=== PATIENT | female | born 1985 | race Caucasian/White ===

== ENCOUNTER → 2018-04-06 14:15 | Outpatient (CLI) | payer MEDICAID, SELFPAY ==
[2018-04-06 17:55] LABS: Chlamydia Trachomatis by PCR Negative (Negative); Neisserai gonorrhoeae by PCR Negative (Negative); Probe Check PASS; Sample Adequacy Control PASS; Specimen Processing Control PASS
[2018-04-13 10:08] LABS: HPV APTIMA, High Risk Negative (Negative)
[2018-04-13 10:09] LABS: HPV Reflexed? NOT INDICATED
== END ==
PROVIDERS: Visit Provider Obstetrics & Gynecology
DX: Z12.4 Encounter for screening for malignant neoplasm of cervix (principal); Z11.3 Encounter for screening for infections with a predominantly sexual mode of transmission
CPT/HCPCS: 87491; 87591; 88175; G0145

== ENCOUNTER 2018-04-23 08:52 | Day surgery (SDC) | payer MEDICAID, SELFPAY ==
[2018-04-18 16:00] LABS: AST(SGOT) 17 U/L (15-37); Alanine Aminotransfer ALT/SGPT 23 U/L (13-56); Albumin, Serum 3.7 g/dL (3.2-5.0); Alkaline Phosphatase 56 U/L (45-117); Globulin 3.9 g/dL (2.2-4.2); Protein, Total 7.6 g/dL (6.4-8.2)
[2018-04-18 16:04] LABS: Hematocrit 39.3 % (37-47); Hemoglobin 12.8 g/dl (12.0-15.0); Mean Corp Hgb Conc 32.6 g/gl (32-36); Mean Corpuscular Hgb 31.1 pg (27.0-32.0); Mean Corpuscular Volume 95.6 fL (81-99); Mean Platelet Vol. 10.1 fl (6.2-12.0); Platelet Count 349 K/mm3 (150-450); Prothrombin Time (Protime)PT. 13.2 SECONDS (11.7-14.9); RBC Distribution Width CV 12.9 % (11.6-14.6); RBC Distribution Width SD 45.5 fl (35.1-43.9); Red Blood Count 4.11 M/mm3 (4.2-5.4); White Blood Count 7.3 K/mm3 (4.4-11.0)
[2018-04-18 16:05] LABS: Partial Thromboplast Time 34.6 Seconds (24.1-36.2)
[2018-04-18 17:11] LABS: Scan Indicated on CBC? Y/N NO
--- NOTE | 2018-04-22 20:22 | PCM.HP.BLA ---
History and Physical Date of Admission: 04/23/18 Surgical History and Physical Clara Cortez, a 32 year old female 3 0 0 0 3, presents for Dx L/S, H/S, D and C and Robbi salpingectomy on April 23, 2018 at 7:30. -- Heavy Menses; Pelvic Pain; Dyspareunia -- Irregular Bleeding which began 6 weeks with 3 periods. Clara claims it started gradually and has been present 6 weeks. It occurs all the time. It is located in the vagina.; It is located in the lower abdomen. Clara characterizes the quality cramping, heavy bleeding. Severity is moderate and not improving; Associated signs and symptoms are dyspareunia; Associated signs and symptoms are pelvic pain. MEDICATIONS HISTORY: Current medications prescribed by our practice are: 1. Flagyl 500 mg tablet, One pill by mouth twice a day for 7 days Patient is also takin. Ibuprofen, PRN 2. tylenol PRN 3. gabapentin 600 mg tablet, 900mg bid and 300mg bid ALLERGIES: NKA, Abilify, Change in behavior, Depakote and Weight gain Infections - Chicken pox Illnesses - Migraines, Fibromyalgia, Accidents - no injuries of consequence Hospitalizations - Childbirth Review of Systems: GENERAL - Denies fever, or chills SKIN - Denies skin changes EYES - Denies visual changes EARS - Denies difficulty hearing NOSE - Denies nasal congestion or bleeding MOUTH - Denies sore throat or difficulty swallowing NECK - Denies pain or swelling RESPIRATORY - Denies shortness of breath or wheezing CARDIOVASCULAR - Denies palpitations or chest pain GASTROINTESTINAL - Denies nausea, vomiting, diarrhea, constipation GENITOURINARY - Denies dysuria, frequency of urination, incontinence of urine MUSCULOSKELETAL - Denies joint or muscle pain NEUROLOGICAL - Denies localized numbness or weakness PSYCHIATRIC - Denies depression or anxiety ENDOCRINE - Denies heat or cold intolerance, weight loss or gain HEMATO-IMMUNOLOGIC - Denies excesive bleeding with cuts SOCIAL HISTORY: Alcohol Use - drinks occasionally Smoking - smokes 1/2 pack per day, advised to quit Diet - no special diet Lifestyle - active lifestyle and single Exercise - minimal Seat Belt Use - always Employer - Unemployed Illicit Drug Use - denies use of street drugs Sexual Activity - multiple in past, single sexual partner at this time Hours Worked - 40 hours per week Children Name(s) - QUAN ARCE Mercedes Control - Prior Tubal FAMILY HISTORY: Family history of DM II and Heart Disease. MENSTRUAL HISTORY: LMP Known?- DefiniteAmount/Duration - 5-7 days, Regularity - Irregular, Frequency - monthly days, LMP - 04/04/18, Age Onset Menarche - 10 PAST PREGNANCIES: Total Pregnancies - 3; Full Term Pregnancies - 3; Premature - 0; Abortions, Induced - 0; Abortions, Spontaneous - 0; Ectopics - 0; Multiple Births - 0; Living Children - 3 SURGICAL HISTORY: 1. 2014 (R) Carpel Tunnel 2. 2016 (R) Shoulder Surgery 3. Tubal 2006 PHYSICAL EXAM BP- 114/78 Sitting, Right arm, regular cuff Weight- 201.96180 lbs Height- 67.25 inch BMI:31.31 CONSTITUTIONAL - NAD, well nourished, and well developed and purple hair; ubiquitous piercings SKIN - No rash, lesions, or ulcers HEENT - Normocephalic, PERRLA, EOMI NECK - No nodes, no nuchal rigidity and thyroid normal size and texture LYMPH NODES - Palpation of lymph nodes in neck and groins within normal limits LUNGS - CTA x2 without wheezes, crackles or rales CARDIAC - Regular rate and rhythm without rubs, murmurs, or gallops ABDOMEN - Without hepatosplenomegaly, distention, masses, rebound, or guarding; normal bowel sounds; no hernias EXTREMITIES - No edema or calf tenderness NEUROLOGICAL - Cranial nerves II-XII grossly intact PSYCHIATRIC - A and O to time, place, person, mood and affect External Genitial Vagina - non-tender without lesions Urethra/Urethral Meatus - non-tender Bladder - mild tenderness over trigone Vagina - vaginal rosado are pink and moist without loss of rugae and no evidence of atropy and blood in vagina Cervix - without cervical motion tenderness and has normal size and features without evident lesions Uterus - multiparous size 6 cm & wt 75-125 g Adnexa - clear without masses or tenderness and increased tenderness both adnexa ASSESSMENT/PLAN: 1. Abnormal Uterine Bleeding, Unspec, Dysmenorrhea, Dyspareunia, Pelvic Pain and Unspec Suspicious for endometriosis given time course and worsening nature. Discussed options and will proceed with Dx L/S and H/S and D and C and Bilateral Salpingectomy. Discussed RBAs and all questions answered.
[2018-04-23] VITALS (7 sets, daily range): BP systolic 107–125; BP diastolic 68–84; PULSE 54–81; RESP 16–18; TEMP 36.3–36.8; O2SAT 92–100; BMI 31.7
--- NOTE | 2018-04-23 10:05 | OP.PCM_ITS ---
Operative Report Date of Procedure: 04/23/18 Surgeon: Tonio Oleary MD, FACOG Family Services Manager: PAPITO Courtney Anesthesia: Beverly Loza CRNA Type of Anesthesia: General Endotracheal Pre-Op Diagnosis: Irregular Menstrual Cycles, Pelvic Pain Postoperative diagnosis: Irregular Menstrual Cycles, Pelvic Pain, Adhesions, Right Hydrosalpinx Procedure: Diagnostic Hysteroscopy, D&C, Bilateral Salpingectomy, RightOophrectomy, Lysis of Adhesions Findings: 8 cm uterus with fallopian tubes showing evidence of prior tubal ligation. 2 x 4 cm right hydrosalpinx. Cystic right ovary. Left fallopian tube adhered to rectosigmoid and rectosigmoid adhered to left pelvic sidewall. Normal left ovary. Normal 8 cm endometrial cavity with no polyps or fibroids visualized. [place] endometrium. No evidence of endometriosis visualized except for adhesions. Cervix protruded to within 2 cm of the vaginal introitus with tenaculum pulldown which should make laparoscopic-assisted vaginal hysterectomy feasible if this were ever needed. Indications: This is a 32 year old patient who has the above diagnosis. When she has pelvic pain it is more prominent on the right than on the left. She understands that there is no guarantee that this procedure will relieve her of the pain that she has been having. All questions were answered to reconsider the patient well-informed. Procedure: The patient was taken to the operating room where after induction of general anesthesia, she was placed in the dorsolithotomy position and prepped and draped in the usual sterile fashion. The bladder was drained of approximately 50 cc of clear yellow urine with a catheter. Anterior cervix was grasped with a tenaculum and dilated to about 4-5 mm. A 3 mm hysteroscope was placed in the uterus of the above findings were noted. Cervix was dilated to about 7-8 mm and uterus was gently curetted removing all contents. In the course of the procedure approximately 100 cc of saline distending media was used and virtually all of this was recovered. Conn cannula was placed and attention was turned toward the laparoscopic portion of the procedure. Approximately 22 cc of half percent ropivacaine was injected subumbilically, suprapubically, and midway between. A 5 mm bladeless trocar was placed subumbilically and intraperitoneal placement confirmed. After CO2 insufflation was complete, a 5 mm bladeless trocar was introduced suprapubically. The above findings were noted. A 5 mm bladeless port was then placed midway between these 2 ports. Each fallopian tube was identified to its fimbriated end and an Enseal device was used to divide the mesosalpinx of each fallopian tube ligating adhesions both sharply and bluntly. The right infundibulopelvic ligaments were ligated as well with the Enseal device and ovary removed with gallstone graspers through a suprapubic 10/12-millimeter bladeless trocar port. The peritoneal cavity and upper abdomen were examined and noted to be normal. Photographs were taken. Laparoscopic instruments with as much CO2 gas as possible were removed and incisions were closed with interrupted 4-0 Monocryl suture. Steri-Strips placed across the incisions. Patient tolerated procedure well was taken to recovery room in satisfactory condition sponge instrument and needle counts were all reportedly correct. Estimated blood loss for the case was minimal. Cefotan 2 g IV was given prior to beginning the operative procedure. Specimens to pathology was endometrial curettings, bilateral fallopian tubes, a nd right ovary.
--- NOTE | 2018-04-23 10:06 | DCINST_ITS ---
Discharge Diet: No Restrictions - Increase fluid intake for the next 48 hours. Discharge Activity: Return to Normal Activity, May not drive while taking narcotic pain medications., May Shower, May Take a Tub Bath May resume sexual activity in: 2 weeks Lifting Restrictions: 25 pounds for 2 weeks Additional Activity Instructions:: Ambulate often the next week after surgery. Nothing in the vagina for 5 days. Call your doctor if your incision/area has: Continuous Slow Oozing, Sudden Increased Bleeding, Increased Pain/ Swelling, Increased Redness, Foul Smelling Discharge Call your doctor if you observe: Fever of 101 or Higher, Inability to urinate, Inability to have a bowel movement, Using more than one pad per hour Allergies/Adverse Reactions: Allergies aripiprazole [From Abili8eighty Wear] Adverse Reaction (Verified 04/16/18 13:08) VERY ANGRY Medications to take at Discharge Gabapentin [Neurontin] 300 mg PO LUNCH 11/24/16 Gabapentin [Neurontin] 900 mg PO BID 11/24/16 Oxycodone [Oxyir] 5 mg PO Q6H PRN PRN 7 Days #10 tab 04/23/18 The following prescriptions were given: Oxycodone [Oxyir] 5 mg PO Q6H PRN PRN 7 Days #10 tab PRN Reason: Severe Pain (-05/02) Primary Care Physician: Luan Lawrence III, MD [Primary Care Provider] - Test Results: Test results from this visit will be discussed in further detail at your follow- up appointment, if applicable. Please Follow Up With: Tonio Oleary MD - [phone] When: 2-3 weeks
--- NOTE | 2018-04-23 10:35 | EMB_PTH ---
PATIENT: GEOVANNA CHRISTINA LOC: [facility] U#:[id number] AGE/SX: 32/F ROOM: RE04/23/[address]: Dr. Tonio Oleary MD : [id number] BED: DIS: 04/23/2018 SPEC #: [id number] RECD: 04/23/18 12:36 STATUS: ASHLI REAle #: [id number] JOSLYN: 04/23/18 10:[address]: Tonio Oleary DEPT: SURGICAL PATHOLOGY RECD BY: Rick Perez ENTERED: 04/23/18 13:00 SP TYPE: ENDOM BX/C [place] DR: Dr. Luan Lawrence III, MD Tissues: A - Endometrium, NOS B - Fallopian tube C - Fallopian tube Procedures: Surgery Specimen Level II Surgery Specimen Level IV HEADER OPERATION: Diagnostic laparoscopy, laparoscopic right salpingo-oophorectomy PRE-OP DIAGNOSIS: Pelvic pain TISSUE SUBMITTED: A - Endometrial curettings, B - Left fallopian tube, C - Right fallopian tube and ovary MICROSCOPIC DIAGNOSIS A. Endometrial curettings: Disordered proliferative endometrium. Mild chronic endometritis. B. Left fallopian tube, salpingectomy: Fallopian tube with focal mild chronic inflammation. C. Right fallopian tube and ovary: Fallopian tube - no pathologic diagnosis. Ovary - physiologic follicular and corpus luteum cysts. SJ:randy 04/24/18 MICROSCOPIC DESCRIPTION Slides are reviewed. GROSS DESCRIPTION A - Received in fixative is one container labeled with the patient's name and designated endometrial curettings. The specimen consists of multiple irregular fragments of owens-pink soft tissue that in aggregate measure 5 x 3 x 0.3 cm. The entire specimen is submitted in two cassettes. B - Received in fixative is one container labeled with the patient's name and designated left fallopian tube. The specimen consists of a fallopian tube including fimbrial end measuring 4 cm in length and up to 0.5 cm in diameter. A detached fragment of fallopian tube is also noted measuring 1 cm in length and 0.6 cm in diameter. Sections do not reveal any mass lesion. Quality Assurance Coach sections are submitted in one cassette. C - Received in fixative is one container labeled with the patient's name and designated right fallopian tube and ovary. The specimen consists of a fallopian tube and ovary. The fallopian tube measures 4 cm in length and up to 0.6 cm in diameter. The fimbrial end is identified. Sections reveal unremarkable cut surfaces. Also present in the container is a detached piece of owens soft tissue measuring 0.5 x 0.5 x 0.2 cm. This piece is inked black. Also present in the container is an ovary in two pieces measuring in aggregate 4 x 3 x 2 cm. Sections reveal a corpus luteum which is disrupted partially. A few cysts are also noted filled with clear fluid. Quality Assurance Coach sections are submitted in four cassettes as follows: 1 - fallopian tube and detached piece of owens-pink soft tissue, 2-4 - ovary. / SJ:randy 04/23/18 TC:3 CPT: 65744 x3
[2018-04-23] MEDS: Ropivacaine 0.5% 30 ML Vial (11:03)
[2018-04-23] MEDS: oxyCODONE 5 MG Tablet PO (12:53)
== END 2018-04-23 13:35 | disposition home or self-care (01) ==
LOC: SDC 08:53 → AC 08:54
PROVIDERS: Family Provider Family Medicine; PCP Family Medicine; Referring Provider Obstetrics & Gynecology; Visit Provider Obstetrics & Gynecology
PROC: (CPT 58661; principal; 2018-04-23 10:20)
PROC: 0UDB8ZZ Extraction of Endometrium, Via Natural or Artificial Opening Endoscopic (ICD-10-PCS; CPT 58558; 2018-04-23 10:20)
DX: N94.6 Dysmenorrhea, unspecified (principal); N70.11 Chronic salpingitis; N71.1 Chronic inflammatory disease of uterus; N94.10 Unspecified dyspareunia; N83.11 Corpus luteum cyst of right ovary; M79.7 Fibromyalgia; R10.2 Pelvic and perineal pain; N93.9 Abnormal uterine and vaginal bleeding, unspecified; F17.210 Nicotine dependence, cigarettes, uncomplicated; Z98.51 Tubal ligation status
CPT/HCPCS: 00840; 58661; 36415; 80076; 85027; 85610; 85730; 86850; 86900; 88302; 88305; J7120; C1760; J2405

== ENCOUNTER 2018-07-11 18:33 | Emergency (ER) | payer MEDICAID, SELFPAY ==
[2018-07-11 18:34] VITALS: BP 134/86; PULSE 95; RESP 16; TEMP 36.3; O2SAT 100; BMI 31.7
--- NOTE | 2018-07-11 18:45 | RAD_ITS ---
STUDY: X-RAY - LEFT FOOT CLINICAL: Female, 33 years old. Trauma to fourth digit TECHNIQUE: 3 view(s) of the foot. COMPARISON: None. FINDINGS: Normal talus, calcaneus, and tarsal bones. Normal visualized subtalar, talonavicular, calcaneocuboid, tarsal and tarsometatarsal articulations. Normal metatarsi. Normal metatarsophalangeal joint of the great toe. Normal tibial and fibular sesamoid bones. Normal interphalangeal joint of the great toe. Normal phalanges of the great toe. Normal second through fifth metatarsophalangeal joints. Normal interphalangeal joints and phalanges of the lesser toes. The soft tissue structures are unremarkable. RAD/Foot min 3 Views IMPRESSION: Normal x-ray examination of the foot. Electronically Signed: Yogi Dickey MD at 19:21 EST , Service support ,
[2018-07-11 19:42] VITALS: BP 133/101; PULSE 82; RESP 17; O2SAT 97
--- NOTE | 2018-07-11 20:53 | DCINST.ED_ITS ---
ED Disposition - Plan for ED Patient: Chief Complaint: Lower Extremity Injury Instructions: ED Contusion Foot Prescriptions: Hydrocodone Bitart/Apap 5-325 [[place] 5MG-325MG] 1 tablet PO Q6H PRN PRN 3 Days #6 tablet PRN Reason: Pain Referrals: Luan Lawrence III, MD [Primary Care Provider] -
--- NOTE | 2018-07-11 20:55 | ED.VISSUMM ---
- ER Visit Summary Date of Service: 07/11/18 Chief Complaint: Left foot pain History of Present Illness: The patient is a 33 F presenting with left foot pain. Patient states last night she accidentally ran her left foot into a vacuum bakeshop cleaner. She has had persistent pain since that time. She has tried ibuprofen at home. She has painful ambulation. She denies other complaints. Physical Examination: Vitals are stable. Patient is afebrile. Alert no acute distress. HEENT exam is unremarkable. Neck is supple. Lungs are clear and equal bilaterally. Heart is regular rate and rhythm. Extremities left midfoot and fourth toe ecchymosis and tenderness, normal pulses. Skin is warm and dry. No focal neurologic deficit. Remainder of exam is unremarkable. Emergency Department Course and Treatment: X-ray of the left foot shows no acute process. Patient given postop shoe. She declined crutches. She is advised to continue ibuprofen, ice, elevation. She is given Ronan #6. She is advised to follow-up with primary care physician. Advised return to ED with worsening complaints. Disposition: Discharge home Impression: Left foot contusion This note was generated with [employer] dictation software. It may contain incorrect words, spelling, and punctuation that were not noted in review of the chart prior to signing ED Disposition - Plan for ED Patient: Chief Complaint: Lower Extremity Injury Instructions: ED Contusion Foot Prescriptions: Hydrocodone Bitart/Apap 5-325 [Ronan 5MG-325MG] 1 tablet PO Q6H PRN PRN 3 Days #6 tablet PRN Reason: Pain Referrals: Luan Lawrence III, MD [Primary Care Provider] -
--- NOTE | 2018-07-11 20:58 | ED.DCSUM_ITS ---
- ER Visit Summary Date of Service: 07/11/18 Chief Complaint: Left foot pain History of Present Illness: The patient is a 33 F presenting with left foot pain. Patient states last night she accidentally ran her left foot into a vacuum ware cleaner. She has had persistent pain since that time. She has tried ibu profen at home. She has painful ambulation. She denies other complaints. Physical Examination: Vitals are stable. Patient is afebrile. Alert no acute distress. HEENT exam is unremarkable. Neck is supple. Lungs are clear and equal bilaterally. Heart is regular rate and rhythm. Extremities left midfoot and fourth toe ecchymosis and tenderness, normal pulses. Skin is warm and dry. No focal neurologic deficit. Remainder of exam is unremarkable. Emergency Department Course and Treatment: X-ray of the left foot shows no acute process. Patient given postop shoe. She declined crutches. She is advised to continue ibuprofen, ice, elevation. She is given Crump #6. She is advised to follow-up with primary care physician. Advised return to ED with worsening complaints. Disposition: Discharge home Impression: Left foot contusion This note was generated with [employer] dictation software. It may contain incorrect words, spelling, and punctuation that were not noted in review of the chart prior to signing ED Disposition - Plan for ED Patient: Chief Complaint: Lower Extremity Injury Instructions: ED Contusion Foot Prescriptions: Hydrocodone Bitart/Apap 5-325 [[place] 5MG-325MG] 1 tablet PO Q6H PRN PRN 3 Days #6 tablet PRN Reason: Pain Referrals: Luan Lawrence III, MD [Primary Care Provider] -
== END 2018-07-11 21:21 | disposition home or self-care (01) ==
LOC: ED 21:01
PROVIDERS: Emergency Provider Emergency Medicine; Family Provider Family Medicine; PCP Family Medicine
DX: S90.32XA Contusion of left foot, initial encounter (principal); W22.8XXA Striking against or struck by other objects, initial encounter; Y93.9 Activity, unspecified; Y92.89 Other specified places as the place of occurrence of the external cause; Y99.8 Other external cause status; M79.7 Fibromyalgia; Z72.0 Tobacco use
CPT/HCPCS: 73630; 99283

== ENCOUNTER 2020-03-04 14:49 | Emergency (ER) | payer MEDICAID, SELFPAY ==
[2020-03-02 13:38] VITALS: BMI 31.7
[2020-03-04 14:50] VITALS: BP 130/90; PULSE 98; RESP 16; TEMP 37.1; O2SAT 98; BMI 32.5
--- NOTE | 2020-03-04 15:09 | ED.VIS.GEN ---
History of Present Illness Chief Complaint: Laceration Informant: Patient Narrative: Patient is a 34-year-old female with a history of anxiety/depression who presents to the emergency department for laceration to left pinky finger. 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 She just put a new razor in. Whenever she cut the box it slipped off and hit her left pinky finger. She states that there was blood that squirted out. She immediately put multiple Band-Aids on it. The fingertip has started to feel numb to her. She has having pain at the laceration site though. Upon arrival to the ED bleeding has been controlled. She is not on any anticoagulation medications. She denies any other injury. Laceration is 1.1 cm long and linear. She is able to move the finger without difficulty. Patient is not sure the last time she had a tetanus shot. Past Medical History - Allergies and Home Meds Allergies/Adverse Reactions: Allergies aripiprazole [From Abilify] Adverse Reaction (Verified 03/04/20 14:50) VERY ANGRY Primary Care Physician: Luan Lawrence III, MD [Primary Care Provider] - 7 Days for suture removal Prior records reviewed: Yes Past Medical History: - - Anxiety/depression Smoking Status: Current every day smoker Drugs: None Review of Systems All systems negative except as indicated General: Denies: Chills, Fever Eyes: Denies: Visual changes - bilaterally Cardiovascular: Denies: Chest pain Respiratory: Denies: Dyspnea Gastrointestinal: Denies: Abdominal pain Musculoskeletal: Reports: Extremity Pain. Denies: Neck pain, Back pain, Swelling Skin: Reports: Wounds Neurological: Reports: Numbness - Tip of left pinky. Denies: Weakness Hematologic: Denies: Easy bruising, Easy bleeding Physical Exam Vital Signs/Narrative: Vital Signs Temp Pulse Resp BP Pulse Ox 03/04/20 14:50 98.7 F 98 16 130/90 H 98 Inital Vital Signs reviewed: Yes General: Well nourished, No Acute Distress Head: Normocephalic, Atraumatic Eyes: Perrl, EOMI ENT: Moist mucous membranes Neck: Supple, Nontender Cardiovascular: Regular rate Respiratory: No distress Abdomen: Soft, Nondistended Extremities: - - 1.1 cm linear laceration that is perpendicular to finger on the palmar aspect between the MCP and PIP. Good capillary refill. States that it does feel slightly numb to palpation of the tip of the finger. Otherwise good movement. No foreign body appreciated. Skin: Normal color, No rash Neurological: Alert, Oriented x3 Psychological: Normal affect, Normal Mood Diagnostic/Tx/Re-eval - Medical Decision Making Patient presents to the emergency department for laceration to left pinky finger. This was cleaned and repaired using sutures. To have the sutures removed in 7 to 10 days. She is updated on tetanus. She is to monitor for evidence of infection. She is to follow-up with her PCP for this. Warning signs and symptoms for which to return to the emergency department reviewed. She understands and is agreeable with this plan. Procedures Procedure(s): Laceration repair: Informed consent was obtained before procedure started. The appropriate timeout was taken. The area was prepped and draped in the usual sterile fashion. The wound was copiously irrigated. 2 5-0 Ethilon simple interrupted sutures were placed. A dressing/antibiotic ointment was applied to the area and anticipatory guidance, as well as standard post procedure care, was explained. Return precautions are given. The patient tolerated the procedure well without any apparent complications. Follow-up visit set for suture removal and evaluation of laceration. ED Disposition - Plan for ED Patient: Disposition: Home or Assisted Living Diagnosis: Finger laceration Instructions: ED Laceration Hand Referrals: Luan Lawrence III, MD [Primary Care Provider] - 7 Days for suture removal
[2020-03-04] MEDS: Diphth,Pertuss(Acell),Tet Vac 0.5 ML Vial IM (15:48)
[2020-03-04 16:07] VITALS: BP 119/80; PULSE 83; RESP 16; O2SAT 100
--- NOTE | 2020-03-04 16:07 | ED.RN ---
DISCHARGE INSTRUCTIONS GIVEN TO AND REVIEWED WITH PATIENT, PATIENT DENIES QUESTIONS OR CONCERNS AND VOICES UNDERSTANDING OF DISCHARGE INSTRUCTIONS. PT AMBULATES OUT OF ROOM WITHOUT DIFFICULTY.
== END 2020-03-04 16:08 | disposition home or self-care (01) ==
LOC: ED 15:46
PROVIDERS: Emergency Provider Emergency Medicine; PCP Family Medicine
DX: S61.217A Laceration without foreign body of left little finger without damage to nail, initial encounter (principal); F17.200 Nicotine dependence, unspecified, uncomplicated; F32.9 Major depressive disorder, single episode, unspecified; F41.9 Anxiety disorder, unspecified; Z79.899 Other long term (current) drug therapy; Z23 Encounter for immunization; W26.0XXA Contact with knife, initial encounter; Y93.89 Activity, other specified; Y92.89 Other specified places as the place of occurrence of the external cause; Y99.0 Civilian activity done for income or pay
CPT/HCPCS: 12001; 90471; 90715; 99282

== ENCOUNTER 2020-03-23 08:21 | Day surgery (SDC) | payer MEDICAID, SELFPAY ==
[2020-03-18 14:13] LABS: Hematocrit 36.8 % (37-47); Mean Corp Hgb Conc 32.6 g/dL (32-36); Mean Corpuscular Hgb 31.3 pg (27.0-32.0); Mean Corpuscular Volume 95.8 fL (81-99); Mean Platelet Vol. 9.4 fl (6.2-12.0); Platelet Count 400 K/mm3 (150-450); RBC Distribution Width CV 12.5 % (11.6-14.6); RBC Distribution Width SD 43.5 fl (35.1-43.9); Red Blood Count 3.84 M/mm3 (4.2-5.4); White Blood Count 9.9 K/mm3 (4.4-11.0)
[2020-03-18 14:32] LABS: International Normalized Ratio 1.1; Prothrombin Time (Protime)PT. 13.6 SECONDS (11.7-14.9)
[2020-03-18 14:33] LABS: Partial Thromboplast Time 31.2 Seconds (24.1-36.2)
[2020-03-18 14:56] LABS: Creatinine, Serum 0.92 mg/dL (0.55-1.02); EST Glomerular Filtration Rate 73 mL/min (>60); Est Glom Filt Rate - Afr Amer 88 mL/min (>60); Thyroid Stim Hormone (TSH) < 0.01 uIU/mL (0.358-3.74)
[2020-03-19 11:13] LABS: Free T3 5.5 pg/mL (2.18-3.98)
--- NOTE | 2020-03-20 10:52 | PCM.HP.BLA ---
History and Physical Date of Admission: 03/23/20 Surgical History and Physical Clara Cortez, a 34 year old female 3 0 0 0 3, presents for LAVH/LSO/Appy on March 23, 2020 at 11:00. -- Chronic RLQ Pain; Recurrence Heavy Menses; Severe Dysmenorrhea -- Eleno Kendall reports she is getting really tired of the bleeding, and she thinks her Endometriosis is getting worse. Prior Dx Laparoscopy, Bilateral Salpingectomy, right oophrectomy, and Hysteroscopy D & C with ANGY at [facility] on 04-23-18. Findings: 8 cm uterus with fallopian tubes showing evidence of prior tubal ligation. 2 x 4 cm right hydrosalpinx. Cystic right ovary. Left fallopian tube adhered to rectosigmoid and rectosigmoid adhered to left pelvic sidewall. Normal left ovary. Normal 8 cm endometrial cavity with no polyps or fibroids visualized. [place] endometrium. No evidence of endometriosis visualized except for adhesions. Cervix protruded to within 2 cm of the vaginal introitus with tenaculum pulldown which should make laparoscopic-assisted vaginal hysterectomy feasible if this were ever needed. -- Mensses now lasting 5 to 7 days and heavy 3-4 of those days and a lot of cramping again. Wants Hysterectomy as she admits I just can't keep doing this, not again, I have way too much pain with the bleeding. Bleeding returned and worsened with pain; it has been present and worsening each month. It occurs with menses. It is located in the right low pelvis. Clara characterizes it to be upwards to the back. Clara characterizes the quality heavy bleeding and cramps. Severity is moderate and not improving; Additional comments are: still has appendix and left ovary; adhesive dz seen at L/S. MEDICATIONS HISTORY: Patient is also takin. gabapentin 600 mg tablet, 900mg total tid 2. Adderall 20 mg tablet, One pill by mouth once a day 3. hydroxyzine HCl 10 mg tablet, One pill by mouth four times a day prn 4. levothyroxine 25 mcg tablet, One pill by mouth once a day 5. lithium carbonate 300 mg capsule, One pill by mouth three times a day ALLERGIES: NKA, Abilify, Change in behavior, Depakote and Weight gain Infections - Chicken pox Illnesses - Migraines, Fibromyalgia, Accidents - no injuries of consequence Hospitalizations - Childbirth Review of Systems: GENERAL - Denies fever, or chills SKIN - Denies skin changes EYES - Denies visual changes EARS - Denies difficulty hearing NOSE - Denies nasal congestion or bleeding MOUTH - Denies sore throat or difficulty swallowing NECK - Denies pain or swelling RESPIRATORY - Denies shortness of breath or wheezing CARDIOVASCULAR - Denies palpitations or chest pain GASTROINTESTINAL - Denies nausea, vomiting, diarrhea, constipation GENITOURINARY - Denies dysuria, frequency of urination, incontinence of urine MUSCULOSKELETAL - Denies joint or muscle pain NEUROLOGICAL - Denies localized numbness or weakness PSYCHIATRIC - Denies depression or anxiety ENDOCRINE - Denies heat or cold intolerance, weight loss or gain HEMATO-IMMUNOLOGIC - Denies excesive bleeding with cuts SOCIAL HISTORY: Alcohol Use - drinks occasionally Smoking - smokes 1/2 pack per day, advised to quit Diet - no special diet Lifestyle - active lifestyle and single Exercise - minimal Seat Belt Use - always Employer - [employer]) Illicit Drug Use - denies use of street drugs Sexual Activity - multiple in past, single sexual partner at this time Children Name(s) - QUAN ARCE Mercedes Control - Prior Tubal FAMILY HISTORY: Family history of DM II and Heart Disease. MENSTRUAL HISTORY: LMP Known?- DefiniteAmount/Duration - 5-7 days, Regularity - Regular, Frequency - monthly days, LMP - 03/02/20, Age Onset Menarche - 10 PAST PREGNANCIES: Total Pregnancies - 3; Full Term Pregnancies - 3; Premature - 0; Abortions, Induced - 0; Abortions, Spontaneous - 0; Ectopics - 0; Multiple Births - 0; Living Children - 3 SURGICAL HISTORY: 1. 2014 (R) Carpel Tunnel 2. 2017 (R) Shoulder Surgery 3. 04/23/2018 hysteroscopy, D and C, Bilateral salpingectomy, rt oophorectomy, lysis of adhesions ; Tonio Oleary M.D. - 4. Tubal 2006 PHYSICAL EXAM BP- 110/78 Sitting, Right arm, regular cuff Weight- 201.88502 lbs Height- 67.25 inch BMI:31.31 CONSTITUTIONAL - NAD, well nourished, and well developed and purple hair; ubiquitous piercings SKIN - No rash, lesions, or ulcers HEENT - Normocephalic, PERRLA, EOMI NECK - No nodes, no nuchal rigidity and thyroid normal size and texture LYMPH NODES - Palpation of lymph nodes in neck and groins within normal limits LUNGS - CTA x2 without wheezes, crackles or rales CARDIAC - Regular rate and rhythm without rubs, murmurs, or gallops ABDOMEN - Without hepatosplenomegaly, distention, masses, rebound, or guarding; normal bowel sounds; no hernias EXTREMITIES - No edema or calf tenderness NEUROLOGICAL - Cranial nerves II-XII grossly intact PSYCHIATRIC - A and O to time, place, person, mood and affect External Genitial Vagina - non-tender without lesions Urethra/Urethral Meatus - non-tender Bladder - mild tenderness over trigone Vagina - vaginal rosado are pink and moist without loss of rugae and no evidence of atropy and blood in vagina Cervix - without cervical motion tenderness and has normal size and features without evident lesions Uterus - multiparous size 6 cm & wt 75-125 g Adnexa - increased tenderness both adnexa ASSESSMENT/PLAN: 1. Abdom Pain R Lower Quad, Dysmenorrhea and Premenopause Menorrhagia All severe and chronic. Recurred after L/S and D and C last April. Discussed options for treatment and pt desires proceeding with LAVH/LSO/APPY. Discussed RBAs including possibility of not helping pain and need for HRT. All questions answered.
[2020-03-23] VITALS (11 sets, daily range): BP systolic 104–141; BP diastolic 33–111; PULSE 64–83; RESP 16–18; TEMP 36–37.3; O2SAT 96–100; BMI 31.0
[2020-03-23] MEDS: Lactated Ringers 1,000 ML 100 ML IV ×2 (09:08→11:00)
--- NOTE | 2020-03-23 10:30 | APP_PTH ---
PATIENT: GEOVANNA CHRISTINA LOC: [facility] U#:[id number] AGE/SX: 34/F ROOM: RE03/23/[address]: Dr. Tonio Oleary MD : 1985 BED: DIS: 03/24/2020 SPEC #: [id number] RECD: 03/23/20 12:41 STATUS: ASHLI REAle #: [id number] JOSLYN: 03/23/20 10:[address]: Tonio Oleary DEPT: SURGICAL PATHOLOGY RECD BY: Rick Perez ENTERED: 03/23/20 13:51 SP TYPE: APPENDIX OTHR DR: MD Dr. Luan Mar III, MD Tissues: A - Appendix, NOS B - Uterus, NOS Procedures: Surgery Specimen Level III Surgery Specimen Level V HEADER OPERATION: Laparoscopic appendectomy PRE-OP DIAGNOSIS: Right lower quadrant abdomen pain; dysmenorrhea, premenopause menorrhagia TISSUE SUBMITTED: A - Appendix, B - Uterus, left ovary MICROSCOPIC DIAGNOSIS A. Appendix, appendectomy: No pathologic change. No evidence of appendicitis. B. Uterus, hysterectomy: Cervix - squamous metaplasia and chronic inflammation. Endometrium - secretory endometrium. Myometrium - focal superficial adenomyosis. Left ovary - follicular and hemorrhagic corpus luteal cyst. AM:randy 03/24/20 MICROSCOPIC DESCRIPTION Slides are reviewed. GROSS DESCRIPTION A - Received in fixative is one container labeled with the patient's name and designated appendix. The specimen consists of a vermiform appendix measuring 8.5 cm in length and up to 0.7 cm in diameter. No gross perforations are evident. Serial sections reveal a patent lumen. Assistant Manager/Embalmer sections are submitted in one cassette. B - Received in fixative is one container labeled with the patient's name and designated uterus. The specimen consists of a uterus with attached cervix and attached left ovary. The uterus with cervix measures 10 x 5.5 x 4.5 cm and weighs 99 gm. The ectocervix is grossly unremarkable. The cervical os is round in contour. The endocervical canal measures 3.8 cm in length and is grossly unremarkable. The triangular endometrial cavity measures 4.6 x 3.8 cm. The velvety, light owens endometrium measures up to 0.3 cm in thickness. The myometrium measures 2.5 cm in average thickness and is free of mass lesions. The smooth, glistening cystic ovary measures 4.5 x 3 x 2.5 cm and weighs 15 gm. The external surface is smooth and glistening. Serial sections of the ovary reveal multiple cysts ranging in size from 0.3 to 2?cm containing clear to bloody fluid. Assistant Manager/Embalmer sections are submitted in ten cassettes as follows: 1?- anterior cervix, 2 - posterior cervix, 3 & 4 - anterior uterine wall, 5 & 6 - posterior uterine wall, 710??ovary. / AM:randy 03/23/20 TC:5 CPT: 29870, 96066
--- NOTE | 2020-03-23 12:00 | PCM.HP.BLA ---
History and Physical Date of Admission: 03/23/20 [facility] [address] [place] [address] OFFICE VISIT Date of Service: 03/02/20 MR#: [id number] Acct: [id number] Name: GEOVANNA CHRISTINA Rep #: [id number] : 1985 Provider: Dr. Loi Huerta MD Age/Sex: 34/F Location: [facility] Status: Signed Intake Vital Signs 03/02/20 BMI 31.7 03/02/20 Height 5 ft 7 in 03/02/20 Weight: 207 lb 03/02/20 BMI 32.4 03/02/20 BP 119/85 H 03/02/20 Blood Pressure Location Rt brachial 03/02/20 Position Sitting 03/02/20 Respiration 18 03/02/20 Temp 97.4 F L 03/02/20 Temp Source Temporal Intake Visit Reasons: Consult Surgery APPY 03/23 Bladder Cleaner Required: No Is patient in pain?: Yes (right lower quadrant abdomen) Allergies aripiprazole [From Abilify] Adverse Reaction (Verified 03/02/20 13:35) VERY ANGRY Medications Gabapentin [Neurontin] 300 mg PO BID 11/24/16 [History Confirmed 07/11/18] Gabapentin [Neurontin] 900 mg PO BID 11/24/16 [History Confirmed 07/11/18] [place] Carbonate [Lithobid] 300 mg PO BID 07/11/18 [History Confirmed 07/11/18] dextroamphetamine-amphetamine 20 mg tablet 20 mg PO DAILY 03/02/20 [History Confirmed 03/02/20] hydroxyzine HCl 10 mg tablet 10 mg PO TID-QID PRN 03/02/20 [History Confirmed 03/02/20] levothyroxine 25 mcg capsule 25 mcg PO DAILY 03/02/20 [History] [facility] Medical History ADD (attention deficit disorder) (Acute) Dysmenorrhea (Acute) Hypothyroid (Acute) Right lower quadrant abdominal pain (Acute) Surgical History S/P arthroscopy of right shoulder (Acute) S/P carpal tunnel release (Acute) S/P partial hysterectomy (Acute) S/P tubal ligation (Acute) Social History (Updated 03/03/20 @ 08:[address] Loi Huerta MD) Smoking Status: Current every day smoker alcohol intake: current HPI HPI HPI: GEOVANNA CHRISTINA, is a 34 F who presents to the office today for HPI HPI HPI: GEOVANNA CHRISTINA, is a 34 F who presents to the office today for Evaluation for an incidental appendectomy. Patient will be undergoing a laparoscopic assisted vaginal hysterectomy for dysmenorrhea endometriosis. Patient has had her right ovary removed in the remote past that she is still having significant amount of dysmenorrhea pelvic pain particularly in the right lower quadrant. ROS General General: No weight change, appetite, fatigue, colon cancer, breast cancer or weakness HEENT HEENT: No difficulty swallowing, eye injury, eye surgery, swollen glands or hoarseness Endo Endocrine: Yes thyroid disease; no diabetes mellitus, thyroid cancer, Hair loss, heat intolerance or cold intolerance Skin Skin: No rash or changing moles Breast Breast: No left breast lump, right breast lump, nipple discharge, breast pain, abnormal mammogram, abnormal US or breast enlargement Musc Musculoskeletal: Yes back problems and arthritis; no rheumatoid arthritis, gout or joint pain Cardio Cardiovascular: No murmur, pacemaker, heart disease, atrial fibrillation, high blood pressure, heart attack, heart stent, palpitations, shortness of breat with exertion or chest pain Psych Psychiatric: Yes depression and anxiety; no hearing voices Resp Respiratory: No shortness of breath, No sleep apnea, No cough, No COPD, No asthma, No emphysema, No wheezing Gastro Gastrointestinal: No abdominal pain, No nausea or vomiting, No diarrhea, No constipation, No blood in stool, No acid reflux, No hemorrhoids, No ulcers, No gallbladder problem, No black,tarry stools Favian Hematologic: No blood thinners, No blood disorders, No bleeding, No anemia, No blood clots Neuro Neurologic: No system reviewed and no additional complaints, except as docu, No as per HPI, No abnormal walking, No abnormal hearing, No abnormal movements, No abnormal speech, No behavioral changes, No burning sensations, No confusion, No seizure-like activity, No unsteadiness, No dizziness, No localized weakness, No frequent falls, No headache(s), No lack of coordination, No loss of vision, No memory loss, No numbness, No other visual disturbances, No radiating pain, No restless legs, No sensory deficit, No fainting, No tingling, No tremor(s), No weakness, No other Exam Const General: no acute distress, well developed, well hydrated Orientation: oriented to person, oriented to place, oriented to time [facility] Head: normocephalic, atraumatic Ears: external ears normal Mouth: moist mucous membranes Eyes Sclera: sclerae normal Pupils: normal by confrontation Neck Neck: no lymphadenopathy noted Neck mass: No Thyroid: thyroid normal, symmetrical Chest Chest palpation & inspection: normal inspection of the chest Breast Palpation: No nipple discharge Resp Effort & Inspection: normal respiratory effort Auscultation: clear to auscultation bilaterally Percussion: percussion normal Cardio Rate: regular rate Rhythm: regular rhythm Heart Sounds: no murmurs GI Palpation: soft, no hepatosplenomegaly, no masses, nontender Rectal Exam: other Other: Rectal exam deferred. Extrem General: normal to inspection, no clubbing, cyanosis or edema Assessment & Plan Problems 1. Right lower quadrant abdominal pain R10.31 2. Dysmenorrhea N94.6 3. Premenopausal menorrhagia N92.4 Plan I will be doing an incidental laparoscopic appendectomy on the patient. I have counseled the patient as to the risks of the procedure, including but not limited to: infection, bleeding, injury to any blood vessels/nerves, injury to any bowel/bladder, injury to any intraabdominal organs such as the liver/spleen, perforation of the GI tract, intraabdominal abscess/bleeding, incisional hernias, injury to the common bile duct/biliary ducts, injury to the spermatic cord/vessels/testicles, recurrence of hernia(s), complications of anesthesia, etc. The patient verbalizes understanding. Coding Level of Care Code Off vis,new,level 3 Diagnoses Right lower quadrant abdominal pain R10.31 Dysmenorrhea N94.6 Premenopausal menorrhagia N92.4 03/03/20 0843 <Electronically signed by Loi Huerta MD> Date Loi Beckford Signature: Date (if applicable) CC: Dr. Luan Lawrence III, MD; Dr. Tonio Oleary MD ~ I have re-examined the patient. There are no clinical changes since date of exam.
--- NOTE | 2020-03-23 12:00 | PCM.OPRPT ---
Problem List (1) Right lower quadrant abdominal pain Status: Acute (2) History of endometriosis Status: Acute Report of Operation Date of Procedure: 03/23/20 Pre-Operative Diagnosis: 1. Right lower quadrant abdominal pain. 2. History of endometriosis Post-Operative Diagnosis: Same Surgery/Procedure Performed:: Laparoscopic appendectomy Type of Anesthesia:: General Specimen's removed: Appendix Estimated Blood Loss (mL): < 25 cc Description of Procedure: Patient was in the operating room. Dr. Oleary had gained access to the abdomen with a #5 trocar at the umbilicus and a 10/12 trocar at the suprapubic area. Had the patient then placed in the headdown position I placed a left lower quadrant #5 trocar. I ran the small bowel no Meckel's diverticulum was identified. Patient was noted to have a quite long appendix that was somewhat retrocecal. I grabbed the appendix with the nonpenetrating grasper came down on the mesoappendix with the Enseal device. I transected the base of the appendix with a 45 linear cutter and placed a specimen a specimen bag and delivered through the 1012 trocar without difficulty. I inspected the base the appendix good pneumostasis was noted no bleeding was identified mesoappendix good pneumostasis and no bleeding was identified. Dr. Oleary will dictate the rest of the case he will close. For my part of the case the patient had less than 100 cc of IV fluids And less than 25 cc of blood loss. - Admit VTE Documentation VTE Present on Admission: No VTE Mechan Device Prophylaxis: SCD's VTE Pharm Prophylaxis ordered?: No Reason prophylaxis not ordered:: Treatment Not Indicated [id number]: 50045 Laparoscopy appendectomy
[2020-03-23] MEDS: Ropivacaine 0.5% 30 ML Vial (12:30)
--- NOTE | 2020-03-23 12:48 | PCM.OPRPT ---
Report of Operation Date of Procedure: 03/23/20 Pre-Operative Diagnosis: Chronic RLQ Pain; Recurrence Heavy Menses; Severe Dysmenorrhea; Recurrent Endometriosis Post-Operative Diagnosis: Chronic RLQ Pain; Recurrence Heavy Menses; Severe Dysmenorrhea; Recurrent Endometriosis Surgery/Procedure Performed:: Laparoscopic-Assisted Vaginal Hysterectomy, Left Oophorectomy, Appendectomy Description of Surgical Findings:: 10 cm uterus with absent right fallopian tube and ovary, left fallopian tube. Normal-appearing appendix. dialysis tech: Ziyad Painting dialysis tech: Manuel Stallings Type of Anesthesia:: General - Endotracheal Anesthesiologist: Danny Pederson Specimen's removed: Uterus, left ovary, appendix Drains: Olivo to straight drain Estimated Blood Loss (mL): 100 cc Fluids Replaced: Crystalloid Description of Procedure: Surgeon: Tonio Oleary MD, FACOG Co-Surgeon: Rahul Huerta FACS??appendectomy dictated separately Indications: This is a 34-year-old patient who is been having problems with chronic right lower quadrant pain, severe dysmenorrhea, and recurrent menorrhagia. Her pain is believed due to recurrent endometriosis. Conservative measures have not been helpful. Given this the patient desires that we proceed the above procedure. She has been counseled regarding the risk and indications of this procedure including the possibility of bleeding, infection, and injury to surrounding structures such as bowel bladder. She understands that since both ovaries are being removed that she will need to be on hormone replacement therapy for an indefinite period of time. She also understands that this may not relieve her of the pain that she has been having. All questions were answered. Procedure: Patient was taken to the operating room where after induction of general anesthesia she was placed in the dorsal lithotomy position and prepped and draped in the usual sterile fashion. A Olivo catheter was placed. Anterior cervix was grasped with a tenaculum and anterior cervix circumscribed with cautery on a setting of 35 W coagulation. Anterior vaginal mucosa was undermined and a 4 x 4 raytec sponge was placed to identify the peritoneal reflection of the bladder intraperitoneally. Conn cannula was placed and attention was turned towards the laparoscopic portion of the procedure. Approximately 20 cc of half percent ropivacaine was injected subumbilically, suprapubically, and in the left lateral area of the abdomen approximately 11 cm left of the subumbilical incision. A 5 mm bladeless trocar was introduced subumbilically and intraperitoneal placement confirmed. CO2 insufflation was completed and, under direct visualization, a 12 mm bladeless trocar was introduced suprapubically. A 5 mm bladeless trocar was eventually introduced in the left lateral area between these 2 ports. At this point in the procedure Dr. Huerta entered the operating room suite and performed the appendectomy which is dictated separately. Enseal was used to cauterize the infundibulopelvic ligament to the level of the round ligament on the left and the Raytec placed in the vagina was visualized. Scissors was used to open the peritoneum and under direct visualization a narrow [place] was placed vaginally; CO2 gas was stopped and attention turned toward the vaginal hysterectomy portion of the procedure. The posterior aspect of the cervix was circumscribed with a knife and posterior peritoneum easily entered. Progressive bites were taken on either side of the uterine cervix and each pedicle ligated with 0 Vicryl suture. Superior pedicles were ligated ?2 with 0 Vicryl suture and sidewall pedicles were examined and oversewn where necessary with [id number] 0 Vicryl suture to achieve hemostasis. Posterior vaginal cuff was oversewn with erupted [id number] 0 Vicryl suture. Hemostasis was noted and peritoneum was closed in a pursestring fashion incorporating superior pedicles into the stitch. Vaginal cuff was then closed front to back with interrupted [id number] 0 Vicryl suture. Hemostasis was noted. Attention was turned toward the laparoscopic portion of the procedure. CO2 insufflation was completed and pedicles and appendiceal stump were examined and noted to be hemostatic. Laparoscopic instruments with as much CO2 gas as possible was removed and skin incisions were closed with interrupted 4-0 Monocryl suture. Steri-Strips and OpSite was placed across the incisions. Patient tolerated the procedure well was taken to recovery room in satisfactory condition; sponge instrument and needle counts were all reportedly correct. Estimated blood loss for the case was 100 cc. Cefotan 2 g IV was given prior to beginning the operative procedure. There were no apparent complications of the surgery. - Admit VTE Documentation VTE Present on Admission: Yes VTE Mechan Device Prophylaxis: SCD's VTE Pharm Prophylaxis ordered?: Yes
--- NOTE | 2020-03-23 12:57 | DCINST_ITS ---
Discharge Diet: No Restrictions Discharge Activity: Return to Normal Activity, May Not Drive - while taking narcotic pain medications., May Shower, May Take a Tub Bath May resume sexual activity in: 6-8 weeks Call your doctor if your incision/area has: Continuous Slow Oozing, Sudden Inc reased Bleeding, Increased Pain/ Swelling, Increased Redness, Foul Smelling Discharge Call your doctor if you observe: Fever of 101 or Higher, Inability to urinate, Inability to have a bowel movement, Using more than one pad per hour Allergies/Adverse Reactions: Allergies aripiprazole [From Abilify] Adverse Reaction (Verified 03/23/20 08:54) VERY ANGRY divalproex sodium [From Depakote] Adverse Reaction (Verified 03/23/20 08:54) Upset Stomach CAUSES EXTREME FAST WEIGHT GAIN Medications to take at Discharge Gabapentin [Neurontin] 600 mg PO TID 11/24/16 [place] Carbonate [Lithobid] 300 mg PO TID 07/11/18 hydroxyzine HCl 10 mg tablet 10 mg PO TID-QID PRN 03/02/20 levothyroxine 25 mcg capsule 25 mcg PO DAILY 03/02/20 Dextroamphetamine/Amphetamine [Adderall 20 mg Tablet] 20 mg PO DAILY 03/16/20 Docusate Sodium [Colace] 100 mg PO BID PRN PRN #60 cap 03/23/20 Estradiol 2 mg PO DAILY #100 tab 03/23/20 Oxycodone [Oxyir] 5 mg PO Q6H PRN PRN 7 Days #20 tablet 03/23/20 The following prescriptions were given: Docusate Sodium [Colace] 100 mg PO BID PRN PRN #60 cap PRN Reason: Constipation Transmission Status: Pending to [facility] Estradiol 2 mg PO DAILY #100 tab Transmission Status: Pending to [facility] Oxycodone [Oxyir] 5 mg PO Q6H PRN PRN 7 Days #20 tablet PRN Reason: Pain Score 6-1010 Transmission Status: Sent to [facility] Primary Care Physician: Luan Lawrence III, MD [Primary Care Provider] - Test Results: Test results from this visit will be discussed in further detail at your follow- up appointment, if applicable. Please Follow Up With: Tonio Oleary MD When: 2 to 3 weeks
[2020-03-23] MEDS: Dextrose 5%-Lactated Ringers 1,000 ML 125 ML IV ×2 (14:01→21:41)
[2020-03-23] MEDS: Gabapentin 600 MG Tablet PO ×2 (15:03→21:50)
[2020-03-23] MEDS: oxyCODONE 5 MG Tablet PO ×2 (15:03→21:17)
[2020-03-23] MEDS: Acetaminophen 500 MG Tablet 1000 MG PO (15:04)
[2020-03-23] MEDS: 0.9% Saline Lock 10 ML Syringe IV ×2 (16:21→17:40)
[2020-03-23] MEDS: HYDROmorphone 1 MG/ML Syringe 0.5 MG IV (16:21)
[2020-03-23] MEDS: Enoxaparin 30 MG/0.3 ML Syringe SC (17:41)
[2020-03-23] MEDS: Docusate Sodium 100 MG Capsule PO (17:41)
[2020-03-23] MEDS: Ketorolac 30 MG/ML Syringe IV (17:41)
[2020-03-24] VITALS (7 sets, daily range): BP systolic 95–113; BP diastolic 56–70; PULSE 74–87; RESP 16; TEMP 36.7–36.9; O2SAT 96–100
[2020-03-24] MEDS: Ketorolac 30 MG/ML Syringe IV ×3 (00:14→12:13)
[2020-03-24] MEDS: 0.9% Saline Lock 10 ML Syringe IV ×3 (00:14→12:13)
[2020-03-24] MEDS: Dextrose 5%-Lactated Ringers 1,000 ML 125 ML IV (05:09)
[2020-03-24] MEDS: LITHIUM CARBONATE 300 MG TABLET.ER PO (05:11)
[2020-03-24] MEDS: Levothyroxine 25 MCG TABLET PO (05:11)
[2020-03-24 06:03] LABS: Hemoglobin 10.9 g/dL (12.0-15.0); Mean Corp Hgb Conc 32.1 g/dL (32-36); Mean Corpuscular Hgb 31.2 pg (27.0-32.0); Mean Corpuscular Volume 97.4 fL (81-99); Mean Platelet Vol. 9.8 fl (6.2-12.0); Platelet Count 353 K/mm3 (150-450); RBC Distribution Width SD 46.4 fl (35.1-43.9); Red Blood Count 3.49 M/mm3 (4.2-5.4)
[2020-03-24] MEDS: Gabapentin 600 MG Tablet PO (06:26)
[2020-03-24 06:27] LABS: Creatinine, Serum 0.72 mg/dL (0.55-1.02); EST Glomerular Filtration Rate 96 mL/min (>60); Est Glom Filt Rate - Afr Amer 117 mL/min (>60); Estimated Creatinine Clearance 105.04 ml/min
--- NOTE | 2020-03-24 08:42 | PCM.PN.OB ---
Patient Problems: Active and Suspected Problems (Last Reviewed 03/03/20 @ 08:[address] Loi Huerta MD) Right lower quadrant abdominal pain (Acute) History of endometriosis (Acute) Subjective: Patient without complaints except feeling tired. Tolerating diet well. Positive flatus. Minimal vaginal bleeding reported. Objective: Wounds are clean, dry, intact. Good urine output. Hemoglobin and creatinine okay. - Physical Exam Vitals/I&O's: Vital Signs Temp Pulse Resp BP Pulse Ox 98.4 F 80 16 100/65 96 03/24/20 04:35 03/24/20 06:25 03/24/20 04:35 03/24/20 06:25 03/24/20 07:34 Oxygen Flow Rate (L/min) 4 Oxygen Delivery Method Room Air Weight: 198 lb 3.129 oz Body Mass Index (BMI) 31.0 Intake and Output for Last 24 Hours 03/22/20 03/23/20 03/24/20 23:59 23:59 23:59 Intake Total 3518.75 / 3518.75 1162.5 / 1162.5 Output Total 1125 / 1125 650 / 650 Balance 2393.75 / 2393.75 512.5 / 512.5 Laboratory Results 03/24/20 05:30: WBC 12.0 H, RBC 3.49 L, Hgb 10.9 L, Hct 34.0 L, MCV 97.4, MCH 31.2, MCHC 32.1, RDW Std Deviation 46.4 H, RDW Coeff of Hansel 13.0, Plt Count 353, MPV 9.8 03/24/20 05:30: Creatinine 0.72, Estim Creat Clear Calc 105.04, Est GFR (MDRD) Af Amer 117, Est GFR (MDRD) Non-Af 96 Current Medications Acetaminophen (Tylenol) 1,000 mg PO Q8H PRN PRN PRN Reason: Pain Score 1-3/10 or Fever Last Admin: 03/23/20 15:04 Dose: 1,000 mg Documented by: Docusate Sodium (Colace) 100 mg PO BID PRN PRN PRN Reason: Constipation Last Admin: 03/23/20 17:41 Dose: 100 mg Documented by: Estrogens Conjugated (Premarin) 1.25 mg PO DAILY REGINA Gabapentin (Neurontin) 600 mg PO TID REGINA Last Admin: 03/24/20 06:26 Dose: 600 mg Documented by: Hydromorphone HCl (Dilaudid Inj) 0.5 mg IV Q3H PRN PRN PRN Reason: Pain Score 4-10/10 Last Admin: 03/23/20 16:21 Dose: 0.5 mg Documented by: Hydroxyzine HCl (Atarax Tablet) 10 mg PO 4X/DAY PRN PRN PRN Reason: ANXIETY Dextrose/Lactated Ringer's () 1,000 mls @ 125 mls/hr IV .Q8H [facility] Last Admin: 03/24/20 05:09 Dose: 125 mls/hr Documented by: Sodium Chloride () 250 mls @ 15 mls/hr IV .[id number] PRN PRN Reason: Saline Flush Sodium Chloride () 250 mls @ 15 mls/hr IV .[id number] PRN PRN Reason: Additional IVPB Infusion Ketorolac Tromethamine (Toradol (Bkc)) 30 mg IV Q6H [facility] Stop: 03/28/20 18:01 Last Admin: 03/24/20 05:12 Dose: 30 mg Documented by: Levothyroxine Sodium (Synthroid) 25 mcg PO DAILY@0600 [facility] Last Admin: 03/24/20 05:11 Dose: 25 mcg Documented by: [place] Carbonate ([place] Carbonate) 300 mg PO TID [facility] Last Admin: 03/24/20 05:11 Dose: 300 mg Documented by: Non-Formulary Medication (Dextroamphetamine/Amphetamine) 20 mg PO DAILY [facility] Ondansetron HCl (Zofran) 4 mg IV Q4H PRN PRN PRN Reason: NAUSEA Oxycodone HCl (Oxyir) 5 mg PO Q4H PRN PRN PRN Reason: Pain Score 4-10/10 Last Admin: 03/23/20 21:17 Dose: 5 mg Documented by: Simethicone (Mylicon) 80 mg PO [facility] Last Admin: 03/23/20 21:50 Dose: 80 mg Documented by: Sodium Chloride () 10 - 40 ml IV UD PRN PRN Reason: SALINE FLUSH Last Admin: 03/24/20 05:12 Dose: 10 ml Documented by: Medical Necessity - Tobacco Use Smoking Status: Current every day smoker Tobacco Use: Cigarettes Assessment/Plan All Active Problems (Last Reviewed 03/03/20 @ 08:[address] Loi Huerta MD) Right lower quadrant abdominal pain (Acute) History of endometriosis (Acute) Doing well postoperative day #1 status post laparoscopic assisted vaginal hysterectomy and left oophorectomy. Also appendectomy per Dr. Huerta. Will discharge to home with routine instructions.
[2020-03-24] MEDS: oxyCODONE 5 MG Tablet PO (08:55)
== END 2020-03-24 12:34 | disposition home or self-care (01) ==
LOC: SDC 08:21 → AC 08:22 → MS3 13:06
PROVIDERS: Anesthesiology; Surgery; PCP Family Medicine; Referring Provider Obstetrics & Gynecology; Visit Provider Obstetrics & Gynecology
PROC: 0DTJ4ZZ Resection of Appendix, Percutaneous Endoscopic Approach (ICD-10-PCS; CPT 44970; principal; 2020-03-23 10:05)
PROC: 0UT9FZZ Resection of Uterus, Via Natural or Artificial Opening With Percutaneous Endoscopic Assistance (ICD-10-PCS; CPT 58552; 2020-03-23 10:05)
DX: N87.9 Dysplasia of cervix uteri, unspecified (principal); N72 Inflammatory disease of cervix uteri; N80.0 Endometriosis of uterus; N83.12 Corpus luteum cyst of left ovary; N83.02 Follicular cyst of left ovary; F17.210 Nicotine dependence, cigarettes, uncomplicated; E03.9 Hypothyroidism, unspecified; Z11.59 Encounter for screening for other viral diseases; Z79.899 Other long term (current) drug therapy
CPT/HCPCS: 00840; 44970; 58552; 36415; 82565; 84439; 84443; 84481; 85027; 85610; 85730; 86850; 86900; 86901; 87635; 88304; 88307; 94799; 99251; J7120; A4216; C1760; G0463; J2405; U0003

== ENCOUNTER → 2021-03-24 | Outpatient (CLI) | payer MEDICAID, SELFPAY | END | disposition home or self-care (01) | PROVIDERS: PCP Family Medicine; Visit Provider Obstetrics & Gynecology | DX: Z11.3 Encounter for screening for infections with a predominantly sexual mode of transmission (principal) ==

== ENCOUNTER → 2021-04-06 | Outpatient (CLI) | payer MEDICAID, SELFPAY ==
--- NOTE | 2021-04-06 | FLU_PTH ---
PATIENT: GEOVANNA CHRISTINA LOC: [facility] U#:[id number] AGE/SX: 35/F ROOM: RE04/06/[address]: Dr. Loi Huerta MD : 1985 BED: DIS: 04/06/2021 SPEC #: [id number] RECD: 04/06/21 16:47 STATUS: ASHLI VERGARAAle #: [id number] JOSLYN: 04/06/21 00:[address]: Loi Huerta DEPT: CYTOLOGY RECD BY: Helen Aguilar Tissues: A - Thyroid gland, NOS B - Thyroid gland, NOS Procedures: Special Stain Group II Surgery Specimen Level IV Cytospin Fluid Cytology Other HEADER OPERATION: Ultrasound-guided fine needle aspiration of left thyroid PRE-OP DIAGNOSIS: Thyroid nodule TISSUE SUBMITTED: A ? FNA left thyroid fluid, B - FNA left thyroid x12 slides DIAGNOSIS CYTOLOGY A. Left thyroid nodule fluid, ultrasound-guided FNA (cytospin and cell block): A few clusters of follicular cells noted. Bloody specimen. B. Left thyroid nodule, ultrasound-guided FNA (smears): Atypical follicular cells of undetermined significance. Adequate for evaluation. SJ:randy 04/08/2021 COMMENT Correlation with clinical, radiologic findings and appropriate follow up are necessary. Case has been reviewed in consultation with Dr. Reynaga who concurs with the above diagnosis. IDC:AM CYTOLOGY STUDY Slides are reviewed. CYTOLOGY GROSS A - Received is 35 ml of dark brownish-red, cloudy fluid labeled with the patient's name and and designated per the requisition as left thyroid. Submitted for cytology preparation including cell block. B - Received are 12 smears labeled with the patient's name and designated per the requisition as left thyroid. Submitted for staining. / randy 04/07/2021 TC:5 CPT: 44740, 74827, 51907
== END | disposition home or self-care (01) ==
LOC: LABSPEC 04-07 08:59
PROVIDERS: Visit Provider Surgery
DX: E04.1 Nontoxic single thyroid nodule (principal)
CPT/HCPCS: 88108; 88161; 88305; 88313

== ENCOUNTER 2021-04-19 13:20 | Emergency (ER) | payer MEDICAID, SELFPAY ==
[2021-04-19 13:21] VITALS: BP 132/99; PULSE 79; RESP 18; TEMP 36.4; O2SAT 99; BMI 34.4
--- NOTE | 2021-04-19 14:27 | RAD_ITS ---
STUDY: X-RAY - LEFT KNEE REASON FOR EXAM: Female, 35 years old. Fall -- in ed waiting room TECHNIQUE: 4 view(s) of the knee. COMPARISON: None. FINDINGS: Normal visualized distal femur. Normal visualized proximal tibia and fibula. Normal proximal tibiofibular articulation. Normal medial femorotibial compartment. Normal lateral femorotibial compartment. Normal patellofemoral articulation. Prepatellar soft tissue swelling. RAD/Knee 4 or More Views IMPRESSION: Prepatellar soft tissue swelling. Electronically Signed: Chris Stanton MD at 14:53 EDT , Service support ,
--- NOTE | 2021-04-19 18:02 | ED.VIS.LOWEX ---
HPI History of Present Illness HPI Narrative: Patient presents with bilateral knee pain that began after a fall earlier today. Patient states she tripped on uneven pavement and fell forward. Patient landed on her knees. Patient states her left knee is worse. Patient states it is worse with movement. Patient states her pain feels like it is burning. Patient states that it is sharp with movement and aching at rest. Patient admits to some tingling over the anterior aspect of her left knee. Patient states her last tetanus was approximately 2 years ago. Chief Complaint: Fall Informant: patient Occured/Mechanism Mechanism/Context: Yes fall Onset/Context/Timing Onset: Today Context: Sudden Onset Timing: Continuous Quality of Pain: Sharp, Aching and Burning Worsened by: Movement Relieved by: Nothing Associated Symptoms Associated Symptoms: Positive for Parasthesia; Negative for Weakness and Loss of Funtion Narrative Tetanus Immunization: <5 years [facility] Medical History (Updated 04/19/21 @ 18:[address] Justino Hancock DO) ADD (attention deficit disorder) Dysmenorrhea Fibromyalgia Hypothyroid Right lower quadrant abdominal pain Home Medications gabapentin [Neurontin] 600 mg PO TID 11/24/16 [History Last Taken 04/15/17] lithium carbonate 300 mg PO BID 07/11/18 [History Last Taken 03/23/20] hydroxyzine HCl 10 mg tablet 10 mg PO TID-QID PRN 03/02/20 [History Last Taken Unknown] levothyroxine 25 mcg capsule 25 mcg PO DAILY 03/02/20 [History Last Taken Unknown] dextroamphetamine-amphetamine 20 mg PO DAILY 03/16/20 [History Last Taken Unknown] docusate sodium 100 mg PO BID PRN PRN #60 cap 03/23/20 [Rx Last Taken Unknown] estradiol 2 mg PO DAILY #100 tab 03/23/20 [Rx Last Taken Unknown] Allergy/AdvReac Type Severity Reaction Status Date / Time aripiprazole [From Abilify] AdvReac VERY ANGRY Verified 04/19/21 13:24 divalproex sodium AdvReac Upset Verified 04/19/21 13:24 [From Depakote] Stomach Surgical History S/P arthroscopy of right shoulder S/P carpal tunnel release S/P partial hysterectomy S/P tubal ligation Social History Smoking Status: Current every day smoker alcohol intake: current ROS ROS ED Constitutional Constitutional ED: Denies chills or fever(s) Eyes Eyes: Denies blurry vision or change in vision ENT ENT ED: Denies rhinorrhea or sore throat Cardiovascular Cardiovascular: Denies chest pain or palpitations Respiratory/Chest Respiratory/Chest: Denies cough or dyspnea Gastrointestinal Gastrointestinal: Reports nausea; Denies vomiting Genitourinary Genitourinary ED: Denies dysuria or hematuria Musculoskeletal Musculoskeletal: Reports back pain; Denies neck pain Integumentary Reports Abrasions; Denies abscess or rash Neurologic Neurologic: Reports paresthesias; Denies headache(s) or weakness Allergic/Immunologic Allergic/Immunologic ED: Denies mouth swelling or urticaria EXAM Physical Exam Const Vital Signs: 04/19/21 13:21 Temperature 97.6 F L Temperature Source Temporal Pulse Rate 79 Respiratory Rate 18 Blood Pressure 132/99 H Blood Pressure Mean 110 Pulse Ox 99 Oxygen Delivery Method Room Air Positive well nourished, well developed and obese General Appearance ED: well developed Nutritional Appearance: obese HEENT Reports moist mucous membranes Extremity Extremity Narrative: There is tenderness over the anterior aspect of the left knee. There is some mild edema and ecchymosis. There are abrasions over the anterior aspect of the knee. There is no active bleeding noted. Extensor mechanism is intact. There is no bony crepitance or step-off. Range of motion was slightly limited in flexion secondary to pain. There is also mild tenderness of the anterior aspect of the right knee. There is a very superficial abrasion over the right knee. There is good range of motion. There is no edema or ecchymosis. There is no deformity noted. Sensation was intact to light touch bilaterally in lower extremities. Strength is 5/5 bilaterally in the lower extremities. Neuro oriented x3, CN's II-XII intact bilaterally, moves all extremities and no sensory deficits noted Sensorium / Orientation: alert Motor Exam: strength 5/5 throughout Psych mental status grossly normal MDM MDM MDM Narrative Medical decision making narrative: X-rays of the left knee were obtained. There are 4 views. On my interpretation, there is no acute fracture. There is no dislocation. There is some prepatellar soft tissue swelling. Radiologist also interpreted the x-rays and agrees. Patient was advised of her findings. Patient was instructed to ice and elevate the left knee. Patient was instructed to use Tylenol or ibuprofen as needed for pain. Patient was instructed to follow-up with her primary care physician in 5 to 7 days for reevaluation. Patient understood and was agreeable with the plan. All questions were answered. Radiography Diagnostic Testing: Radiology Impression Knee X-Ray 04/19/21 14:27 IMPRESSION: Prepatellar soft tissue swelling. Electronically Signed: Chris Stanton MD at 14:53 EDT , Service support , Discharge Plan Triage Chief Complaint: Fall ED Provider: Justino Hancock Dx/Rx/DC Orders Clinical Impression: Contusion of left knee, initial encounter, Abrasion, left knee, initial encounter, Abrasion, right knee, initial encounter Prescriptions: No Action hydroxyzine HCl 10 mg tablet 10 mg PO TID-QID PRN (Reason: Anxiety) RF: 0 levothyroxine 25 mcg capsule 25 mcg capsule 25 mcg PO DAILY RF: 0 gabapentin [Neurontin] 100 MG capsule 600 mg PO TID RF: 0 lithium carbonate 300 MG tablet 300 mg PO BID RF: 0 dextroamphetamine-amphetamine 20 MG tablet 20 mg PO DAILY RF: 0 docusate sodium 100 MG capsule 100 mg PO BID PRN PRN (Reason: Constipation) Qty: 60 RF: 1 estradiol 2 MG tablet 2 mg PO DAILY Qty: 100 RF: 4 Primary Care Provider: Yogi Mills Referrals: Yogi Mills MD [Primary Care Provider] - 5-7 Days Disposition Disposition: Home, Self Care
[2021-04-19 18:17] VITALS: BP 124/77; PULSE 62; RESP 15; O2SAT 100
[2021-04-19 18:18] VITALS: O2SAT 100
== END 2021-04-19 18:21 | disposition home or self-care (01) ==
PROVIDERS: Emergency Provider Emergency Medicine; PCP Family Medicine
DX: S80.211A Abrasion, right knee, initial encounter (principal); S80.212A Abrasion, left knee, initial encounter; M79.7 Fibromyalgia; E03.9 Hypothyroidism, unspecified; Z79.899 Other long term (current) drug therapy; F17.200 Nicotine dependence, unspecified, uncomplicated; E66.9 Obesity, unspecified; W18.09XA Striking against other object with subsequent fall, initial encounter; Y93.01 Activity, walking, marching and hiking; Y92.89 Other specified places as the place of occurrence of the external cause; Y99.8 Other external cause status
CPT/HCPCS: 73564; 99282

== ENCOUNTER 2021-08-27 09:43 | Day surgery (SDC) | payer MEDICAID, SELFPAY ==
[2021-08-27] VITALS (11 sets, daily range): BP systolic 98–131; BP diastolic 57–87; PULSE 73–87; RESP 16–18; TEMP 36.2–37.1; O2SAT 90–100; BMI 34.9
[2021-08-27] MEDS: Lactated Ringers 1,000 ML 15 ML IV ×2 (10:35→14:15)
[2021-08-27 10:42] LABS: Hemoglobin 13.1 g/dL (12.0-15.0); Mean Corp Hgb Conc 34.5 g/dL (32-36); Mean Corpuscular Hgb 32.1 pg (27.0-32.0); Mean Corpuscular Volume 93.1 fL (81-99); Mean Platelet Vol. 9.1 fl (6.2-12.0); Platelet Count 390 K/mm3 (150-450); RBC Distribution Width CV 12.2 % (11.6-14.6); RBC Distribution Width SD 42.5 fl (35.1-43.9); Red Blood Count 4.08 M/mm3 (4.2-5.4); White Blood Count 6.2 K/mm3 (4.4-11.0)
[2021-08-27 10:55] LABS: Anion Gap 5 (5-15); BUN 14 mg/dL (7-18); BUN/Creat Ratio 22.5 RATIO (10-20); Calcium,Total 8.5 mg/dL (8.5-10.1); Chloride 110 mmol/L (98-107); Creatinine, Serum 0.62 mg/dL (0.55-1.02); EST Glomerular Filtration Rate 114 mL/min (>60); Est Glom Filt Rate - Afr Amer 138 mL/min (>60); Estimated Creatinine Clearance 119.64 ml/min; Glucose 90 mg/dL (74-106); Potassium 3.8 mmol/L (3.5-5.1); Sodium Level 138 mmol/L (136-145)
--- NOTE | 2021-08-27 11:37 | HP.PCM_ITS ---
History and Physical Date of Admission: 08/27/21 HISTORY AND PHYSICAL ? Clara Cortez 1985 ? ? REFERRING PHYSICIAN: Loi Huerta MD ? CHIEF COMPLAINT: Follow Up (US Guided FNA Left Thyroid) ? HPI: The patient is a 35 year old female with a complaint of a?left?thyroid nodule. ?This thyroid nodule was found on Ultrasound?by [facility]. ?The patient denies?pain, denies?difficulty swallowing, deniesrapid enlargement of the neck,?deniesdysphagia,?notes?a change in the voice, notes?hot or cold intolerence. ?The patient has not?a prior history of neck radiation treatment. ? The patient?has?thyroid function testing. ??T4 - 2.9(h), ?THS - 0.005 (L). ? FNA on the left came back as atypical follicular cells of undetermined significance. It was adequate for evaluation. ? ? ? PAST MEDICAL HISTORY PAST MEDICAL HISTORY Diagnosis Date ? Anxiety associated with depression 08/06/2015 ? Attention deficit hyperactivity disorder (ADHD), combined type 08/24/2016 ? Bipolar disorder (HCC) 05/22/2014 ? Bipolar disorder, in partial remission, most recent episode mixed (HCC) 06/04/2018 ? Class 1 obesity due to excess calories with body mass index (BMI) of 33.0 to 33.9 in adult 02/16/2021 ? Fibromyalgia 07/29/2014 ? Graves' disease 09/01/2020 ? Sees endo: Dr. Cervantes ? Hyperthyroidism 04/15/2020 ? Sees endo: Dr. Cervantes ? Lumbar degenerative disc disease 10/31/2014 ? Lumbar radiculopathy 03/04/2019 ? NEGATIVE HISTORY OF ? ? Restless legs syndrome 08/06/2015 ? Smoker 01/13/2017 ? Started age 13 up to 1/2 PPD ? Supraspinatus tendon tear 10/19/2016 ? TMJ pain dysfunction syndrome 01/13/2017 ? chronic grinding of teeth and recent popping. ? Tobacco use disorder 01/13/2017 ? ? PAST SURGICAL HISTORY PAST SURGICAL HISTORY Procedure Laterality Date ? APPENDECTOMY ? 03/23/2020 ? ARTHROS SHLDR DX W/WO SYNV BX Right 01/25/2017 ? Right shoulder arthroscopic decompression ? CARPAL TUNNEL Right 07/2015 ? D+C ? 04/23/2018 ? HYSTERECTOMY ? 03/23/2020 ? HYSTEROSCOPY DIAGNOSTIC ? 04/23/2018 ? LIGATE FALLOPIAN TUBE ? ? ? Tubal ligation ? LYSIS VAGINAL ADHESIONS ? 04/23/2018 ? OOPHORECTOMY PARTIAL OR TOTAL Right 04/23/2018 ? OOPHORECTOMY PARTIAL OR TOTAL Left 03/23/2020 ? PAST SURGICAL HISTORY OF ? ? ? cyst removal left ankle ? REPAIR COMPL ROTATOR CUFF AVULSN,CHR Right 01/25/2017 ? Right rotator cuff debridement ? SALPINGECTOMY Bilateral 04/23/2018 ? [facility]-Dr. Oleary ? THYROID FINE NEEDLE ASPIRATION Left 04/06/2021 ? ? ? CURRENT MEDICATIONS Current Outpatient Medications Medication Sig ? primidone (MYSOLINE) 50 mg tablet Take 0.5 tablets by mouth daily at bedtime. ? estradiol (ESTRACE) 2 mg tablet Take 2 mg by mouth once daily. ? gabapentin (NEURONTIN) 600 mg tablet Take 1.5 tablets by mouth three times daily for 30 days. ? albuterol HFA (PROAIR HFA) 90 mcg/actuation inhaler Inhale 2 Puffs as instructed every 6 hours as needed. ? buPROPion XL (WELLBUTRIN XL) 150 mg 24 hr tablet Take 1 tablet by mouth once daily. ? hydrOXYzine HCl (ATARAX) 25 mg tablet Take 1 tablet by mouth every 6 hours as needed for Anxiety. ? lithium carbonate ER 300 mg CR tablet Take 1 tablet by mouth three times daily. ? No current facility-administered medications for this visit. ? ? ALLERGIES: Abilify [Aripiprazole] and Tapazole [Methimazole] ? PERSONAL HISTORY: SOCIAL HISTORY Social History ? Tobacco Use ? Smoking status: Current Every Day Smoker ? ? Packs/day: 0.50 ? ? Years: 10.00 ? ? Pack years: 5.00 ? ? Types: Cigarettes ? Smokeless tobacco: Never Used Vaping Use ? Vaping Use: Never used Substance Use Topics ? Alcohol use: No ? ? Alcohol/week: 75.0 standard drinks ? ? Types: 30 Cans of Beer (12oz) per week ? Drug use: Yes ? ? Types: Marijuana ? ? Comment: rarely- edibles ? FAMILY HISTORY: FAMILY HISTORY FAMILY HISTORY Problem Relation Age of Onset ? Hypertension Father ? ? Heart Father ? ? Arthritis Maternal Grandmother ? ? Diabetes Maternal Grandmother ? ? Stroke Maternal Grandmother ? ? Arthritis Paternal Grandmother ? ? ? REVIEW OF SYSTEMS: ?General:???The patient NOTES?fatigue, NOTES?weight loss, denies?weight gain, denies?feeling hot, and denies?feelings of cold. ?Eyes: ?The patient denies?glaucoma, denies?eye injury/surgery, wears?glasses or contacts. ?Ear/Nose/Throat: ?The patient NOTES?allergies, denies?hayfever, denies?ear infections, and denies?bloody noses. ?Cardiovascular: ?The patient denies?chest pain, denies?heart disease, denies?high blood pressure,denies?cardiac stent, denies?prior heart attack, denies?irregular heart beat, denies?high cholesterol, ?denies?poor circulation, denies?heart failure, other cardiac issues, denies?claudication, NOTES?cold feet, denies?peripheral arterial stent. ?Respiratory: ?The patient denies?tuberculosis, denies?pneumonia, denies?frequent cough, denies?pulmonary embolism, NOTES?shortness of breath, and denies?coughing up blood. ?Gastrointestinal: ?The patient denies?difficulty swallowing, denies?acid reflux, denies?ulcers, denies?vomiting, denies?jaundice/hepatitis, denies?gallbladder problems, denies?black or tarry stools, NOTES?hemorrhoids, denies?bleeding from rectum, denies?diverticulitis, denies?constipation, NOTES?diarrhea, denies?loss of stool control, and denies?hernias. ?Kidney/Bladder: ?The patient denies?kidney stones, denies?urine infections, and denies?bloody urine. ?Skin: ?The patient denies?a history of skin cancer, denies?bleeding/changing moles, and denies?a history of skin rash. ?Neurologic: ?The patient denies?a history of epilepsy/convulsions, denies?headaches, denies?head/spinal injuries, and denies?stroke/TIA. ?Psychiatric: ?The patient NOTES?psychiatric medications, NOTES?depression, and denies?voices, denies?substance abuse. ?Endocrine: ?The patient NOTES?thyroid disorders, denies?diabetes, and NOTES?hormonal problems. ?Hematologic: ?The patient NOTES?a history of bruising, denies?bleeding, and NOTES?anemia, denies?blood clots. ?Infections: ?The patient denies?a history of measles and mumps, denies?rheumatic fever, and denies?sexually transmitted diseases. ?Musculoskeletal: ?The patient NOTES?back pain/injury, NOTES?back problems, denies?sciatica, denies?knee/foot trouble, denies?arthritis, or denies?gout. ? ? When was patient's last Mammogram screening??N/A ? ?Last Colonoscopy: ?N/A? PHYSICAL EXAMINATION: ? General: The patient is 35 year old female, well nourished, well hydrated in no acute distress. The patient is oriented to time, place, and person. ? VITALS: Blood pressure 124/78, pulse 72, temperature 36.8 ?C (98.2 ?F), height 170.2 cm (5' 7), weight 99.8 kg (220 lb), last menstrual period 08/12/2019, SpO2 98 %. ? HEENT: Normal cephalic, ataumatic, pupils are equally round, sclera are anicteric, mucous membranes are moist, oropharynx is clear. Neck has no masses, asymmetry or lymphadenopathy. Thyroid is unremarkable. ? Respiratory: Clear to auscultation and percussion. Normal respiratory excursion and pattern. ? Cardiac: Examination is regular rate and rhythm. ? Abdominal exam: Soft, nontender, with no palpable masses. No hepatosplenomegaly. No palpable hernias. ? Rectal exam: ? Extremities: no clubbing, cyanosis or edema. No adenopathy. ? Other: ? ? LABORATORY VALUES: As Noted ? RADIOLOGIC STUDIES: As Noted ? Assessment IMPRESSION: Uninodular goiter (primary encounter diagnosis) Thyrotoxicosis with toxic single thyroid nodule and without thyroid storm Hyperthyroidism ? PLAN: I believe the best operation for this patient is a total thyroidectomy. The planned surgical procedure was discussed extensively with the patient. The risks, benefits, anticipated outcomes and possible complications were mentioned. My staff has also explained the procedure in understandable terms and the patient was given the option to take printed material concerning the planned procedure. The patient had the opportunity to ask questions concerning the p lanned procedure. The patient freely consents to the planned procedure. ? Diagnoses: (E04.1) Uninodular goiter (primary encounter diagnosis) (E05.10) Thyrotoxicosis with toxic single thyroid nodule and without thyroid storm (E05.90) Hyperthyroidism ? ? My findings have been communicated to Dr. Yogi Mills MD via shared medical record. This note will be forwarded to Dr. Yogi Mills MD. Return to Clinic: The patient is instructed to follow-up with me 1 week post operatively. ? COVID (Procedure Consent) Procedure Criteria ? Procedure Criteria: Yes Elective The surgeon/proceduralist and patient have discussed in detail the risk of exposure to and/or potential harm posed by the COVID-19 virus with having a surgery/procedure at this time versus the risk of? delaying the surgery/procedure. It is not possible to know either the risk of delaying the surgery or procedure or chance of getting an infection with perfect accuracy, but a joint decision was made between the patient and the surgeon/proceduralist ?to proceed at this time with the scheduled surgery/procedure as indicated on the consent form. ? ? Loi Huerta III, MD . I have re-examined the patient. There are no clinical changes since date of exam.
[2021-08-27] MEDS: Cefazolin 2 GM in 0.9% Normal Saline 100 ML IV (11:52)
--- NOTE | 2021-08-27 12:00 | THYROID_PTH ---
PATIENT: GEOVANNA CHRISTINA [place] [facility] [id number] AGE/SX: 36/F ROOM: RE08/27/[address]: Dr. Loi Huerta MD : 1985 BED: DIS: 08/28/2021 SPEC #: [id number] RECD: 08/30/21 07:21 STATUS: ASHLI VERGARAAle #: [id number] JOSLYN: 08/27/21 12:[address]: Loi Huerta DEPT: SURGICAL PATHOLOGY RECD BY: Helen Aguilar ENTERED: 08/30/21 08:01 SP TYPE: THYROID OTHR DR: Dr. Yogi Mills MD Tissues: A - Lymph node, NOS B - Thyroid gland, NOS Procedures: Surgery Specimen Level IV Surgery Specimen Level V HEADER OPERATION: Total thyroidectomy PRE-OP DIAGNOSIS: Uninodular goiter, hyperthyroidism TISSUE SUBMITTED: A ? Central compartment lymph node, B - Thyroid MICROSCOPIC DIAGNOSIS A. Central compartment lymph node: Two benign lymph nodes. B. Thyroid, total thyroidectomy: Chronic lymphocytic thyroiditis. SJ:rg 08/31/2021 COMMENT Please make reference to previous specimen ([id number]) left thyroid nodule, ultrasound-guided FNA with diagnosis of ?atypical follicular cells of undetermined significance.? MICROSCOPIC DESCRIPTION Slides are reviewed. GROSS DESCRIPTION A - Received in fixative is one container labeled with the patient's name and designated central compartment lymph node. The specimen consists of a piece of owens-yellow adipose tissue measuring 1.4 x 1 x 0.5 cm. The specimen is bisected and totally submitted in one cassette. B - Received in fixative is one container labeled with the patient's name and designated thyroid. The specimen consists of a total thyroidectomy specimen and two detached pieces of tissue weighing 9.6 gm. The right lobe of thyroid measures 2.5 x 2 x 1 cm and left lobe measures 3 x 2 x 2 cm. The isthmus measures 1 x 0.3 x 0.4 cm. Also present in the container are two detached pieces of tissue measuring in aggregate 1.3 x 1 x 0.5 cm. The thyroid is inked as follows: posterior surface right lobe, left lobe and isthmus ? black, anterior surface right lobe ? blue, anterior surface isthmus ? yellow, anterior surface left lobe ? green. The external surface is partly disrupted. No external parathyroid tissue is identified. Sections of the thyroid and detached pieces of tissue reveal owens-white solid cut surfaces. No well-defined nodule is identified. The entire specimen is submitted in 11 cassettes as follows: 1 ? detached pieces of tissue, 2??isthmus, 3-6 ? right lobe thyroid (3 containing most superior portion and 6 containing most inferior portion), 7-11 ? left lobe thyroid (7 containing most superior portion and 11 containing most inferior portion). / ELROY:randy 08/30/2021 TC:3 CPT: 61738, 69642
[2021-08-27] MEDS: BUPIVACAINE LIPOSOME/PF 20 ML VIAL OPERA.SITE (13:30)
--- NOTE | 2021-08-27 13:42 | OP.PCM_ITS ---
Problems Associated Problem List Diagnoses (1) Thyrotoxicosis with toxic single thyroid nodule without thyrotoxic crisis or storm: (2) Uninodular goiter: Report of Operation Date of Procedure: 08/27/21 Pre-Operative Diagnosis: Uninodular goiter Thyrotoxicosis with toxic single thyroid nodule Post-Operative Diagnosis: Same Surgery/Procedure Performed:: Total thyroidectomy Surgeon: Loi Huerta senior computer specialist: Manuel Stallings Type of Anesthesia: General Anesthesiologist: Herbie Gore Specimen's removed: Total thyroid Estimated Blood Loss (mL): < 25 cc Description of Procedure: Patient was brought into the operating room. Placed in the supine position. Under excellent general anesthetic neck was extended sterilely prepped and draped in usual fashion local was injected incision was made electrocautery was used to create subplatysmal flaps. Gelpi retractor was placed inside the wound. Midline strap muscles were opened. I started on the right side went to the superior pole vessels took these down with the harmonic dissector I took the middle thyroidal vein down with harmonic dissector and then the inferior thyroid vessels down with harmonic dissector rotated the gland from lateral to medial standpoint patient had significant amount of scarring it took quite a bit of time to dissect this off of the trachea. I was able to identify the superior and inferior parathyroid glands. I stayed well clear of the recurrent laryngeal nerve. I rotated the gland off of the trachea with the harmonic dissector and then went to the left side in similar fashion I took the inferior thyroid vessels down first the middle thyroidal vein down second and then the superior thyroid vessels all with the harmonic dissector I had good pneumostasis I rotated the gland from a lateral medial standpoint identified the recurrent laryngeal nerve. And finally took the gland off of Chance's ligaments and the trachea with harmonic dissector. Irrigated out the wound a good pneumostasis. I inspected the thyroid gland itself I did not see anything that looked like parathyroid tissue. I placed FloSeal into the wound. Midline strap muscles were closed with 2-0 Vicryl. Platysma was brought together with 3-0 Vicryl. Deep dermal stitches of 3-0 Vicryl and then a running 4-0 Monocryl. Dermabond was applied sterile dressings were applied and the patient tolerated the procedure well. Admit VTE Documentation VTE Present on Admission: No VTE Mechan Device Prophylaxis: SCD's VTE Pharm Prophylaxis ordered?: No Reason prophylaxis not ordered:: Treatment Not Indicated
[2021-08-27] MEDS: 0.9% Normal Saline 1,000 ML 65 ML IV (15:49)
[2021-08-27] MEDS: Calcium Carbonate 500 MG Tablet 1000 MG PO ×2 (15:50→17:34)
[2021-08-27 15:52] LABS: Calcium,Total 8.4 mg/dL (8.5-10.1)
[2021-08-27] MEDS: oxyCODONE 5 MG Tablet PO ×2 (16:09→20:16)
[2021-08-27] MEDS: Ondansetron 4 MG/2 ML Vial IV (19:35)
[2021-08-27 21:01] LABS: Calcium,Total 8.8 mg/dL (8.5-10.1)
[2021-08-28] MEDS: oxyCODONE 5 MG Tablet PO ×3 (00:55→10:03)
[2021-08-28] MEDS: Ondansetron 4 MG/2 ML Vial IV (03:29)
[2021-08-28 03:30] VITALS: BP 113/87; PULSE 97; RESP 18; TEMP 37.1; O2SAT 97
[2021-08-28 04:55] LABS: Absolute Neutrophil Count 6.2 X10^3/uL (2.0-7.7); Basophil# 0.04 X10^3/uL; Basophil% 0.4 % (0-1); Eosinophil# 0.08 X10^3/uL; Eosinophils% 0.9 % (0-5); Hematocrit 36.1 % (37-47); Hemoglobin 12.3 g/dL (12.0-15.0); Lymphocyte % 24.9 % (19-41); Mean Corp Hgb Conc 34.1 g/dL (32-36); Mean Corpuscular Hgb 31.9 pg (27.0-32.0); Mean Corpuscular Volume 93.8 fL (81-99); Mean Platelet Vol. 9.1 fl (6.2-12.0); Monocyte# 0.55 X10^3/uL; NRBC Flagged by Analyzer 0 % (0-5); Neutrophil # 6.22 X10^3/uL (2.7-7.7); Neutrophil % 67.4 % (47-70); Platelet Count 354 K/mm3 (150-450); Red Blood Count 3.85 M/mm3 (4.2-5.4); White Blood Count 9.2 K/mm3 (4.4-11.0)
[2021-08-28] MEDS: Levothyroxine 100 MCG Tablet PO (05:18)
[2021-08-28] MEDS: 0.9% Normal Saline 1,000 ML 65 ML IV (05:18)
[2021-08-28 05:19] LABS: Anion Gap 4 (5-15); BUN 7 mg/dL (7-18); BUN/Creat Ratio 12.8 RATIO (10-20); Calcium,Total 8.9 mg/dL (8.5-10.1); Chloride 106 mmol/L (98-107); Creatinine, Serum 0.55 mg/dL (0.55-1.02); EST Glomerular Filtration Rate 133 mL/min (>60); Est Glom Filt Rate - Afr Amer 160 mL/min (>60); Estimated Creatinine Clearance 134.87 ml/min; Glucose 96 mg/dL (74-106); Potassium 3.8 mmol/L (3.5-5.1); Sodium Level 137 mmol/L (136-145)
[2021-08-28 07:39] VITALS: BP 114/68; PULSE 62; RESP 14; TEMP 36.6; O2SAT 96
[2021-08-28] MEDS: Calcium Carbonate 500 MG Tablet 1000 MG PO (07:58)
--- NOTE | 2021-08-28 09:17 | PCM.PN.SRG ---
Subjective Subjective Patient has good phonation complaining appropriate pain Objective Data Objective Data Incision was superglue on it looks good Vital Signs: Vital Signs Temp Pulse Resp BP Pulse Ox 97.8 F 62 14 114/68 96 08/28/21 07:39 08/28/21 07:39 08/28/21 07:39 08/28/21 07:39 08/28/21 07:39 Oxygen Delivery Method Room Air Weight: 222 lb 10.67 oz Body Mass Index (BMI) 34.9 Intake & Output: Intake and Output for Last 24 Hours 08/26/21 08/27/21 08/28/21 23:59 23:59 23:59 Intake Total 1434 / 1434 1375.33 / 1375.33 Output Total 1175 / 1175 Balance 259 / 259 1375.33 / 1375.33 Lab / Micro Data Result Diagrams: 08/28/21 04:42 08/28/21 04:42 Labs: Laboratory Results - last 24 hr 08/27/21 10:35: WBC 6.2, RBC 4.08 L, Hgb 13.1, Hct 38.0, MCV 93.1, MCH 32.1 H, MCHC 34.5, RDW Std Deviation 42.5, RDW Coeff of Hansel 12.2, Plt Count 390, MPV 9.1 08/27/21 10:35: Sodium 138, Potassium 3.8, Chloride 110 H, Carbon Dioxide 23.0, Anion Gap 5, BUN 14, Creatinine 0.62, Estim Creat Clear Calc 119.64, Est GFR (MDRD) Af Amer 138, Est GFR (MDRD) Non-Af 114, BUN/Creatinine Ratio 22.5 H, Glucose 90, Calcium 8.5 08/27/21 15:12: Calcium 8.4 L 08/27/21 20:30: Calcium 8.8 08/28/21 04:42: WBC 9.2, RBC 3.85 L, Hgb 12.3, Hct 36.1 L, MCV 93.8, MCH 31.9, MCHC 34.1, RDW Std Deviation 42.0, RDW Coeff of Hansel 12.0, Plt Count 354, MPV 9.1, Immature Gran % (Auto) 0.400, Neut % (Auto) 67.4, Lymph % (Auto) 24.9, [place] % (Auto) 6.0, Eos % (Auto) 0.9, Baso % (Auto) 0.4, Absolute Neuts (auto) 6.2, Absolute Lymphs (auto) 2.30, Nucleated RBC % 0 08/28/21 04:42: Sodium 137, Potassium 3.8, Chloride 106, Carbon Dioxide 27.0, Anion Gap 4 L, BUN 7, Creatinine 0.55, Estim Creat Clear Calc 134.87, Est GFR (MDRD) Af Amer 160, Est GFR (MDRD) Non-Af 133, BUN/Creatinine Ratio 12.8, Glucose 96, Calcium 8.9 Micro: Microbiology 08/25/21 13:48 Interface Orders SARS-CoV-2 Antigen (Rapid) - Final Assessment & Plan Assessment/Plan (1) Uninodular goiter: PLAN: Okay for discharge.
--- NOTE | 2021-08-28 09:18 | EX.PCM.DISCH ---
Discharge Instructions Procedure General Surgery Diet Discharge Diet: Light diet - advance as tolerated (If you have questions about your diet instructions, please talk to your doctor.) Activity Discharge Activity: May Not Drive (for 1 week or while taking narcotic pain medicine.) May shower in (days): 1 Lifting Restrictions: 10 pounds Dressing / Incision Call your doctor if your incision/area has: Continuous Slow Oozing, Sudden Increased Bleeding, Increased Pain/ Swelling, Increased Redness and Foul Smelling Discharge Call your doctor if you observe: Fever of 101 or Higher Suture Line Care: Avoid Pulling/Pushing and Avoid Pinching/Bending Additional Dressing/Incision Instructions:: Change or remove dressing in 4 days. Leave steri-strips in place for 1 week. Follow Up Care Please Follow Up With: Mary Renae PA-C When: Call office to schedule an appointment to be seen in about 10 days. Test Results: Test results from this visit will be discussed in further detail at your follow-up appointment, if applicable. Discharge Plan Admission Attending Provider: Loi Huerta Primary Care Provider: Yogi Mills Discharge Orders/Prescriptions Prescriptions: New oxycodone-acetaminophen [Endocet] 5-325 mg tablet 1 tab PO Q4H PRN (Reason: pain) 5 Days Qty: 20 RF: 0 No Action hydroxyzine HCl 10 mg tablet 10 mg PO TID-QID PRN (Reason: Anxiety) RF: 0 levothyroxine 25 mcg capsule 25 mcg capsule 25 mcg PO DAILY RF: 0 gabapentin [Neurontin] 100 MG capsule 900 mg PO TID RF: 0 estradiol 2 MG tablet 2 mg PO DAILY Qty: 100 RF: 4 albuterol sulfate 90 mcg/actuation HFA aerosol inhaler 2 puff INHALATION PRN PRN (Reason: SOB) RF: 0 bupropion HCl 150 mg tablet extended release 24 hr 150 mg PO DAILY RF: 0 Referrals / Follow Up: Loi Huerta MD [STAFF PHYSICIAN] - Yogi Mills MD [Primary Care Provider] - Disposition Discharge Orders: Discharge Patient (Routine); Ordered 08/28/21 Ordered By: Dr. Loi Huerta
== END 2021-08-28 10:50 | disposition home or self-care (01) ==
LOC: SDC 09:44 → AC 09:46 → MS3 12:33
PROVIDERS: PCP Family Medicine; Referring Provider Surgery; Visit Provider Surgery
PROC: (CPT 60240; principal; 2021-08-27 11:45)
DX: E05.10 Thyrotoxicosis with toxic single thyroid nodule without thyrotoxic crisis or storm (principal); F31.9 Bipolar disorder, unspecified; F17.210 Nicotine dependence, cigarettes, uncomplicated; M79.7 Fibromyalgia; Z79.890 Hormone replacement therapy; Z79.899 Other long term (current) drug therapy; F41.9 Anxiety disorder, unspecified; E66.9 Obesity, unspecified; Z68.34 Body mass index [BMI] 34.0-34.9, adult
CPT/HCPCS: 60240; 36415; 80048; 82310; 85025; 85027; 87426; 88305; 88307; 99251; 99406; J7030; J7120; G0463; J2405

== ENCOUNTER 2021-09-19 19:57 | Emergency (ER) | payer MEDICAID, SELFPAY ==
[2021-09-19 19:58] VITALS: BP 127/83; PULSE 91; RESP 18; TEMP 36.6; O2SAT 98; BMI 36.2
--- NOTE | 2021-09-19 21:07 | RAD_ITS ---
HISTORY: pain EXAMINATION/TECHNIQUE: XR Foot Min 3 Views: COMPARISON: None FINDINGS: BONES/JOINTS: No acute fracture or dislocation. Preservation of the joint spaces. No sclerotic or destructive changes observed. SOFT TISSUES: No soft tissue swelling or gas. No radiopaque foreign body. RAD/Foot min 3 Views IMPRESSION: No acute bony abnormality. at 2244 Reported and signed by: Roland Cintron MD Electronically Signed: Roland Cintron MD at 22:43 EST ,
--- NOTE | 2021-09-19 21:08 | EDS_ITS ---
HPI History of Present Illness Chief Complaint: Lower Extremity Injury Narrative Narrative: Patient presents with injury to her left ankle and foot that she sustained yesterday at 2 PM, over 24 hours ago. She states that she was carrying food to her daughter's bridal alliance party, and twisted her left ankle and suffered an inversion injury. She complains of pain and swelling about her left ankle with bruising at the base of her left foot, and bruising in between her toes #3 and 4 on her forefoot. She did not fall or hit her head. She has been icing, elevating, and taking ibuprofen without relief. She denies other injury. Pain is worse with weightbearing and walking. PFSH PFS Medical History ADD (attention deficit disorder) Anemia Anxiety Arthritis Depression Dysmenorrhea Fibromyalgia Hypothyroid Right lower quadrant abdominal pain Smoker Thyroid disease Wears contact lenses Wears glasses Home Medications gabapentin [Neurontin] 900 mg PO TID 11/24/16 [History Last Taken 04/15/17] hydroxyzine HCl 10 mg tablet 10 mg PO TID-QID PRN 03/02/20 [History Last Taken Unknown] levothyroxine 25 mcg capsule 25 mcg PO DAILY 03/02/20 [History Last Taken 08/27/21 08:30] estradiol 2 mg PO DAILY #100 tab 03/23/20 [Rx Last Taken Unknown] albuterol sulfate 2 puff INHALATION PRN PRN 07/22/21 [History Last Taken Unknown] bupropion HCl 150 mg PO DAILY 07/22/21 [History Last Taken Unknown] oxycodone-acetaminophen [Endocet] 1 tab PO Q4H PRN 5 Days #20 tab 08/28/21 [Rx Last Taken Unknown] Allergy/AdvReac Type Severity Reaction Status Date / Time aripiprazole [From Abilify] AdvReac VERY ANGRY Verified 08/27/21 10:30 divalproex sodium AdvReac Upset Verified 08/27/21 10:30 [From Depakote] Stomach Surgical History Hx of hysterectomy S/P arthroscopy of right shoulder S/P carpal tunnel release S/P partial hysterectomy S/P tubal ligation Social History Smoking Status: Current every day smoker tobacco type: cigarettes alcohol intake: current ROS ROS ED ROS Narrative Constitutional: No fever, no chills. HEENT: No sore throat. No neck pain. No loss of vision. No rhinorrhea. Cardiovascular: No chest pain. No palpitations. No pedal edema. Respiratory: No cough, no shortness of breath. Abdominal: No abdominal pain. No nausea. No vomiting. Genitourinary: No dysuria. No hematuria. Musculoskeletal: No myalgias. Left ankle and foot pain. Neurologic: No headaches. No dizziness. No lightheadedness. Skin: No rash. No change in color. Psychiatric: No depression. No anxiety. EXAM Physical Exam Narrative Exam Narrative: Afebrile. Vital signs noted. HEENT: Normocephalic. Atraumatic. PERRL, EOMI. Neck soft and supple. No point tenderness or step off. Cardiovascular: Regular rate and rhythm. No murmurs, rubs, or gallops appreciated. Respiratory: No tachypnea. Lungs clear to auscultation bilaterally. Gastrointestinal: Abdomen soft, nontender, with normoactive bowel sounds. No rebound or guarding. Neurological: Awake. Alert. Nonfocal, nonlateralizing. Skin: No rash. Normal color. No pallor. Musculoskeletal: No pedal edema. Inspection of the left foot shows diffuse swelling about the left lateral malleolus with tenderness to palpation. There is dependent ecchymosis noted. There is bruising at the base of the toes #3 and 4 with mild tenderness. No palpable Achilles tendon deficit. Negative Betancourt test. No proximal fibular head tenderness. Const Vital Signs: 09/19/21 19:58 Temperature 97.8 F Temperature Source Temporal Pulse Rate 91 Respiratory Rate 18 Blood Pressure 127/83 H Blood Pressure Mean 97 Pulse Ox 98 Oxygen Delivery Method Room Air MDM MDM MDM Narrative Medical decision making narrative: RN ordered ankle x-ray per protocol. I added a foot x-ray given her bruising on the dorsum of her foot at the base of her toes. X-rays interpreted by myself. No acute fracture. She will be placed in an Aircast stirrup splint and given crutches with teaching. She will be nonweightbearing. She was given a note to be off work for the next day or two and will return to work with restrictions. No prolonged standing and limited use of her left lower extremity for 1 week or until cleared by her primary care physician. She will continue ice and elevation at home and take [id number] analgesics. Return instructions to the emergency department were reviewed. Disposition is discharged home in stable condition. Radiography Diagnostic Testing: Clinical Impression(s) from Imaging Studies Foot X-Ray 09/19/21 21:07 IMPRESSION: No acute bony abnormality. at 2244 Reported and signed by: Roland Cintron MD Electronically Signed: Roland Cintron MD at 22:43 EST Reading Location ID and State: [facility] [place] Tel , Service support , Ankle X-Ray 09/19/21 21:30 IMPRESSION: No acute bony abnormality. at 2245 Reported and signed by: Roland Cintron MD Electronically Signed: Roland Cintron MD at 22:44 EST , Discharge Plan Triage Chief Complaint: Lower Extremity Injury ED Provider: Zbigniew Barnett Dx/Rx/DC Orders Clinical Impression: Ankle sprain, Foot sprain Instructions: ED Foot Sprain, ED Ankle Sprain (Adult) Prescriptions: No Action hydroxyzine HCl 10 mg tablet 10 mg PO TID-QID PRN (Reason: Anxiety) RF: 0 levothyroxine 25 mcg capsule 25 mcg capsule 25 mcg PO DAILY RF: 0 gabapentin [Neurontin] 100 MG capsule 900 mg PO TID RF: 0 estradiol 2 MG tablet 2 mg PO DAILY Qty: 100 RF: 4 albuterol sulfate 90 mcg/actuation HFA aerosol inhaler 2 puff INHALATION PRN PRN (Reason: SOB) RF: 0 bupropion HCl 150 mg tablet extended release 24 hr 150 mg PO DAILY RF: 0 oxycodone-acetaminophen [Endocet] 5-325 mg tablet 1 tab PO Q4H PRN (Reason: pain) 5 Days Qty: 20 RF: 0 Stand Alone Forms: ED Work / School Excuse Primary Care Provider: Yogi Mills Referrals: Yogi Mills MD [Primary Care Provider] - 1 Week Disposition Disposition: Home, Self Care
--- NOTE | 2021-09-19 21:30 | RAD_ITS ---
HISTORY: Trauma, injury EXAMINATION/TECHNIQUE: XR Ankle Min 3 Views: COMPARISON: None FINDINGS: BONES/JOINTS: No acute fracture or dislocation. Preservation of the joint spaces. No sclerotic or destructive changes observed. SOFT TISSUES: Lateral ankle swelling. No radiopaque foreign body. RAD/Ankle min 3 Views IMPRESSION: No acute bony abnormality. at 2245 Reported and signed by: Roland Cintron MD Electronically Signed: Roland Cintron MD at 22:44 EST ,
== END 2021-09-19 23:34 | disposition home or self-care (01) ==
PROVIDERS: Emergency Provider Emergency Medicine; PCP Family Medicine; Visit Provider Emergency Medicine
DX: S93.401A Sprain of unspecified ligament of right ankle, initial encounter (principal); S93.601A Unspecified sprain of right foot, initial encounter; X50.1XXA Overexertion from prolonged static or awkward postures, initial encounter; Y93.89 Activity, other specified; Y99.8 Other external cause status; M79.7 Fibromyalgia; E03.9 Hypothyroidism, unspecified; M19.90 Unspecified osteoarthritis, unspecified site; F32.A Depression, unspecified; F41.9 Anxiety disorder, unspecified; F17.210 Nicotine dependence, cigarettes, uncomplicated; Z79.899 Other long term (current) drug therapy
CPT/HCPCS: 73610; 73630; 99283

== ENCOUNTER 2022-09-20 17:21 | Emergency (ER) | payer MEDICAID, SELFPAY ==
[2022-09-20 17:22] VITALS: BP 156/102; PULSE 92; RESP 15; TEMP 36.7; O2SAT 100; BMI 35.2
--- NOTE | 2022-09-20 18:00 | EDS_ITS ---
HPI History of Present Illness Chief Complaint: GI Bleed Narrative Narrative: Patient presents with 1 episode of rectal bleeding yesterday with bright red blood on her toilet paper mostly. She has chronic back pain, she has no abdominal pain no nausea or vomiting no recent diarrhea. [facility] Medical History ADD (attention deficit disorder) Anemia Anxiety Arthritis Depression Dysmenorrhea Fibromyalgia Hypothyroid Right lower quadrant abdominal pain Smoker Thyroid disease Wears contact lenses Wears glasses Home Medications gabapentin 100 mg capsule (Neurontin) 900 mg PO TID 11/24/16 [History Last Taken 04/15/17] hydroxyzine HCl 10 mg tablet 10 mg PO TID-QID PRN Anxiety 03/02/20 [History Last Taken Unknown] levothyroxine 25 mcg capsule 25 mcg PO DAILY 03/02/20 [History Last Taken 08/27/21 08:30] estradiol 2 mg tablet 2 mg PO DAILY #100 tabs 03/23/20 [Rx Last Taken Unknown] albuterol sulfate 90 mcg/actuation aerosol inhaler 2 puff inhalation PRN PRN SOB 07/22/21 [History Last Taken Unknown] bupropion HCl 150 mg 24 hr tablet, extended release 150 mg PO DAILY 07/22/21 [History Last Taken Unknown] oxycodone-acetaminophen 5 mg-325 mg tablet (Endocet) 1 tab PO Q4H PRN pain 5 days #20 tabs 08/28/21 [Rx Last Taken Unknown] Allergy/AdvReac Type Severity Reaction Status Date / Time aripiprazole [From Abilify] AdvReac VERY ANGRY Verified 09/20/22 17:24 divalproex sodium AdvReac Upset Verified 09/20/22 17:24 [From Depakote] Stomach Surgical History Hx of hysterectomy S/P arthroscopy of right shoulder S/P carpal tunnel release S/P partial hysterectomy S/P tubal ligation Social History Smoking Status: Current every day smoker tobacco type: cigarettes alcohol intake: current ROS ROS ED ROS Narrative Past medical history: Reviewed Medications: Reviewed Social history: Noncontributory Review of systems: All systems negative except as indicated General: No fever Cardiovascular: No chest pain Respiratory: No shortness of breath or cough Gastrointestinal: No abdominal pain, nausea vomiting or diarrhea. Rectal bleeding as in HPI Genitourinary: No dysuria Hematologic: No easy bleeding or easy bruising EXAM Physical Exam Narrative Exam Narrative: Physical exam General: Well nourished, Well developed, No Acute Distress Eyes: Conjunctiva not pale Cardiovascular: Regular rate, Regular rhythm Respiratory: No distress, CTA bilaterally Abdomen: Soft, Nontender, Nondistended Rectal: No external hemorrhoids, there is a separate the rectum I can see a left-sided internal hemorrhoid with an area where looks like it was bleeding and now it is healing. Back: Nontender, Normal Inspection. Negative for: CVA tenderness Extremities: Nontender, No edema Skin: Normal color, no pallor. Const Vital Signs: 09/20/22 17:22 Temperature 98.1 F Temperature Source Temporal Pulse Rate 92 Respiratory Rate 15 Blood Pressure 156/102 H Blood Pressure Mean 120 Pulse Ox 100 Oxygen Delivery Method Room Air MDM MDM MDM Narrative Medical decision making narrative: Patient has an internal hemorrhoid which I am fairly certain that was the cause of her bleeding therefore I do not believe the patient needs CBC. Little believe the patient needs any imaging at this time, I talked to her about not straining, as well as stool softeners however she tells me her stools already softened and does not need Colace for home as I had initially intended. She is found to have high blood pressure in the ED she is told to follow-up with her PCP to get it rechecked and reevaluated. Discharge Plan Triage Chief Complaint: GI Bleed ED Provider: Dominik Grace Dx/Rx/DC Orders Clinical Impression: Internal bleeding hemorrhoids, PRB (rectal bleeding), Chronic back pain, Hypertension Instructions: ED Hemorrhoids, ED Lower GI Bleeding (Stable) Prescriptions: No Action hydroxyzine HCl 10 mg tablet 10 mg PO TID-QID PRN (Reason: Anxiety) levothyroxine 25 mcg capsule 25 mcg capsule 25 mcg PO DAILY gabapentin [Neurontin] 100 MG capsule 900 mg PO TID estradiol 2 MG tablet 2 mg PO DAILY Qty: 100 4RF albuterol sulfate 90 mcg/actuation HFA aerosol inhaler 2 puff INHALATION PRN PRN (Reason: SOB) Label Comments: Inhale 2 Puffs as instructed every 6 hours as needed. bupropion HCl 150 mg tablet extended release 24 hr 150 mg PO DAILY Label Comments: TAKE 1 TABLET BY MOUTH EVERY DAY oxycodone-acetaminophen [Endocet] 5-325 mg tablet 1 tab PO Q4H PRN (Reason: pain) 5 Days Qty: 20 0RF Primary Care Provider: Yogi Mills Referrals: Yogi Mills MD [Primary Care Provider] - Activity Restrictions/Additional Instructions: Your blood pressure was high in the emergency department. Follow-up with your doctor to get it reassessed you may need to be put on blood pressure medications. Disposition Disposition: Home, Self Care
== END 2022-09-20 18:15 | disposition home or self-care (01) ==
LOC: ED 18:14
PROVIDERS: Emergency Provider Emergency Medicine; PCP Family Medicine; Visit Provider Emergency Medicine
DX: K64.8 Other hemorrhoids (principal); K62.5 Hemorrhage of anus and rectum; M54.9 Dorsalgia, unspecified; F17.210 Nicotine dependence, cigarettes, uncomplicated; G89.29 Other chronic pain; I10 Essential (primary) hypertension
CPT/HCPCS: 99282

== ENCOUNTER → 2022-09-28 | Outpatient (CLI) | payer MEDICAID, SELFPAY ==
--- NOTE | 2022-09-28 14:15 | US_ITS ---
STUDY: ULTRASOUND BREAST - RIGHT REASON FOR EXAM: Female, 37 years old. Palpable lump in the right breast. TECHNIQUE: Axial and longitudinal images of the RIGHT breast were performed with a high resolution ultrasound transducer. # OF IMAGES: 23 COMPARISON: Comparison is made with prior mammogram done earlier today. FINDINGS: RIGHT Breast: The right axillary region was examined with ultrasound. The palpable abnormality corresponds to a 2.2 cm x 0.7 cm x 0.8 cm benign appearing lymph node. US/Breast Limited Unilateral IMPRESSION: The palpable abnormality in the right axilla corresponds to a 2.2 cm x 0.7 cm x 0.8 cm benign-appearing lymph node. ASSESSMENT CATEGORY: BIRADS Category 2: Benign. A letter regarding these results will be sent to the patient by the facility within 30 days. Electronically Signed: Chris Stanton MD at 17:54 EST ,
--- NOTE | 2022-09-28 14:15 | BI_ITS ---
MAMMOGRAPHY - BILATERAL DIAGNOSTIC REASON FOR EXAM: Female, 37 years old. One month history of a right axillary lump. PERTINENT HISTORY: Aunt with breast cancer. TECHNIQUE: Digital bilateral breast [place] (3D mammographic acquisition) in the CC and MLO projections. 2-D mediolateral oblique (MLO) and craniocaudad (CC) views of both breasts were obtained. CAD: Full Field Digital Mammography with Computer Added Detection was performed. COMPARISON: Comparison is made with prior outside examination dated August 04, 2021. FINDINGS: Breast Composition: The breasts are almost entirely fatty. There are no dominant masses or suspicious calcifications. No other significant abnormalities are identified. There has been no significant change since the prior study. BI/DIAG MAMM W/CAD, BILAT IMPRESSION: Stable bilateral diagnostic mammogram. With the patient''s history of a palpable axillary lump of the right breast, correlation with ultrasound is recommended. ASSESSMENT CATEGORY: BIRADS Category 0: Incomplete. Need additional imaging evaluation. A letter regarding these results will be sent to the patient by the facility within 30 days. Approximately 10% of breast cancers are not detected by mammography. A normal mammogram should not delay biopsy of a clinically suspicious abnormality. Electronically Signed: Chris Stanton MD at 15:43 EST ,
== END | disposition home or self-care (01) ==
LOC: OPBI 14:13
PROVIDERS: PCP Family Medicine; Visit Provider Obstetrics & Gynecology
DX: N63.0 Unspecified lump in unspecified breast (principal)
CPT/HCPCS: 77062; 76642; 77066; G0279

== ENCOUNTER 2023-09-10 16:20 | Emergency (ER) | payer OTHER, SELFPAY ==
[2023-09-10 16:21] VITALS: BP 146/107; PULSE 94; RESP 18; TEMP 36.1; O2SAT 100
--- NOTE | 2023-09-10 16:45 | RAD_ITS ---
EXAM: XR LEFT FOOT COMPLETE, 3 OR MORE VIEWS CLINICAL INDICATION: Fall TECHNIQUE: Frontal, lateral and oblique views of the left foot. COMPARISON: 09/19/2021 FINDINGS: BONES/JOINTS: There is a calcaneal spur. Stable chronic varus deformity at the level of the second third and fourth DIP joints. No acute fracture. No sclerotic or destructive changes observed. SOFT TISSUES: Unremarkable. No soft tissue swelling or gas. No radiopaque foreign body. RAD/Foot min 3 Views IMPRESSION: No acute findings in the left foot. Electronically Signed: Fred Romeo MD at 17:13 EST ,
--- NOTE | 2023-09-10 16:48 | EDS_ITS ---
HPI <Gloria Martin RN - Last Filed: 09/10/23 18:25> History of Present Illness HPI Narrative: Patient presents to the ED with left foot and and ankle pain radiating up to the left thigh after a fall on ice approximately 30 minutes prior to arrival. Patient denies LOC. Denies blood thinners. Denies back pain. Denies any other injury. Unable to bear weight. Patient also reports lower back pain. Chief Complaint: Lower Extremity Injury Informant: patient Occured/Mechanism Mechanism/Context: Yes same level fall Comment: Fall on ice Onset/Context/Timing Onset: Today (30 minutes prior to arrival) Context: Sudden Onset Timing: Continuous Quality of Pain: Sharp Location: Left foot and ankle radiating up to left thigh Current Severity: 8/10 Maximum Severity: 10/10 Worsened by: Weightbearing Relieved by: Rest and elevation Associated Symptoms Associated Symptoms: Negative for Parasthesia, Weakness or Loss of Funtion Narrative Tetanus Immunization: Unknown PFS <Gloria Martin RN - Last Filed: 09/10/23 18:25> [facility] Medical History ADD (attention deficit disorder) Anemia Anxiety Arthritis Depression Dysmenorrhea Fibromyalgia Hypothyroid Right lower quadrant abdominal pain Smoker Thyroid disease Wears contact lenses Wears glasses Home Medications gabapentin 100 mg capsule (Neurontin) 900 mg PO TID 11/24/16 [History Last Taken 04/15/17] hydroxyzine HCl 10 mg tablet 10 mg PO TID-QID PRN Anxiety 03/02/20 [History Last Taken Unknown] levothyroxine 25 mcg capsule 25 mcg PO DAILY 03/02/20 [History Last Taken 08/27/21 08:30] estradiol 2 mg tablet 2 mg PO DAILY #100 tabs 03/23/20 [Rx Last Taken Unknown] albuterol sulfate 90 mcg/actuation aerosol inhaler 2 puff inhalation PRN PRN SOB 07/22/21 [History Last Taken Unknown] bupropion HCl 150 mg 24 hr tablet, extended release 150 mg PO DAILY 07/22/21 [History Last Taken Unknown] oxycodone-acetaminophen 5 mg-325 mg tablet (Endocet) 1 tab PO Q4H PRN pain 5 days #20 tabs 08/28/21 [Rx Last Taken Unknown] cyclobenzaprine 10 mg tablet 10 mg PO TID PRN Muscle Spasm #10 TABLETS 09/10/23 [Rx Last Taken Unknown] naproxen 500 mg tablet (Naprosyn) 500 mg PO BID PRN pain #20 tabs 09/10/23 [Rx Last Taken Unknown] Allergy/AdvReac Type Severity Reaction Status Date / Time aripiprazole [From Abilify] AdvReac VERY ANGRY Verified 09/10/23 16:20 divalproex sodium AdvReac Upset Verified 09/10/23 16:20 [From Depakote] Stomach Surgical History Hx of hysterectomy S/P arthroscopy of right shoulder S/P carpal tunnel release S/P partial hysterectomy S/P tubal ligation Social History Smoking Status: Light Smoker (<10/day) alcohol intake: current ROS <Gloria Martin RN - Last Filed: 09/10/23 18:25> ROS ED Constitutional Constitutional ED: Denies chills or fever(s) Eyes Eyes: Denies change in vision Cardiovascular Cardiovascular: Denies chest pain Respiratory/Chest Respiratory/Chest: Denies cough or dyspnea Gastrointestinal Gastrointestinal: Denies abdominal pain, nausea or vomiting Genitourinary Genitourinary ED: Denies dysuria Neurologic Neurologic: Denies headache(s) or weakness EXAM <Gloria Martin RN - Last Filed: 09/10/23 18:25> Physical Exam Const Vital Signs: 09/10/23 16:21 09/10/23 17:14 Temperature 96.9 F L Temperature Source Temporal Pulse Rate 94 Respiratory Rate 18 Blood Pressure 146/107 H 151/97 H Blood Pressure Mean 120 115 Pulse Ox 100 Oxygen Delivery Method Room Air Positive well nourished and well developed General Appearance ED: well developed and NAD HEENT Reports moist mucous membranes normocephalic Eyes PERRL Neck full ROM Chest Wall inspection of chest normal and palpation of chest normal Resp normal respiratory effort and clear to auscultation bilaterally Cardio regular rate, S1 normal heart sound and S2 normal heart sound GI non-tender, non-distended and no masses Auscultation: normoactive bowel sounds Palpation: soft Back/Spine Lumbar Spine / Lower Back: lumbar spinal tenderness L2 and L3 Extremity Extremity Narrative: Left leg, ankle, and foot warm and dry. 50 cent piece sized ecchymotic area to mid anterior rawls. Scant amount ankle edema noted. Pain with palpation to left foot and ankle. Limited range of motion noted. Sensation intact. General Extremety ED: Yes edema and weight-bearing difficulty; Negative for cyanosis General Extremity: edema and weight-bearing difficulty; Negative for cyanosis Neuro oriented x3 Sensorium / Orientation: alert Motor Exam: strength 5/5 throughout Psych mental status grossly normal Skin Rashes: no rashes <Dr. Naila Smith MD - Last Filed: 09/10/23 18:31> Physical Exam Const Vital Signs: 09/10/23 16:21 09/10/23 17:14 Temperature 96.9 F L Temperature Source Temporal Pulse Rate 94 Respiratory Rate 18 Blood Pressure 146/107 H 151/97 H Blood Pressure Mean 120 115 Pulse Ox 100 Oxygen Delivery Method Room Air MDM <Gloria Martin RN - Last Filed: 09/10/23 18:25> [facility] MDM Narrative Medical decision making narrative: Left foot and ankle x-rays ordered. Naproxen ordered for pain. Ice ordered for prevention of edema. Left foot and ankle elevated. After receiving left foot and ankle x-rays, patient reports lower back pain and cervical spine pain. Tenderness noted to L2-L3 with palpation. Sensation remains intact. Tenderness noted to left trapezius. Cervical and lumbar spine x-rays ordered. History & Record Review Discussion w/independent historian: Patient and Family Radiography Diagnostic Testing: Clinical Impression(s) from Imaging Studies Foot X-Ray 09/10/23 16:45 IMPRESSION: No acute findings in the left foot. Electronically Signed: Fred Romeo MD at 17:13 EST , Ankle X-Ray 09/10/23 16:50 IMPRESSION: No acute findings in the left ankle. Electronically Signed: Fred Romeo MD at 17:14 EST , Cervical Spine X-Ray 09/10/23 17:15 IMPRESSION: There is altered curvature of the normal cervical lordosis. This can suggest neck strain. Electronically Signed: Fred Romeo MD at 17:48 EST , Lumbar Spine X-Ray 09/10/23 17:20 IMPRESSION: No evidence of lumbar spinal fracture or spondylolisthesis. Electronically Signed: Fred Romeo MD at 18:06 EST , Management Discussion w/another healthcare provider: Other (Dr. Fitzgerald, ED provider.) Treatment and Re-Evaluation Narrative: Cervical x-ray suggestive of neck strain. Lumbar spine x-ray negative for fracture. Ankle and foot x-rays also negative for fracture. Upon reevaluation patient awake and alert reports pain decreased to 4 out of 10. Discussed results with patient x-rays. Patient aware will place splint. Patient to be discharged with Naprosyn and Flexeril. Discussed plan with patient. Patient agreeable and to be discharged home. <Dr. Naila Smith MD - Last Filed: 09/10/23 18:31> MDM Radiography Diagnostic Testing: Clinical Impression(s) from Imaging Studies Foot X-Ray 09/10/23 16:45 IMPRESSION: No acute findings in the left foot. Electronically Signed: Fred Romeo MD at 17:13 EST , Ankle X-Ray 09/10/23 16:50 IMPRESSION: No acute findings in the left ankle. Electronically Signed: Fred Romeo MD at 17:14 EST , Cervical Spine X-Ray 09/10/23 17:15 IMPRESSION: There is altered curvature of the normal cervical lordosis. This can suggest neck strain. Electronically Signed: Fred Romeo MD at 17:48 EST , Lumbar Spine X-Ray 09/10/23 17:20 IMPRESSION: No evidence of lumbar spinal fracture or spondylolisthesis. Electronically Signed: Fred Romeo MD at 18:06 EST , Treatment and Re-Evaluation Narrative: Narrative: Cervical x-ray suggestive of neck strain. Lumbar spine x-ray negative for fracture. Ankle and foot x-rays also negative for fracture. Upon reevaluation patient awake and alert reports pain decreased to 4 out of 10. Discussed results with patient x-rays. Patient aware will place splint. Patient to be discharged with Naprosyn and Flexeril. Discussed plan with patient. Patient agreeable and to be discharged home. Patient seen and evaluated with [employer] student. I personally interviewed and examined the patient. I was involved in all aspects of patient's orders, interpretation of results, and treatment. Patient presents after fall. She complains of pain primarily to her left foot and ankle as well as to her low back and neck. She was in an icy parking lot at work when she slipped and fell. She did not lose consciousness. She states she is not able to bear weight on her left lower extremity. Patient sitting upright in bed no acute distress. Head and neck examination was no external sign of trauma. Mild low C-spine tenderness. Heart is regular rate and rhythm. Lung sounds are clear. Abdomen is soft and nontender. Back examination feels mild tenderness in the mid lumbar region. No overlying ecchymosis or erythema. Left lower extremity examination reveals tenderness to palpation of the left ankle, worse along the lateral malleolus. No significant edema. Good distal pulses. No tenderness to the proximal fibula or knee. Left ankle and knee x-rays per my interpretation reveal no evidence of acute fracture. Radiology interpretation reviewed and agrees. Lumbar spine x-rays per my interpretation reveal no fracture with normal alignment. Radiology interpretation reviewed and agrees. C-spine x-rays per my interpretation reveal evidence of muscle spasm with no acute fracture or subluxation. Radiology interpretation reviewed and agrees. Patient was given Naprosyn here along with endorse of [employer]. She will be given an air stirrup splint and crutches. She may weight-bear as tolerated. She will be given prescriptions for naproxen and Flexeril at home. She will follow-up with [facility] orthopedics who she has seen previously as well as corporate care. Discharge Plan Triage Chief Complaint: Lower Extremity Injury ED Provider: Naila Smith Dx/Rx/DC Orders Clinical Impression: Lumbar contusion, Cervical strain, Fall, Left ankle sprain Instructions: ED Sprain Ankle W X Ray, ED Back Contusion, ED Neck Sprain or Strain Prescriptions: New cyclobenzaprine 10 mg tablet 10 mg PO TID PRN (Reason: Muscle Spasm) Qty: 10 0RF naproxen [Naprosyn] 500 mg tablet 500 mg PO BID PRN (Reason: pain) Qty: 20 0RF No Action hydroxyzine HCl 10 mg tablet 10 mg PO TID-QID PRN (Reason: Anxiety) levothyroxine 25 mcg capsule 25 mcg capsule 25 mcg PO DAILY gabapentin [Neurontin] 100 MG capsule 900 mg PO TID estradiol 2 MG tablet 2 mg PO DAILY Qty: 100 4RF albuterol sulfate 90 mcg/actuation HFA aerosol inhaler 2 puff INHALATION PRN PRN (Reason: SOB) Patient Comments: Inhale 2 Puffs as instructed every 6 hours as needed. bupropion HCl 150 mg tablet extended release 24 hr 150 mg PO DAILY Patient Comments: TAKE 1 TABLET BY MOUTH EVERY DAY oxycodone-acetaminophen [Endocet] 5-325 mg tablet 1 tab PO Q4H PRN (Reason: pain) 5 Days Qty: 20 0RF Stand Alone Forms: Work Status Form Primary Care Provider: Yogi Mills Referrals: [facility] [Group of Physicians] - 3-5 Days Sadiq Zhou MD [Non-Staff] - As Needed Yogi Mills MD [Primary Care Provider] - Disposition Disposition: Home, Self Care
--- NOTE | 2023-09-10 16:50 | RAD_ITS ---
EXAM: XR LEFT ANKLE COMPLETE, 3 OR MORE VIEWS CLINICAL INDICATION: Fall TECHNIQUE: Frontal, lateral and oblique views of the left ankle. COMPARISON: 09.19.21 FINDINGS: BONES/JOINTS: There is a calcaneal spur. No acute fracture. No subluxation. Normal alignment. Preservation of the joint space. No sclerotic or destructive changes observed. SOFT TISSUES: Unremarkable. No soft tissue swelling or gas. No radiopaque foreign body. RAD/Ankle min 3 Views IMPRESSION: No acute findings in the left ankle. Electronically Signed: Fred Romeo MD at 17:14 EST ,
[2023-09-10] MEDS: Naproxen 500 MG Tablet PO (17:08)
[2023-09-10] MEDS: HYDROcodone Bitartrate/Apap 5/325 Tablet PO (17:08)
--- OUTSIDE RECORDS SUMMARY | 2023-09-10 17:10 | XMS RPT_ITS | CCD ---
Author Name Unknown Address [id number] [place] [address] Organization [facility] Care Team Providers Care Enterprise Sales Executive Name Role Phone Yogi Maddox MD Primary Care Provider [phone] JANIE CAMPOS Attending Unavailable TAN, YOGI A Primary Care Unavailable TAN, YOGI A Primary Care Unavailable PATRICIA STEARNS Referring Unavailable TAN, YOGI A Primary Care Unavailable HASAN, CYDNEY Attending Unavailable ATN, YOGI A Primary Care Unavailable HASAN, CYDNEY Referring Unavailable TAN, YOGI A Primary Care Unavailable MIHIR RIDDLE Attending Unavailable DARYN, PATRICIA Referring Unavailable JANIE CAMPOS Referring Unavailable TAN, YOGI A Primary Care Unavailable TAN, YOGI A Primary Care Unavailable TAN, YOGI A Primary Care Unavailable TAN, YOGI A Referring Unavailable PATRICIA STEARNS Attending Unavailable TAN, YOGI A Primary Care Unavailable TAN, YOGI A Primary Care Unavailable MIHIR RIDDLE Referring Unavailable MIHIR RIDDLE Attending Unavailable TAN, YOGI A Primary Care Unavailable THEO, JANIE Attending Unavailable TAN, YOGI A Primary Care Unavailable THEOBERNARD COULTEREE Referring Unavailable TAN, YOGI A Primary Care Unavailable TAN, YOGI A Attending Unavailable TAN, YOGI A Primary Care Unavailable TAN, YOGI A Referring Unavailable TAN, YOGI A Primary Care Unavailable TAN, YOGI A Primary Care Unavailable HASAN, CYDNEY Attending Unavailable HASAN, CYDNEY Referring Unavailable TAN, YOGI A Primary Care Unavailable DARYN, PATRICIA Referring Unavailable TAN, YOGI A Primary Care Unavailable TAN, YOGI A Primary Care Unavailable FRED WITT Attending Unavailable MIRLANDE STEARNSE Referring Unavailable DARYN PATRICIA Referring Unavailable TAN, YGOI A Primary Care Unavailable Allergies Allergy Classification Reported Allergen(s) Allergy Type Date of Onset Reaction(s) Facility (20 sources) ARIPiprazole; Translations: [ARIPIPRAZOLE] Drug Allergy 12-30-2015 Other: See Comments [facility] Work Phone: (20 sources) methIMAzole; Translations: [METHIMAZOLE] Drug Allergy 03-19-2021 GI Upset [facility] Work Phone: (20 sources) Valproate; Translations: [DIVALPROEX SODIUM] Drug Allergy 04-19-2021 GI Upset [facility] Work Phone: (20 sources) Valproate; Translations: [VALPROIC ACID] Drug Allergy 04-19-2021 GI [facility] Work Phone: Medications Current Medications Medication Drug Class(es) Dates Sig (Normalized) Sig (Original) amoxicillin 875 mg oral tablet (1 source) Penicillin-class Antibacterial Start: 06-20-2023 End: 06-27-2023 take 1 tablet by mouth twice daily amoxicillin (AMOXIL) 875 mg tablet Indications: Acute otitis media, right Take 1 tablet by mouth two times a day for 7 days. 14 tablet 0 06/20/2023 06/27/2023 Active Completed/Discontinued Medications Medication Drug Class(es) Dates Sig (Normalized) Sig (Original) [id number] 200 actuat albuterol 0.09 mg/actuat metered dose inhaler (20 sources) beta2-Adrenergic Agonist Start: 02-01-2021 End: 09-21-2022 take 2 puff(s) by inhalation every six hours as needed albuterol HFA (PROAIR HFA) 90 mcg/actuation inhaler Inhale 2 Puffs as instructed every 6 hours as needed. 1 Each 0 02/01/2021 Active Problems Active Problems Problem Classification Problem Date Documented Da te Episodic/Chronic Anxiety disorders (20 sources) Mixed anxiety and depressive disorder; Translations: [Other specified anxiety disorders] Onset: 6 02-22-2021 Chronic Attention-deficit, conduct, and disruptive behavior disorders (20 sources) Attention deficit hyperactivity disorder, combined type; Translations: [Attention-deficit hyperactivity disorder, combined type] Onset: 7 02-22-2021 Chronic Complications of surgical procedures or medical care (20 sources) History of total thyroidectomy; Translations: [Postprocedural hypothyroidism] Onset: 2 09-06-2021 Chronic Esophageal disorders (12 sources) Gastroesophageal reflux disease without esophagitis; Translations: [Gastro-esophageal reflux disease without esophagitis] Onset: 3 03-29-2023 Chronic Essential hypertension (4 sources) Essential hypertension; Translations: [Essential (primary) hypertension] Onset: 3 01-17-2023 Chronic Immunizations and screening for infectious disease (1 source) Suspected disease caused by 2019-nCoV; Translations: [Suspected COVID-19 virus infection] 03-31-2023 Episodic Influenza (1 source) Influenza-like illness; Translations: [Influenza due to unidentified influenza virus with other respiratory manifestations] Episodic Mood disorders (20 sources) Bipolar affective disorder, most recent episode mixed; Translations: [Bipolar disorder, in partial remission, most recent episode mixed] Onset: 8 09-06-2021 Chronic Other circulatory disease (1 source) Elevated blood-pressure reading without diagnosis of hypertension; Translations: [Elevated blood-pressure reading, without diagnosis of hypertension] 03-29-2023 Episodic Other connective tissue disease (2 sources) Peroneal tendinitis of left lower limb; Translations: [Peroneal tendinitis, left leg] Episodic Other gastrointestinal disorders (3 sources) Altered bowel function; Translations: [Change in bowel habit] Episodic Other hereditary and degenerative nervous system conditions (20 sources) Restless legs; Translations: [Restless legs syndrome] Onset: 6 02-22-2021 Chronic Other nutritional; endocrine; and metabolic disorders (20 sources) Obesity; Translations: [Other obesity due to excess calories] Onset: 1 02-22-2021 Chronic Other nutritional; endocrine; and metabolic disorders (16 sources) Obese class II; Translations: [Obesity, unspecified] Onset: 3 Chronic Other screening for suspected conditions (not mental disorders or infectious disease) (4 sources) Encounter for screening mammogram for malignant neoplasm of breast; Translations: [Encounter for screening for diabetes mellitus] Onset: 3 Episodic Other upper respiratory infections (1 source) Acute upper respiratory infection; Translations: [Acute upper respiratory infection, unspecified] 06-19-2023 Episodic Otitis media and related conditions (1 source) Acute right otitis media; Translations: [Otitis media, unspecified, right ear] 06-20-2023 Episodic Spondylosis; intervertebral disc disorders; other back problems (20 sources) Degeneration of lumbar intervertebral disc; Translations: [Other intervertebral disc degeneration, lumbar region] Onset: 5 02-22-2021 Chronic Sprains and strains (7 sources) Sprain of ankle; Translations: [Sprain of unspecified ligament of left ankle, subsequent encounter] Episodic Substance-related disorders (20 sources) Smoker; Translations: [Nicotine dependence, unspecified, uncomplicated] Onset: 7 02-22-2021 Chronic Thyroid disorders (20 sources) Hypothyroidism; Translations: [Hypothyroidism, unspecified] Onset: 2 09-06-2021 Chronic Unclassified (1 source) Lumbar back pain; Translations: [Lumbar back pain] Onset: 3 Past or Other Problems Problem Classification Problem Date Documented Da te Episodic/Chronic Abdominal pain (7 sources) Epigastric pain; Translations: [Epigastric pain] Onset: 3 Episodic Disorders of teeth and jaw (20 sources) Temporomandibular ieoau-odxc-[id number] syndrome; Translations: [Arthralgia of temporomandibular joint, unspecified side] Onset: 7 02-22-2021 Episodic Nausea and vomiting (4 sources) Nausea; Translations: [Nausea] Onset: 3 Episodic Other aftercare (20 sources) Patient encounter status; Translations: [Other alf (current) drug therapy] Onset: 1 02-16-2021 Episodic Other aftercare (1 source) Other extermination supervisor (current) drug therapy; Translations: [Medication management] Onset: 3 Episodic Other connective tissue disease (20 sources) Fibromyalgia; Translations: [Fibromyalgia] Onset: 5 02-22-2021 Episodic Other female genital disorders (14 sources) History of endometriosis; Translations: [Personal history of other diseases of the female genital tract] Onset: 3 01-17-2023 Episodic Other gastrointestinal disorders (1 source) Change in bowel habit; Translations: [Bowel habit changes] Onset: 3 Episodic Other non-traumatic joint disorders (20 sources) Pain of left hip joint; Translations: [Pain in left hip] Onset: 1 02-23-2021 Episodic Other non-traumatic joint disorders (20 sources) Pain in left knee; Translations: [Pain in joint, lower leg] Onset: 1 02-23-2021 Episodic Residual codes; unclassified (1 source) Acquired absence of both cervix and uterus; Translations: [H/O total hysterectomy] Onset: 3 Episodic Spondylosis; intervertebral disc disorders; other back problems (20 sources) Lumbar radiculopathy; Translations: [Radiculopathy, lumbar region] Onset: 9 02-22-2021 Episodic Results Test Name Value Interpretation Reference Range Facil ity Vital Signs Date Time Vital Sign Value Performing Clinician Faci lity 06-30-2023 08:48-0500 Body weight 107.86 kg Cydney Cervantes MD Work Phone: [facility] 06-30-2023 08:48-0500 Diastolic blood pressure 91 mm[Hg] Cydney Cervantes MD Work Phone: [facility] 06-30-2023 08:48-0500 Heart rate 93 /min Cydney Cervantes MD Work Phone: [facility] 06-30-2023 08:48-0500 Systolic blood pressure 136 mm[Hg] Cydney Cervantes MD Work Phone: [facility] 06-20-2023 10:43-0500 Body temperature 99.39 [degF] Ana Maria Painter RESEARCH TEST ENGINE OPERATOR.SILK SCREEN PRINTER HELPER Work Phone: [facility] 06-20-2023 10:43-0500 Body weight 107.5 kg Ana Maria Painter RESEARCH TEST ENGINE OPERATOR.SILK SCREEN PRINTER HELPER Work Phone: [facility] 06-20-2023 10:43-0500 Diastolic blood pressure 100 mm[Hg] Ana Maria Painter RESEARCH TEST ENGINE OPERATOR.SILK SCREEN PRINTER HELPER Work Phone: [facility] 06-20-2023 10:43-0500 Heart rate 86 /min Ana Maria Painter RESEARCH TEST ENGINE OPERATOR.SILK SCREEN PRINTER HELPER Work Phone: [facility] 06-20-2023 10:43-0500 Respiratory rate 20 /min Ana Maria Painter RESEARCH TEST ENGINE OPERATOR.SILK SCREEN PRINTER HELPER Work Phone: [facility] 06-20-2023 10:43-0500 SaO2% (BldA) [Mass fraction] 98 % Ana Maria Painter RESEARCH TEST ENGINE OPERATOR.SILK SCREEN PRINTER HELPER Work Phone: [facility] 06-20-2023 10:43-0500 Systolic blood pressure 137 mm[Hg] Ana Maria Painter RESEARCH TEST ENGINE OPERATOR.SILK SCREEN PRINTER HELPER Work Phone: [facility] 06-19-2023 12:43-0500 Body temperature 99.19 [degF] Cristela Jones RESEARCH TEST ENGINE OPERATOR.SILK SCREEN PRINTER HELPER Work Phone: [facility] 06-19-2023 12:43-0500 Body weight 107.05 kg Cristela Jones RESEARCH TEST ENGINE OPERATOR.SILK SCREEN PRINTER HELPER Work Phone: [facility] 06-19-2023 12:43-0500 Diastolic blood pressure 80 mm[Hg] Cristela Jones RESEARCH TEST ENGINE OPERATOR.SILK SCREEN PRINTER HELPER Work Phone: [facility] 06-19-2023 12:43-0500 Heart rate 92 /min Cristela Jones RESEARCH TEST ENGINE OPERATOR.SILK SCREEN PRINTER HELPER Work Phone: [facility] 06-19-2023 12:43-0500 Respiratory rate 16 /min Cristela Jones RESEARCH TEST ENGINE OPERATOR.SILK SCREEN PRINTER HELPER Work Phone: [facility] 06-19-2023 12:43-0500 SaO2% (BldA) [Mass fraction] 99 % Cristela Jones RESEARCH TEST ENGINE OPERATOR.SILK SCREEN PRINTER HELPER Work Phone: [facility] 06-19-2023 12:43-0500 Systolic blood pressure 110 mm[Hg] Cristela Jones RESEARCH TEST ENGINE OPERATOR.SILK SCREEN PRINTER HELPER Work Phone: [facility] 03-31-2023 10:14-0400 Body temperature 98.01 [degF] Danika Rosado PA-C Work Phone: [facility] 03-31-2023 10:14-0400 Body weight 103.87 kg Danika Athy PA-C Work Phone: [facility] 03-31-2023 10:14-0400 Diastolic blood pressure 72 mm[Hg] Danika Athy PA-C Work Phone: [facility] 03-31-2023 10:14-0400 Heart rate 90 /min Danika Athy PA-C Work Phone: [facility] 03-31-2023 10:14-0400 Respiratory rate 16 /min Danika Athy PA-C Work Phone: [facility] 03-31-2023 10:14-0400 SaO2% (BldA) [Mass fraction] 97 % Danika Athy PA-C Work Phone: [facility] 03-31-2023 10:14-0400 Systolic blood pressure 110 mm[Hg] Danika Athy PA-C Work Phone: [facility] 03-29-2023 12:46-0400 Body weight 101.61 kg Yogi Maddox MD Work Phone: [facility] 03-29-2023 12:46-0400 Diastolic blood pressure 88 mm[Hg] Yogi Maddox MD Work Phone: [facility] 03-29-2023 12:46-0400 Heart rate 88 /min Yogi Maddox MD Work Phone: [facility] 03-29-2023 12:46-0400 Respiratory rate 16 /min Yogi Maddox MD Work Phone: [facility] 03-29-2023 12:46-0400 Systolic blood pressure 126 mm[Hg] Yogi Maddox MD Work Phone: [facility] 01-17-2023 10:18-0400 Body height 170.2 cm Janie Omaha RESEARCH TEST ENGINE OPERATOR.SILK SCREEN PRINTER HELPER Work Phone: [facility] 01-17-2023 10:18-0400 Body weight 106.78 kg Janie Theo RESEARCH TEST ENGINE OPERATOR.SILK SCREEN PRINTER HELPER Work Phone: [facility] 01-17-2023 10:18-0400 Diastolic blood pressure 82 mm[Hg] Janie Theo RESEARCH TEST ENGINE OPERATOR.SILK SCREEN PRINTER HELPER Work Phone: [facility] 01-17-2023 10:18-0400 Systolic blood pressure 120 mm[Hg] Janie Theo RESEARCH TEST ENGINE OPERATOR.SILK SCREEN PRINTER HELPER Work Phone: [facility] 11-08-2022 13:52-0400 Diastolic blood pressure 70 mm[Hg] Mihir Riddle MD Work Phone: [facility] 11-08-2022 13:52-0400 Heart rate 78 /min Mihir Riddle MD Work Phone: [facility] 11-08-2022 13:52-0400 Respiratory rate 16 /min Mihir Riddle MD Work Phone: [facility] 11-08-2022 13:52-0400 SaO2% (BldA) [Mass fraction] 97 % Mihir Riddle MD Work Phone: [facility] 11-08-2022 13:52-0400 Systolic blood pressure 130 mm[Hg] Mihir Riddle MD Work Phone: [facility] 11-08-2022 11:50-0400 Body temperature 97.7 [degF] Mihir Riddle MD Work Phone: [facility] 11-08-2022 11:50-0400 Body weight 104.3 kg Mihir Riddle MD Work Phone: [facility] 10-28-2022 10:53-0400 Diastolic blood pressure 75 mm[Hg] Cydney Cervantes MD Work Phone: [facility] 10-28-2022 10:53-0400 Heart rate 92 /min Cydney Cervantes MD Work Phone: [facility] 10-28-2022 10:53-0400 Systolic blood pressure 130 mm[Hg] Cydney Cervantes MD Work Phone: [facility] 10-28-2022 10:51-0400 Body weight 104.33 kg Cydney Cervantes MD Work Phone: [facility] 09-29-2022 13:35-0500 Body height 170.2 cm Mihir Riddle MD Work Phone: [facility] 09-29-2022 13:35-0500 Body temperature 98.8 [degF] Mihir Riddle MD Work Phone: [facility] 09-29-2022 13:35-0500 Body weight 103.42 kg Mihir Riddle MD Work Phone: [facility] 09-29-2022 13:35-0500 Diastolic blood pressure 72 mm[Hg] Mihir Riddle MD Work Phone: [facility] 09-29-2022 13:35-0500 Heart rate 96 /min Mihir Riddle MD Work Phone: [facility] 09-29-2022 13:35-0500 SaO2% (BldA) [Mass fraction] 100 % Mihir Riddle MD Work Phone: [facility] 09-29-2022 13:35-0500 Systolic blood pressure 130 mm[Hg] Mihir Riddle MD Work Phone: [facility] 09-21-2022 11:53-0500 Body height 170.2 cm Patricia Stearns PA-C Work Phone: [facility] 09-21-2022 11:53-0500 Body weight 102.51 kg Patricia Stearns PA-C Work Phone: [facility] 09-21-2022 11:53-0500 Diastolic blood pressure 78 mm[Hg] Patricia Stearns PA-C Work Phone: [facility] 09-21-2022 11:53-0500 Heart rate 80 /min Patricia Stearns PA-C Work Phone: [facility] 09-21-2022 11:53-0500 Respiratory rate 14 /min Patricia Stearns PA-C Work Phone: [facility] 09-21-2022 11:53-0500 Systolic blood pressure 126 mm[Hg] Patricia Stearns PA-C Work Phone: [facility] 07-07-2022 08:22-0500 Body temperature 100.6 [degF] Danika Athy PA-C Work Phone: [facility] 07-07-2022 08:22-0500 Body weight 104.87 kg Danika Athy PA-C Work Phone: [facility] 07-07-2022 08:22-0500 Diastolic blood pressure 80 mm[Hg] Danika Athy PA-C Work Phone: [facility] 07-07-2022 08:22-0500 Heart rate 105 /min Danika Athy PA-C Work Phone: [facility] 07-07-2022 08:22-0500 Respiratory rate 18 /min Danika Athy PA-C Work Phone: [facility] 07-07-2022 08:22-0500 SaO2% (BldA) [Mass fraction] 98 % Danika Athy PA-C Work Phone: [facility] 07-07-2022 08:22-0500 Systolic blood pressure 136 mm[Hg] Danika Athy PA-C Work Phone: [facility] 10-28-2021 10:47-0400 Body temperature 97.59 [degF] Patricia Stearns PA-C Work Phone: [facility] 10-28-2021 10:47-0400 Body weight 106.14 kg Patricia Stearns PA-C Work Phone: [facility] 10-28-2021 10:47-0400 Diastolic blood pressure 86 mm[Hg] Patricia Stearns PA-C Work Phone: [facility] 10-28-2021 10:47-0400 Heart rate 72 /min Patricia Stearns PA-C Work Phone: [facility] 10-28-2021 10:47-0400 Respiratory rate 18 /min Patricia Stearns PA-C Work Phone: [facility] 10-28-2021 10:47-0400 Systolic blood pressure 126 mm[Hg] Patricia Stearns PA-C Work Phone: [facility] Encounters Encounter Date Encounter Type Care Provider Facility Start: 08-28-2023 Telephone encounter Janie Brendan bishop RESEARCH TEST ENGINE OPERATOR.SILK SCREEN PRINTER HELPER Work Phone: OB/Gynecology Procedures Date Procedure Procedure Detail Performing Clinician Start: 11-08-2022 Level iv surg pathology gross&microscopic exam Mihir Riddle MD Work Phone: Start: 11-08-2022 Esophagogastroduodenoscopy transoral diagnostic Mihir Riddle MD Work Phone: Start: 11-08-2022 Colonoscopy flx dx w/collj spec when pfrmd Mihir Riddle MD Work Phone: Start: 09-29-2022 Us abdominal real time w/image limited Patricia Stearns PA-C Work Phone: Start: 11-11-2021 Mri any jt lower extrem w/o contrast matrl Rogerio Jensen Work Phone: History of total hysterectomy H/ O total hysterectomy Janie Campos RESEARCH TEST ENGINE OPERATOR.SILK SCREEN PRINTER HELPER Work Phone: Plan of Treatment Date Care Activity Detail Author Start: 03-24-2049 PNEUMOCOCCAL (1 - PCV) PNEUMOCOCCAL (1 - PCV) [facility] Immunizations Immunization Date Immunization Notes Care Provider Irais hernandez 03-04-2020 tetanus toxoid, redu bonnie diphtheria toxoid, and acellular pertussis vaccine, adsorbed Ellie Ta GUIDE DOG MOBILITY INSTRUCTOR Work Phone: [facility] 10-05-2016 tetanus toxoid, redu bonnie diphtheria toxoid, and acellular pertussis vaccine, adsorbed Ellie Ta GUIDE DOG MOBILITY INSTRUCTOR Work Phone: [facility] 02-17-2012 tetanus toxoid, redu bonnie diphtheria toxoid, and acellular pertussis vaccine, adsorbed Ellie Ta GUIDE DOG MOBILITY INSTRUCTOR Work Phone: [facility] Payers Date Payer Category Payer Medicaid [id number] 2022 Medicaid [id number] 2017 Medicaid [employer] [id number] 2017-Present [phone] [address] [place] [address] Medicaid [id number] 2017 Medicaid [id number] Social History Date Type Detail Facility Start: 01-13-2017 End: 07-07-2022 Tobacco smoking status UTIS Smokes tobacco daily [facility] Work Phone: History of tobacco use Cigarette Smoker [facility] Start: 09-26-2021 End: 07-07-2022 Alcohol intake Current non-drinker of alcohol (finding) [facility] Start: 09-26-2021 End: 01-17-2023 Alcohol intake [facility] Start: 09-04-2021 End: 09-17-2022 History SDOH Alcohol Frequency 4 [facility] Start: 09-04-2021 End: 09-17-2022 History SDOH Alcohol Std Drinks 3 [facility] Start: 09-04-2021 End: 09-17-2022 History SDOH Social Connections Phone 5 [facility] Start: 09-04-2021 End: 09-17-2022 History SDOH Social Connections Get Together 2 [facility] Start: 09-04-2021 End: 09-17-2022 History SDOH Social Connections Religious 1 [facility] Start: 09-04-2021 End: 09-17-2022 History SDOH Social Connections Meetings 98 [facility] Start: 09-04-2021 End: 09-17-2022 History SDOH Social Connections Living 8 [facility] Start: 05-16-2020 Education 21 [facility] Start: 1985 Sex Assigned At Female [facility] Start: 08-25-2021 End: 03-18-2022 Exposure to SARS-CoV-2 (event) Not sure [facility] Start: 01-02-2022 End: 01-12-2022 Exposure to SARS-CoV-2 (event) Unable to assess [facility] Work Phone: Start: 01-13-2017 End: 07-07-2022 Tobacco use and exposure Smokeless tobacco non-user [facility] Work Phone: Start: 09-21-2022 End: 07-27-2023 Alcohol intake Current drinker of alcohol (finding) [facility] Start: 11-08-2022 Alcohol Comment 6 beers a week. [facility] Start: 09-17-2022 End: 01-17-2023 Social connection and isolation panel [facility] Do you belong to any clubs or organizations such as denominational groups, unions, fraternal or athletic groups, or school groups? No [facility] Are you now , , , , never or living with a partner? Living with partner [facility] How often to you hav e a drink containing alcohol? Patient refused [facility] How many standard dr inks containing alcohol do you have on a typical day? 3 or 4 [facility] How often do you hav e 6 or more drinks on 1 occasion? Monthly [facility] [facility] How hard is it for y ou to pay for the very basics like food, housing, medical care, and heating Not very hard [facility] Do you feel stress - tense, restless, nervous, or anxious, or unable to sleep at night because your mind is troubled all the time - these days [OSQ] Only a little [facility] (I/We) worried wheth er (my/our) food would run out before (I/we) got money to buy more. Sometimes true [facility] Start: 04-18-2020 Gender identity Identifies as female gender (finding) [facility] Start: 04-18-2020 Sexual orientation Bisexual (finding ) [facility] How often do you hav e 6 or more drinks on 1 occasion? Monthly [facility] Clinical Notes 09-01-2020 to 09-07-2023 Telephone Encounter - Frances Canales LPN - 09/07/2023 1:21 PM ESTTelephone Encounter - Frances Canales LPN - 08/29/2023 11:48 AM Cydney Choi MD - 06/30/2023 9:06 AM ESTPatient Instructions Note Date & Type Note Facility 09-07-2023 Miscellaneous Notes Reveived approval of medication of medication. Pt notified. Frances Canales LPN Appeal form completed for [facility]. Faxed to number on form. Will await further response from pt's insurance. Frances Canales LPN Pt trialed 2 other meds that they wanted and failed. Not sure why they are deny it now. Janie Campos APRN.YESENIA Received denial for [facility]. No alternatives given. Please advise further. Frances Canales LPN Electronic PA submitted for [facility]. Will await further response from insurance. Frances Canales LPN' documented in this encounter [facility] 07-27-2023 Note HNO ID: [id number] Author: JANIE CAMPOS APRN.YESENIA Service: ? Author Type: Nurse Practitioner Type: Progress Notes Filed: 07/27/2023 14:56 Note Text: patient declined improvement nurse Clara Cortez is a 38 year old female who presents for HRT follow up HPI: pt has been taking the Prempro and not notice any difference in the hot flashes, night sweats, or libido. She states that the symptoms may be worst. Still having trouble sleeping. 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/12/2019 (Approximate), Hysterectomy Age at Menarche: Age at First : Age at Menopause: Mechanical Maintenance Engineer History Comments: Sexual Activity: Yes; Male Contraception: Surgical PAST MEDICAL HISTORY Diagnosis Date Anxiety associated with depression 08/06/2015 Arthritis Attention deficit hyperactivity disorder (ADHD), combined type 08/24/2016 Bipolar disorder (HCC) 05/22/2014 Bipolar disorder, in partial remission, most recent episode mixed (HCC) 06/04/2018 Class 1 obesity due to excess calories with body mass index (BMI) of 33.0 to 33.9 in adult 02/16/2021 Fibromyalgia 07/29/2014 GERD without esophagitis 03/29/2023 Graves' disease 09/01/2020 Sees endo: Dr. Cervantes H/O total thyroidectomy 09/06/2021 History of endometriosis 01/17/2023 Hyperthyroidism 04/15/2020 Sees endo: Dr. Cervantes; underwent total thyroidectomy 08/27/21 Hypothyroidism 09/06/2021 Seeing endo. S/p thyroidectomy Lumbar back pain 09/29/2022 Lumbar degenerative disc disease 10/31/2014 Lumbar radiculopathy 03/04/2019 NEGATIVE HISTORY OF Obesity, Class II, BMI 35-39.9 01/17/2023 Postoperative hypothyroidism 08/27/2021 total thyroidectomy Restless legs syndrome 08/06/2015 Smoker 01/13/2017 Started age 13 up to 1/2 PPD Supraspinatus tendon tear 10/19/2016 TMJ pain dysfunction syndrome 01/13/2017 chronic grinding of teeth and recent popping. Tobacco use disorder 01/13/2017 Well adult exam 09/21/2022 Last done: 09/21/2022 PAST SURGICAL HISTORY Procedure Laterality Date APPENDECTOMY 03/23/2020 CARPAL TUNNEL Right 07/2015 COLONOSCOPY 11/08/2022 D+C 04/23/2018 DIAGNOSTIC ARTHROSCOPY SHOULDER +- SYNOVIAL BX Right 01/25/2017 Right shoulder arthroscopic decompression EGD 11/08/2022 HYSTERECTOMY 03/23/2020 HYSTEROSCOPY DIAGNOSTIC 04/23/2018 LIG/TRNSXJ FLP TUBE ABDL/VAG APPR UNI/BI Tubal ligation LYSIS VAGINAL ADHESIONS 04/23/2018 OOPHORECTOMY PARTIAL OR TOTAL Right 04/23/2018 OOPHORECTOMY PARTIAL OR TOTAL Left 03/23/2020 PAST SURGICAL HISTORY OF cyst removal left ankle RECONSTRUCTION ROTATOR CUFF AVULSION CHRONIC Right 01/25/2017 Right rotator cuff debridement SALPINGECTOMY Bilateral 04/23/2018 [facility]-Dr. Oleary THYROID FINE NEEDLE ASPIRATION Left 04/06/2021 THYROIDECTOMY TOTAL/COMPLETE 08/27/2021 FAMILY HISTORY Problem Relation Age of Onset Hypertension Father Heart Father Arthritis Maternal Grandmother Diabetes Maternal Grandmother Stroke Maternal Grandmother Kidney Disease Maternal Grandmother Arthritis Paternal Grandmother Social History Tobacco Use Smoking status: Every Day Packs/day: 0.50 Years: 10.00 Additional pack years: 0.00 Total pack years: 5.00 Types: Cigarettes Smokeless tobacco: Never Vaping Use Vaping Use: Some days Substances: Nicotine Substance Use Topics Alcohol use: Yes Alcohol/week: 6.0 standard drinks of alcohol Types: 6 Cans of Beer (12oz) per week Comment: 6 beers a week. Drug use: Not Currently Types: Marijuana Comment: rarely- edibles Current Outpatient Medications Medication Sig levothyroxine (SYNTHROID) 137 mcg tablet Take 1 tablet by mouth six times a week. And 1.5 tablet on Sundays conjugated estrogens-medroxyPROGESTERone (PREMPRO) 0.625-2.5 mg per tablet Take 1 tablet by mouth once daily. gabapentin (NEURONTIN) 600 mg tablet Take 1.5 tabs three times a day buPROPion XL (WELLBUTRIN XL) 150 mg 24 hr tablet Take 1 tablet by mouth once daily. DULoxetine (CYMBALTA) 20 mg capsule Take 1 capsule by mouth once daily. omeprazole (PRILOSEC) 40 mg capsule Take 1 capsule by mouth once daily. albuterol HFA (PROAIR HFA) 90 mcg/actuation inhaler Inhale 2 Puffs as instructed every 6 hours as needed. No current facility-administered medications for this visit. Allergies As of Date: 07/27/2023 Allergen Noted Reaction ABILIFY [ARIPIPRAZOLE] 12/30/2015 Other: See Comments DIVALPROEX SODIUM 04/19/2021 GI Upset TAPAZOLE [METHIMAZOLE] 03/19/2021 GI Upset VALPROIC ACID 04/19/2021 GI Upset Fully Assessed 07/27/2023 REVIEW OF SYSTEMS Expanded ROS: N/A Allergies and current medication updated:Yes EXAM: Wt 235 lb 9.6 oz (106.9kg) LMP 08/12/2019 GENERAL: pleasant, female in no apparent distress HEENT: Normocephalic, atraumatic, mucus membranes moist, and no lesions CHEST: Normal inspiratory effort NEURO: alert and oriented x3,exam grossly non-focal EXTREMITIES: (more content not included)... [facility] 07-13-2023 Note HNO ID: [id number] Author: Mami Tavares Mammo Tech Service: ? Author Type: Termite Control Representative Type: Progress Notes Filed: 07/13/2023 10:48 AM Note Text: Radiology Service Progress Note PATIENT NAME: Clara Cortez DATE OF SERVICE: July 13, 2023 TIME: 10:02 AM PATIENT IDENTITY VERIFICATION COMPLETED USING TWO (2) IDENTIFIERS: Name and Date of confirmed by patient verbally. FALL SCREENING: Has the patient had 2 falls in the last year or 1 fall with injury or currently using an Ambulatory Assistive Device (Walker, Cane, Wheelchair, Crutches, etc.)? No PATIENT GENDER DATA: Female. status: : No status: NO. PATIENT RELEVANT IMPLANT DATA REVIEWED: Not Applicable RADIOLOGY DEPARTMENT: Mammography PERIPHERAL IV DATA: Not applicable SIGNED BY: Oleg Hurst July 13, 2023 10:02 AM [facility] 06-30-2023 Note HNO ID: [id number] Author: Cydney Cervantes MD Service: ? Author Type: Physician Type: Progress Notes Filed: 06/30/2023 9:15 AM Note Text: Subjective: Clara Cortez is a 37 year old female here for hyperthyroidism follow up. History in brief, Hyperthyroidism was diagnosed in 2019 Her TSH was suppressed in 2019 She started methimazole in February 2020 She also had a thyroid nodule and underwent FNA- atypia of undertermined significance. Subsequently, she underwent total thyroidectomy on 08/27/21. Per Dr. Huerta's note pathology was chronic lymphocytic thyroiditis; 2 benign lymph nodes removed. Current treatment: levothyroxine 137 mcg daily Patient has Bipolar disorder/Depression and was on Macopin in the past General symptoms: Fatigue: No Energy level is good She works 2nd shift Weight change: No Appetite change: No Menstrual irregularities: she had undergone hysterectomy Change in bowel habits: No Temperature intolerance: night sweats have increased Patient reports that her mother has hyperthyroidism REVIEW OF SYSTEMS: Answers submitted by the patient for this visit: Core Review of Systems (Submitted on 06/29/2023) Fever : No Night sweats: Yes Recent unintentional weight change: No Nasal Congestion: No Hearing Loss: No Vision Disturbance: No A cough: No Difficulty Breathing?: No Chest pain: No Irregular heartbeat: No Leg Swelling: No Nausea: No Diarrhea: Yes Black tarry stools: No Difficulty Urinating?: No Awaken at Night More Than Once to Urinate?: Yes Joint pain or stiffness: Yes Muscle aches: Yes Leg or Foot Discomfort at Night?: Yes A rash: Yes Dizziness: No Headaches: Yes Memory Loss: Yes Seizures: No ALLERGIES: ALLERGIES Allergen Reactions Abilify [Aripiprazo* Other: See Comments tired Divalproex Sodium GI Upset Tapazole [Methimazo* GI Upset Nausea and vomiting Valproic Acid GI Upset Current Outpatient Medications on File Prior to Visit Medication Sig gabapentin (NEURONTIN) 600 mg tablet Take 1.5 tabs three times a day buPROPion XL (WELLBUTRIN XL) 150 mg 24 hr tablet Take 1 tablet by mouth once daily. DULoxetine (CYMBALTA) 20 mg capsule Take 1 capsule by mouth once daily. omeprazole (PRILOSEC) 40 mg capsule Take 1 capsule by mouth once daily. conjugated estrogens-medroxyPROGESTERone (PREMPRO) 0.625-2.5 mg per tablet Take 1 tablet by mouth once daily. levothyroxine (SYNTHROID) 137 mcg tablet Take 1 tablet by mouth daily before breakfast. albuterol HFA (PROAIR HFA) 90 mcg/actuation inhaler Inhale 2 Puffs as instructed every 6 hours as needed. No current facility-administered medications on file prior to visit. PAST MEDICAL HISTORY: PAST MEDICAL HISTORY Diagnosis Date Anxiety associated with depression 08/06/2015 Arthritis Attention deficit hyperactivity disorder (ADHD), combined type 08/24/2016 Bipolar disorder ([facility]) 05/22/2014 Bipolar disorder, in partial remission, most recent episode mixed ([facility]) 06/04/2018 Class 1 obesity due to excess calories with body mass index (BMI) of 33.0 to 33.9 in adult 02/16/2021 Fibromyalgia 07/29/2014 GERD without esophagitis 03/29/2023 Graves' disease 09/01/2020 Sees endo: Dr. Cervantes H/O total thyroidectomy 09/06/2021 History of endometriosis 01/17/2023 Hyperthyroidism 04/15/2020 Sees endo: Dr. Cervantes; underwent total thyroidectomy 08/27/21 Hypothyroidism 09/06/2021 Seeing endo. S/p thyroidectomy Lumbar back pain 09/29/2022 Lumbar degenerative disc disease 10/31/2014 Lumbar radiculopathy 03/04/2019 NEGATIVE HISTORY OF Obesity, Class II, BMI 35-39.9 01/17/2023 Postoperative hypothyroidism 08/27/2021 total thyroidectomy Restless legs syndrome 08/06/2015 Smoker 01/13/2017 Started age 13 up to 07/25 PPD Supraspinatus tendon tear 10/19/2016 TMJ pain dysfunction syndrome 01/13/2017 chronic grinding of teeth and recent popping. Tobacco use disorder 01/13/2017 Well adult exam 09/21/2022 Last done: 09/21/2022 PHYSICAL EXAM: Blood pressure 136/91, pulse 93, weight 107.9 kg (237 lb 12.8 oz), last menstrual period 08/12/2019. Alert and oriented x3, no acute distress Extraocular motions intact, no exophthalmos, no lid lag Neck supple, well healed surgical incision, no palpable thyroid tissue Heart regular rate and rhythm, no murmers Chest clear, normal breath sounds, no wheezing Neuro: Gait normal. Sensation grossly intact. No focal findings Musculoskeletal: Muscular strength intact, No joint swelling Extremities without edema, no deformities Skin: no rashes/ erythema LAB: Latest Reference Range AND Units 10/28/22 12:44 Free T4 0.9 - 1.7 ng/dL 1.6 TSH 0.270 - 4.200 mIU/L 0.570 ASSESSMENT/PLAN: Post-surgical hypothyroidism : Clinically she appears euthyroid Update thyroid function I educated the patient on proper administration of this medication which includes taking it on an empty stomach and alteast 2 hour apart from Calcium, (more content not included)... [facility] 06-30-2023 History of Presen t illness Narrative Subjective: Clara Cortez is a 37 year old female here for hyperthyroidism follow up. History in brief, Hyperthyroidism was diagnosed in 2019 Her TSH was suppressed in 2019 She started methimazole in February 2020 She also had a thyroid nodule and underwent FNA- atypia of undertermined significance. Subsequently, she underwent total thyroidectomy on 08/27/21. Per Dr. Huerta's note pathology was chronic lymphocytic thyroiditis; 2 benign lymph nodes removed. Current treatment: levothyroxine 137 mcg daily Patient has Bipolar disorder/Depression and was on Macopin in the past General symptoms: Fatigue: No Energy level is good She works 2nd shift Weight change: No Appetite change: No Menstrual irregularities: she had undergone hysterectomy Change in bowel habits: No Temperature intolerance: night sweats have increased Patient reports that her mother has hyperthyroidism REVIEW OF SYSTEMS: Answers submitted by the patient for this visit: Core Review of Systems (Submitted on 06/29/2023) Fever : No Night sweats: Yes Recent unintentional weight change: No Nasal Congestion: No Hearing Loss: No Vision Disturbance: No A cough: No Difficulty Breathing?: No Chest pain: No Irregular heartbeat: No Leg Swelling: No Nausea: No Diarrhea: Yes Black tarry stools: No Difficulty Urinating?: No Awaken at Night More Than Once to Urinate?: Yes Joint pain or stiffness: Yes Muscle aches: Yes Leg or Foot Discomfort at Night?: Yes A rash: Yes Dizziness: No Headaches: Yes Memory Loss: Yes Seizures: No ALLERGIES: ALLERGIES Allergen Reactions Abilify [Aripiprazo* Other: See Comments tired Divalproex Sodium GI Upset Tapazole [Methimazo* GI Upset Nausea and vomiting Valproic Acid GI Upset Current Outpatient Medications on File Prior to Visit Medication Sig gabapentin (NEURONTIN) 600 mg tablet Take 1.5 tabs three times a day buPROPion XL (WELLBUTRIN XL) 150 mg 24 hr tablet Take 1 tablet by mouth once daily. DULoxetine (CYMBALTA) 20 mg capsule Take 1 capsule by mouth once daily. omeprazole (PRILOSEC) 40 mg capsule Take 1 capsule by mouth once daily. conjugated estrogens-medroxyPROGESTERone (PREMPRO) 0.625-2.5 mg per tablet Take 1 tablet by mouth once daily. levothyroxine (SYNTHROID) 137 mcg tablet Take 1 tablet by mouth daily before breakfast. albuterol HFA (PROAIR HFA) 90 mcg/actuation inhaler Inhale 2 Puffs as instructed every 6 hours as needed. No current facility-administered medications on file prior to visit. PAST MEDICAL HISTORY: PAST MEDICAL HISTORY Diagnosis Date Anxiety associated with depression 08/06/2015 Arthritis Attention deficit hyperactivity disorder (ADHD), combined type 08/24/2016 Bipolar disorder ([facility]) 05/22/2014 Bipolar disorder, in partial remission, most recent episode mixed ([facility]) 06/04/2018 Class 1 obesity due to excess calories with body mass index (BMI) of 33.0 to 33.9 in adult 02/16/2021 Fibromyalgia 07/29/2014 GERD without esophagitis 03/29/2023 Graves' disease 09/01/2020 Sees endo: Dr. Cervantes H/O total thyroidectomy 09/06/2021 History of endometriosis 01/17/2023 Hyperthyroidism 04/15/2020 Sees endo: Dr. Cervantes; underwent total thyroidectomy 08/27/21 Hypothyroidism 09/06/2021 Seeing endo. S/p thyroidectomy Lumbar back pain 09/29/2022 Lumbar degenerative disc disease 10/31/2014 Lumbar radiculopathy 03/04/2019 NEGATIVE HISTORY OF Obesity, Class II, BMI 35-39.9 01/17/2023 Postoperative hypothyroidism 08/27/2021 total thyroidectomy Restless legs syndrome 08/06/2015 Smoker 01/13/2017 Started age 13 up to 10 PPD Supraspinatus tendon tear 10/19/2016 TMJ pain dysfunction syndrome 01/13/2017 chronic grinding of teeth and recent popping. Tobacco use disorder 01/13/2017 Well adult exam 09/21/2022 Last done: 09/21/2022 PHYSICAL EXAM: Blood pressure 136/91, pulse 93, weight 107.9 kg (237 lb 12.8 oz), last menstrual period 08/12/2019. Alert and oriented x3, no acute distress Extraocular motions intact, no exophthalmos, no lid lag Neck supple, well healed surgical incision, no palpable thyroid tissue Heart regular rate and rhythm, no murmers Chest clear, normal breath sounds, no wheezing Neuro: Gait normal. Sensation grossly intact. No focal findings Musculoskeletal: Muscular strength intact, No joint swelling Extremities without edema, no deformities Skin: no rashes/ erythema LAB: Latest Reference Range & Units 10/28/22 12:44 Free T4 0.9 - 1.7 ng/dL 1.6 TSH 0.270 - 4.200 mIU/L 0.570 ASSESSMENT/PLAN: Post-surgical hypothyroidism : Clinically she appears euthyroid Update thyroid function I educated the patient on proper administration of this medication which includes taking it on an empty stomach and alteast 2 hour apart from Calcium, iron and PPIs. I will send patient a message in my chart once the lab results become available Follow up in 12 months, if lab results are normal Cydney Cervantes MD documented in this encounter [facility] 06-30-2023 Instructions Sol Ivy Ma - 06/30/2023 8:47 AM EST Thank you for choosing the [facility] Department of Endocrinology, Diabetes and Metabolism. Being able to provide excellent health care has allowed us to be # 3 in the country according to [employer]. Did you know that you need to call 48 hours in advance of your scheduled visit, if you are unable to make your appointment? The [facility]inology [facility] [place] thanks you for your commitment, because patients not showing to their appointment results in a lost opportunity for patients to receive [facility] health care at the [facility]. To Cancel an appointment, please choose one of the following: - Call the Appointment Call Center at [phone] - From [facility], Go to Appointments - Cancel Appts If cancelling, consider your need to reschedule to prevent further delays in your care. To Schedule an appointment, please choose one of the following: - Call the Appointment Call Center at [phone] - From [facility], Go to Appointments - Request an Appt + documented in this encounter [facility] 06-20-2023 Note HNO ID: [id number] Author: Cristela Jones APRN.SILK SCREEN PRINTER HELPER Service: ? Author Type: Nurse Practitioner Type: Progress Notes Filed: 06/20/2023 11:08 AM Note Text: CC: Patient presents with: Ear Pain: R ear x 2 days Covid positive HPI: Clara Cortez is a 37 year old female who presents to the office with complaint of ear symptoms for a few days. Symptoms are worsening Associated symptoms includes ear pain. Denies fever, nausea, vomiting , and diarrhea. Treatments tried include nothing so far. with no relief of symptoms. Sick contacts: unknown. History of asthma, frequent episodes of bronchitis, chronic bronchitis, bronchiectasis or COPD: No Smoker: No Seasonal/environmental allergies: No The ROS is otherwise negative. The patient's pmh, medications, allergies, and past visits are reviewed. PHYSICAL EXAM: BP 137/100 Pulse 86 Temp 37.4 ?C (99.4 ?F) Resp 20 Wt 107.5 kg (237 lb) LMP 08/12/2019 (Approximate) SpO2 98% BMI 37.12 kg/m? General appearance: alert, cooperative, pleasant, in no acute distress Head: Normocephalic Eyes: EOM's intact, conjunctiva pink and moist, no icterus, sclera white, non-injected Ears: Right ear: External ear/canal- Normal, TM - erythematous, bulging. Left ear: External ear/canal- Normal, TM - clear with good landmarks Oropharynx:moist without lesions, No erythema, exudates or tonsillar hypertrophy. Neck:right cervical adenopathy Heart: Negative. RRR without obvious murmur, gallop, or rubs. No ectopy. Lungs: clear to auscultation, without rales or wheeze, good air exchange PAST MEDICAL HISTORY Diagnosis Date Anxiety associated with depression 08/06/2015 Arthritis Attention deficit hyperactivity disorder (ADHD), combined type 08/24/2016 Bipolar disorder ([facility]) 05/22/2014 Bipolar disorder, in partial remission, most recent episode mixed ([facility]) 06/04/2018 Class 1 obesity due to excess calories with body mass index (BMI) of 33.0 to 33.9 in adult 02/16/2021 Fibromyalgia 07/29/2014 GERD without esophagitis 03/29/2023 Graves' disease 09/01/2020 Sees endo: Dr. Cervantes H/O total thyroidectomy 09/06/2021 History of endometriosis 01/17/2023 Hyperthyroidism 04/15/2020 Sees endo: Dr. Cervantes; underwent total thyroidectomy 08/27/21 Hypothyroidism 09/06/2021 Seeing endo. S/p thyroidectomy Lumbar back pain 09/29/2022 Lumbar degenerative disc disease 10/31/2014 Lumbar radiculopathy 03/04/2019 NEGATIVE HISTORY OF Obesity, Class II, BMI 35-39.9 01/17/2023 Postoperative hypothyroidism 08/27/2021 total thyroidectomy Restless legs syndrome 08/06/2015 Smoker 01/13/2017 Started age 13 up to 1/2 PPD Supraspinatus tendon tear 10/19/2016 TMJ pain dysfunction syndrome 01/13/2017 chronic grinding of teeth and recent popping. Tobacco use disorder 01/13/2017 Well adult exam 09/21/2022 Last done: 09/21/2022 PAST SURGICAL HISTORY Procedure Laterality Date APPENDECTOMY 03/23/2020 CARPAL TUNNEL Right 07/2015 COLONOSCOPY 11/08/2022 D+C 04/23/2018 DIAGNOSTIC ARTHROSCOPY SHOULDER +- SYNOVIAL BX Right 01/25/2017 Right shoulder arthroscopic decompression EGD 11/08/2022 HYSTERECTOMY 03/23/2020 HYSTEROSCOPY DIAGNOSTIC 04/23/2018 LIG/TRNSXJ FLP TUBE ABDL/VAG APPR UNI/BI Tubal ligation LYSIS VAGINAL ADHESIONS 04/23/2018 OOPHORECTOMY PARTIAL OR TOTAL Right 04/23/2018 OOPHORECTOMY PARTIAL OR TOTAL Left 03/23/2020 PAST SURGICAL HISTORY OF cyst removal left ankle RECONSTRUCTION ROTATOR CUFF AVULSION CHRONIC Right 01/25/2017 Right rotator cuff debridement SALPINGECTOMY Bilateral 04/23/2018 [facility]-Dr. Oleary THYROID FINE NEEDLE ASPIRATION Left 04/06/2021 THYROIDECTOMY TOTAL/COMPLETE 08/27/2021 ALLERGIES Abilify [Aripiprazole], Divalproex Sodium, Tapazole [Methimazole], and Valproic Acid MEDICATIONS buPROPion XL (WELLBUTRIN XL) 150 mg 24 hr tablet Take 1 tablet by mouth once daily. DULoxetine (CYMBALTA) 20 mg capsule Take 1 capsule by mouth once daily. omeprazole (PRILOSEC) 40 mg capsule Take 1 capsule by mouth once daily. gabapentin (NEURONTIN) 600 mg tablet Take 1.5 tabs three times a day levothyroxine (SYNTHROID) 137 mcg tablet Take 1 tablet by mouth daily before breakfast. albuterol HFA (PROAIR HFA) 90 mcg/actuation inhaler Inhale 2 Puffs as instructed every 6 hours as needed. conjugated estrogens-medroxyPROGESTERone (PREMPRO) 0.625-2.5 mg per tablet Take 1 tablet by mouth once daily. Mklbcrnsyoljhjz-Ndxffjert-DP (BROMFED DM) 2-30-10 mg/5 mL syrup Take 10 mL by mouth four times daily as needed. FAMILY HISTORY Problem Relation Age of Onset Hypertension Father Heart Father Arthritis Maternal Grandmother Diabetes Maternal Grandmother Stroke Maternal Grandmother Kidney Disease Maternal Grandmother Arthritis Paternal Grandmother Social History Tobacco Use Smoking status: Every Day Packs/day: 0.50 Years: 10.00 Additional pack years: 0.00 Total pack years: 5.00 Types: Cigarette (more content not included)... [facility] 06-20-2023 History of Presen t illness Narrative CC: Patient presents with: Ear Pain: R ear x 2 days Covid positive HPI: Clara Cortez is a 37 year old female who presents to the office with complaint of ear symptoms for a few days. Symptoms are worsening Associated symptoms includes ear pain. Denies fever, nausea, vomiting , and diarrhea. Treatments tried include nothing so far. with no relief of symptoms. Sick contacts: unknown. History of asthma, frequent episodes of bronchitis, chronic bronchitis, bronchiectasis or COPD: No Smoker: No Seasonal/environmental allergies: No The ROS is otherwise negative. The patient's pmh, medications, allergies, and past visits are reviewed. PHYSICAL EXAM: BP 137/100 Pulse 86 Temp 37.4 C (99.4 F) Resp 20 Wt 107.5 kg (237 lb) LMP 08/12/2019 (Approximate) SpO2 98% BMI 37.12 kg/m General appearance: alert, cooperative, pleasant, in no acute distress Head: Normocephalic Eyes: EOM's intact, conjunctiva pink and moist, no icterus, sclera white, non-injected Ears: Right ear: External ear/canal- Normal, TM - erythematous, bulging. Left ear: External ear/canal- Normal, TM - clear with good landmarks Oropharynx:moist without lesions, No erythema, exudates or tonsillar hypertrophy. Neck:right cervical adenopathy Heart: Negative. RRR without obvious murmur, gallop, or rubs. No ectopy. Lungs: clear to auscultation, without rales or wheeze, good air exchange PAST MEDICAL HISTORY Diagnosis Date Anxiety associated with depression 08/06/2015 Arthritis Attention deficit hyperactivity disorder (ADHD), combined type 08/24/2016 Bipolar disorder (HCC) 05/22/2014 Bipolar disorder, in partial remission, most recent episode mixed (HCC) 06/04/2018 Class 1 obesity due to excess calories with body mass index (BMI) of 33.0 to 33.9 in adult 02/16/2021 Fibromyalgia 07/29/2014 GERD without esophagitis 03/29/2023 Graves' disease 09/01/2020 Sees endo: Dr. Cervantes H/O total thyroidectomy 09/06/2021 History of endometriosis 01/17/2023 Hyperthyroidism 04/15/2020 Sees endo: Dr. Cervantes; underwent total thyroidectomy 08/27/21 Hypothyroidism 09/06/2021 Seeing endo. S/p thyroidectomy Lumbar back pain 09/29/2022 Lumbar degenerative disc disease 10/31/2014 Lumbar radiculopathy 03/04/2019 NEGATIVE HISTORY OF Obesity, Class II, BMI 35-39.9 01/17/2023 Postoperative hypothyroidism 08/27/2021 total thyroidectomy Restless legs syndrome 08/06/2015 Smoker 01/13/2017 Started age 13 up to 1/2 PPD Supraspinatus tendon tear 10/19/2016 TMJ pain dysfunction syndrome 01/13/2017 chronic grinding of teeth and recent popping. Tobacco use disorder 01/13/2017 Well adult exam 09/21/2022 Last done: 09/21/2022 PAST SURGICAL HISTORY Procedure Laterality Date APPENDECTOMY 03/23/2020 CARPAL TUNNEL Right 07/2015 COLONOSCOPY 11/08/2022 D+C 04/23/2018 DIAGNOSTIC ARTHROSCOPY SHOULDER +- SYNOVIAL BX Right 01/25/2017 Right shoulder arthroscopic decompression EGD 11/08/2022 HYSTERECTOMY 03/23/2020 HYSTEROSCOPY DIAGNOSTIC 04/23/2018 LIG/TRNSXJ FLP TUBE ABDL/VAG APPR UNI/BI Tubal ligation LYSIS VAGINAL ADHESIONS 04/23/2018 OOPHORECTOMY PARTIAL OR TOTAL Right 04/23/2018 OOPHORECTOMY PARTIAL OR TOTAL Left 03/23/2020 PAST SURGICAL HISTORY OF cyst removal left ankle RECONSTRUCTION ROTATOR CUFF AVULSION CHRONIC Right 01/25/2017 Right rotator cuff debridement SALPINGECTOMY Bilateral 04/23/2018 [facility]-Dr. Oleary THYROID FINE NEEDLE ASPIRATION Left 04/06/2021 THYROIDECTOMY TOTAL/COMPLETE 08/27/2021 ALLERGIES Abilify [Aripiprazole], Divalproex Sodium, Tapazole [Methimazole], and Valproic Acid MEDICATIONS buPROPion XL (WELLBUTRIN XL) 150 mg 24 hr tablet Take 1 tablet by mouth once daily. DULoxetine (CYMBALTA) 20 mg capsule Take 1 capsule by mouth once daily. omeprazole (PRILOSEC) 40 mg capsule Take 1 capsule by mouth once daily. gabapentin (NEURONTIN) 600 mg tablet Take 1.5 tabs three times a day levothyroxine (SYNTHROID) 137 mcg tablet Take 1 tablet by mouth daily before breakfast. albuterol HFA (PROAIR HFA) 90 mcg/actuation inhaler Inhale 2 Puffs as instructed every 6 hours as needed. conjugated estrogens-medroxyPROGESTERone (PREMPRO) 0.625-2.5 mg per tablet Take 1 tablet by mouth once daily. Clztxwqpawtiebs-Hiakzxjae-ZM (BROMFED DM) 2-30-10 mg/5 mL syrup Take 10 mL by mouth four times daily as needed. FAMILY HISTORY Problem Relation Age of Onset Hypertension Father Heart Father Arthritis Maternal Grandmother Diabetes Maternal Grandmother Stroke Maternal Grandmother Kidney Disease Maternal Grandmother Arthritis Paternal Grandmother Social History Tobacco Use Smoking status: Every Day Packs/day: 0.50 Years: 10.00 Additional pack years: 0.00 Total pack years: 5.00 Types: Cigarettes Smokeless tobacco: Never Vaping Use Vaping Use: Some days Substances: Nicotine Substance Use Topics Alcohol use: Yes Alcohol/week: 6.0 standard drinks of alcohol Types: 6 Cans of Beer (12oz) per week Comment: 6 beers a week. Drug use: Not Currently Types: Marijuana Comment: rarely- edibles ASSESSMENT/PLAN: 1. Acute otitis media, right - ICD9: 382.9, ICD10: H66.91 - AMOXICILLIN 875 MG TABLET Prescription instructions reviewed with patient as applicable. Potential red flag symptoms discussed with the patient. Reviewed appropriate action plan to take if red flag symptoms occur. Patient agreeable to treatment plan. Cristela Jones APRN.YESENIA documented in this encounter [facility] 06-19-2023 Note HNO ID: [id number] Author: Cristela Jones APRN.CNP Service: ? Author Type: Nurse Practitioner Type: Progress Notes Filed: 06/19/2023 12:57 PM Note Text: CC: Patient presents with: Nasal Congestion: drainage, cough, bodyaches and low grade fever x this am, + home covid HPI: Clara Cortez is a 37 year old female who presents to the office with complaint of head congestion, cough, nonproductive, and fever since this morning. Symptoms are staying the same. Associated symptoms includes nasal congestion. Denies fever, nausea, vomiting , and diarrhea. Treatments tried include nothing so far. with no relief of symptoms. Sick contacts: unknown. History of asthma, frequent episodes of bronchitis, chronic bronchitis, bronchiectasis or COPD: No Smoker: No Seasonal/environmental allergies: No The ROS is otherwise negative. The patient's pmh, medications, allergies, and past visits are reviewed. PHYSICAL EXAM: BP 110/80 Pulse 92 Temp 37.3 ?C (99.2 ?F) Resp 16 Wt 107 kg (236 lb) LMP 08/12/2019 (Approximate) SpO2 99% BMI 36.96 kg/m? General appearance: alert, cooperative, pleasant, in no acute distress Head: Normocephalic Eyes: EOM's intact, conjunctiva pink and moist, no icterus, sclera white, non-injected Ears: Right ear: External ear/canal- Normal, TM - clear with good landmarks. Left ear: External ear/canal- Normal, TM - clear with good landmarks Oropharynx:moist without lesions, No erythema, exudates or tonsillar hypertrophy. Heart: Negative. RRR without obvious murmur, gallop, or rubs. No ectopy. Lungs: clear to auscultation, without rales or wheeze, good air exchange PAST MEDICAL HISTORY Diagnosis Date Anxiety associated with depression 08/06/2015 Arthritis Attention deficit hyperactivity disorder (ADHD), combined type 08/24/2016 Bipolar disorder (HCC) 05/22/2014 Bipolar disorder, in partial remission, most recent episode mixed (HCC) 06/04/2018 Class 1 obesity due to excess calories with body mass index (BMI) of 33.0 to 33.9 in adult 02/16/2021 Fibromyalgia 07/29/2014 GERD without esophagitis 03/29/2023 Graves' disease 09/01/2020 Sees endo: Dr. Cervantes H/O total thyroidectomy 09/06/2021 History of endometriosis 01/17/2023 Hyperthyroidism 04/15/2020 Sees endo: Dr. Cervantes; underwent total thyroidectomy 08/27/21 Hypothyroidism 09/06/2021 Seeing endo. S/p thyroidectomy Lumbar back pain 09/29/2022 Lumbar degenerative disc disease 10/31/2014 Lumbar radiculopathy 03/04/2019 NEGATIVE HISTORY OF Obesity, Class II, BMI 35-39.9 01/17/2023 Postoperative hypothyroidism 08/27/2021 total thyroidectomy Restless legs syndrome 08/06/2015 Smoker 01/13/2017 Started age 13 up to 1/2 PPD Supraspinatus tendon tear 10/19/2016 TMJ pain dysfunction syndrome 01/13/2017 chronic grinding of teeth and recent popping. Tobacco use disorder 01/13/2017 Well adult exam 09/21/2022 Last done: 09/21/2022 PAST SURGICAL HISTORY Procedure Laterality Date APPENDECTOMY 03/23/2020 CARPAL TUNNEL Right 07/2015 COLONOSCOPY 11/08/2022 D+C 04/23/2018 DIAGNOSTIC ARTHROSCOPY SHOULDER +- SYNOVIAL BX Right 01/25/2017 Right shoulder arthroscopic decompression EGD 11/08/2022 HYSTERECTOMY 03/23/2020 HYSTEROSCOPY DIAGNOSTIC 04/23/2018 LIG/TRNSXJ FLP TUBE ABDL/VAG APPR UNI/BI Tubal ligation LYSIS VAGINAL ADHESIONS 04/23/2018 OOPHORECTOMY PARTIAL OR TOTAL Right 04/23/2018 OOPHORECTOMY PARTIAL OR TOTAL Left 03/23/2020 PAST SURGICAL HISTORY OF cyst removal left ankle RECONSTRUCTION ROTATOR CUFF AVULSION CHRONIC Right 01/25/2017 Right rotator cuff debridement SALPINGECTOMY Bilateral 04/23/2018 [facility]-Dr. Oleary THYROID FINE NEEDLE ASPIRATION Left 04/06/2021 THYROIDECTOMY TOTAL/COMPLETE 08/27/2021 ALLERGIES Abilify [Aripiprazole], Divalproex Sodium, Tapazole [Methimazole], and Valproic Acid MEDICATIONS buPROPion XL (WELLBUTRIN XL) 150 mg 24 hr tablet Take 1 tablet by mouth once daily. DULoxetine (CYMBALTA) 20 mg capsule Take 1 capsule by mouth once daily. omeprazole (PRILOSEC) 40 mg capsule Take 1 capsule by mouth once daily. conjugated estrogens-medroxyPROGESTERone (PREMPRO) 0.625-2.5 mg per tablet Take 1 tablet by mouth once daily. gabapentin (NEURONTIN) 600 mg tablet Take 1.5 tabs three times a day levothyroxine (SYNTHROID) 137 mcg tablet Take 1 tablet by mouth daily before breakfast. albuterol HFA (PROAIR HFA) 90 mcg/actuation inhaler Inhale 2 Puffs as instructed every 6 hours as needed. Fobumtdnjmdbqrm-Imajxkkai-LY (BROMFED DM) 2-30-10 mg/5 mL syrup Take 10 mL by mouth four times daily as needed. FAMILY HISTORY Problem Relation Age of Onset Hypertension Father Heart Father Arthritis Maternal Grandmother Diabetes Maternal Grandmother Stroke Maternal Grandmother Kidney Disease Maternal Grandmother Arthritis Paternal Grandmother Social History Tobacco Use Smoking status: Every Day Packs/day: 0.50 Years: 10 (more content not included)... [facility] 06-19-2023 History of Presen t illness Narrative CC: Patient presents with: Nasal Congestion: drainage, cough, bodyaches and low grade fever x this am, + home covid HPI: Clara Cortez is a 37 year old female who presents to the office with complaint of head congestion, cough, nonproductive, and fever since this morning. Symptoms are staying the same. Associated symptoms includes nasal congestion. Denies fever, nausea, vomiting , and diarrhea. Treatments tried include nothing so far. with no relief of symptoms. Sick contacts: unknown. History of asthma, frequent episodes of bronchitis, chronic bronchitis, bronchiectasis or COPD: No Smoker: No Seasonal/environmental allergies: No The ROS is otherwise negative. The patient's pmh, medications, allergies, and past visits are reviewed. PHYSICAL EXAM: BP 110/80 Pulse 92 Temp 37.3 C (99.2 F) Resp 16 Wt 107 kg (236 lb) LMP 08/12/2019 (Approximate) SpO2 99% BMI 36.96 kg/m General appearance: alert, cooperative, pleasant, in no acute distress Head: Normocephalic Eyes: EOM's intact, conjunctiva pink and moist, no icterus, sclera white, non-injected Ears: Right ear: External ear/canal- Normal, TM - clear with good landmarks. Left ear: External ear/canal- Normal, TM - clear with good landmarks Oropharynx:moist without lesions, No erythema, exudates or tonsillar hypertrophy. Heart: Negative. RRR without obvious murmur, gallop, or rubs. No ectopy. Lungs: clear to auscultation, without rales or wheeze, good air exchange PAST MEDICAL HISTORY Diagnosis Date Anxiety associated with depression 08/06/2015 Arthritis Attention deficit hyperactivity disorder (ADHD), combined type 08/24/2016 Bipolar disorder (HCC) 05/22/2014 Bipolar disorder, in partial remission, most recent episode mixed (HCC) 06/04/2018 Class 1 obesity due to excess calories with body mass index (BMI) of 33.0 to 33.9 in adult 02/16/2021 Fibromyalgia 07/29/2014 GERD without esophagitis 03/29/2023 Graves' disease 09/01/2020 Sees endo: Dr. Cervantes H/O total thyroidectomy 09/06/2021 History of endometriosis 01/17/2023 Hyperthyroidism 04/15/2020 Sees endo: Dr. Cervantes; underwent total thyroidectomy 08/27/21 Hypothyroidism 09/06/2021 Seeing endo. S/p thyroidectomy Lumbar back pain 09/29/2022 Lumbar degenerative disc disease 10/31/2014 Lumbar radiculopathy 03/04/2019 NEGATIVE HISTORY OF Obesity, Class II, BMI 35-39.9 01/17/2023 Postoperative hypothyroidism 08/27/2021 total thyroidectomy Restless legs syndrome 08/06/2015 Smoker 01/13/2017 Started age 13 up to 1/2 PPD Supraspinatus tendon tear 10/19/2016 TMJ pain dysfunction syndrome 01/13/2017 chronic grinding of teeth and recent popping. Tobacco use disorder 01/13/2017 Well adult exam 09/21/2022 Last done: 09/21/2022 PAST SURGICAL HISTORY Procedure Laterality Date APPENDECTOMY 03/23/2020 CARPAL TUNNEL Right 07/2015 COLONOSCOPY 11/08/2022 D+C 04/23/2018 DIAGNOSTIC ARTHROSCOPY SHOULDER +- SYNOVIAL BX Right 01/25/2017 Right shoulder arthroscopic decompression EGD 11/08/2022 HYSTERECTOMY 03/23/2020 HYSTEROSCOPY DIAGNOSTIC 04/23/2018 LIG/TRNSXJ FLP TUBE ABDL/VAG APPR UNI/BI Tubal ligation LYSIS VAGINAL ADHESIONS 04/23/2018 OOPHORECTOMY PARTIAL OR TOTAL Right 04/23/2018 OOPHORECTOMY PARTIAL OR TOTAL Left 03/23/2020 PAST SURGICAL HISTORY OF cyst removal left ankle RECONSTRUCTION ROTATOR CUFF AVULSION CHRONIC Right 01/25/2017 Right rotator cuff debridement SALPINGECTOMY Bilateral 04/23/2018 [facility]-Dr. Oleary THYROID FINE NEEDLE ASPIRATION Left 04/06/2021 THYROIDECTOMY TOTAL/COMPLETE 08/27/2021 ALLERGIES Abilify [Aripiprazole], Divalproex Sodium, Tapazole [Methimazole], and Valproic Acid MEDICATIONS buPROPion XL (WELLBUTRIN XL) 150 mg 24 hr tablet Take 1 tablet by mouth once daily. DULoxetine (CYMBALTA) 20 mg capsule Take 1 capsule by mouth once daily. omeprazole (PRILOSEC) 40 mg capsule Take 1 capsule by mouth once daily. conjugated estrogens-medroxyPROGESTERone (PREMPRO) 0.625-2.5 mg per tablet Take 1 tablet by mouth once daily. gabapentin (NEURONTIN) 600 mg tablet Take 1.5 tabs three times a day levothyroxine (SYNTHROID) 137 mcg tablet Take 1 tablet by mouth daily before breakfast. albuterol HFA (PROAIR HFA) 90 mcg/actuation inhaler Inhale 2 Puffs as instructed every 6 hours as needed. Ynmebrlndburztn-Ntunqymzc-HZ (BROMFED DM) 2-30-10 mg/5 mL syrup Take 10 mL by mouth four times daily as needed. FAMILY HISTORY Problem Relation Age of Onset Hypertension Father Heart Father Arthritis Maternal Grandmother Diabetes Maternal Grandmother Stroke Maternal Grandmother Kidney Disease Maternal Grandmother Arthritis Paternal Grandmother Social History Tobacco Use Smoking status: Every Day Packs/day: 0.50 Years: 10.00 Additional pack years: 0.00 Total pack years: 5.00 Types: Cigarettes Smokeless tobacco: Never Vaping Use Vaping Use: Some days Substances: Nicotine Substance Use Topics Alcohol use: Yes Alcohol/week: 6.0 standard drinks of alcohol Types: 6 Cans of Beer (12oz) per week Comment: 6 beers a week. Drug use: Not Currently Types: Marijuana Comment: rarely- edibles ASSESSMENT/PLAN: 1. URI, acute - ICD9: 465.9, ICD10: J06.9 - COVID & INFLUENZA A/B & RSV NAAT, ROUTINE Potential red flag symptoms discussed with the patient. Reviewed appropriate action plan to take if red flag symptoms occur. Patient agreeable to treatment plan. Cristela Jones APRN.SILK SCREEN PRINTER HELPER documented in this encounter [facility] 06-05-2023 Miscellaneous Notes The following approved medication requests have been transmitted electronically. Requested Prescriptions Signed Prescriptions Disp Refills buPROPion XL (WELLBUTRIN XL) 150 mg 24 hr tablet 30 tablet 5 Sig: Take 1 tablet by mouth once daily. Authorizing Provider: YOGI MADDOX DULoxetine (CYMBALTA) 20 mg capsule 90 capsule 1 Sig: Take 1 capsule by mouth once daily. Authorizing Provider: YOGI MADDOX omeprazole (PRILOSEC) 40 mg capsule 90 capsule 1 Sig: Take 1 capsule by mouth once daily. Authorizing Provider: YOGI MADDOX MD Patient has been identified by name and date of : Yes Requested Prescriptions Pending Prescriptions Disp Refills buPROPion XL (WELLBUTRIN XL) 150 mg 24 hr tablet 30 tablet 5 Sig: Take 1 tablet by mouth once daily. DULoxetine (CYMBALTA) 20 mg capsule 90 capsule 1 Sig: Take 1 capsule by mouth once daily. omeprazole (PRILOSEC) 40 mg capsule 30 capsule 2 Sig: Take 1 capsule by mouth once daily. RX INSTRUCTIONS: Patient aware RX will be sent to pharmacy. No need to notify patient. Antoinette Jones MA William 03/2023 Nov 09/2023 Last refill; 12/2022 documented in this encounter [facility] 04-20-2023 Miscellaneous Notes Please see pharmacy generated refill request below and advise. Frances Canales LPN documented in this encounter [facility] 03-31-2023 Note HNO ID: [id number] Author: Danika Rosado PA-C Service: ? Author Type: Physician Senior Publications Specialist Type: Progress Notes Filed: 03/31/2023 11:24 AM Note Text: This note was created using [employer]. Subjective Clara Cortez is a 37 year old female. HPI Presents with chief complaint of headache, nasal congestion, sore throat cough since yesterday. Her daughter tested positive for COVID so her work wanted her to come in and get tested. She works at [employer]. No chest pain or shortness of breath. She has had some body aches and chills. She has had COVID 2 times before. Review of Systems Constitutional: Positive for chills, fatigue and fever. HENT: Positive for congestion, rhinorrhea and sore throat. Negative for ear pain. Respiratory: Positive for cough. Negative for shortness of breath and wheezing. Cardiovascular: Negative. Gastrointestinal: Negative. Genitourinary: Negative. Musculoskeletal: Positive for myalgias. Neurological: Positive for headaches. All other systems reviewed and are negative. PAST MEDICAL HISTORY Diagnosis Date Anxiety associated with depression 08/06/2015 Arthritis Attention deficit hyperactivity disorder (ADHD), combined type 08/24/2016 Bipolar disorder ([facility]) 05/22/2014 Bipolar disorder, in partial remission, most recent episode mixed (HCC) 06/04/2018 Class 1 obesity due to excess calories with body mass index (BMI) of 33.0 to 33.9 in adult 02/16/2021 Fibromyalgia 07/29/2014 GERD without esophagitis 03/29/2023 Graves' disease 09/01/2020 Sees endo: Dr. Cervantes H/O total thyroidectomy 09/06/2021 History of endometriosis 01/17/2023 Hyperthyroidism 04/15/2020 Sees endo: Dr. Cervantes; underwent total thyroidectomy 08/27/21 Hypothyroidism 09/06/2021 Seeing endo. S/p thyroidectomy Lumbar back pain 09/29/2022 Lumbar degenerative disc disease 10/31/2014 Lumbar radiculopathy 03/04/2019 NEGATIVE HISTORY OF Obesity, Class II, BMI 35-39.9 01/17/2023 Postoperative hypothyroidism 08/27/2021 total thyroidectomy Restless legs syndrome 08/06/2015 Smoker 01/13/2017 Started age 13 up to 1/2 PPD Supraspinatus tendon tear 10/19/2016 TMJ pain dysfunction syndrome 01/13/2017 chronic grinding of teeth and recent popping. Tobacco use disorder 01/13/2017 Well adult exam 09/21/2022 Last done: 09/21/2022 Current Outpatient Medications Medication Sig Dispense Refill omeprazole (PRILOSEC) 40 mg capsule Take 1 capsule by mouth once daily. 30 capsule 2 conjugated estrogens-medroxyPROGESTERone (PREMPRO) 0.625-2.5 mg per tablet Take 1 tablet by mouth once daily. 30 tablet 1 gabapentin (NEURONTIN) 600 mg tablet Take 1.5 tabs three times a day 135 tablet 5 DULoxetine (CYMBALTA) 20 mg capsule Take 1 capsule by mouth once daily. 90 capsule 1 levothyroxine (SYNTHROID) 137 mcg tablet Take 1 tablet by mouth daily before breakfast. 90 tablet 3 buPROPion XL (WELLBUTRIN XL) 150 mg 24 hr tablet Take 1 tablet by mouth once daily. 30 tablet 5 albuterol HFA (PROAIR HFA) 90 mcg/actuation inhaler Inhale 2 Puffs as instructed every 6 hours as needed. 1 Each 0 Igodtlbotdckvxm-Hcmnrcrej-GD (BROMFED DM) 2-30-10 mg/5 mL syrup Take 10 mL by mouth four times daily as needed. 200 mL 0 No current facility-administered medications for this visit. PAST SURGICAL HISTORY Procedure Laterality Date APPENDECTOMY 03/23/2020 CARPAL TUNNEL Right 07/2015 COLONOSCOPY 11/08/2022 D+C 04/23/2018 DIAGNOSTIC ARTHROSCOPY SHOULDER +- SYNOVIAL BX Right 01/25/2017 Right shoulder arthroscopic decompression EGD 11/08/2022 HYSTERECTOMY 03/23/2020 HYSTEROSCOPY DIAGNOSTIC 04/23/2018 LIG/TRNSXJ FLP TUBE ABDL/VAG APPR UNI/BI Tubal ligation LYSIS VAGINAL ADHESIONS 04/23/2018 OOPHORECTOMY PARTIAL OR TOTAL Right 04/23/2018 OOPHORECTOMY PARTIAL OR TOTAL Left 03/23/2020 PAST SURGICAL HISTORY OF cyst removal left ankle RECONSTRUCTION ROTATOR CUFF AVULSION CHRONIC Right 01/25/2017 Right rotator cuff debridement SALPINGECTOMY Bilateral 04/23/2018 [facility]-Dr. Oleary THYROID FINE NEEDLE ASPIRATION Left 04/06/2021 THYROIDECTOMY TOTAL/COMPLETE 08/27/2021 FAMILY HISTORY Problem Relation Age of Onset Hypertension Father Heart Father Arthritis Maternal Grandmother Diabetes Maternal Grandmother Stroke Maternal Grandmother Kidney Disease Maternal Grandmother Arthritis Paternal Grandmother Social History Tobacco Use Smoking status: Every Day Packs/day: 0.50 Years: 10.00 Additional pack years: 0.00 Total pack years: 5.00 Types: Cigarettes Smokeless tobacco: Never Vaping Use Vaping Use: Some days Substances: Nicotine Substance Use Topics Alcohol use: Yes Alcohol/week: 6.0 standard drinks of alcohol Types: 6 Cans of Beer (12oz) per week Comment: 6 beers a week. Drug use: Not Currently Types: Marijuana Comment: rarely- edibles Objective BP 110/72 Pulse 90 Temp 36.7 ?C (98 ?F) Resp 16 Wt 103.9 kg (229 lb) LMP 08/12/2019 (Appr (more content not included)... [facility] 03-31-2023 History of Presen t illness Narrative This note was created using [email or web address]. Subjective Clara Cortez is a 37 year old female. HPI Presents with chief complaint of headache, nasal congestion, sore throat cough since yesterday. Her daughter tested positive for COVID so her work wanted her to come in and get tested. She works at [employer]. No chest pain or shortness of breath. She has had some body aches and chills. She has had COVID 2 times before. Review of Systems Constitutional: Positive for chills, fatigue and fever. HENT: Positive for congestion, rhinorrhea and sore throat. Negative for ear pain. Respiratory: Positive for cough. Negative for shortness of breath and wheezing. Cardiovascular: Negative. Gastrointestinal: Negative. Genitourinary: Negative. Musculoskeletal: Positive for myalgias. Neurological: Positive for headaches. All other systems reviewed and are negative. PAST MEDICAL HISTORY Diagnosis Date Anxiety associated with depression 08/06/2015 Arthritis Attention deficit hyperactivity disorder (ADHD), combined type 08/24/2016 Bipolar disorder (HCC) 05/22/2014 Bipolar disorder, in partial remission, most recent episode mixed (HCC) 06/04/2018 Class 1 obesity due to excess calories with body mass index (BMI) of 33.0 to 33.9 in adult 02/16/2021 Fibromyalgia 07/29/2014 GERD without esophagitis 03/29/2023 Graves' disease 09/01/2020 Sees endo: Dr. Cervantes H/O total thyroidectomy 09/06/2021 History of endometriosis 01/17/2023 Hyperthyroidism 04/15/2020 Sees endo: Dr. Cervantes; underwent total thyroidectomy 08/27/21 Hypothyroidism 09/06/2021 Seeing endo. S/p thyroidectomy Lumbar back pain 09/29/2022 Lumbar degenerative disc disease 10/31/2014 Lumbar radiculopathy 03/04/2019 NEGATIVE HISTORY OF Obesity, Class II, BMI 35-39.9 01/17/2023 Postoperative hypothyroidism 08/27/2021 total thyroidectomy Restless legs syndrome 08/06/2015 Smoker 01/13/2017 Started age 13 up to 1/2 PPD Supraspinatus tendon tear 10/19/2016 TMJ pain dysfunction syndrome 01/13/2017 chronic grinding of teeth and recent popping. Tobacco use disorder 01/13/2017 Well adult exam 09/21/2022 Last done: 09/21/2022 Current Outpatient Medications Medication Sig Dispense Refill omeprazole (PRILOSEC) 40 mg capsule Take 1 capsule by mouth once daily. 30 capsule 2 conjugated estrogens-medroxyPROGESTERone (PREMPRO) 0.625-2.5 mg per tablet Take 1 tablet by mouth once daily. 30 tablet 1 gabapentin (NEURONTIN) 600 mg tablet Take 1.5 tabs three times a day 135 tablet 5 DULoxetine (CYMBALTA) 20 mg capsule Take 1 capsule by mouth once daily. 90 capsule 1 levothyroxine (SYNTHROID) 137 mcg tablet Take 1 tablet by mouth daily before breakfast. 90 tablet 3 buPROPion XL (WELLBUTRIN XL) 150 mg 24 hr tablet Take 1 tablet by mouth once daily. 30 tablet 5 albuterol HFA (PROAIR HFA) 90 mcg/actuation inhaler Inhale 2 Puffs as instructed every 6 hours as needed. 1 Each 0 Dquxcffdmugopir-Deslcmcbh-PG (BROMFED DM) 2-30-10 mg/5 mL syrup Take 10 mL by mouth four times daily as needed. 200 mL 0 No current facility-administered medications for this visit. PAST SURGICAL HISTORY Procedure Laterality Date APPENDECTOMY 03/23/2020 CARPAL TUNNEL Right 07/2015 COLONOSCOPY 11/08/2022 D+C 04/23/2018 DIAGNOSTIC ARTHROSCOPY SHOULDER +- SYNOVIAL BX Right 01/25/2017 Right shoulder arthroscopic decompression EGD 11/08/2022 HYSTERECTOMY 03/23/2020 HYSTEROSCOPY DIAGNOSTIC 04/23/2018 LIG/TRNSXJ FLP TUBE ABDL/VAG APPR UNI/BI Tubal ligation LYSIS VAGINAL ADHESIONS 04/23/2018 OOPHORECTOMY PARTIAL OR TOTAL Right 04/23/2018 OOPHORECTOMY PARTIAL OR TOTAL Left 03/23/2020 PAST SURGICAL HISTORY OF cyst removal left ankle RECONSTRUCTION ROTATOR CUFF AVULSION CHRONIC Right 01/25/2017 Right rotator cuff debridement SALPINGECTOMY Bilateral 04/23/2018 [facility]-Dr. Oleary THYROID FINE NEEDLE ASPIRATION Left 04/06/2021 THYROIDECTOMY TOTAL/COMPLETE 08/27/2021 FAMILY HISTORY Problem Relation Age of Onset Hypertension Father Heart Father Arthritis Maternal Grandmother Diabetes Maternal Grandmother Stroke Maternal Grandmother Kidney Disease Maternal Grandmother Arthritis Paternal Grandmother Social History Tobacco Use Smoking status: Every Day Packs/day: 0.50 Years: 10.00 Additional pack years: 0.00 Total pack years: 5.00 Types: Cigarettes Smokeless tobacco: Never Vaping Use Vaping Use: Some days Substances: Nicotine Substance Use Topics Alcohol use: Yes Alcohol/week: 6.0 standard drinks of alcohol Types: 6 Cans of Beer (12oz) per week Comment: 6 beers a week. Drug use: Not Currently Types: Marijuana Comment: rarely- edibles Objective BP 110/72 Pulse 90 Temp 36.7 C (98 F) Resp 16 Wt 103.9 kg (229 lb) LMP 08/12/2019 (Approximate) SpO2 97% BMI 35.87 kg/m Physical Exam Vitals reviewed. Constitutional: Appearance: Normal appearance. HENT: Head: Normocephalic and atraumatic. Right Ear: Tympanic membrane, ear canal and external ear normal. Left Ear: Tympanic membrane, ear canal and external ear normal. Nose: Congestion present. Mouth/Throat: Mouth: Mucous membranes are moist. Pharynx: Oropharynx is clear. Cardiovascular: Rate and Rhythm: Normal rate and regular rhythm. Heart sounds: Normal heart sounds. Pulmonary: Effort: Pulmonary effort is normal. Breath sounds: Normal breath sounds. Skin: General: Skin is warm and dry. Neurological: Mental Status: She is alert. Assessment and Plan ASSESSMENT/PLAN: 1. Suspected COVID-19 virus infection - ICD9: V01.79, ICD10: Z20.822 Discussed supportive care. Discussed quarantine. Bromfed sent for symptoms. Tylenol ibuprofen recommended. Follow-up with PCP if not improving over the next week. Red flags for ER care discussed. Patient agreeable. - COVID NAAT, ROUTINE Danika Rosado PA-C documented in this encounter [facility] 03-30-2023 Miscellaneous Notes Detailed message left for patient on secure VM. Advised her to call if any questions or concerns. Please let patient know her labs are normal. documented in this encounter [facility] 03-29-2023 Note HNO ID: [id number] Author: Yogi Maddox MD Service: ? Author Type: Physician Type: Progress Notes Filed: 03/29/2023 2:31 PM Note Text: Chief Complaint Patient presents with: F/U 6 months HPI Clara Cortez is a 37 year old female who presents here today for 6 month follow up. Office visit - 6 month follow up 03/29/2023 Patient is here today for her 6 month follow up. No other concerns today for this visit. She is working out 4 days a week doing stair master, tread mill ab and hip work out. Patient with hx of RLS, hypothyroid, Anxiety/depression, Bipolar, obesity, lumbar back pain and those as below. Bipolar disorder, in partial remission, most recent episode mixed (HCC) - Stable. Currently on Cymbalta and Wellbutrin. Feels she has been doing well with current meds. Class 1 obesity due to excess calories with body mass index (BMI) of 33.0 to 33.9 in adult, unspecified whether serious comorbidity present - Last 3 Encounter Wt Readings: Date: Wt: 09/21/2022 102.5 kg (226 lb) 07/07/2022 104.9 kg (231 lb 3.2 oz) 03/18/2022 103.4 kg (228 lb) Stable - Behavioral intervention Bowel habit changes/nausea- any current bowel changes/nausea? No issues currently Patient was seen by Dr. Riddle in October for a EGD and Colonoscopy. Currently taking omeprazole. As long as she takes the omeprazole she has no GERD symptoms. Lumbar radiculopathy - Acute on chronic. Patient does see [facility] and Dr. Cervantes endocrinology for her hypothyroidism Past medical history, appointments, medications, allergies reviewed. Previous Medical History PAST MEDICAL HISTORY Diagnosis Date Anxiety associated with depression 08/06/2015 Arthritis Attention deficit hyperactivity disorder (ADHD), combined type 08/24/2016 Bipolar disorder ([facility]) 05/22/2014 Bipolar disorder, in partial remission, most recent episode mixed ([facility]) 06/04/2018 Class 1 obesity due to excess calories with body mass index (BMI) of 33.0 to 33.9 in adult 02/16/2021 Fibromyalgia 07/29/2014 Graves' disease 09/01/2020 Sees endo: Dr. Cervantes H/O total thyroidectomy 09/06/2021 Hyperthyroidism 04/15/2020 Sees endo: Dr. Cervantes; underwent total thyroidectomy 08/27/21 Hypothyroidism 09/06/2021 Seeing endo. S/p thyroidectomy Lumbar degenerative disc disease 10/31/2014 Lumbar radiculopathy 03/04/2019 NEGATIVE HISTORY OF Postoperative hypothyroidism 08/27/2021 total thyroidectomy Restless legs syndrome 08/06/2015 Smoker 01/13/2017 Started age 13 up to 1/2 PPD Supraspinatus tendon tear 10/19/2016 TMJ pain dysfunction syndrome 01/13/2017 chronic grinding of teeth and recent popping. Tobacco use disorder 01/13/2017 Previous Surgical History PAST SURGICAL HISTORY Procedure Laterality Date APPENDECTOMY 03/23/2020 CARPAL TUNNEL Right 07/2015 COLONOSCOPY 11/08/2022 D+C 04/23/2018 DIAGNOSTIC ARTHROSCOPY SHOULDER +- SYNOVIAL BX Right 01/25/2017 Right shoulder arthroscopic decompression EGD 11/08/2022 HYSTERECTOMY 03/23/2020 HYSTEROSCOPY DIAGNOSTIC 04/23/2018 LIG/TRNSXJ FLP TUBE ABDL/VAG APPR UNI/BI Tubal ligation LYSIS VAGINAL ADHESIONS 04/23/2018 OOPHORECTOMY PARTIAL OR TOTAL Right 04/23/2018 OOPHORECTOMY PARTIAL OR TOTAL Left 03/23/2020 PAST SURGICAL HISTORY OF cyst removal left ankle RECONSTRUCTION ROTATOR CUFF AVULSION CHRONIC Right 01/25/2017 Right rotator cuff debridement SALPINGECTOMY Bilateral 04/23/2018 [facility]-Dr. Oleary THYROID FINE NEEDLE ASPIRATION Left 04/06/2021 THYROIDECTOMY TOTAL/COMPLETE 08/27/2021 Family History FAMILY HISTORY Problem Relation Age of Onset Hypertension Father Heart Father Arthritis Maternal Grandmother Diabetes Maternal Grandmother Stroke Maternal Grandmother Kidney Disease Maternal Grandmother Arthritis Paternal Grandmother Patient Allergies ALLERGIES Allergen Reactions Abilify [Aripiprazo* Other: See Comments tired Divalproex Sodium GI Upset Tapazole [Methimazo* GI Upset Nausea and vomiting Valproic Acid GI Upset Current Medications Current Outpatient Medications on File Prior to Visit Medication Sig omeprazole (PRILOSEC) 40 mg capsule Take 1 capsule by mouth once daily. conjugated estrogens-medroxyPROGESTERone (PREMPRO) 0.625-2.5 mg per tablet Take 1 tablet by mouth once daily. gabapentin (NEURONTIN) 600 mg tablet Take 1.5 tabs three times a day DULoxetine (CYMBALTA) 20 mg capsule Take 1 capsule by mouth once daily. levothyroxine (SYNTHROID) 137 mcg tablet Take 1 tablet by mouth daily before breakfast. buPROPion XL (WELLBUTRIN XL) 150 mg 24 hr tablet Take 1 tablet by mouth once daily. albuterol HFA (PROAIR HFA) 90 mcg/actuation inhaler Inhale 2 Puffs as instructed every 6 hours as needed. No current facility-administered medications on file prior to visit. Social History Social History Tobacco Use Smoking status: Every Day Packs/day: 0.50 Years: 10.00 Additional pack years: 0.00 To (more content not included)... [facility] 03-29-2023 History of Presen t illness Narrative Chief Complaint Patient presents with: F/U 6 months HPI Clara Cortez is a 37 year old female who presents here today for 6 month follow up. Office visit - 6 month follow up 03/29/2023 Patient is here today for her 6 month follow up. No other concerns today for this visit. She is working out 4 days a week doing stair master, tread mill ab and hip work out. Patient with hx of RLS, hypothyroid, Anxiety/depression, Bipolar, obesity, lumbar back pain and those as below. Bipolar disorder, in partial remission, most recent episode mixed (HCC) - Stable. Currently on Cymbalta and Wellbutrin. Feels she has been doing well with current meds. Class 1 obesity due to excess calories with body mass index (BMI) of 33.0 to 33.9 in adult, unspecified whether serious comorbidity present - Last 3 Encounter Wt Readings: Date: Wt: 09/21/2022 102.5 kg (226 lb) 07/07/2022 104.9 kg (231 lb 3.2 oz) 03/18/2022 103.4 kg (228 lb) Stable - Behavioral intervention Bowel habit changes/nausea- any current bowel changes/nausea? No issues currently Patient was seen by Dr. Riddle in October for a EGD and Colonoscopy. Currently taking omeprazole. As long as she takes the omeprazole she has no GERD symptoms. Lumbar radiculopathy - Acute on chronic. Patient does see [facility] and Dr. Cervantes endocrinology for her hypothyroidism Past medical history, appointments, medications, allergies reviewed. Previous Medical History PAST MEDICAL HISTORY Diagnosis Date Anxiety associated with depression 08/06/2015 Arthritis Attention deficit hyperactivity disorder (ADHD), combined type 08/24/2016 Bipolar disorder (HCC) 05/22/2014 Bipolar disorder, in partial remission, most recent episode mixed (HCC) 06/04/2018 Class 1 obesity due to excess calories with body mass index (BMI) of 33.0 to 33.9 in adult 02/16/2021 Fibromyalgia 07/29/2014 Graves' disease 09/01/2020 Sees endo: Dr. Cervantes H/O total thyroidectomy 09/06/2021 Hyperthyroidism 04/15/2020 Sees endo: Dr. Cervantes; underwent total thyroidectomy 08/27/21 Hypothyroidism 09/06/2021 Seeing endo. S/p thyroidectomy Lumbar degenerative disc disease 10/31/2014 Lumbar radiculopathy 03/04/2019 NEGATIVE HISTORY OF Postoperative hypothyroidism 08/27/2021 total thyroidectomy Restless legs syndrome 08/06/2015 Smoker 01/13/2017 Started age 13 up to 1/2 PPD Supraspinatus tendon tear 10/19/2016 TMJ pain dysfunction syndrome 01/13/2017 chronic grinding of teeth and recent popping. Tobacco use disorder 01/13/2017 Previous Surgical History PAST SURGICAL HISTORY Procedure Laterality Date APPENDECTOMY 03/23/2020 CARPAL TUNNEL Right 07/2015 COLONOSCOPY 11/08/2022 D+C 04/23/2018 DIAGNOSTIC ARTHROSCOPY SHOULDER +- SYNOVIAL BX Right 01/25/2017 Right shoulder arthroscopic decompression EGD 11/08/2022 HYSTERECTOMY 03/23/2020 HYSTEROSCOPY DIAGNOSTIC 04/23/2018 LIG/TRNSXJ FLP TUBE ABDL/VAG APPR UNI/BI Tubal ligation LYSIS VAGINAL ADHESIONS 04/23/2018 OOPHORECTOMY PARTIAL OR TOTAL Right 04/23/2018 OOPHORECTOMY PARTIAL OR TOTAL Left 03/23/2020 PAST SURGICAL HISTORY OF cyst removal left ankle RECONSTRUCTION ROTATOR CUFF AVULSION CHRONIC Right 01/25/2017 Right rotator cuff debridement SALPINGECTOMY Bilateral 04/23/2018 [facility]-Dr. Oleary THYROID FINE NEEDLE ASPIRATION Left 04/06/2021 THYROIDECTOMY TOTAL/COMPLETE 08/27/2021 Family History FAMILY HISTORY Problem Relation Age of Onset Hypertension Father Heart Father Arthritis Maternal Grandmother Diabetes Maternal Grandmother Stroke Maternal Grandmother Kidney Disease Maternal Grandmother Arthritis Paternal Grandmother Patient Allergies ALLERGIES Allergen Reactions Abilify [Aripiprazo* Other: See Comments tired Divalproex Sodium GI Upset Tapazole [Methimazo* GI Upset Nausea and vomiting Valproic Acid GI Upset Current Medications Current Outpatient Medications on File Prior to Visit Medication Sig omeprazole (PRILOSEC) 40 mg capsule Take 1 capsule by mouth once daily. conjugated estrogens-medroxyPROGESTERone (PREMPRO) 0.625-2.5 mg per tablet Take 1 tablet by mouth once daily. gabapentin (NEURONTIN) 600 mg tablet Take 1.5 tabs three times a day DULoxetine (CYMBALTA) 20 mg capsule Take 1 capsule by mouth once daily. levothyroxine (SYNTHROID) 137 mcg tablet Take 1 tablet by mouth daily before breakfast. buPROPion XL (WELLBUTRIN XL) 150 mg 24 hr tablet Take 1 tablet by mouth once daily. albuterol HFA (PROAIR HFA) 90 mcg/actuation inhaler Inhale 2 Puffs as instructed every 6 hours as needed. No current facility-administered medications on file prior to visit. Social History Social History Tobacco Use Smoking status: Every Day Packs/day: 0.50 Years: 10.00 Additional pack years: 0.00 Total pack years: 5.00 Types: Cigarettes Smokeless tobacco: Never Vaping Use Vaping Use: Some days Substances: Nicotine Substance Use Topics Alcohol use: Yes Alcohol/week: 6.0 standard drinks of alcohol Types: 6 Cans of Beer (12oz) per week Comment: 6 beers a week. Drug use: Not Currently Types: Marijuana Comment: rarely- edibles Review of Symptoms REVIEW OF SYSTEMS GENERAL: No weight loss, malaise or fevers NECK: Negative for lumps, goiter, pain and significant neck swelling RESPIRATORY: Negative for cough, hemoptysis, wheezing, COPD, dyspnea or shortness of breath CARDIOVASCULAR: Negative for chest pain, leg swelling, hypertension, CHF or palpitations GI: No nausea, vomiting, or diarrhea and No heartburn or reflux symptoms PSYCH: See HPI ENDOCRINE: Negative for cold or heat intolerance, polyuria, polydipsia and goiter NEURO: No history of headaches, syncope, paralysis, seizures or tremors EXAM: BP 126/88 (BP Site: Left Arm, BP Position: Sitting, BP Cuff Size: Large Adult) Pulse 88 Resp 16 Wt 101.6 kg (224 lb) LMP 08/12/2019 (Approximate) BMI 35.08 kg/m Last 5 Encounter Wt Readings: Date: Wt: 03/29/2023 101.6 kg (224 lb) 01/17/2023 106.8 kg (235 lb 6.4 oz) 11/08/2022 104.3 kg (229 lb 15 oz) 10/28/2022 104.3 kg (230 lb) 09/29/2022 103.4 kg (228 lb) Last 20 Encounter BP Readings: Date: BP: 03/29/2023 126/88 01/17/2023 120/82 11/08/2022 130/70 10/28/2022 130/75 09/29/2022 130/72 09/21/2022 126/78 07/07/2022 136/80 03/18/2022 126/76 10/28/2021 126/86 09/24/2021 134/86 09/06/2021 110/66 09/06/2021 100/68 07/19/2021 124/68 06/29/2021 114/77 06/08/2021 110/62 05/21/2021 133/88 04/27/2021 124/78 03/19/2021 122/82 03/10/2021 128/84 02/23/2021 140/90 General Appearance: Well appearing, alert, in no acute distress, well-hydrated, well nourished. and Obese. Neck: Supple, no adenopathy; thyroid symmetric, normal size, no bruits. Lungs: Lungs clear to auscultation. No wheezing, rhonchi, rales.. Heart: RRR without murmur, gallop, or rubs. No ectopy. Abdomen: Normal abdominal exam, Abdomen soft, non-tender. Bowel sounds normal. No masses, organomegaly. Extremities: No deformities, edema, skin discoloration, clubbing or cyanosis. Good capillary refill. . Peripheral Pulses: Normal. Health Maintenance List HEPATITIS B(1 of 3 - 3-dose series) Never done PNEUMOCOCCAL(1 - PCV) Never done BP CONTROLLED (<130/80) Never done INFLUENZA(1) due on 03/24/2023 COVID-19 VACCINE(1) due on 09/22/2023 ANNUAL PCP TEAM CHRONIC DISEASE VISIT due on 09/22/2023 DTAP,TDAP,TD(4 - Td or Tdap) due on 03/04/2030 HPV VACCINE Aged Out PAP TESTING Discontinued HPV TESTING Discontinued HEPATITIS C SCREENING Discontinued HIV SCREENING Discontinued Data reviewed Component Latest Ref Rng & Units 03/18/2022 10/28/2022 WBC 3.70 - 11.00 k/uL 6.27 RBC 3.90 - 5.20 m/uL 3.92 Hemoglobin 11.5 - 15.5 g/dL 12.3 Hematocrit 36.0 - 46.0 % 39.9 MCV 80.0 - 100.0 fL 101.8 (H) MCH 26.0 - 34.0 pg 31.4 MCHC 30.5 - 36.0 g/dL 30.8 RDW-CV 11.5 - 15.0 % 14.2 Platelet Count 150 - 400 k/uL 335 MPV 9.0 - 12.7 fL 10.0 Neut% % 47.8 Abs Neut (ANC) 1.45 - 7.50 k/uL 3.00 Lymph% % 40.4 Abs Lymph 1.00 - 4.00 k/uL 2.53 Wright% % 7.5 Abs Wright <0.87 k/uL 0.47 Eosin% % 3.2 Abs Eosin <0.46 k/uL 0.20 Baso% % 0.8 Abs Baso <0.11 k/uL 0.05 Immature Gran % % 0.3 IMMATURE GRANS (ABS) <0.10 k/uL <0.03 NRBC /100 WBC 0.0 Absolute nRBC <0.01 k/uL <0.01 DTYPE Auto Cholesterol, Total <200 mg/dL 188 Triglyceride <150 mg/dL 184 (H) HDL Cholesterol >39 mg/dL 56 Non HDL Cholesterol <130 mg/dL 132 (H) Fasting Time hrs 16 VLDL Cholesterol <30 mg/dL 37 (H) TC:HDL Ratio <5.10 3.36 LDL Cholesterol <100 mg/dL 95 LDL:HDL Ratio <2.54 1.70 Hemoglobin A1C 4.3 - 5.6 % 5.1 Estimated Average Glucose mg/dL 100 TSH 0.270 - 4.200 mIU/L 0.570 A/P ASSESSMENT/PLAN: 1. Postoperative hypothyroidism - ICD9: 244.0, ICD10: E89.0 (primary diagnosis) - Instructed patient on importance of taking on an empty stomach either first thing in the morning or at bedtime. - Cont f/u with Endo 2. Bipolar disorder, in partial remission, most recent episode mixed (HCC) - ICD9: 296.65, ICD10: F31.77 - stable wit current Tx. 3. Anxiety associated with depression - ICD9: 300.4, ICD10: F41.8 - stable with current Tx. 4. Fibromyalgia - ICD9: 729.1, ICD10: M79.7 - stable no changes. 5. Restless legs syndrome - ICD9: 333.94, ICD10: G25.81 - stable no chanegs. 6. GERD without esophagitis - ICD9: 530.81, ICD10: K21.9 - Continue treatment with Prilosec 40 mg QD - VITAMIN B12 BLOOD - MAGNESIUM BLD 7. Obesity, Class II, BMI 35-39.9 - ICD9: 278.00, ICD10: E66.9 Weight decreasing - Behavioral intervention 8. Smoker - ICD9: 305.1, ICD10: F17.200 - Cessation encouraged. - Counseling was given focusing on the harmful effects of this addiction especially given the patient's medical condition(s) which will be worsened because of the chemicals in tobacco. 9. Screening for diabetes mellitus - ICD9: V77.1, ICD10: Z13.1 Check - HGB A1C 10. Medication management - ICD9: V58.69, ICD10: Z79.899 Check - CBC + DIFF - VITAMIN B12 BLOOD - MAGNESIUM BLD 11. Encounter for lipid screening for cardiovascular disease - ICD9: V77.91, V81.2, ICD10: Z13.220, Z13.6 Check - LIPID PANEL, NONFASTING 12. Elevated blood pressure reading without diagnosis of hypertension - ICD9: 796.2, ICD10: R03.0 - Encouraged dietary sodium restriction/DASH diet - Recommended regular aerobic exercise. - Recommend home blood pressure monitoring, to bring results in on next visit - Recheck in 2-3 weeks, sooner if needed. - Goal of BP <130/80 F/u 6 months WAE sooner if issues. Yogi Maddox MD documented in this encounter [facility] 03-16-2023 Miscellaneous Notes Last refill 12/14/22 Qty: 30 with 2 refills WILLIAM 09/21/22 NOV 03/29/23 Ellie Pat LPN documented in this encounter [facility] 01-19-2023 Miscellaneous Notes Patient last visit with PCP 09/21/22 Follow up appointment scheduled 03/29/23 Mone Lobo Ma documented in this encounter [facility] 01-19-2023 Miscellaneous Notes New Rx sent. Janie Campos APRN.SILK SCREEN PRINTER HELPER Patient agreeable to trying one of the preferred listed. Naila Lowe RN Ok, please let the pt know that she will need to try one of these options. They are estrogen/progesterone medication no testosterone. If she is ok with that I will send in a new Rx for her. Janie Campos APRN.YESENIA Received a denial for Estratest. Pt has to have a 30 day trial of two preferred medications that are covered by the plan. These medications are: Climara Pro, Estring, Premarin, Prempro and Premphase. Please advise. Frances Canales LPN Electronic PA submitted for Estratest. Will await further response from pt's insurance. Frances Canales LPN documented in this encounter [facility] 01-17-2023 Note HNO ID: [id number] Author: Janie Campos APRN.YESENIA Service: ? 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 who presents for an annual gynecologic exam with complaints, hot flashes and decrease libido . Menses: hysterectomy. Contraception: hysterectomy HPV vaccine: No Last Pap: normal HPV: N/A History of abnormal pap: No Last mammogram: 2022normal Sexually active: Yes History of STDS: trichomonas Hot flashes: Yes OB History No obstetric history on file. 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 Cervantes H/O total thyroidectomy 09/06/2021 Hyperthyroidism 04/15/2020 Sees endo: Dr. Cervantes; underwent total thyroidectomy 08/27/21 Hypothyroidism 09/06/2021 Seeing endo. S/p thyroidectomy Lumbar degenerative disc disease 10/31/2014 Lumbar radiculopathy 03/04/2019 NEGATIVE HISTORY OF Postoperative hypothyroidism 08/27/2021 total thyroidectomy Restless legs syndrome 08/06/2015 Smoker 01/13/2017 Started age 13 up to 1/2 PPD Supraspinatus tendon tear 10/19/2016 TMJ pain dysfunction syndrome 01/13/2017 chronic grinding of teeth and recent popping. Tobacco use disorder 01/13/2017 PAST SURGICAL HISTORY Procedure Laterality Date APPENDECTOMY 03/23/2020 CARPAL TUNNEL Right 07/2015 COLONOSCOPY 11/08/2022 D+C 04/23/2018 DIAGNOSTIC ARTHROSCOPY SHOULDER +- SYNOVIAL BX Right 01/25/2017 Right shoulder arthroscopic decompression EGD 11/08/2022 HYSTERECTOMY 03/23/2020 HYSTEROSCOPY DIAGNOSTIC 04/23/2018 LIG/TRNSXJ FLP TUBE ABDL/VAG APPR UNI/BI Tubal ligation LYSIS VAGINAL ADHESIONS 04/23/2018 OOPHORECTOMY PARTIAL OR TOTAL Right 04/23/2018 OOPHORECTOMY PARTIAL OR TOTAL Left 03/23/2020 PAST SURGICAL HISTORY OF cyst removal left ankle RECONSTRUCTION ROTATOR CUFF AVULSION CHRONIC Right 01/25/2017 Right rotator cuff debridement SALPINGECTOMY Bilateral 04/23/2018 [facility]-Dr. Oleary THYROID FINE NEEDLE ASPIRATION Left 04/06/2021 THYROIDECTOMY TOTAL/COMPLETE 08/27/2021 FAMILY HISTORY Problem Relation Age of Onset Hypertension Father Heart Father Arthritis Maternal Grandmother Diabetes Maternal Grandmother Stroke Maternal Grandmother Kidney Disease Maternal Grandmother Arthritis Paternal Grandmother SOCIAL HISTORY Social History Tobacco Use Smoking status: Every Day Packs/day: 0.50 Years: 10.00 Pack years: 5.00 Types: Cigarettes Smokeless tobacco: Never Vaping Use Vaping Use: Some days Substances: Nicotine Substance Use Topics Alcohol use: Yes Alcohol/week: 6.0 standard drinks Types: 6 Cans of Beer (12oz) per week Comment: 6 beers a week. Drug use: Not Currently Types: Marijuana Comment: rarely- edibles REVIEW OF SYSTEMS Abdomen: No abdominal pain, nausea, vomiting, diarrhea, or constipation. No bloating, early satiety, indigestion, or increased flatulence. Bladder: No dysuria, gross hematuria, urinary frequency, urinary urgency, or incontinence. Breast: No breast lumps, nipple d/c, overlying skin changes, redness or skin retraction. Allergies and current medication updated:Yes EXAM: BP 120/82 Ht 5' 7 (1.70m) Wt 235 lb 6.4 oz (106.8kg) LMP 08/12/2019 BMI 36.86 kg/(m2). GENERAL: pleasant, female in no apparent distress HEENT: Normocephalic, atraumatic, mucus membranes moist, and no lesions NECK: Supple, full range of motion, and no adenopathy DERMATOLOGY: Normal, without lesions, non-icteric, and non-hirsute BREAST: soft, non-tender, symmetric, no dominant mass, normal nipple-areolar complex, no lymphadenopathy, and no nipple discharge CHEST: Normal inspiratory effort ABDOMEN: soft, non-tender, and no masses PELVIC: external genitalia normal, normal Bartholin's glands, urethra, [place]'s glands, no vulvar lesions, physiologic discharge present, normal appearing perineal body and perianal region, cervix surgically absent BIMANUAL: non-tender and uterus surgically absent RECTOVAGINAL: deferred. NEURO: alert and oriented x3,exam grossly non-focal EXTREMITIES: normal ASSESSMENT/PLAN: 1) Health maintenance: Mammogram ordered. 2) Contraception: hysterectomy. Contraceptive options reviewed and (more content not included)... [facility] 01-17-2023 History of Presen t illness Narrative [employer] Administrator offered: Patient declines. 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 who presents for an annual gynecologic exam with complaints, hot flashes and decrease libido . Menses: hysterectomy. Contraception: hysterectomy HPV vaccine: No Last Pap: normal HPV: N/A History of abnormal pap: No Last mammogram: 2022normal Sexually active: Yes History of STDS: trichomonas Hot flashes: Yes OB History No obstetric history on file. 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 Cervantes H/O total thyroidectomy 09/06/2021 Hyperthyroidism 04/15/2020 Sees endo: Dr. Cervantes; underwent total thyroidectomy 08/27/21 Hypothyroidism 09/06/2021 Seeing endo. S/p thyroidectomy Lumbar degenerative disc disease 10/31/2014 Lumbar radiculopathy 03/04/2019 NEGATIVE HISTORY OF Postoperative hypothyroidism 08/27/2021 total thyroidectomy Restless legs syndrome 08/06/2015 Smoker 01/13/2017 Started age 13 up to 1/2 PPD Supraspinatus tendon tear 10/19/2016 TMJ pain dysfunction syndrome 01/13/2017 chronic grinding of teeth and recent popping. Tobacco use disorder 01/13/2017 PAST SURGICAL HISTORY Procedure Laterality Date APPENDECTOMY 03/23/2020 CARPAL TUNNEL Right 07/2015 COLONOSCOPY 11/08/2022 D+C 04/23/2018 DIAGNOSTIC ARTHROSCOPY SHOULDER +- SYNOVIAL BX Right 01/25/2017 Right shoulder arthroscopic decompression EGD 11/08/2022 HYSTERECTOMY 03/23/2020 HYSTEROSCOPY DIAGNOSTIC 04/23/2018 LIG/TRNSXJ FLP TUBE ABDL/VAG APPR UNI/BI Tubal ligation LYSIS VAGINAL ADHESIONS 04/23/2018 OOPHORECTOMY PARTIAL OR TOTAL Right 04/23/2018 OOPHORECTOMY PARTIAL OR TOTAL Left 03/23/2020 PAST SURGICAL HISTORY OF cyst removal left ankle RECONSTRUCTION ROTATOR CUFF AVULSION CHRONIC Right 01/25/2017 Right rotator cuff debridement SALPINGECTOMY Bilateral 04/23/2018 [facility]-Dr. Oleary THYROID FINE NEEDLE ASPIRATION Left 04/06/2021 THYROIDECTOMY TOTAL/COMPLETE 08/27/2021 FAMILY HISTORY Problem Relation Age of Onset Hypertension Father Heart Father Arthritis Maternal Grandmother Diabetes Maternal Grandmother Stroke Maternal Grandmother Kidney Disease Maternal Grandmother Arthritis Paternal Grandmother SOCIAL HISTORY Social History Tobacco Use Smoking status: Every Day Packs/day: 0.50 Years: 10.00 Pack years: 5.00 Types: Cigarettes Smokeless tobacco: Never Vaping Use Vaping Use: Some days Substances: Nicotine Substance Use Topics Alcohol use: Yes Alcohol/week: 6.0 standard drinks Types: 6 Cans of Beer (12oz) per week Comment: 6 beers a week. Drug use: Not Currently Types: Marijuana Comment: rarely- edibles REVIEW OF SYSTEMS Abdomen: No abdominal pain, nausea, vomiting, diarrhea, or constipation. No bloating, early satiety, indigestion, or increased flatulence. Bladder: No dysuria, gross hematuria, urinary frequency, urinary urgency, or incontinence. Breast: No breast lumps, nipple d/c, overlying skin changes, redness or skin retraction. Allergies and current medication updated:Yes EXAM: BP 120/82 Ht 5' 7 (1.70m) Wt 235 lb 6.4 oz (106.8kg) LMP 08/12/2019 BMI 36.86 kg/(m^2). GENERAL: pleasant, female in no apparent distress HEENT: Normocephalic, atraumatic, mucus membranes moist, and no lesions NECK: Supple, full range of motion, and no adenopathy DERMATOLOGY: Normal, without lesions, non-icteric, and non-hirsute BREAST: soft, non-tender, symmetric, no dominant mass, normal nipple-areolar complex, no lymphadenopathy, and no nipple discharge CHEST: Normal inspiratory effort ABDOMEN: soft, non-tender, and no masses PELVIC: external genitalia normal, normal Bartholin's glands, urethra, [place]'s glands, no vulvar lesions, physiologic discharge present, normal appearing perineal body and perianal region, cervix surgically absent BIMANUAL: non-tender and uterus surgically absent RECTOVAGINAL: deferred. NEURO: alert and oriented x3,exam grossly non-focal EXTREMITIES: normal ASSESSMENT/PLAN: 1) Health maintenance: Mammogram ordered. 2) Contraception: hysterectomy. Contraceptive options reviewed and information provided. 3) STD screening: Declined STD check. 4) Follow up one year or sooner as needed 5) Estratest ordered 6) testosterone bld ordered Follow up in 3 months- repeat blood work Janie Campos APRN.YESENIA documented in this encounter [facility] 01-06-2023 Miscellaneous Notes Last office visit: 09/21/22 F/u scheduled: 03/29/23 Shaneka De La Cruz Ma documented in this encounter [facility] 12-28-2022 Miscellaneous Notes Patient scheduled 06/01/23 LV 10/28/[address] Cervantes Rx was sent Requester: Patient Last Visit in Endocrinology: Provider name: Dione White CNP , Date Visit date not found Next Scheduled Appt in Endo: Visit date not found Last Refill: 01/21/2022 Number of Refills given: 3 PSS NOTE: Patient needs scheduled appointment on or around 04/29/2023. Requested Prescriptions Pending Prescriptions Disp Refills levothyroxine (SYNTHROID) 137 mcg tablet 90 tablet 3 Sig: Take 1 tablet by mouth daily before breakfast. Please review and advise. Bethanie Cordero RN documented in this encounter [facility] 12-26-2022 Miscellaneous Notes Patient has been identified by name and date of : Yes Patient phones for refill(s): Requested Prescriptions Pending Prescriptions Disp Refills buPROPion XL (WELLBUTRIN XL) 150 mg 24 hr tablet 30 tablet 5 Sig: Take 1 tablet by mouth once daily. Date of last office visit in primary care: WILLIAM 09/21/22 Appointment scheduled 03/29/23 Last 2 Encounter Wt Readings: Date: Wt: 11/08/2022 104.3 kg (229 lb 15 oz) 10/28/2022 104.3 kg (230 lb) Please advise. Thank you. HILDA Guzman documented in this encounter [facility] 11-08-2022 Nurse Note Patient received in PACU via cart left lateral position, eyes open, alert to self and event, denies pain or nausea, abdomen soft and non distended. Skin warm and dry, resting comfortably on left side. Significant other brought to bedside. Patient resting comfortably. documented in this encounter [facility] 11-08-2022 History and physical note UPDATED PROCEDURAL SEDATION HISTORY AND PHYSICAL EXAMINATION SERVICE DATE: 11/08/2022 SERVICE TIME: 12:29 PM PHYSICAL EXAM MUST BE COMPLETED ON ADMISSION PROCEDURE: Procedure Indications: The History and Physical (completed in the past 30 days) has been reviewed and the patient has been examined. The contents accurately reflect the patient's condition with the following additions or revisions since the H&P was completed. ASA Class: ASA Class:: Patient with mild systemic disease Examination indicates no changes. AIRWAY: Airway Visualization of Uvula: Yes Mouth opening greater than 2 fingerbreadths: Yes Neck Full Range of Motion: Yes LUNGS: Lungs clear to auscultation CARDIAC: Regular rhythm,Regular rate Provisional Diagnosis/Treatment Plan: Nausea, RUQ pain, loose stools/watery diarrhea, rectal bleeding - EGD and COlonoscopy SEDATION GOAL: Moderate This H&P can be found in the attached. SIGNATURE: Mihir Riddle MD PATIENT NAME: Clara Cortez DATE: November 08, 2022 TIME: 12:29 PM Source Note - Mihir Riddle MD - 11/08/2022 12:00 PM EDT Images from the original note were not included. HISTORY AND PHYSICAL Clara Cortez 1985 REFERRING PHYSICIAN: Patriica Stearns PA-C CHIEF COMPLAINT: Consult (Bowel habit changes, nausea, ) HPI: The patient is a 37 year old female referred for endoscopy. Clara notes the following GI complaints: Clara notes abdominal pain. The pain occurs in the following locations: lower abdominal, The pain has the following character: cramping . Clara notes loose stools and occasional diarrhea. Clara denies constipation. Clara notes a change in bowel habits. Clara denies melena. Clara notes bright red blood per rectum. Clara suspects recent bleeding from hemorrhoids following an ER visit. The patient notes the following upper complaints: Clara notes abdominal pain. The pain occurs in the following locations: epigastric region and RUQ . Clara notes heartburn. Clara denies dysphagia. Clara denies a history of ulcers/ peptic ulcer disease. Clara has not undergone prior endoscopy. She recently underwent a RUQ ultrasound that was unremarkable The patient is being seen by me today at the request of Patricia Stearns PA-C my opinion and advice regarding abdominal complaints. PAST MEDICAL HISTORY PAST MEDICAL HISTORY Diagnosis Date Anxiety associated with depression 08/06/2015 Attention deficit hyperactivity disorder (ADHD), combined type 08/24/2016 Bipolar disorder (HCC) 05/22/2014 Bipolar disorder, in partial remission, most recent episode mixed (HCC) 06/04/2018 Class 1 obesity due to excess calories with body mass index (BMI) of 33.0 to 33.9 in adult 02/16/2021 Fibromyalgia 07/29/2014 Graves' disease 09/01/2020 Sees endo: Dr. Cervantes H/O total thyroidectomy 09/06/2021 Hyperthyroidism 04/15/2020 Sees endo: Dr. Cervantes; underwent total thyroidectomy 08/27/21 Hypothyroidism 09/06/2021 Seeing endo. S/p thyroidectomy Lumbar degenerative disc disease 10/31/2014 Lumbar radiculopathy 03/04/2019 NEGATIVE HISTORY OF Postoperative hypothyroidism 08/27/2021 total thyroidectomy Restless legs syndrome 08/06/2015 Smoker 01/13/2017 Started age 13 up to 1/2 PPD Supraspinatus tendon tear 10/19/2016 TMJ pain dysfunction syndrome 01/13/2017 chronic grinding of teeth and recent popping. Tobacco use disorder 01/13/2017 PAST SURGICAL HISTORY PAST SURGICAL HISTORY Procedure Laterality Date APPENDECTOMY 03/23/2020 CARPAL TUNNEL Right 07/2015 D+C 04/23/2018 DIAGNOSTIC ARTHROSCOPY SHOULDER +- SYNOVIAL BX Right 01/25/2017 Right shoulder arthroscopic decompression HYSTERECTOMY 03/23/2020 HYSTEROSCOPY DIAGNOSTIC 04/23/2018 LIG/TRNSXJ FLP TUBE ABDL/VAG APPR UNI/BI Tubal ligation LYSIS VAGINAL ADHESIONS 04/23/2018 OOPHORECTOMY PARTIAL OR TOTAL Right 04/23/2018 OOPHORECTOMY PARTIAL OR TOTAL Left 03/23/2020 PAST SURGICAL HISTORY OF cyst removal left ankle RECONSTRUCTION ROTATOR CUFF AVULSION CHRONIC Right 01/25/2017 Right rotator cuff debridement SALPINGECTOMY Bilateral 04/23/2018 [facility]-Dr. Oleary THYROID FINE NEEDLE ASPIRATION Left 04/06/2021 THYROIDECTOMY TOTAL/COMPLETE 08/27/2021 CURRENT MEDICATIONS Current Outpatient Medications Medication Sig cyclobenzaprine (FLEXERIL) 10 mg tablet Take 1 tablet by mouth three times daily as needed for muscle spasm. DULoxetine (CYMBALTA) 20 mg capsule Take 1 capsule by mouth once daily. gabapentin (NEURONTIN) 600 mg tablet Take 1.5 tabs three times a day buPROPion XL (WELLBUTRIN XL) 150 mg 24 hr tablet Take 1 tablet by mouth once daily. levothyroxine (SYNTHROID) 137 mcg tablet Take 1 tablet by mouth daily before breakfast. estradiol (ESTRACE) 2 mg tablet Take 2 mg by mouth once daily. albuterol HFA (PROAIR HFA) 90 mcg/actuation inhaler Inhale 2 Puffs as instructed every 6 hours as needed. No current facility-administered medications for this visit. ALLERGIES: Abilify [Aripiprazole], Divalproex Sodium, Tapazole [Methimazole], and Valproic Acid PERSONAL HISTORY: SOCIAL HISTORY Social History Tobacco Use Smoking status: Every Day Packs/day: 0.50 Years: 10.00 Pack years: 5.00 Types: Cigarettes Smokeless tobacco: Never Vaping Use Vaping Use: Some days Substances: Nicotine Substance Use Topics Alcohol use: Yes Alcohol/week: 12.0 standard drinks Types: 12 Cans of Beer (12oz) per week Drug use: Yes Types: Marijuana Comment: rarely- edibles FAMILY HISTORY: FAMILY HISTORY FAMILY HISTORY Problem Relation Age of Onset Hypertension Father Heart Father Arthritis Maternal Grandmother Diabetes Maternal Grandmother Stroke Maternal Grandmother Kidney Disease Maternal Grandmother Arthritis Paternal Grandmother REVIEW OF SYMPTOMS: The review of systems data was entered by the nurse and reviewed by me Nursing Notes: Senia Varma [employer] P[employer] 09/29/2022 1:39 PM Signed REVIEW OF SYSTEMS: General: The patient notes fatigue, denies weight loss, notes weight gain, notes feeling hot, and notes feelings of cold. Eyes: The patient denies glaucoma, denies eye injury/surgery, wears glasses or contacts. Ear/Nose/Throat: The patient notes allergies, denies hayfever, denies ear infections, and denies bloody noses. Cardiovascular: The patient denies chest pain, denies heart disease, notes high blood pressure,denies cardiac stent, denies prior heart attack, denies irregular heart beat, notes high cholesterol, denies poor circulation, denies heart failure, other cardiac issues, denies claudication, notes cold feet, denies peripheral arterial stent. Respiratory: The patient denies tuberculosis, notes pneumonia, notes frequent cough, denies pulmonary embolism, notes shortness of breath, and denies coughing up blood. Gastrointestinal: The patient denies difficulty swallowing, notes acid reflux, denies ulcers, notes vomiting, denies jaundice/hepatitis, notes gallbladder problems, denies black or tarry stools, notes hemorrhoids, notes bleeding from rectum, denies diverticulitis, denies constipation, notes diarrhea, notes loss of stool control, and denies hernias. Kidney/Bladder: The patient denies kidney stones, denies urine infections, and denies bloody urine. Skin: The patient denies a history of skin cancer, denies bleeding/changing moles, and notes a history of skin rash. Neurologic: The patient denies a history of epilepsy/convulsions, notes headaches, denies head/spinal injuries, and denies stroke/TIA. Psychiatric: The patient notes psychiatric medications, notes depression, and denies voices, denies substance abuse. Endocrine: The patient notes thyroid disorders, denies diabetes, and notes hormonal problems. Hematologic: The patient notes a history of bruising, notes bleeding, and denies anemia, denies blood clots. Infections: The patient denies a history of measles and mumps, denies rheumatic fever, and denies sexually transmitted diseases. Musculoskeletal: The patient notes back pain/injury, notes back problems, notes sciatica, notes knee/foot trouble, notes arthritis, or denies gout. When was patient's last Mammogram screening? 2022 Last Colonoscopy: none Senia KojoJOSHUA PHYSICAL EXAMINATION: General: The patient is 37 year old female, well nourished, well hydrated in no acute distress. The patient is oriented to time, place, and person. VITALS: Blood pressure 130/72, pulse 96, temperature 37.1 C (98.8 F), height 170.2 cm (5' 7 ), weight 103.4 kg (228 lb), last menstrual period 08/12/2019, SpO2 100 %. Body mass index is 35.71 kg/m . HEENT: Normal cephalic, ataumatic, pupils are equally round, sclera are anicteric, mucous membranes are moist, oropharynx is clear. Neck has no masses, asymmetry or lymphadenopathy. Thyroid is unremarkable. Respiratory: Clear to auscultation and percussion. Normal respiratory excursion and pattern. Cardiac: Examination is regular rate and rhythm. Abdominal exam: Soft, nontender, with no palpable masses. No hepatosplenomegaly. No palpable hernias. Rectal exam: exam deferred Extremities: no clubbing, cyanosis or edema. No adenopathy. Other: LABORATORY VALUES: As Noted RADIOLOGIC STUDIES: As Noted Assessment IMPRESSION: Nausea, RUQ pain, loose stools/watery diarrhea, rectal bleeding PLAN: I plan to perform upper and lower endoscopy. We discussed the risks and benefits of the planned endoscopy. I have informed the patient that complications can occur including failure to complete the endoscopy and perforation. The patient had the opportunity to ask questions concerning the planned endoscopy. My staff has also explained the procedure to the patient in understandable terms and has given the patient printed material concerning the procedure. The patient freely consents to surgery. I plan to use golytely bowel preparation for endoscopy Diagnoses: (R19.4) Bowel habit changes (R10.13) Epigastric pain (R11.0) Nausea My findings have been communicated to Daryn via shared medical record. This note will be forwarded to Yogi Maddox MD. Return to Clinic: The patient is instructed to follow-up with me after the testing has been completed. Mihir Riddle MD Images from the original note were not included. HISTORY AND PHYSICAL Clara Cortez 1985 REFERRING PHYSICIAN: Patricia Stearns PA-C CHIEF COMPLAINT: Consult (Bowel habit changes, nausea, ) HPI: The patient is a 37 year old female referred for endoscopy. Clara notes the following GI complaints: Clara notes abdominal pain. The pain occurs in the following locations: lower abdominal, The pain has the following character: cramping . Clara notes loose stools and occasional diarrhea. Clara denies constipation. Clara notes a change in bowel habits. Clara denies melena. Clara notes bright red blood per rectum. Clara suspects recent bleeding from hemorrhoids following an ER visit. The patient notes the following upper complaints: Clara notes abdominal pain. The pain occurs in the following locations: epigastric region and RUQ . Clara notes heartburn. Clara denies dysphagia. Clara denies a history of ulcers/ peptic ulcer disease. Clara has not undergone prior endoscopy. She recently underwent a RUQ ultrasound that was unremarkable The patient is being seen by me today at the request of Patricia Stearns PA-C my opinion and advice regarding abdominal complaints. PAST MEDICAL HISTORY PAST MEDICAL HISTORY Diagnosis Date Anxiety associated with depression 08/06/2015 Attention deficit hyperactivity disorder (ADHD), combined type 08/24/2016 Bipolar disorder (HCC) 05/22/2014 Bipolar disorder, in partial remission, most recent episode mixed (HCC) 06/04/2018 Class 1 obesity due to excess calories with body mass index (BMI) of 33.0 to 33.9 in adult 02/16/2021 Fibromyalgia 07/29/2014 Graves' disease 09/01/2020 Sees endo: Dr. Cervantes H/O total thyroidectomy 09/06/2021 Hyperthyroidism 04/15/2020 Sees endo: Dr. Cervantes; underwent total thyroidectomy 08/27/21 Hypothyroidism 09/06/2021 Seeing endo. S/p thyroidectomy Lumbar degenerative disc disease 10/31/2014 Lumbar radiculopathy 03/04/2019 NEGATIVE HISTORY OF Postoperative hypothyroidism 08/27/2021 total thyroidectomy Restless legs syndrome 08/06/2015 Smoker 01/13/2017 Started age 13 up to 1/2 PPD Supraspinatus tendon tear 10/19/2016 TMJ pain dysfunction syndrome 01/13/2017 chronic grinding of teeth and recent popping. Tobacco use disorder 01/13/2017 PAST SURGICAL HISTORY PAST SURGICAL HISTORY Procedure Laterality Date APPENDECTOMY 03/23/2020 CARPAL TUNNEL Right 07/2015 D+C 04/23/2018 DIAGNOSTIC ARTHROSCOPY SHOULDER +- SYNOVIAL BX Right 01/25/2017 Right shoulder arthroscopic decompression HYSTERECTOMY 03/23/2020 HYSTEROSCOPY DIAGNOSTIC 04/23/2018 LIG/TRNSXJ FLP TUBE ABDL/VAG APPR UNI/BI Tubal ligation LYSIS VAGINAL ADHESIONS 04/23/2018 OOPHORECTOMY PARTIAL OR TOTAL Right 04/23/2018 OOPHORECTOMY PARTIAL OR TOTAL Left 03/23/2020 PAST SURGICAL HISTORY OF cyst removal left ankle RECONSTRUCTION ROTATOR CUFF AVULSION CHRONIC Right 01/25/2017 Right rotator cuff debridement SALPINGECTOMY Bilateral 04/23/2018 [facility]-Dr. Oleary THYROID FINE NEEDLE ASPIRATION Left 04/06/2021 THYROIDECTOMY TOTAL/COMPLETE 08/27/2021 CURRENT MEDICATIONS Current Outpatient Medications Medication Sig cyclobenzaprine (FLEXERIL) 10 mg tablet Take 1 tablet by mouth three times daily as needed for muscle spasm. DULoxetine (CYMBALTA) 20 mg capsule Take 1 capsule by mouth once daily. gabapentin (NEURONTIN) 600 mg tablet Take 1.5 tabs three times a day buPROPion XL (WELLBUTRIN XL) 150 mg 24 hr tablet Take 1 tablet by mouth once daily. levothyroxine (SYNTHROID) 137 mcg tablet Take 1 tablet by mouth daily before breakfast. estradiol (ESTRACE) 2 mg tablet Take 2 mg by mouth once daily. albuterol HFA (PROAIR HFA) 90 mcg/actuation inhaler Inhale 2 Puffs as instructed every 6 hours as needed. No current facility-administered medications for this visit. ALLERGIES: Abilify [Aripiprazole], Divalproex Sodium, Tapazole [Methimazole], and Valproic Acid PERSONAL HISTORY: SOCIAL HISTORY Social History Tobacco Use Smoking status: Every Day Packs/day: 0.50 Years: 10.00 Pack years: 5.00 Types: Cigarettes Smokeless tobacco: Never Vaping Use Vaping Use: Some days Substances: Nicotine Substance Use Topics Alcohol use: Yes Alcohol/week: 12.0 standard drinks Types: 12 Cans of Beer (12oz) per week Drug use: Yes Types: Marijuana Comment: rarely- edibles FAMILY HISTORY: FAMILY HISTORY FAMILY HISTORY Problem Relation Age of Onset Hypertension Father Heart Father Arthritis Maternal Grandmother Diabetes Maternal Grandmother Stroke Maternal Grandmother Kidney Disease Maternal Grandmother Arthritis Paternal Grandmother REVIEW OF SYMPTOMS: The review of systems data was entered by the nurse and reviewed by me Nursing Notes: Senia Varma LPN 09/29/2022 1:39 PM Signed REVIEW OF SYSTEMS: General: The patient notes fatigue, denies weight loss, notes weight gain, notes feeling hot, and notes feelings of cold. Eyes: The patient denies glaucoma, denies eye injury/surgery, wears glasses or contacts. Ear/Nose/Throat: The patient notes allergies, denies hayfever, denies ear infections, and denies bloody noses. Cardiovascular: The patient denies chest pain, denies heart disease, notes high blood pressure,denies cardiac stent, denies prior heart attack, denies irregular heart beat, notes high cholesterol, denies poor circulation, denies heart failure, other cardiac issues, denies claudication, notes cold feet, denies peripheral arterial stent. Respiratory: The patient denies tuberculosis, notes pneumonia, notes frequent cough, denies pulmonary embolism, notes shortness of breath, and denies coughing up blood. Gastrointestinal: The patient denies difficulty swallowing, notes acid reflux, denies ulcers, notes vomiting, denies jaundice/hepatitis, notes gallbladder problems, denies black or tarry stools, notes hemorrhoids, notes bleeding from rectum, denies diverticulitis, denies constipation, notes diarrhea, notes loss of stool control, and denies hernias. Kidney/Bladder: The patient denies kidney stones, denies urine infections, and denies bloody urine. Skin: The patient denies a history of skin cancer, denies bleeding/changing moles, and notes a history of skin rash. Neurologic: The patient denies a history of epilepsy/convulsions, notes headaches, denies head/spinal injuries, and denies stroke/TIA. Psychiatric: The patient notes psychiatric medications, notes depression, and denies voices, denies substance abuse. Endocrine: The patient notes thyroid disorders, denies diabetes, and notes hormonal problems. Hematologic: The patient notes a history of bruising, notes bleeding, and denies anemia, denies blood clots. Infections: The patient denies a history of measles and mumps, denies rheumatic fever, and denies sexually transmitted diseases. Musculoskeletal: The patient notes back pain/injury, notes back problems, notes sciatica, notes knee/foot trouble, notes arthritis, or denies gout. When was patient's last Mammogram screening? 2022 Last Colonoscopy: none Senia Varma LPN PHYSICAL EXAMINATION: General: The patient is 37 year old female, well nourished, well hydrated in no acute distress. The patient is oriented to time, place, and person. VITALS: Blood pressure 130/72, pulse 96, temperature 37.1 C (98.8 F), height 170.2 cm (5' 7 ), weight 103.4 kg (228 lb), last menstrual period 08/12/2019, SpO2 100 %. Body mass index is 35.71 kg/m . HEENT: Normal cephalic, ataumatic, pupils are equally round, sclera are anicteric, mucous membranes are moist, oropharynx is clear. Neck has no masses, asymmetry or lymphadenopathy. Thyroid is unremarkable. Respiratory: Clear to auscultation and percussion. Normal respiratory excursion and pattern. Cardiac: Examination is regular rate and rhythm. Abdominal exam: Soft, nontender, with no palpable masses. No hepatosplenomegaly. No palpable hernias. Rectal exam: exam deferred Extremities: no clubbing, cyanosis or edema. No adenopathy. Other: LABORATORY VALUES: As Noted RADIOLOGIC STUDIES: As Noted Assessment IMPRESSION: Nausea, RUQ pain, loose stools/watery diarrhea, rectal bleeding PLAN: I plan to perform upper and lower endoscopy. We discussed the risks and benefits of the planned endoscopy. I have informed the patient that complications can occur including failure to complete the endoscopy and perforation. The patient had the opportunity to ask questions concerning the planned endoscopy. My staff has also explained the procedure to the patient in understandable terms and has given the patient printed material concerning the procedure. The patient freely consents to surgery. I plan to use fitkit preparation for endoscopy Diagnoses: (R19.4) Bowel habit changes (R10.13) Epigastric pain (R11.0) Nausea My findings have been communicated to Stearns via shared medical record. This note will be forwarded to Yogi Maddox MD. Return to Clinic: The patient is instructed to follow-up with me after the testing has been completed. Mihir Riddle MD documented in this encounter [facility] 10-28-2022 Note HNO ID: [id number] Author: Cydney Cervantes MD Service: ? Author Type: Physician Type: Progress Notes Filed: 10/28/2022 4:04 PM Note Text: Subjective: Clara Cortez is a 37 year old female here for hyperthyroidism follow up. History in brief, Hyperthyroidism was diagnosed in 2019 Her TSH was suppressed in 2019 She started methimazole in February 2020 She also had a thyroid nodule and underwent FNA- atypia of undertermined significance. Subsequently, she underwent total thyroidectomy on 08/27/21. Per Dr. Huerta's note pathology was chronic lymphocytic thyroiditis; 2 benign lymph nodes removed. Current treatment; levothyroxine 137 mcg daily Patient has Bipolar disorder/Depression and was on Macopin in the past General symptoms: Fatigue: yes, wakes up tired Energy level is good She works 2nd shift Weight change: No Appetite change: No Menstrual irregularities: she had undergone hysterectomy 1 ovary is still in place Estradiol dose was recently reduced Change in bowel habits: diarrhea She will be undergoing C-scope next week Temperature intolerance: night sweats have reduced Patient reports that her mother has hyperthyroidism REVIEW OF SYSTEMS: Answers submitted by the patient for this visit: Core Review of Systems (Submitted on 10/26/2022) Fever : No Night Sweats: Yes Recent Unintentional Weight Change: No Nasal Congestion: No Hearing Loss: Yes Vision Disturbance: No A Cough: No Difficulty Breathing?: No Chest Pain: No Irregular Heart Beat: No Leg Swelling: No Nausea: No Diarrhea: Yes Black Tarry Stools: Yes Difficulty Urinating?: No Awaken at Night More Than Once to Urinate?: Yes Joint Pain or Stiffness: Yes Muscle Aches: Yes Leg or Foot Discomfort at Night?: Yes A Rash: No Dizziness: Yes Headaches: Yes Memory Loss: Yes Seizures: No ALLERGIES: ALLERGIES Allergen Reactions Abilify [Aripiprazo* Other: See Comments tired Divalproex Sodium GI Upset Tapazole [Methimazo* GI Upset Nausea and vomiting Valproic Acid GI Upset Current Outpatient Medications on File Prior to Visit Medication Sig DULoxetine (CYMBALTA) 20 mg capsule Take 1 capsule by mouth once daily. buPROPion XL (WELLBUTRIN XL) 150 mg 24 hr tablet Take 1 tablet by mouth once daily. levothyroxine (SYNTHROID) 137 mcg tablet Take 1 tablet by mouth daily before breakfast. estradiol (ESTRACE) 2 mg tablet Take 2 mg by mouth once daily. .5mg until end of the month albuterol HFA (PROAIR HFA) 90 mcg/actuation inhaler Inhale 2 Puffs as instructed every 6 hours as needed. cyclobenzaprine (FLEXERIL) 10 mg tablet Take 1 tablet by mouth three times daily as needed for muscle spasm. (Patient not taking: Reported on 10/28/2022) gabapentin (NEURONTIN) 600 mg tablet Take 1.5 tabs three times a day No current facility-administered medications on file prior to visit. PAST MEDICAL HISTORY: PAST MEDICAL HISTORY Diagnosis Date Anxiety associated with depression 08/06/2015 Attention deficit hyperactivity disorder (ADHD), combined type 08/24/2016 Bipolar disorder ([facility]) 05/22/2014 Bipolar disorder, in partial remission, most recent episode mixed ([facility]) 06/04/2018 Class 1 obesity due to excess calories with body mass index (BMI) of 33.0 to 33.9 in adult 02/16/2021 Fibromyalgia 07/29/2014 Graves' disease 09/01/2020 Sees endo: Dr. Cervantes H/O total thyroidectomy 09/06/2021 Hyperthyroidism 04/15/2020 Sees endo: Dr. Cervantes; underwent total thyroidectomy 08/27/21 Hypothyroidism 09/06/2021 Seeing endo. S/p thyroidectomy Lumbar degenerative disc disease 10/31/2014 Lumbar radiculopathy 03/04/2019 NEGATIVE HISTORY OF Postoperative hypothyroidism 08/27/2021 total thyroidectomy Restless legs syndrome 08/06/2015 Smoker 01/13/2017 Started age 13 up to 1/2 PPD Supraspinatus tendon tear 10/19/2016 TMJ pain dysfunction syndrome 01/13/2017 chronic grinding of teeth and recent popping. Tobacco use disorder 01/13/2017 PHYSICAL EXAM: BP 133/88 (BP Site: Left Arm, BP Position: Sitting, BP Cuff Size: Large Adult) Pulse 68 Wt 101.7 kg (224 lb 3.2 oz) LMP 08/12/2019 (Approximate) BMI 35.11 kg/m? Alert and oriented x3, no acute distress Extraocular motions intact, no exophthalmos, no lid lag Neck supple, no cervical lymphadenopathy, no palpable thyroid tissue Heart regular rate and rhythm, no murmers Chest clear, normal breath sounds, no wheezing Neuro: Gait normal. Sensation grossly intact. No focal findings Musculoskeletal: Muscular strength intact, No joint swelling Extremities without edema, no deformities Skin: no rashes/ erythema LAB: Latest Reference Range AND Units 03/18/22 11:43 TSH 0.270 - 4.200 mIU/L 2.560 ASSESSMENT/PLAN: Post-surgical hypothyroidism : Clinically she appears euthyroid Update thyroid function I educated the patient on proper administration of this medication which includes taking it on an empty stomach and alteast 2 ho (more content not included)... [facility] 10-28-2022 History of Presen t illness Narrative Subjective: Clara Cortez is a 37 year old female here for hyperthyroidism follow up. History in brief, Hyperthyroidism was diagnosed in 2019 Her TSH was suppressed in 2019 She started methimazole in February 2020 She also had a thyroid nodule and underwent FNA- atypia of undertermined significance. Subsequently, she underwent total thyroidectomy on 08/27/21. Per Dr. Huerta's note pathology was chronic lymphocytic thyroiditis; 2 benign lymph nodes removed. Current treatment; levothyroxine 137 mcg daily Patient has Bipolar disorder/Depression and was on Macopin in the past General symptoms: Fatigue: yes, wakes up tired Energy level is good She works 2nd shift Weight change: No Appetite change: No Menstrual irregularities: she had undergone hysterectomy 1 ovary is still in place Estradiol dose was recently reduced Change in bowel habits: diarrhea She will be undergoing C-scope next week Temperature intolerance: night sweats have reduced Patient reports that her mother has hyperthyroidism REVIEW OF SYSTEMS: Answers submitted by the patient for this visit: Core Review of Systems (Submitted on 10/26/2022) Fever : No Night Sweats: Yes Recent Unintentional Weight Change: No Nasal Congestion: No Hearing Loss: Yes Vision Disturbance: No A Cough: No Difficulty Breathing?: No Chest Pain: No Irregular Heart Beat: No Leg Swelling: No Nausea: No Diarrhea: Yes Black Tarry Stools: Yes Difficulty Urinating?: No Awaken at Night More Than Once to Urinate?: Yes Joint Pain or Stiffness: Yes Muscle Aches: Yes Leg or Foot Discomfort at Night?: Yes A Rash: No Dizziness: Yes Headaches: Yes Memory Loss: Yes Seizures: No ALLERGIES: ALLERGIES Allergen Reactions Abilify [Aripiprazo* Other: See Comments tired Divalproex Sodium GI Upset Tapazole [Methimazo* GI Upset Nausea and vomiting Valproic Acid GI Upset Current Outpatient Medications on File Prior to Visit Medication Sig DULoxetine (CYMBALTA) 20 mg capsule Take 1 capsule by mouth once daily. buPROPion XL (WELLBUTRIN XL) 150 mg 24 hr tablet Take 1 tablet by mouth once daily. levothyroxine (SYNTHROID) 137 mcg tablet Take 1 tablet by mouth daily before breakfast. estradiol (ESTRACE) 2 mg tablet Take 2 mg by mouth once daily. .5mg until end of the month albuterol HFA (PROAIR HFA) 90 mcg/actuation inhaler Inhale 2 Puffs as instructed every 6 hours as needed. cyclobenzaprine (FLEXERIL) 10 mg tablet Take 1 tablet by mouth three times daily as needed for muscle spasm. (Patient not taking: Reported on 10/28/2022) gabapentin (NEURONTIN) 600 mg tablet Take 1.5 tabs three times a day No current facility-administered medications on file prior to visit. PAST MEDICAL HISTORY: PAST MEDICAL HISTORY Diagnosis Date Anxiety associated with depression 08/06/2015 Attention deficit hyperactivity disorder (ADHD), combined type 08/24/2016 Bipolar disorder ([facility]) 05/22/2014 Bipolar disorder, in partial remission, most recent episode mixed ([facility]) 06/04/2018 Class 1 obesity due to excess calories with body mass index (BMI) of 33.0 to 33.9 in adult 02/16/2021 Fibromyalgia 07/29/2014 Graves' disease 09/01/2020 Sees endo: Dr. Cervantes H/O total thyroidectomy 09/06/2021 Hyperthyroidism 04/15/2020 Sees endo: Dr. Cervantes; underwent total thyroidectomy 08/27/21 Hypothyroidism 09/06/2021 Seeing endo. S/p thyroidectomy Lumbar degenerative disc disease 10/31/2014 Lumbar radiculopathy 03/04/2019 NEGATIVE HISTORY OF Postoperative hypothyroidism 08/27/2021 total thyroidectomy Restless legs syndrome 08/06/2015 Smoker 01/13/2017 Started age 13 up to 1/2 PPD Supraspinatus tendon tear 10/19/2016 TMJ pain dysfunction syndrome 01/13/2017 chronic grinding of teeth and recent popping. Tobacco use disorder 01/13/2017 PHYSICAL EXAM: BP 133/88 (BP Site: Left Arm, BP Position: Sitting, BP Cuff Size: Large Adult) Pulse 68 Wt 101.7 kg (224 lb 3.2 oz) LMP 08/12/2019 (Approximate) BMI 35.11 kg/m Alert and oriented x3, no acute distress Extraocular motions intact, no exophthalmos, no lid lag Neck supple, no cervical lymphadenopathy, no palpable thyroid tissue Heart regular rate and rhythm, no murmers Chest clear, normal breath sounds, no wheezing Neuro: Gait normal. Sensation grossly intact. No focal findings Musculoskeletal: Muscular strength intact, No joint swelling Extremities without edema, no deformities Skin: no rashes/ erythema LAB: Latest Reference Range & Units 03/18/22 11:43 TSH 0.270 - 4.200 mIU/L 2.560 ASSESSMENT/PLAN: Post-surgical hypothyroidism : Clinically she appears euthyroid Update thyroid function I educated the patient on proper administration of this medication which includes taking it on an empty stomach and alteast 2 hour apart from Calcium, iron and PPIs. I will send patient a message in my chart once the lab results become available Follow up in 6 months, if lab results are normal Cydney Cervantes MD documented in this encounter [facility] 10-28-2022 Instructions Cydney Cervantes MD - 10/28/2022 10:48 AM EDT Thank you for choosing the [facility] Department of Endocrinology, Diabetes and Metabolism. Did you know that you need to call 48 hours in advance of your scheduled visit, if you are unable to make your appointment? The Endocrinology and Metabolism [place] thanks you for your commitment, because patients not showing to their appointment results in a lost opportunity for patients to receive [facility] health care at the [facility]. To Cancel an appointment, please choose one of the following: - Call the Appointment Call Center at [phone] - From [facility], Go to Appointments - Cancel Appts If cancelling, consider your need to reschedule to prevent further delays in your care. To Schedule an appointment, please choose one of the following: - Call the Appointment Call Center at [phone] - From [facility], Go to Appointments - Request an Appt Get labs drawn I will send you a message in my chart once the lab results become available Follow up in 6 months documented in this encounter [facility] 10-02-2022 Note HNO ID: [id number] Author: Mihir Riddle MD Service: ? Author Type: Physician Type: Progress Notes Filed: 10/02/2022 6:22 AM Note Text: HISTORY AND PHYSICAL Clara Bruce [place] 1985 REFERRING PHYSICIAN: Patricia Stearns PA-C CHIEF COMPLAINT: Consult (Bowel habit changes, nausea, ) HPI: The patient is a 37 year old female referred for endoscopy. Clara notes the following GI complaints: Clara notes abdominal pain. The pain occurs in the following locations: lower abdominal, The pain has the following character: cramping . Clara notes loose stools and occasional diarrhea. Clara denies constipation. Clara notes a change in bowel habits. Clara denies melena. Clara notes bright red blood per rectum. Clara suspects recent bleeding from hemorrhoids following an ER visit. The patient notes the following upper complaints: Clara notes abdominal pain. The pain occurs in the following locations: epigastric region and RUQ . Clara notes heartburn. Clara denies dysphagia. Clara denies a history of ulcers/ peptic ulcer disease. Clara has not undergone prior endoscopy. She recently underwent a RUQ ultrasound that was unremarkable The patient is being seen by me today at the request of Stearns, Patricia, PA-C my opinion and advice regarding abdominal complaints. PAST MEDICAL HISTORY Diagnosis Date Anxiety associated with depression 08/06/2015 Attention deficit hyperactivity disorder (ADHD), combined type 08/24/2016 Bipolar disorder (HCC) 05/22/2014 Bipolar disorder, in partial remission, most recent episode mixed ([facility]) 06/04/2018 Class 1 obesity due to excess calories with body mass index (BMI) of 33.0 to 33.9 in adult 02/16/2021 Fibromyalgia 07/29/2014 Graves' disease 09/01/2020 Sees endo: Dr. Cervantes H/O total thyroidectomy 09/06/2021 Hyperthyroidism 04/15/2020 Sees endo: Dr. Cervantes; underwent total thyroidectomy 08/27/21 Hypothyroidism 09/06/2021 Seeing endo. S/p thyroidectomy Lumbar degenerative disc disease 10/31/2014 Lumbar radiculopathy 03/04/2019 NEGATIVE HISTORY OF Postoperative hypothyroidism 08/27/2021 total thyroidectomy Restless legs syndrome 08/06/2015 Smoker 01/13/2017 Started age 13 up to 1/2 PPD Supraspinatus tendon tear 10/19/2016 TMJ pain dysfunction syndrome 01/13/2017 chronic grinding of teeth and recent popping. Tobacco use disorder 01/13/2017 PAST SURGICAL HISTORY Procedure Laterality Date APPENDECTOMY 03/23/2020 CARPAL TUNNEL Right 07/2015 D+C 04/23/2018 DIAGNOSTIC ARTHROSCOPY SHOULDER +- SYNOVIAL BX Right 01/25/2017 Right shoulder arthroscopic decompression HYSTERECTOMY 03/23/2020 HYSTEROSCOPY DIAGNOSTIC 04/23/2018 LIG/TRNSXJ FLP TUBE ABDL/VAG APPR UNI/BI Tubal ligation LYSIS VAGINAL ADHESIONS 04/23/2018 OOPHORECTOMY PARTIAL OR TOTAL Right 04/23/2018 OOPHORECTOMY PARTIAL OR TOTAL Left 03/23/2020 PAST SURGICAL HISTORY OF cyst removal left ankle RECONSTRUCTION ROTATOR CUFF AVULSION CHRONIC Right 01/25/2017 Right rotator cuff debridement SALPINGECTOMY Bilateral 04/23/2018 [facility]-Dr. Oleary THYROID FINE NEEDLE ASPIRATION Left 04/06/2021 THYROIDECTOMY TOTAL/COMPLETE 08/27/2021 Current Outpatient Medications Medication Sig cyclobenzaprine (FLEXERIL) 10 mg tablet Take 1 tablet by mouth three times daily as needed for muscle spasm. DULoxetine (CYMBALTA) 20 mg capsule Take 1 capsule by mouth once daily. gabapentin (NEURONTIN) 600 mg tablet Take 1.5 tabs three times a day buPROPion XL (WELLBUTRIN XL) 150 mg 24 hr tablet Take 1 tablet by mouth once daily. levothyroxine (SYNTHROID) 137 mcg tablet Take 1 tablet by mouth daily before breakfast. estradiol (ESTRACE) 2 mg tablet Take 2 mg by mouth once daily. albuterol HFA (PROAIR HFA) 90 mcg/actuation inhaler Inhale 2 Puffs as instructed every 6 hours as needed. No current facility-administered medications for this visit. ALLERGIES: Abilify [Aripiprazole], Divalproex Sodium, Tapazole [Methimazole], and Valproic Acid PERSONAL HISTORY: Social History Tobacco Use Smoking status: Every Day Packs/day: 0.50 Years: 10.00 Pack years: 5.00 Types: Cigarettes Smokeless tobacco: Never Vaping Use Vaping Use: Some days Substances: Nicotine Substance Use Topics Alcohol use: Yes Alcohol/week: 12.0 standard drinks Types: 12 Cans of Beer (12oz) per week Drug use: Yes Types: Marijuana Comment: rarely- edibles FAMILY HISTORY: FAMILY HISTORY Problem Relation Age of Onset Hypertension Father Heart Father Arthritis Maternal Grandmother Diabetes Maternal Grandmother Stroke Maternal Grandmother Kidney Disease Maternal Grandmother Arthritis Paternal Grandmother REVIEW OF SYMPTOMS: The review of systems data was entered by the nurse and reviewed by pr Nursing Notes: Senia Varma LPN 09/29/2022 1:39 PM Signed REVIEW OF SYSTEMS: General: The patient notes fatigue, de (more content not included)... [facility] 10-02-2022 History of Presen t illness Narrative HISTORY AND PHYSICAL Clara Cortez 1985 REFERRING PHYSICIAN: Patricia Stearns PA-C CHIEF COMPLAINT: Consult (Bowel habit changes, nausea, ) HPI: The patient is a 37 year old female referred for endoscopy. Clara notes the following GI complaints: Clara notes abdominal pain. The pain occurs in the following locations: lower abdominal, The pain has the following character: cramping . Clara notes loose stools and occasional diarrhea. Clara denies constipation. Clara notes a change in bowel habits. Clara denies melena. Clara notes bright red blood per rectum. Clara suspects recent bleeding from hemorrhoids following an ER visit. The patient notes the following upper complaints: Clara notes abdominal pain. The pain occurs in the following locations: epigastric region and RUQ . Clara notes heartburn. Clara denies dysphagia. Clara denies a history of ulcers/ peptic ulcer disease. Clara has not undergone prior endoscopy. She recently underwent a RUQ ultrasound that was unremarkable The patient is being seen by me today at the request of Patricia Stearns PA-C my opinion and advice regarding abdominal complaints. PAST MEDICAL HISTORY Diagnosis Date Anxiety associated with depression 08/06/2015 Attention deficit hyperactivity disorder (ADHD), combined type 08/24/2016 Bipolar disorder (HCC) 05/22/2014 Bipolar disorder, in partial remission, most recent episode mixed (HCC) 06/04/2018 Class 1 obesity due to excess calories with body mass index (BMI) of 33.0 to 33.9 in adult 02/16/2021 Fibromyalgia 07/29/2014 Graves' disease 09/01/2020 Sees endo: Dr. Cervantes H/O total thyroidectomy 09/06/2021 Hyperthyroidism 04/15/2020 Sees endo: Dr. Cervantes; underwent total thyroidectomy 08/27/21 Hypothyroidism 09/06/2021 Seeing endo. S/p thyroidectomy Lumbar degenerative disc disease 10/31/2014 Lumbar radiculopathy 03/04/2019 NEGATIVE HISTORY OF Postoperative hypothyroidism 08/27/2021 total thyroidectomy Restless legs syndrome 08/06/2015 Smoker 01/13/2017 Started age 13 up to 1/2 PPD Supraspinatus tendon tear 10/19/2016 TMJ pain dysfunction syndrome 01/13/2017 chronic grinding of teeth and recent popping. Tobacco use disorder 01/13/2017 PAST SURGICAL HISTORY Procedure Laterality Date APPENDECTOMY 03/23/2020 CARPAL TUNNEL Right 07/2015 D+C 04/23/2018 DIAGNOSTIC ARTHROSCOPY SHOULDER +- SYNOVIAL BX Right 01/25/2017 Right shoulder arthroscopic decompression HYSTERECTOMY 03/23/2020 HYSTEROSCOPY DIAGNOSTIC 04/23/2018 LIG/TRNSXJ FLP TUBE ABDL/VAG APPR UNI/BI Tubal ligation LYSIS VAGINAL ADHESIONS 04/23/2018 OOPHORECTOMY PARTIAL OR TOTAL Right 04/23/2018 OOPHORECTOMY PARTIAL OR TOTAL Left 03/23/2020 PAST SURGICAL HISTORY OF cyst removal left ankle RECONSTRUCTION ROTATOR CUFF AVULSION CHRONIC Right 01/25/2017 Right rotator cuff debridement SALPINGECTOMY Bilateral 04/23/2018 [facility]-Dr. Oleary THYROID FINE NEEDLE ASPIRATION Left 04/06/2021 THYROIDECTOMY TOTAL/COMPLETE 08/27/2021 Current Outpatient Medications Medication Sig cyclobenzaprine (FLEXERIL) 10 mg tablet Take 1 tablet by mouth three times daily as needed for muscle spasm. DULoxetine (CYMBALTA) 20 mg capsule Take 1 capsule by mouth once daily. gabapentin (NEURONTIN) 600 mg tablet Take 1.5 tabs three times a day buPROPion XL (WELLBUTRIN XL) 150 mg 24 hr tablet Take 1 tablet by mouth once daily. levothyroxine (SYNTHROID) 137 mcg tablet Take 1 tablet by mouth daily before breakfast. estradiol (ESTRACE) 2 mg tablet Take 2 mg by mouth once daily. albuterol HFA (PROAIR HFA) 90 mcg/actuation inhaler Inhale 2 Puffs as instructed every 6 hours as needed. No current facility-administered medications for this visit. ALLERGIES: Abilify [Aripiprazole], Divalproex Sodium, Tapazole [Methimazole], and Valproic Acid PERSONAL HISTORY: Social History Tobacco Use Smoking status: Every Day Packs/day: 0.50 Years: 10.00 Pack years: 5.00 Types: Cigarettes Smokeless tobacco: Never Vaping Use Vaping Use: Some days Substances: Nicotine Substance Use Topics Alcohol use: Yes Alcohol/week: 12.0 standard drinks Types: 12 Cans of Beer (12oz) per week Drug use: Yes Types: Marijuana Comment: rarely- edibles FAMILY HISTORY: FAMILY HISTORY Problem Relation Age of Onset Hypertension Father Heart Father Arthritis Maternal Grandmother Diabetes Maternal Grandmother Stroke Maternal Grandmother Kidney Disease Maternal Grandmother Arthritis Paternal Grandmother REVIEW OF SYMPTOMS: The review of systems data was entered by the nurse and reviewed by pr Nursing Notes: Senia Varma LPN 09/29/2022 1:39 PM Signed REVIEW OF SYSTEMS: General: The patient notes fatigue, denies weight loss, notes weight gain, notes feeling hot, and notes feelings of cold. Eyes: The patient denies glaucoma, denies eye injury/surgery, wears glasses or contacts. Ear/Nose/Throat: The patient notes allergies, denies hayfever, denies ear infections, and denies bloody noses. Cardiovascular: The patient denies chest pain, denies heart disease, notes high blood pressure,denies cardiac stent, denies prior heart attack, denies irregular heart beat, notes high cholesterol, denies poor circulation, denies heart failure, other cardiac issues, denies claudication, notes cold feet, denies peripheral arterial stent. Respiratory: The patient denies tuberculosis, notes pneumonia, notes frequent cough, denies pulmonary embolism, notes shortness of breath, and denies coughing up blood. Gastrointestinal: The patient denies difficulty swallowing, notes acid reflux, denies ulcers, notes vomiting, denies jaundice/hepatitis, notes gallbladder problems, denies black or tarry stools, notes hemorrhoids, notes bleeding from rectum, denies diverticulitis, denies constipation, notes diarrhea, notes loss of stool control, and denies hernias. Kidney/Bladder: The patient denies kidney stones, denies urine infections, and denies bloody urine. Skin: The patient denies a history of skin cancer, denies bleeding/changing moles, and notes a history of skin rash. Neurologic: The patient denies a history of epilepsy/convulsions, notes headaches, denies head/spinal injuries, and denies stroke/TIA. Psychiatric: The patient notes psychiatric medications, notes depression, and denies voices, denies substance abuse. Endocrine: The patient notes thyroid disorders, denies diabetes, and notes hormonal problems. Hematologic: The patient notes a history of bruising, notes bleeding, and denies anemia, denies blood clots. Infections: The patient denies a history of measles and mumps, denies rheumatic fever, and denies sexually transmitted diseases. Musculoskeletal: The patient notes back pain/injury, notes back problems, notes sciatica, notes knee/foot trouble, notes arthritis, or denies gout. When was patient's last Mammogram screening? 2022 Last Colonoscopy: none Senia Varma LPN PHYSICAL EXAMINATION: General: The patient is 37 year old female, well nourished, well hydrated in no acute distress. The patient is oriented to time, place, and person. VITALS: Blood pressure 130/72, pulse 96, temperature 37.1 C (98.8 F), height 170.2 cm (5' 7 ), weight 103.4 kg (228 lb), last menstrual period 08/12/2019, SpO2 100 %. Body mass index is 35.71 kg/m . HEENT: Normal cephalic, ataumatic, pupils are equally round, sclera are anicteric, mucous membranes are moist, oropharynx is clear. Neck has no masses, asymmetry or lymphadenopathy. Thyroid is unremarkable. Respiratory: Clear to auscultation and percussion. Normal respiratory excursion and pattern. Cardiac: Examination is regular rate and rhythm. Abdominal exam: Soft, nontender, with no palpable masses. No hepatosplenomegaly. No palpable hernias. Rectal exam: exam deferred Extremities: no clubbing, cyanosis or edema. No adenopathy. Other: LABORATORY VALUES: As Noted RADIOLOGIC STUDIES: As Noted Assessment IMPRESSION: Nausea, RUQ pain, loose stools/watery diarrhea, rectal bleeding PLAN: I plan to perform upper and lower endoscopy. We discussed the risks and benefits of the planned endoscopy. I have informed the patient that complications can occur including failure to complete the endoscopy and perforation. The patient had the opportunity to ask questions concerning the planned endoscopy. My staff has also explained the procedure to the patient in understandable terms and has given the patient printed material concerning the procedure. The patient freely consents to surgery. I plan to use golytely bowel preparation for endoscopy Diagnoses: (R19.4) Bowel habit changes (R10.13) Epigastric pain (R11.0) Nausea My findings have been communicated to Daryn via shared medical record. This note will be forwarded to Yogi Maddox MD. Return to Clinic: The patient is instructed to follow-up with me after the testing has been completed. Mihir Riddle MD documented in this encounter [facility] 09-29-2022 Note HNO ID: [id number] Author: Antoinette Jones MA Service: ? Author Type: Gift Shop Manager Type: Progress Notes Filed: 09/29/2022 3:16 PM Note Text: Scan on 09/28/2022 6:01 PM by External Provider: Mammography Scan on 09/28/2022 6:59 PM by External Provider: Ultrasound Antoinette Jones MA [facility] 09-29-2022 Note HNO ID: [id number] Author: Fred Witt PT Service: ? Author Type: Physical Therapist Type: Progress Notes Filed: 09/29/2022 2:51 PM Note Text: Episode Visit Count: 1 Therapist That Will Accept/Oversee The Plan Of Care: Fred Witt Start of Care Date: 09/29/22 Onset Date: 09/24/22 Plan of Care Certification Date: 09/29/22 Next Certification Due Date: 11/29/22 Patient Identified by Name and Date of : Yes REHABILITATION AND SPORTS THERAPY PHYSICAL THERAPY EVALUATION PLAN OF CARE: Assessment: Clara Cortez presents with chief complaint of LBP that interferes with standing, bending, heavy exertion, lifting, physical activities, working . She presents with impairments in ADL's, overall function, posture, range of motion, strength, symptom management, and tissue tenderness. PROMIS? (Patient-Reported Outcomes Measurement Information System) scores were reviewed and all domains identified as a rehabilitation concern. Prognosis for therapy is Good due to: current objective clinical presentation, good overall health status, good support system/ coping skills . She will benefit from skilled therapy services to meet the goals established for this plan of care as noted below. Classification Low Back Pain Subgroup Classification: Core stabilization subgroup: recommended visits 10. Core Stabilization Subgroup Classification based on: frequent self-manipulator or long history of manipulation, history of locking/catching, pain with transitional movements Goals for Episode of Care: created on 09/29/22 through 11/29/22 Independent in home exercises. Patient will decrease pain rating by 2 points to meet minimal clinical important difference for numeric pain rating scale. Stand / Walk As needed for work and ADLs without pain/symptoms. Sleep through night without pain/symptoms. Patient will increase strength of trunk/core to 4+/5 to allow for improve ability to complete ADLs. Planned Interventions, Frequency, and Duration: Current Frequency: 1x/week Duration: 8 weeks Total Number of Visits Planned: 8 Planned Treatment Interventions: Therapeutic exercise (17627), Neuromuscular re-education (09583), Manual therapy (11363), Therapeutic activities (40789), Self-assisted management (75076), Patient/Family/Caregiver Education, Body Mechanics Training PLAN FOR NEXT VISIT: Assess addition of HEP Patient demonstrates good understanding of plan of care and treatment. The above goals and plan of care were discussed and agreed upon by patient/family. SUBJECTIVE: Clara Cortez is a 37 year old female seen today for LBP for years, but worsening onset now as she has picked up more hours. Standing for long periods, bending, lifting, and carrying. Can get intermittent radicular pain with random movements, mostly involving twisting though. Also notes fibromylagia Functional Limitations: standing, bending, heavy exertion, lifting, physical activities, working Prior Level of Function: Independent without limitations Intake Information: Prescription present Pain: Pain Pain Level: 7 Pain Location: Back Description: Aching, Sore, Sharp, Burning Frequency: Intermittent, With movement PROMIS Scales Higher is Better 09/26/2022 09/21/2022 11/23/2021 Phys Func - Score 39 (moderate dysfunction) 39 (moderate dysfunction) 39 (moderate dysfunction) Phys Func - Percentile 14 % 14 % 14 % Self-Eff Symptom - Score 38 (Low) 38 (Low) 39 (Low) Self-Eff Symptom - Percentile 12 % 12 % 14 % T-scores: mean of general population = 50. 5 points is clinically meaningfully difference Percentiles provide an indication of how the patient's score ranks in relation to the general population. Higher percentile rankings indicate better function/quality of life. 50th percentile is the average of the general population and indicates half of respondents had a worse score. OBJECTIVE MEASURES WITH LEVEL OF FUNCTION: Lumbar Spine AROM Lumbar Flexion: Normal Lumbar Extension: Normal Lumbar R Side-Bend: Normal Lumbar L Side-Bend: Normal Lumbar R Rotation: Normal Lumbar L Rotation: Normal LE Strength Trunk Strength: 3+/5 R LE Strength: 5/5 L LE Strength: 5/5 Special Tests - Hip and Spine Hip and Spine Special Tests: SLR Test, Slump Test SLR Test: Right Positive, Left Positive Slump Test: Right Negative, Left Negative Education: TREATMENT: PT Treatment Interventions: Therapeutic Exercise Evaluation Therapeutic Exercise: 1: *Prone lying x3 min 2: *Prone propped on elbows x3 min 3: *Prone press ups 3x10 4: *SL hip abduction 3x10 5: *Prone hip extension 3x10 6: *TA bracing 3x10, 5 sec holds 7: *TA bracing with BKFO 3x10/side 8: *TA bracing with hip hikes 3x10 Skilled Intervention: Patient was educated in proper exercise technique and purpose for exercises. Skilled judgment was provided in selection of appropriate interventions. Provided written instruction for (more content not included)... [facility] 09-29-2022 History of Presen t illness Narrative Scan on 09/28/2022 6:01 PM by External Provider: Mammography Scan on 09/28/2022 6:59 PM by External Provider: Ultrasound Antoinette Jones MA documented in this encounter [facility] 09-29-2022 Note HNO ID: [id number] Author: Adriana Banuelos RDMS Service: ? Author Type: Termite Control Representative Type: Progress Notes Filed: 09/29/2022 1:24 PM Note Text: Radiology Service Progress Note PATIENT NAME: Clara Cortez DATE OF SERVICE: September 29, 2022 TIME: 1:23 PM PATIENT IDENTITY VERIFICATION COMPLETED USING TWO (2) IDENTIFIERS: Name and Date of confirmed by patient verbally. FALL SCREENING: Has the patient had 2 falls in the last year or 1 fall with injury or currently using an Ambulatory Assistive Device (Walker, Cane, Wheelchair, Crutches, etc.)? No PATIENT GENDER DATA: Female. status: : No status: NO. PATIENT RELEVANT IMPLANT DATA REVIEWED: Not Applicable RADIOLOGY DEPARTMENT: Ultrasound PERIPHERAL IV DATA: Not applicable SIGNED BY: Adriana Banuelos RDMS September 29, 2022 1:23 PM [facility] 09-29-2022 History of Presen t illness Narrative Episode Visit Count: 1 Therapist That Will Accept/Oversee The Plan Of Care: Fred Witt Start of Care Date: 09/29/22 Onset Date: 09/24/22 Plan of Care Certification Date: 09/29/22 Next Certification Due Date: 11/29/22 Patient Identified by Name and Date of : Yes REHABILITATION AND SPORTS THERAPY PHYSICAL THERAPY EVALUATION PLAN OF CARE: Assessment: Clara Cortez presents with chief complaint of LBP that interferes with standing, bending, heavy exertion, lifting, physical activities, working . She presents with impairments in ADL's, overall function, posture, range of motion, strength, symptom management, and tissue tenderness. PROMIS (Patient-Reported Outcomes Measurement Information System) scores were reviewed and all domains identified as a rehabilitation concern. Prognosis for therapy is Good due to: current objective clinical presentation, good overall health status, good support system/ coping skills . She will benefit from skilled therapy services to meet the goals established for this plan of care as noted below. Classification Low Back Pain Subgroup Classification: Core stabilization subgroup: recommended visits 10. Core Stabilization Subgroup Classification based on: frequent self-manipulator or long history of manipulation, history of locking/catching, pain with transitional movements Goals for Episode of Care: created on 09/29/22 through 11/29/22 Independent in home exercises. Patient will decrease pain rating by 2 points to meet minimal clinical important difference for numeric pain rating scale. Stand / Walk As needed for work and ADLs without pain/symptoms. Sleep through night without pain/symptoms. Patient will increase strength of trunk/core to 4+/5 to allow for improve ability to complete ADLs. Planned Interventions, Frequency, and Duration: Current Frequency: 1x/week Duration: 8 weeks Total Number of Visits Planned: 8 Planned Treatment Interventions: Therapeutic exercise (22028), Neuromuscular re-education (45685), Manual therapy (09680), Therapeutic activities (95836), Self-assisted management (61053), Patient/Family/Caregiver Education, Body Mechanics Training PLAN FOR NEXT VISIT: Assess addition of HEP Patient demonstrates good understanding of plan of care and treatment. The above goals and plan of care were discussed and agreed upon by patient/family. SUBJECTIVE: Clara Cortez is a 37 year old female seen today for LBP for years, but worsening onset now as she has picked up more hours. Standing for long periods, bending, lifting, and carrying. Can get intermittent radicular pain with random movements, mostly involving twisting though. Also notes fibromylagia Functional Limitations: standing, bending, heavy exertion, lifting, physical activities, working Prior Level of Function: Independent without limitations Intake Information: Prescription present Pain: Pain Pain Level: 7 Pain Location: Back Description: Aching, Sore, Sharp, Burning Frequency: Intermittent, With movement PROMIS Scales Higher is Better 09/26/2022 09/21/2022 11/23/2021 Phys Func - Score 39 (moderate dysfunction) 39 (moderate dysfunction) 39 (moderate dysfunction) Phys Func - Percentile 14 % 14 % 14 % Self-Eff Symptom - Score 38 (Low) 38 (Low) 39 (Low) Self-Eff Symptom - Percentile 12 % 12 % 14 % T-scores: mean of general population = 50. 5 points is clinically meaningfully difference Percentiles provide an indication of how the patient's score ranks in relation to the general population. Higher percentile rankings indicate better function/quality of life. 50th percentile is the average of the general population and indicates half of respondents had a worse score. OBJECTIVE MEASURES WITH LEVEL OF FUNCTION: Lumbar Spine AROM Lumbar Flexion: Normal Lumbar Extension: Normal Lumbar R Side-Bend: Normal Lumbar L Side-Bend: Normal Lumbar R Rotation: Normal Lumbar L Rotation: Normal LE Strength Trunk Strength: 3+/5 R LE Strength: 5/5 L LE Strength: 5/5 Special Tests - Hip and Spine Hip and Spine Special Tests: SLR Test, Slump Test SLR Test: Right Positive, Left Positive Slump Test: Right Negative, Left Negative Education: TREATMENT: PT Treatment Interventions: Therapeutic Exercise Evaluation Therapeutic Exercise: 1: *Prone lying x3 min 2: *Prone propped on elbows x3 min 3: *Prone press ups 3x10 4: *SL hip abduction 3x10 5: *Prone hip extension 3x10 6: *TA bracing 3x10, 5 sec holds 7: *TA bracing with BKFO 3x10/side 8: *TA bracing with hip hikes 3x10 Skilled Intervention: Patient was educated in proper exercise technique and purpose for exercises. Skilled judgment was provided in selection of appropriate interventions. Provided written instruction for home exercise program to facilitate proper performance and compliance. Correct performance of therapeutic exercises was facilitated with verbal, visual, and tactile cuing. Billing * Evaluation Low Complexity: 1 Unit Therapeutic Exercise Treatment Minutes: 25 Total Treatment Time Minutes (timed/untimed): 45 Fred Witt PT documented in this encounter [facility] 09-29-2022 Instructions Mihir Riddle MD - 09/29/2022 2:39 PM EST Images from the original note were not included. Bowel Preparation Instructions for: Golytely, Nulytely, Trilyte or Colyte (polyethylene glycol 3350 and electrolytes) IF YOU DO NOT FOLLOW THESE DIRECTIONS, YOUR COLONOSCOPY WILL BE CANCELLED. Shirley Instructions: Your bowel must be empty so that your doctor can clearly view your colon. Follow all of the instructions in this handout EXACTLY as they are written. Do NOT eat any solid food the ENTIRE day before your colonoscopy. Drink only clear liquids. Buy your bowel preparation at least 5 days before your colonoscopy. TRANSPORTATION on the Day of Your Exam A responsible person MUST be present with you at Check In prior to your colonoscopy and REMAIN in the endoscopy area until you are discharged. You are NOT ALLOWED to drive, take a taxi or bus, or leave the Endoscopy Center ALONE. If you do not have a responsible tow motor driver (family member or friend) with you to take you home, your exam cannot be done with sedation and will be cancelled. Please bring a list of all of your current medications, including any Over-the Counter medications with you. Medications If you take insulin, diabetic medications or blood thinners such as Coumadin (warfarin), Plavix (clopidogrel), Ticlid (ticlopidine hydrochloride), Agrylin (anagrelide), Xarelto (Rivaroxaban), Pradaxa (Dabigatran), Eliquis (Apixaban), and Effient (Prasugrel). You MUST call the doctors who orders those medicines for instructions on altering the dosage before your colonoscopy. All other medications should be taken the day of the exam with a sip of water including ASPIRIN. Five (5) Days Before Your Colonoscopy Do NOT take medicines that stop diarrhea - such as Imodium, Kaopectate, or Pepto Bismol. Do NOT take fiber supplements - such as Metamucil, Citrucel, or Perdiem. Do NOT take products that contain iron - such as multi-vitamins (the label lists what is in the products). Do NOT take Vitamin E. Buy the prescription bowel preparation solution at your local pharmacy or drugstore pharmacy. 06/2019 Bowel Preparation Instructions for: Golytely, Nulytely, Trilyte or Colyte (polyethylene glycol 3350 and electrolytes) Three (3) Days Before Your Colonoscopy Do NOT eat high-fiber foods - such as popcorn, beans, seeds (flax, sunflower, quinoa), multigrain bread, nuts, salad/vegetables, or fresh and dried fruit. One (1) Day Before Your Colonoscopy Only drink clear liquids the ENTIRE DAY before your colonoscopy. Do NOT eat any solid foods. Drink at least 8 ounces of clear liquids every hour after waking up. The clear liquids you can drink include: Clear Liquid (NO RED LIQUIDS) DO NOT DRINK Gatorade, Pedialyte or Powerade Clear broth or bouillon Coffee or tea (no milk or non-dairy creamer) Carbonated and non-carbonated soft drinks Hugo-Aid or other fruit flavored drinks Strained fruit juices (no pulp) Jell-O, popsicles, hard candy Water Alcohol Milk or non-dairy creamers Noodles or vegetables in soup Juice with pulp Liquid you cannot see through Do not use tobacco/vaping products The bowel preparation solution will be consumed in two parts. Mix the solution the evening before your colonoscopy and refrigerate before drinking. You may add the flavor pack that came with the bowel preparation. Do NOT add ice, sugar or any other flavorings to the solution. Part 1 At 6:00 PM - Evening before your colonoscopy Drink an 8-oz glass of bowel preparation every 10 minutes for a total of 8 glasses. You may continue to drink clear liquids until midnight. Part 2 On the day of your colonoscopy you may drink clear liquids up to (three) 3 hours before your procedure. 4 1/2 hours before your colonoscopy Drink an 8-oz glass of bowel preparation every 10 minutes for a total of 8 glasses. Fifteen (15) minutes later, drink an 8-oz glass of clear liquids every 15 minutes for a total of 2 glasses. You may continue to drink clear liquids up to (three) 3 hours before your exam. 2 06/2019 documented in this encounter [facility] 09-29-2022 Nurse Note REVIEW OF SYSTEMS: General: The patient notes fatigue, denies weight loss, notes weight gain, notes feeling hot, and notes feelings of cold. Eyes: The patient denies glaucoma, denies eye injury/surgery, wears glasses or contacts. Ear/Nose/Throat: The patient notes allergies, denies hayfever, denies ear infections, and denies bloody noses. Cardiovascular: The patient denies chest pain, denies heart disease, notes high blood pressure,denies cardiac stent, denies prior heart attack, denies irregular heart beat, notes high cholesterol, denies poor circulation, denies heart failure, other cardiac issues, denies claudication, notes cold feet, denies peripheral arterial stent. Respiratory: The patient denies tuberculosis, notes pneumonia, notes frequent cough, denies pulmonary embolism, notes shortness of breath, and denies coughing up blood. Gastrointestinal: The patient denies difficulty swallowing, notes acid reflux, denies ulcers, notes vomiting, denies jaundice/hepatitis, notes gallbladder problems, denies black or tarry stools, notes hemorrhoids, notes bleeding from rectum, denies diverticulitis, denies constipation, notes diarrhea, notes loss of stool control, and denies hernias. Kidney/Bladder: The patient denies kidney stones, denies urine infections, and denies bloody urine. Skin: The patient denies a history of skin cancer, denies bleeding/changing moles, and notes a history of skin rash. Neurologic: The patient denies a history of epilepsy/convulsions, notes headaches, denies head/spinal injuries, and denies stroke/TIA. Psychiatric: The patient notes psychiatric medications, notes depression, and denies voices, denies substance abuse. Endocrine: The patient notes thyroid disorders, denies diabetes, and notes hormonal problems. Hematologic: The patient notes a history of bruising, notes bleeding, and denies anemia, denies blood clots. Infections: The patient denies a history of measles and mumps, denies rheumatic fever, and denies sexually transmitted diseases. Musculoskeletal: The patient notes back pain/injury, notes back problems, notes sciatica, notes knee/foot trouble, notes arthritis, or denies gout. When was patient's last Mammogram screening? 2022 Last Colonoscopy: none Senia Varma LPN documented in this encounter [facility] 09-29-2022 History of Presen t illness Narrative Radiology Service Progress Note PATIENT NAME: Clara Cortez DATE OF SERVICE: September 29, 2022 TIME: 1:23 PM PATIENT IDENTITY VERIFICATION COMPLETED USING TWO (2) IDENTIFIERS: Name and Date of confirmed by patient verbally. FALL SCREENING: Has the patient had 2 falls in the last year or 1 fall with injury or currently using an Ambulatory Assistive Device (Walker, Cane, Wheelchair, Crutches, etc.)? No PATIENT GENDER DATA: Female. status: : No status: NO. PATIENT RELEVANT IMPLANT DATA REVIEWED: Not Applicable RADIOLOGY DEPARTMENT: Ultrasound PERIPHERAL IV DATA: Not applicable SIGNED BY: Adriana Banuelos RDMS September 29, 2022 1:23 PM documented in this encounter [facility] 09-22-2022 Miscellaneous Notes Patient returned call and given provider's message below and patient verbalized understanding. Tomasa Lee RN Left message to call office. 09/22/2022 10:21 AM. Lashonda Bahena LPN Let patient know that her labs, urine and xray were normal. Cont how we discussed. documented in this encounter [facility] 09-21-2022 Note HNO ID: [id number] Author: RT Topher(R) Service: Nuclear Medicine Author Type: Technologist Type: Progress Notes Filed: 09/21/2022 12:59 PM Note Text: Radiology Service Progress Note PATIENT NAME: Clara Cortez DATE OF SERVICE: September 21, 2022 TIME: 12:49 PM PATIENT IDENTITY VERIFICATION COMPLETED USING TWO (2) IDENTIFIERS: Name and Date of confirmed by patient verbally. FALL SCREENING: Has the patient had 2 falls in the last year or 1 fall with injury or currently using an Ambulatory Assistive Device (Walker, Cane, Wheelchair, Crutches, etc.)? No PATIENT GENDER DATA: Female. status: : No status: NO. PATIENT RELEVANT IMPLANT DATA REVIEWED: Not Applicable RADIOLOGY DEPARTMENT: General X-ray: Exam(s) Completed: Spine X-Ray(s): Lumbar AP / LAT / L5-S1 PERIPHERAL IV DATA: Not applicable SIGNED BY: RT Topher(R) September 21, 2022 12:49 PM [facility] 09-21-2022 Note HNO ID: [id number] Author: Patricia Stearns PA-C Service: ? Author Type: Physician Senior Publications Specialist Type: Progress Notes Filed: 09/21/2022 1:03 PM Note Text: Chief Complaint Patient presents with: Physical HPI Clara Cortez is a 37 year old female who presents here today for physical. Patient with hx of RLS, hypothyroid, Anxiety/depression, Bipolar, obesity, lumbar back pain and those as below. Patient was seen in ER yesterday due to rectal bleeding. States she was told she had a ruptured hemorrhoid. She is feeling better today. She has been having some lower back pain recently. Hx of this. She also reports that her right side tonsil will swell up at times. Currently okay. Past medical history, appointments, medications, allergies reviewed. Previous Medical History PAST MEDICAL HISTORY Diagnosis Date Anxiety associated with depression 08/06/2015 Attention deficit hyperactivity disorder (ADHD), combined type 08/24/2016 Bipolar disorder (HCC) 05/22/2014 Bipolar disorder, in partial remission, most recent episode mixed (HCC) 06/04/2018 Class 1 obesity due to excess calories with body mass index (BMI) of 33.0 to 33.9 in adult 02/16/2021 Fibromyalgia 07/29/2014 Graves' disease 09/01/2020 Sees endo: Dr. Cervantes H/O total thyroidectomy 09/06/2021 Hyperthyroidism 04/15/2020 Sees endo: Dr. Cervantes; underwent total thyroidectomy 08/27/21 Hypothyroidism 09/06/2021 Seeing endo. S/p thyroidectomy Lumbar degenerative disc disease 10/31/2014 Lumbar radiculopathy 03/04/2019 NEGATIVE HISTORY OF Postoperative hypothyroidism 08/27/2021 total thyroidectomy Restless legs syndrome 08/06/2015 Smoker 01/13/2017 Started age 13 up to 1/2 PPD Supraspinatus tendon tear 10/19/2016 TMJ pain dysfunction syndrome 01/13/2017 chronic grinding of teeth and recent popping. Tobacco use disorder 01/13/2017 Previous Surgical History PAST SURGICAL HISTORY Procedure Laterality Date APPENDECTOMY 03/23/2020 CARPAL TUNNEL Right 07/2015 D+C 04/23/2018 DIAGNOSTIC ARTHROSCOPY SHOULDER +- SYNOVIAL BX Right 01/25/2017 Right shoulder arthroscopic decompression HYSTERECTOMY 03/23/2020 HYSTEROSCOPY DIAGNOSTIC 04/23/2018 LIG/TRNSXJ FLP TUBE ABDL/VAG APPR UNI/BI Tubal ligation LYSIS VAGINAL ADHESIONS 04/23/2018 OOPHORECTOMY PARTIAL OR TOTAL Right 04/23/2018 OOPHORECTOMY PARTIAL OR TOTAL Left 03/23/2020 PAST SURGICAL HISTORY OF cyst removal left ankle RECONSTRUCTION ROTATOR CUFF AVULSION CHRONIC Right 01/25/2017 Right rotator cuff debridement SALPINGECTOMY Bilateral 04/23/2018 [facility]-Dr. Oleary THYROID FINE NEEDLE ASPIRATION Left 04/06/2021 THYROIDECTOMY TOTAL/COMPLETE 08/27/2021 Family History FAMILY HISTORY Problem Relation Age of Onset Hypertension Father Heart Father Arthritis Maternal Grandmother Diabetes Maternal Grandmother Stroke Maternal Grandmother Arthritis Paternal Grandmother Patient Allergies ALLERGIES Allergen Reactions Abilify [Aripiprazo* Other: See Comments tired Divalproex Sodium GI Upset Tapazole [Methimazo* GI Upset Nausea and vomiting Valproic Acid GI Upset Current Medications Current Outpatient Medications on File Prior to Visit Medication Sig DULoxetine (CYMBALTA) 20 mg capsule Take 1 capsule by mouth once daily. gabapentin (NEURONTIN) 600 mg tablet Take 1.5 tabs three times a day buPROPion XL (WELLBUTRIN XL) 150 mg 24 hr tablet Take 1 tablet by mouth once daily. levothyroxine (SYNTHROID) 137 mcg tablet Take 1 tablet by mouth daily before breakfast. estradiol (ESTRACE) 2 mg tablet Take 2 mg by mouth once daily. albuterol HFA (PROAIR HFA) 90 mcg/actuation inhaler Inhale 2 Puffs as instructed every 6 hours as needed. benzonatate (TESSALON PERLES) 100 mg capsule Take 2 capsules by mouth three times daily as needed. albuterol HFA (PROAIR HFA) 90 mcg/actuation inhaler Inhale 2 Puffs as instructed every 6 hours as needed. No current facility-administered medications on file prior to visit. Social History Social History Tobacco Use Smoking status: Every Day Packs/day: 0.50 Years: 10.00 Pack years: 5.00 Types: Cigarettes Smokeless tobacco: Never Vaping Use Vaping Use: Never used Substance Use Topics Alcohol use: No Alcohol/week: 75.0 standard drinks Types: 30 Cans of Beer (12oz) per week Drug use: Yes Types: Marijuana Comment: rarely- edibles Review of Symptoms REVIEW OF SYSTEMS GENERAL: No weight loss, malaise or fevers HEENT: No changes in hearing or vision, no nose bleeds or other nasal problems NECK: Negative for lumps, goiter, pain and significant neck swelling RESPIRATORY: Negative for cough, hemoptysis, wheezing, COPD, dyspnea or shortness of breath CARDIOVASCULAR: Negative for chest pain, leg swelling, CHF or palpitations GI: Negative for abdominal discomfort, blood in stools or black stools, change in bowel habit, heart burn, nausea, vomiting : No history of dys (more content not included)... [facility] documented as of this encounter (statuses as of 01/17/2023) [facility] History of Past illness Narrative* Problem Noted Date Resolved Date Well adult exam 09/21/2022 01/17/2023 Overview: Done: 09/21/22 Encounter for screening for diabetes mellitus 01/17/2023 Pain of left hip joint 02/23/2021 Medication management 02/16/2021 01/17/2023 Class 1 obesity due to exces s calories with body mass index (BMI) of 33.0 to 33.9 in adult 02/16/2021 01/17/2023 Graves' disease 09/01/2020 09/06/2021 Overview: Sees endo: Dr. Cervantes Hyperthyroidism 04/15/2020 09/06/2021 Overview: Sees endo: Dr. Cervantes Hypothyroidism due to medication 05/15/2019 04/15/2020 Unspecified injury of right shoulder and upper arm, initial encounter 04/15/2017 02/13/2018 Weakness 04/15/2017 02/13/2018 Acute pain of right shoulder 12/09/2016 Supraspinatus tendon tear 10/19/20162020 Impingement syndrome of right shoulder 3 08/09/2016 Wrist tendonitis 07/14/2009 12/03/2014 documented as of this encounter (statuses as of 01/19/2023) [facility] History of Past illness Narrative* Problem Noted Date Resolved Date Well adult exam 09/21/2022 01/17/2023 Overview: Done: 09/21/22 Encounter for screening for diabetes mellitus 01/17/2023 Pain of left hip joint 02/23/2021 Medication management 02/16/2021 01/17/2023 Class 1 obesity due to exces s calories with body mass index (BMI) of 33.0 to 33.9 in adult 02/16/2021 01/17/2023 Graves' disease 09/01/2020 09/06/2021 Overview: Sees endo: Dr. Cervantes Hyperthyroidism 04/15/2020 09/06/2021 Overview: Sees endo: Dr. Cervantes Hypothyroidism due to medication 05/15/2019 04/15/2020 Unspecified injury of right shoulder and upper arm, initial encounter 04/15/2017 02/13/2018 Weakness 04/15/2017 02/13/2018 Acute pain of right shoulder 12/09/2016 Supraspinatus tendon tear 10/19/20162020 Impingement syndrome of right shoulder 3 08/09/2016 Wrist tendonitis 07/14/2009 12/03/2014 documented as of this encounter (statuses as of 01/19/2023) [facility] History of Past illness Narrative* Problem Noted Date Diagnosed Date Resolved Date Well adult exam 09/21/2022 01/17/2023 Overview: Done: 09/21/22 Encounter for screening for diabetes mellitus 03/18/2001/17/2023 Pain of left hip joint 02/23/202101/17 Medication management 02/16/20212022 Class 1 obesity due to exces s calories with body mass index (BMI) of 33.0 to 33.9 in adult 02/16/2021 01/17/2023 Graves' disease 09/01/2020 09/06/2021 Overview: [place]: Dr. Cervantes Hyperthyroidism 04/15/2020 09/06/2021 Overview: [place] endo: Dr. Cervantes Hypothyroidism due to medication 05/15/2019 04/15/2020 Unspecified injury of right shoulder and upper arm, initial encounter 04/15/2017 02/13/2018 Weakness 04/15/2017 02/13/2018 Acute pain of right shoulder 12/09/2016 02/13/2018 Supraspinatus tendon tear 10/19/2016 Impingement syndrome of right shoulder 05/16/2013 08/09/2016 Wrist tendonitis 07/14/2009 12/03/2014 documented as of this encounter (statuses as of 03/16/2023) [facility] History of Present illness Narrative* Patricia Stearns PA-C - 09/21/2022 12:03 PM EST Chief Complaint Patient presents with: Physical HPI Clara Cortez is a 37 year old female who presents here today for physical. Patient with hx of RLS, hypothyroid, Anxiety/depression, Bipolar, obesity, lumbar back pain and those as below. Patient was seen in ER yesterday due to rectal bleeding. States she was told she had a ruptured hemorrhoid. She is feeling better today. She has been having some lower back pain recently. Hx of this. She also reports that her right side tonsil will swell up at times. Currently okay. Past medical history, appointments, medications, allergies reviewed. Previous Medical History PAST MEDICAL HISTORY Diagnosis Date Anxiety associated with depression 08/06/2015 Attention deficit hyperactivity disorder (ADHD), combined type 08/24/2016 Bipolar disorder (HCC) 05/22/2014 Bipolar disorder, in partial remission, most recent episode mixed (HCC) 06/04/2018 Class 1 obesity due to excess calories with body mass index (BMI) of 33.0 to 33.9 in adult 02/16/2021 Fibromyalgia 07/29/2014 Graves' disease 09/01/2020 Sees endo: Dr. Cervantes H/O total thyroidectomy 09/06/2021 Hyperthyroidism 04/15/2020 Sees endo: Dr. Cervantes; underwent total thyroidectomy 08/27/21 Hypothyroidism 09/06/2021 Seeing endo. S/p thyroidectomy Lumbar degenerative disc disease 10/31/2014 Lumbar radiculopathy 03/04/2019 NEGATIVE HISTORY OF Postoperative hypothyroidism 08/27/2021 total thyroidectomy Restless legs syndrome 08/06/2015 Smoker 01/13/2017 Started age 13 up to 1/2 PPD Supraspinatus tendon tear 10/19/2016 TMJ pain dysfunction syndrome 01/13/2017 chronic grinding of teeth and recent popping. Tobacco use disorder 01/13/2017 Previous Surgical History PAST SURGICAL HISTORY Procedure Laterality Date APPENDECTOMY 03/23/2020 CARPAL TUNNEL Right 07/2015 D+C 04/23/2018 DIAGNOSTIC ARTHROSCOPY SHOULDER +- SYNOVIAL BX Right 01/25/2017 Right shoulder arthroscopic decompression HYSTERECTOMY 03/23/2020 HYSTEROSCOPY DIAGNOSTIC 04/23/2018 LIG/TRNSXJ FLP TUBE ABDL/VAG APPR UNI/BI Tubal ligation LYSIS VAGINAL ADHESIONS 04/23/2018 OOPHORECTOMY PARTIAL OR TOTAL Right 04/23/2018 OOPHORECTOMY PARTIAL OR TOTAL Left 03/23/2020 PAST SURGICAL HISTORY OF cyst removal left ankle RECONSTRUCTION ROTATOR CUFF AVULSION CHRONIC Right 01/25/2017 Right rotator cuff debridement SALPINGECTOMY Bilateral 04/23/2018 [facility]-Dr. Oleary THYROID FINE NEEDLE ASPIRATION Left 04/06/2021 THYROIDECTOMY TOTAL/COMPLETE 08/27/2021 Family History FAMILY HISTORY Problem Relation Age of Onset Hypertension Father Heart Father Arthritis Maternal Grandmother Diabetes Maternal Grandmother Stroke Maternal Grandmother Arthritis Paternal Grandmother Patient Allergies ALLERGIES Allergen Reactions Abilify [Aripiprazo* Other: See Comments tired Divalproex Sodium GI Upset Tapazole [Methimazo* GI Upset Nausea and vomiting Valproic Acid GI Upset Current Medications Current Outpatient Medications on File Prior to Visit Medication Sig DULoxetine (CYMBALTA) 20 mg capsule Take 1 capsule by mouth once daily. gabapentin (NEURONTIN) 600 mg tablet Take 1.5 tabs three times a day buPROPion XL (WELLBUTRIN XL) 150 mg 24 hr tablet Take 1 tablet by mouth once daily. levothyroxine (SYNTHROID) 137 mcg tablet Take 1 tablet by mouth daily before breakfast. estradiol (ESTRACE) 2 mg tablet Take 2 mg by mouth once daily. albuterol HFA (PROAIR HFA) 90 mcg/actuation inhaler Inhale 2 Puffs as instructed every 6 hours as needed. benzonatate (TESSALON PERLES) 100 mg capsule Take 2 capsules by mouth three times daily as needed. albuterol HFA (PROAIR HFA) 90 mcg/actuation inhaler Inhale 2 Puffs as instructed every 6 hours as needed. No current facility-administered medications on file prior to visit. Social History Social History Tobacco Use Smoking status: Every Day Packs/day: 0.50 Years: 10.00 Pack years: 5.00 Types: Cigarettes Smokeless tobacco: Never Vaping Use Vaping Use: Never used Substance Use Topics Alcohol use: No Alcohol/week: 75.0 standard drinks Types: 30 Cans of Beer (12oz) per week Drug use: Yes Types: Marijuana Comment: rarely- edibles Review of Symptoms REVIEW OF SYSTEMS GENERAL: No weight loss, malaise or fevers HEENT: No changes in hearing or vision, no nose bleeds or other nasal problems NECK: Negative for lumps, goiter, pain and significant neck swelling RESPIRATORY: Negative for cough, hemoptysis, wheezing, COPD, dyspnea or shortness of breath CARDIOVASCULAR: Negative for chest pain, leg swelling, CHF or palpitations GI: Negative for abdominal discomfort, blood in stools or black stools, change in bowel habit, heart burn, nausea, vomiting : No history of dysuria, frequency or incontinence MUSCULOSKELETAL: +back pain SKIN: Negative for lesions, rash, and itching PSYCH: stable HEMATOLOGY/LYMPHOLOGY: Negative for prolonged bleeding, bruising easily or swollen nodes ENDOCRINE: Negative for cold or heat intolerance, polyuria, polydipsia and goiter NEURO: No history of headaches, syncope, paralysis, seizures or tremors EXAM: BP 126/78 Pulse 80 Resp 14 Ht 170.2 cm (5' 7 ) Wt 102.5 kg (226 lb) LMP 08/12/2019 (Approximate) BMI 35.40 kg/m General Appearance: Well appearing, alert, in no acute distress, well-hydrated, well nourished.. Skin: Skin color, texture, turgor normal, no suspicious rashes or lesions. Head: Normocephalic, no masses, lesions, tenderness or abnormalities. Eyes: Anicteric sclera. Pupils are equally round and reactive to light. Extraocular movements are intact. . Ears: External ears normal, canals clear, TMs pearly dee. Nose/Sinuses: Nares normal, septum midline, mucosa normal, no drainage or sinus tenderness. Oropharynx: Lips, mucosa, and tongue normal, teeth and gums normal, oropharynx normal. Neck: Supple, no adenopathy; thyroid surgically removed. no bruits. Lungs: Lungs clear to auscultation. No wheezing, rhonchi, rales.. Heart: RRR without murmur, gallop, or rubs. No ectopy. Abdomen: Normal abdominal exam, Abdomen soft, non-tender. Bowel sounds normal. No masses, organomegaly. Extremities: No deformities, edema, skin discoloration, clubbing or cyanosis. Good capillary refill. . Peripheral Pulses: Normal. Neurologic: Gait normal. Reflexes normal and symmetric. Sensation grossly intact.. MSK: neg SLR. FROM. Pain to palp of lumbar paraspinous muscles. No pain to palp of spine. Health Maintenance List HEPATITIS B(1 of 3 - 3-dose series) Never done PNEUMOCOCCAL(1 - PCV) Never done INFLUENZA(1) due on 01/20/2023 COVID-19 VACCINE(1) due on 09/22/2023 ANNUAL PCP TEAM CHRONIC DISEASE VISIT due on 03/18/2023 DTAP,TDAP,TD(4 - Td or Tdap) due on 03/04/2030 PAP TESTING Discontinued HPV TESTING Discontinued HEPATITIS C SCREENING Discontinued HIV SCREENING Discontinued Data reviewed ASSESSMENT/PLAN: 1. Well adult exam - ICD9: V70.0, ICD10: Z00.00 (primary diagnosis) - Counseled on healthy diet and regular exercise - Calcium intake with supplements or by diet of 1000 mg/day for under 50, 1200- 1500 mg/day for 50+ 2. Bipolar disorder, in partial remission, most recent episode mixed (HCC) - ICD9: 296.65, ICD10: F31.77 Stable. Cont current management 3. Class 1 obesity due to excess calories with body mass index (BMI) of 33.0 to 33.9 in adult, unspecified whether serious comorbidity present - ICD9: 278.00, V85.33, ICD10: E66.09, Z68.33 Last 3 Encounter Wt Readings: Date: Wt: 09/21/2022 102.5 kg (226 lb) 07/07/2022 104.9 kg (231 lb 3.2 oz) 03/18/2022 103.4 kg (228 lb) Stable - Behavioral intervention 4. Bowel habit changes - ICD9: 787.99, ICD10: R19.4 Set up with gen surgery - CONSULT TO GENERAL SURGERY - COMP METABOLIC PANEL 5. Epigastric pain - ICD9: 789.06, ICD10: R10.13 - check US and CMP. Consider HIDA scan if US negative. - US ABD RT UPPER QUADRANT - CONSULT TO GENERAL SURGERY - COMP METABOLIC PANEL 6. Nausea - ICD9: 787.02, ICD10: R11.0 As above. - CONSULT TO GENERAL SURGERY - COMP METABOLIC PANEL 7. Lumbar radiculopathy - ICD9: 724.4, ICD10: M54.16 Acute on chronic. Start Physical Therapy. Check xray. Prn flexeril 8. Lumbar back pain - ICD9: 724.2, ICD10: M54.50 As above - CONSULT TO PHYSICAL THERAPY - URINALYSIS, WITH MICROSCOPIC - XR LUMBAR GENERAL 3V AP/LAT/L5-S1 Patricia Stearns PA-C documented [facility] Miscellaneous Notes* Telephone Encounter - Yogi Maddox MD - 09/20/2022 6:55 PM EST Noted and agree. * Telephone Encounter - Janis Noble RN - 09/20/2022 4:22 PM EST Protocol recommends ER now. Patient agreeable. Reason for Disposition [1] MODERATE rectal bleeding (small blood clots, passing blood without stool, or toilet water turnsred) AND [2] more than once a day Answer Assessment - Initial Assessment Questions 1. APPEARANCE of BLOOD: Patient reports when she urinated last night noted bright red blood in toilet on toilet paper. States it was not from urethra and not vaginal. States she is positive it is coming from the rectum. 2. AMOUNT: Reports the first time it was a lot of bright red blood that covered the toilet paper inthe toilet. Happened again at 2 am, just on toilet paper. That time only urinated. Has not noted blood today but is lower left abdominal pain and lower back pain. 3. FREQUENCY: No blood with BM. Had 2 BM's today and no blood noted. 4. ONSET: Last night was the first time it ever happened to her. Lower back was hurting yesterday right above buttocks- really bad, also had left side abdominal cramping (abdominal cramping going on about a month off/on). Abdominal pain is so bad she is unable to stand up. 5. DIARRHEA: No diarrhea. But normally has loose soft stool. 6. CONSTIPATION: No 7. RECURRENT SYMPTOMS: No. 8. BLOOD THINNERS: No 9. OTHER SYMPTOMS: Left side abdominal pain off/on for a month. Goes away then comes back. Just yesterday only had lower back pain- really bad- couldn't stand up. Back still hurt a little today when cleaning. Nausea off/on. Lightheaded. 10. : No. Hysterectomy. Protocols used: Rectal [id number] documented in this encounter[facility] Miscellaneous Notes* Telephone Encounter - Janis Noble RN - 09/20/2022 4:42 PM EST See triage. * Telephone Encounter - Lashonda Bahena LPN - 09/20/2022 4:19 PM EST Called pt's number listed & left a message asking her to call the office back to give more information. Message was also sent to pt on [employer] asking her to call the office. Lashonda Bahena LPN * Telephone Encounter - Patricia Stearns PA-C - 09/20/2022 1:27 PM EST Please triage. documented in this encounter[facility] Miscellaneous Notes* Telephone Encounter - Antoinette Jones MA - 08/15/2022 7:52 AM EST Patient has been identified by name and date of : Yes Requested Prescriptions Pending Prescriptions Disp Refills DULoxetine (CYMBALTA) 20 mg capsule 90 capsule 1 Sig: Take 1 capsule by mouth once daily. RX INSTRUCTIONS: Patient aware RX will be sent to pharmacy. No need to notify patient. Antoinette Jones MA William: 02/2022 Nov: 09/2022 Last refill: 02/2022 documented in this encounter[facility] Miscellaneous Notes* Telephone Encounter - Patricia Stearns PA-C - 08/08/2022 2:36 PM EST The following approved medication requests have been transmitted electronically. Requested Prescriptions Signed Prescriptions Disp Refills gabapentin (NEURONTIN) 600 mg tablet 135 tablet 5 Sig: Take 1.5 tabs three times a day Authorizing Provider: PATRICIA STEARNS PA-C * Telephone Encounter - Antoinette Jones MA - 08/08/2022 2:10 PM EST Patient has been identified by name and date of : Yes Requested Prescriptions Pending Prescriptions Disp Refills gabapentin (NEURONTIN) 600 mg tablet 135 tablet 5 Sig: Take 1.5 tabs three times a day RX INSTRUCTIONS: Patient aware RX will be sent to pharmacy. No need to notify patient. Antoinette Jones MA William: 02/2022 Nov: 09/2022 Last refill; 02/2022 documented in this encounter[facility] Miscellaneous Notes* Telephone Encounter - Naila Kam RN - 07/13/2022 10:55 AM EST Please review and advise. documented in this encounterSelect [facility] Miscellaneous Notes* Telephone Encounter - Gisel Orellana LPN - 07/12/2022 10:31 AM EST Patient has been identified by name and date of : Yes Patient phones for refill(s): Requested Prescriptions Pending Prescriptions Disp Refills buPROPion XL (WELLBUTRIN XL) 150 mg 24 hr tablet 30 tablet 5 Sig: Take 1 tablet by mouth once daily. Date of last office visit in primary care: 03/18/22 Please advise. Thank you. Gisel Orellana LPN documented in this encounterSelect [facility] History of Present illness Narrative* Danika Rosado PA-C - 07/07/2022 9:58 AM EST This note was created using [employer]. Subjective Clara Cortez is a 37 year old female. HPI Patient presents with body aches, headache, cough and congestion over the past 4 days. Her boyfriend and daughter are sick with similar symptoms. She has had a fever. She has been taking Tylenol and ibuprofen [id number]. No vomiting or diarrhea. Her ribs do hurt from coughing. She is a smoker. Denies history of asthma. Review of Systems Constitutional: Positive for chills, fatigue and fever. HENT: Positive for congestion, ear pain and rhinorrhea. Respiratory: Positive for cough. Negative for shortness of breath. Cardiovascular: Negative. Gastrointestinal: Negative. Genitourinary: Negative. Musculoskeletal: Positive for myalgias. Neurological: Positive for headaches. All other systems reviewed and are negative. PAST MEDICAL HISTORY Diagnosis Date Anxiety associated with depression 08/06/2015 Attention deficit hyperactivity disorder (ADHD), combined type 08/24/2016 Bipolar disorder (HCC) 05/22/2014 Bipolar disorder, in partial remission, most recent episode mixed (HCC) 06/04/2018 Class 1 obesity due to excess calories with body mass index (BMI) of 33.0 to 33.9 in adult 02/16/2021 Fibromyalgia 07/29/2014 Graves' disease 09/01/2020 Sees endo: Dr. Cervantes H/O total thyroidectomy 09/06/2021 Hyperthyroidism 04/15/2020 Sees endo: Dr. Cervantes; underwent total thyroidectomy 08/27/21 Hypothyroidism 09/06/2021 Seeing endo. S/p thyroidectomy Lumbar degenerative disc disease 10/31/2014 Lumbar radiculopathy 03/04/2019 NEGATIVE HISTORY OF Postoperative hypothyroidism 08/27/2021 total thyroidectomy Restless legs syndrome 08/06/2015 Smoker 01/13/2017 Started age 13 up to 1/2 PPD Supraspinatus tendon tear 10/19/2016 TMJ pain dysfunction syndrome 01/13/2017 chronic grinding of teeth and recent popping. Tobacco use disorder 01/13/2017 Current Outpatient Medications Medication Sig Dispense Refill DULoxetine (CYMBALTA) 20 mg capsule Take 1 capsule by mouth once daily. 90 capsule 1 levothyroxine (SYNTHROID) 137 mcg tablet Take 1 tablet by mouth daily before breakfast. 90 tablet 3 buPROPion XL (WELLBUTRIN XL) 150 mg 24 hr tablet Take 1 tablet by mouth once daily. 30 tablet 5 estradiol (ESTRACE) 2 mg tablet Take 2 mg by mouth once daily. albuterol HFA (PROAIR HFA) 90 mcg/actuation inhaler Inhale 2 Puffs as instructed every 6 hours as needed. 1 Each 0 predniSONE (DELTASONE) 20 mg tablet Take 2 tablets by mouth once daily for 5 days. 10 tablet 0 benzonatate (TESSALON PERLES) 100 mg capsule Take 2 capsules by mouth three times daily as needed. 30 capsule 0 albuterol HFA (PROAIR HFA) 90 mcg/actuation inhaler Inhale 2 Puffs as instructed every 6 hours as needed. 1 Each 0 gabapentin (NEURONTIN) 600 mg tablet Take 1.5 tabs three times a day 135 tablet 5 No current facility-administered medications for this visit. PAST SURGICAL HISTORY Procedure Laterality Date APPENDECTOMY 03/23/2020 CARPAL TUNNEL Right 07/2015 D+C 04/23/2018 DIAGNOSTIC ARTHROSCOPY SHOULDER +- SYNOVIAL BX Right 01/25/2017 Right shoulder arthroscopic decompression HYSTERECTOMY 03/23/2020 HYSTEROSCOPY DIAGNOSTIC 04/23/2018 LIG/TRNSXJ FLP TUBE ABDL/VAG APPR UNI/BI Tubal ligation LYSIS VAGINAL ADHESIONS 04/23/2018 OOPHORECTOMY PARTIAL OR TOTAL Right 04/23/2018 OOPHORECTOMY PARTIAL OR TOTAL Left 03/23/2020 PAST SURGICAL HISTORY OF cyst removal left ankle RECONSTRUCTION ROTATOR CUFF AVULSION CHRONIC Right 01/25/2017 Right rotator cuff debridement SALPINGECTOMY Bilateral 04/23/2018 [facility]-Dr. Oleary THYROID FINE NEEDLE ASPIRATION Left 04/06/2021 THYROIDECTOMY TOTAL/COMPLETE 08/27/2021 FAMILY HISTORY Problem Relation Age of Onset Hypertension Father Heart Father Arthritis Maternal Grandmother Diabetes Maternal Grandmother Stroke Maternal Grandmother Arthritis Paternal Grandmother Social History Tobacco Use Smoking status: Every Day Packs/day: 0.50 Years: 10.00 Pack years: 5.00 Types: Cigarettes Smokeless tobacco: Never Vaping Use Vaping Use: Never used Substance Use Topics Alcohol use: No Alcohol/week: 75.0 standard drinks Types: 30 Cans of Beer (12oz) per week Drug use: Yes Types: Marijuana Comment: rarely- edibles Objective BP 136/80 Pulse 105 Temp (!) 38.1 C (100.6 F) (Tympanic) Resp 18 Wt 104.9 kg (231 lb 3.2 oz) LMP 08/12/2019 (Approximate) SpO2 98% BMI 36.21 kg/m Physical Exam Vitals reviewed. Constitutional: Appearance: Normal appearance. HENT: Head: Normocephalic and atraumatic. Right Ear: Tympanic membrane, ear canal and external ear normal. Left Ear: Tympanic membrane, ear canal and external ear normal. Nose: Congestion present. Mouth/Throat: Mouth: Mucous membranes are moist. Pharynx: Oropharynx is clear. Cardiovascular: Rate and Rhythm: Normal rate and regular rhythm. Heart sounds: Normal heart sounds. Pulmonary: Effort: Pulmonary effort is normal. Breath sounds: Normal breath sounds. Musculoskeletal: Cervical back: Neck supple. Skin: General: Skin is warm and dry. Neurological: General: No focal deficit present. Mental Status: She is alert. Assessment and Plan ASSESSMENT/PLAN: 1. Influenza-like illness - ICD9: 487.1, ICD10: J11.1 Patient likely has influenza. She is past the Tamiflu window. Discussed supportive care. Given prednisone, albuterol and Tessalon. Red flags to be seen again discussed. Patient agreeable with plan. - COVID WITH FLUA+B, ROUTINE Danika Rosado PA-C documented in this encounter[facility] Miscellaneous Notes* Telephone Encounter - Ellie Pat LPN - 03/29/2022 12:55 PM EDT Please see pt's update. Ellie Pat LPN documented in this encounterSelect [facility]08-29-[facility]22 Miscellaneous Notes* Telephone Encounter - Yue Martinez RN - 03/21/2022 12:06 PM EDT Patient calls and notified of results and providers instructions. Patient verbalizes understanding. Yue Martinez RN * Telephone Encounter - Paloma Kunz Cma - 03/21/2022 9:38 AM EDT Left message for patient to return call to office Paloma Kunz Cma * Telephone Encounter - Yogi Maddox MD - 03/20/2022 8:17 PM EDT Let patient know her blood sugar test and CBC were ok. Her lipid panel was ok except the Trigs wereslightly elevated at 184 (goal<150) working on reduced fat in diet will help lower these. documented in this encounterSelect [facility]08-26-[facility]22 History of Past illness Narrative* Problem Noted Date Diagnosed Date Resolved Date Encounter for screening for diabetes mellitus 03/18/2001/17/2023 Pain of left hip joint 02/23/202101/17 Class 1 obesity due to exces s calories with body mass index (BMI) of 33.0 to 33.9 in adult 02/16/2021 01/17/2023 Graves' disease 09/01/2020 09/06/2021 Overview: Sees endo: Dr. Cervantes Hyperthyroidism 04/15/2020 09/06/2021 Overview: Sees endo: Dr. Cervantes Hypothyroidism due to medication 05/15/2019 04/15/2020 Unspecified injury of right shoulder and upper arm, initial encounter 04/15/2017 02/13/2018 Weakness 04/15/2017 02/13/2018 Acute pain of right shoulder 12/09/2016 02/13/2018 Supraspinatus tendon tear 10/19/2016 Impingement syndrome of right shoulder 05/16/2013 08/09/2016 Wrist tendonitis 07/14/2009 12/03/2014 documented as of this encounter (statuses as of 03/30/2023) [facility] History of Past illness Narrative* Problem Noted Date Diagnosed Date Resolved Date Encounter for screening for diabetes mellitus 03/18/20 22 01/17/2023 Pain of left hip joint 02/23/202101/17 Class 1 obesity due to exces s calories with body mass index (BMI) of 33.0 to 33.9 in adult 02/16/2021 01/17/2023 Graves' disease 09/01/2020 09/06/2021 Overview: Sees endo: Dr. Cervantes Hyperthyroidism 04/15/2020 09/06/2021 Overview: Sees endo: Dr. Cervantes Hypothyroidism due to medication 05/15/2019 04/15/2020 Unspecified injury of right shoulder and upper arm, initial encounter 04/15/2017 02/13/2018 Weakness 04/15/2017 02/13/2018 Acute pain of right shoulder 12/09/2016 02/13/2018 Supraspinatus tendon tear 10/19/2016 Impingement syndrome of right shoulder 05/16/2013 08/09/2016 Wrist tendonitis 07/14/2009 12/03/2014 documented as of this encounter (statuses as of 03/30/2023) [facility] History of Past illness Narrative* Problem Noted Date Diagnosed Date Resolved Date Encounter for screening for diabetes mellitus 03/18/20 22 01/17/2023 Pain of left hip joint 02/23/202101/17 Class 1 obesity due to exces s calories with body mass index (BMI) of 33.0 to 33.9 in adult 02/16/2021 01/17/2023 Graves' disease 09/01/2020 09/06/2021 Overview: Sees endo: Dr. Cervantes Hyperthyroidism 04/15/2020 09/06/2021 Overview: Sees endo: Dr. Cervantes Hypothyroidism due to medication 05/15/2019 04/15/2020 Unspecified injury of right shoulder and upper arm, initial encounter 04/15/2017 02/13/2018 Weakness 04/15/2017 02/13/2018 Acute pain of right shoulder 12/09/2016 02/13/2018 Supraspinatus tendon tear 10/19/2016 Impingement syndrome of right shoulder 05/16/2013 08/09/2016 Wrist tendonitis 07/14/2009 12/03/2014 documented as of this encounter (statuses as of 03/31/2023) [facility] History of Past illness Narrative* Problem Noted Date Diagnosed Date Resolved Date Encounter for screening for diabetes mellitus 03/18/2001/17/2023 Pain of left hip joint 02/23/202101/17 Class 1 obesity due to exces s calories with body mass index (BMI) of 33.0 to 33.9 in adult 02/16/2021 01/17/2023 Graves' disease 09/01/2020 09/06/2021 Overview: Sees endo: Dr. Cervantes Hyperthyroidism 04/15/2020 09/06/2021 Overview: Sees endo: Dr. Cervantes Hypothyroidism due to medication 05/15/2019 04/15/2020 Unspecified injury of right shoulder and upper arm, initial encounter 04/15/2017 02/13/2018 Weakness 04/15/2017 02/13/2018 Acute pain of right shoulder 12/09/2016 02/13/2018 Supraspinatus tendon tear 10/19/2016 Impingement syndrome of right shoulder 05/16/2013 08/09/2016 Wrist tendonitis 07/14/2009 12/03/2014 documented as of this encounter (statuses as of 04/21/2023) [facility] History of Past illness Narrative* Problem Noted Date Diagnosed Date Resolved Date Encounter for screening for diabetes mellitus 03/18/2001/17/2023 Pain of left hip joint 02/23/202101/17 Class 1 obesity due to exces s calories with body mass index (BMI) of 33.0 to 33.9 in adult 02/16/2021 01/17/2023 Graves' disease 09/01/2020 09/06/2021 Overview: Sees endo: Dr. Cervantes Hyperthyroidism 04/15/2020 09/06/2021 Overview: Sees endo: Dr. Cervantes Hypothyroidism due to medication 05/15/2019 04/15/2020 Unspecified injury of right shoulder and upper arm, initial encounter 04/15/2017 02/13/2018 Weakness 04/15/2017 02/13/2018 Acute pain of right shoulder 12/09/2016 02/13/2018 Supraspinatus tendon tear 10/19/2016 Impingement syndrome of right shoulder 05/16/2013 08/09/2016 Wrist tendonitis 07/14/2009 12/03/2014 documented as of this encounter (statuses as of 05/28/2023) [facility] History of Past illness Narrative* Problem Noted Date Diagnosed Date Resolved Date Encounter for screening for diabetes mellitus 03/18/20 22 01/17/2023 Pain of left hip joint 02/23/202101/17 Class 1 obesity due to exces s calories with body mass index (BMI) of 33.0 to 33.9 in adult 02/16/2021 01/17/2023 Graves' disease 09/01/2020 09/06/2021 Overview: Sees endo: Dr. Cervantes Hyperthyroidism 04/15/2020 09/06/2021 Overview: Sees endo: Dr. Cervantes Hypothyroidism due to medication 05/15/2019 04/15/2020 Unspecified injury of right shoulder and upper arm, initial encounter 04/15/2017 02/13/2018 Weakness 04/15/2017 02/13/2018 Acute pain of right shoulder 12/09/2016 02/13/2018 Supraspinatus tendon tear 10/19/2016 Impingement syndrome of right shoulder 05/16/2013 08/09/2016 Wrist tendonitis 07/14/2009 12/03/2014 documented as of this encounter (statuses as of 05/28/2023) [facility] History of Past illness Narrative* Problem Noted Date Diagnosed Date Resolved Date Encounter for screening for diabetes mellitus 03/18/2001/17/2023 Pain of left hip joint 02/23/202101/17 Class 1 obesity due to exces s calories with body mass index (BMI) of 33.0 to 33.9 in adult 02/16/2021 01/17/2023 Graves' disease 09/01/2020 09/06/2021 Overview: Sees endo: Dr. Cervantes Hyperthyroidism 04/15/2020 09/06/2021 Overview: Sees endo: Dr. Cervantes Hypothyroidism due to medication 05/15/2019 04/15/2020 Unspecified injury of right shoulder and upper arm, initial encounter 04/15/2017 02/13/2018 Weakness 04/15/2017 02/13/2018 Acute pain of right shoulder 12/09/2016 02/13/2018 Supraspinatus tendon tear 10/19/2016 Impingement syndrome of right shoulder 05/16/2013 08/09/2016 Wrist tendonitis 07/14/2009 12/03/2014 documented as of this encounter (statuses as of 06/06/2023) [facility] History of Past illness Narrative* Problem Noted Date Diagnosed Date Resolved Date Encounter for screening for diabetes mellitus 03/18/20 22 01/17/2023 Pain of left hip joint 02/23/202101/17 Class 1 obesity due to exces s calories with body mass index (BMI) of 33.0 to 33.9 in adult 02/16/2021 01/17/2023 Graves' disease 09/01/2020 09/06/2021 Overview: Sees endo: Dr. Cervantes Hyperthyroidism 04/15/2020 09/06/2021 Overview: Sees endo: Dr. Cervantes Hypothyroidism due to medication 05/15/2019 04/15/2020 Unspecified injury of right shoulder and upper arm, initial encounter 04/15/2017 02/13/2018 Weakness 04/15/2017 02/13/2018 Acute pain of right shoulder 12/09/2016 02/13/2018 Supraspinatus tendon tear 10/19/2016 Impingement syndrome of right shoulder 05/16/2013 08/09/2016 Wrist tendonitis 07/14/2009 12/03/2014 documented as of this encounter (statuses as of 06/06/2023) [facility] of Past illness Narrative* Problem Noted Date Diagnosed Date Resolved Date Encounter for screening for diabetes mellitus 03/18/20 22 01/17/2023 Pain of left hip joint 02/23/202101/17 Class 1 obesity due to exces s calories with body mass index (BMI) of 33.0 to 33.9 in adult 02/16/2021 01/17/2023 Graves' disease 09/01/2020 09/06/2021 Overview: Sees endo: Dr. Cervantes Hyperthyroidism 04/15/2020 09/06/2021 Overview: Sees endo: Dr. Cervantes Hypothyroidism due to medication 05/15/2019 04/15/2020 Unspecified injury of right shoulder and upper arm, initial encounter 04/15/2017 02/13/2018 Weakness 04/15/2017 02/13/2018 Acute pain of right shoulder 12/09/2016 02/13/2018 Supraspinatus tendon tear 10/19/2016 Impingement syndrome of right shoulder 05/16/2013 08/09/2016 Wrist tendonitis 07/14/2009 12/03/2014 documented as of this encounter (statuses as of 06/19/2023) [facility] History of Past illness Narrative* Problem Noted Date Diagnosed Date Resolved Date Encounter for screening for diabetes mellitus 03/18/2001/17/2023 Pain of left hip joint 02/23/202101/17 Class 1 obesity due to exces s calories with body mass index (BMI) of 33.0 to 33.9 in adult 02/16/2021 01/17/2023 Graves' disease 09/01/2020 09/06/2021 Overview: Sees endo: Dr. Cervantes Hyperthyroidism 04/15/2020 09/06/2021 Overview: Sees endo: Dr. Cervantes Hypothyroidism due to medication 05/15/2019 04/15/2020 Unspecified injury of right shoulder and upper arm, initial encounter 04/15/2017 02/13/2018 Weakness 04/15/2017 02/13/2018 Acute pain of right shoulder 12/09/2016 02/13/2018 Supraspinatus tendon tear 10/19/2016 Impingement syndrome of right shoulder 05/16/2013 08/09/2016 Wrist tendonitis 07/14/2009 12/03/2014 documented as of this encounter (statuses as of 06/20/2023) [facility] History of Past illness Narrative* Problem Noted Date Diagnosed Date Resolved Date Encounter for screening for diabetes mellitus 03/18/2001/17/2023 Pain of left hip joint 02/23/202101/17 Class 1 obesity due to exces s calories with body mass index (BMI) of 33.0 to 33.9 in adult 02/16/2021 01/17/2023 Graves' disease 09/01/2020 09/06/2021 Overview: Sees endo: Dr. Cervantes Hyperthyroidism 04/15/2020 09/06/2021 Overview: Sees endo: Dr. Cervantes Hypothyroidism due to medication 05/15/2019 04/15/2020 Unspecified injury of right shoulder and upper arm, initial encounter 04/15/2017 02/13/2018 Weakness 04/15/2017 02/13/2018 Acute pain of right shoulder 12/09/2016 02/13/2018 Supraspinatus tendon tear 10/19/2016 Impingement syndrome of right shoulder 05/16/2013 08/09/2016 Wrist tendonitis 07/14/2009 12/03/2014 documented as of this encounter (statuses as of 06/30/2023) [facility] History of Past illness Narrative* Problem Noted Date Diagnosed Date Resolved Date Encounter for screening for diabetes mellitus 03/18/2001/17/2023 Pain of left hip joint 02/23/202101/17 Class 1 obesity due to exces s calories with body mass index (BMI) of 33.0 to 33.9 in adult 02/16/2021 01/17/2023 Graves' disease 09/01/2020 09/06/2021 Overview: Sees endo: Dr. Cervantes Hyperthyroidism 04/15/2020 09/06/2021 Overview: Sees endo: Dr. Cervantes Hypothyroidism due to medication 05/15/2019 04/15/2020 Unspecified injury of right shoulder and upper arm, initial encounter 04/15/2017 02/13/2018 Weakness 04/15/2017 02/13/2018 Acute pain of right shoulder 12/09/2016 02/13/2018 Supraspinatus tendon tear 10/19/2016 Impingement syndrome of right shoulder 05/16/2013 08/09/2016 Wrist tendonitis 07/14/2009 12/03/2014 documented as of this encounter (statuses as of 09/07/2023) [facility] Miscellaneous Notes* Telephone Encounter - Antoinette Jones MA - 02/28/2022 8:29 AM EDT Patient has been identified by name and date of : Yes Pending Prescriptions Disp Refills GABAPENTIN 600 MG TABLET 135 tablet 5 Sig: Take 1.5 tabs three times a day NELLIE: No RX INSTRUCTIONS: Patient aware RX will be sent to pharmacy. No need to notify patient. Antoinette Jones MA William: 10/2021 Nov: 02/2022 Last refill: 08/2021 documented in this encounter[facility] Miscellaneous Notes* Telephone Encounter - Lashonda Hedrick LPN - 12/21/2021 8:27 AM EDT Patient phones requesting refills as follows: Pending Prescriptions Disp Refills BUPROPION XL 150 MG TAB 30 tablet 5 Sig: Take 1 tablet by mouth once daily. NELLIE: No WILLIAM 10/28/21 NOV 03/07/22 Please review and advise. Lashonda Hedrick LPN documented in this encounterSelect [facility] Miscellaneous Notes* Addendum Note - Ana Maria Doan PT - 11/24/2021 1:58 PM EDT Addended by: ANA MARIA DOAN on: 11/24/2021 01:58 PM Modules accepted: Orders documented in this encounterSelect [facility] History of Present illness Narrative* Ana Maria Doan, PT - 11/24/2021 12:17 PM EDT Episode Visit Count: 11 Therapist That Will Oversee The Plan Of Care: Ana Maria Doan Start of Care Date: 09/28/21 Onset Date: 09/18/21 Plan of Care Certification Date: 11/24/21 Next Certification Due Date: 12/29/21 Patient Identified by Name and Date of : Yes REHABILITATION AND SPORTS THERAPY PHYSICAL THERAPY PROGRESS REPORT PLAN OF CARE UPDATE: Assessment: Clara Cortez demonstrates significant improvement in standing, walking, walking in the community, stair negotiation, physical activities, working and sleeping . She hasnew goals added to address pt. Self report of percieved functional improvement % since onset of PT services . Kacie aparicio continues to present with impairments in balance, overall function and tissue tenderness that interfere with walking in the community;standing;jumping;kneeling;running;squatting;lifting;heavy exertion . Current prognosis is Good due to: positive past response to therapy;within- session changes;acuteness of condition . She will benefit from continued skilled therapy services to meet the updated goals for this plan of care as noted below. Goals for Episode of Care: created on 09/28/21 through 11/09/21 Goals updated on 10/27/2021 through 11/24/21 Goals updated on 11/24/2021. Through 12/29/21. [place] in home exercise program. -- MET Patient will decrease pain to 1-2/10 with functional activities to allow patient to improve ambulation, transfers and standing tolerance for ADLs. -- PROGRESSING Patient will increase active ROM of L ankle to 20 degrees DF to allow pt to to improve performance of ADLs, to improve gait mechanics / gait pattern and to decrease falls risks . -- MET, but with complaints of pain at end range AROM DF Patient will demonstrate increase in DF, PF, INV and EVR L ankle strength to 4/5 during manual muscle testing in order to improve function for prior functional tasks. -- MET Perform ADLs and transfers with decreased report of symptoms/pain in 6 Weeks. -- Normal gait. -- MET Reciprocal stair negotiation. -- MET Patient will demonstrate improved neuromuscular coordination as evidenced by improve function for prior functional tasks and work tasks. 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 Reports 75% improvement since onset of PT services -- NEW GOAL Planned Interventions, Frequency, and Duration: 1x/week, 4 weeks Total Number of Visits Planned: 4 Patient to be seen for Therapeutic exercise (22387);Neuromuscular re-education (73974);Manual therapy (89248);Therapeutic activities (09635);Self-assisted management (73509);Gait Training (82127);Patient/Family/Caregiver Education PLAN FOR NEXT VISIT: Continue PT x1 mo. SUBJECTIVE: Patient Reason for Visit: No acute findings MRI per chart. Pt. returned work 30 hours aweek. She reports 6 hour shifts 5-6 days a week. She does not have pain during the work day but shenotices at the end of the shift when she leaves. Pt. reports 60% improvement.. Functional Limitations: walking in the community;standing;jumping;kneeling;running;squatting;lifting;heavy exertion Pain: Pain Pain Level: 5 Pain Location: Ankle - Left Frequency: Intermittent Post Treatment Pain Post Treatment Pain Level: Better Post Treatment Pain Location: Ankle - Left Post Treatment Pain Description: Aching PROMIS Scales Higher is Better 11/21/2021 11/22/2021 11/23/2021 Phys Func - Score 40 (mild dysfunction) - 39 (moderate dysfunction) Phys Func - Percentile 16 % - 14 % Social Roles - Score 48 (within normal limits) - 45 (within normal limits) Social Role - Percentile 42 % - 31 % GH Physical - Score - 42.3 (Good) - GH Physical - Percentile - 22 % - GH Mental - Score - 41.1 (Good) - GH Mental - Percentile - 19 % - Self-Eff Symptom - Score 44 (Average) - 39 (Low) Self-Eff Symptom - Percentile 27 % - 14 % T-scores: mean of general population = 50. 5 points is clinically meaningfully difference Percentiles provide an indication of how the patient's score ranks in relation to the general population. Higher percentile rankings indicate better function/quality of life. 50th percentile is the average of the general population and indicates half of respondents had a worse score. Lower is Better 10/24/2021 11/21/2021 11/23/2021 Fatigue - Score 59 (mild) 51 (within normal limits) 51 (within normal limits) Fatigue - Percentile 18 % 46 % 46 % T-scores: mean of general population = 50. 5 points is clinically meaningfully difference Percentiles provide an indication of how the patient's score ranks in relation to the general population. Higher percentile rankings indicate better function/quality of life. 50th percentile is the average of the general population and indicates half of respondents had a worse score. OBJECTIVE MEASURES WITH LEVEL OF FUNCTION: LE AROM L Ankle Dorsiflexion: 21 Degrees L Ankle Plantar Flexion: 64 Degrees L Ankle Inversion: 41 L Ankle Eversion: 25 TREATMENT: Therapeutic Exercise: 1: bike 5 min level 3 2: standing B heel raises 3x15 3: seated L ankle 20x DF 4: Seated toe raises 2x15 5: Standing B heel raises 2x15 Skilled Intervention: Patient was educated in proper exercise technique and purpose for exercises. Reviewed and educated patient on additions/changes for home exercise program as above (*). Skilled judgment was provided in selection of appropriate interventions. Correct performance of therapeutic exercises was facilitated with verbal and visual cuing. Additional time necessary for assessment of progress toward goals due to progress report completed today. Educated patient on rationale for performing exercises in regards to decreasing fatigue , includingbalance, increase ease of ADL and ROM and function . Patient education as noted. Neuromuscular Re-Education: 1: stepping in place alt 2x30 seconds on level and on AirEx pad 2: BOSU lateral step up and over 2x10 each way 3: BOSU forward alternate step ups leading with right and left 1x10 each 4: Left SLS 3x fatigue. 7 seconds, 6 seconds and 8 seconds and 30 seconds with intermittent touches Skilled Intervention: Skilled judgment used to assess appropriate program for balance and coordination activity. Education and demonstration for posture and positioning for tone management. Insured patient safety with use of // bars for UE support during balance training. Reviewed and educated patient on additions/changes for home program as noted above with an (*). Patient education as noted. Billing Therapeutic Exercise Treatment Minutes: 20 Neuromuscular Re-Education Treatment Minutes: 20 Total Treatment Time Minutes (timed/untimed): 40 Ana Maria Doan PT documented in this encounterSelect [facility] History of Present illness Narrative* Danika Colón, PT - 11/19/2021 4:07 PM EDT Episode Visit Count: 10 Therapist That Will Oversee The Plan Of Care: Ana Maria Doan Start of Care Date: 09/28/21 Onset Date: 09/18/21 Plan of Care Certification Date: 10/27/21 Next Certification Due Date: 11/24/21 Patient Identified by Name and Date of : Yes REHABILITATION AND SPORTS THERAPY PHYSICAL THERAPY TREATMENT NOTE ASSESSMENT: Clara Cortez tolerated the session with expected muscle soreness. She demonstrated improvements in tolerance for exercises and difficulty with continual pain.. The patient will continue to benefit from ongoing skilled physical therapy to progress toward set goals. PLAN FOR NEXT VISIT: POC update SUBJECTIVE: Patient Reason for Visit: Patient reports the ankle pain is off and on. 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 She reports Dr Jensen want her to continue therapy. Pain: Pain Pain Level: 0 (4-5/10 with walking and pain is throbbing) Pain Location: Ankle - Left Description: (at rest) Frequency: Intermittent Post Treatment Pain Post Treatment Pain Level: 4 (weight bearing) Post Treatment Pain Location: Ankle - Left Post Treatment Pain Description: Aching Post Treatment Symptoms: not too bad OBJECTIVE MEASURES WITH LEVEL OF FUNCTION: left SLS best time 8 seconds on level surface TREATMENT: Therapeutic Exercise: 1: seated L ankle pumps full AROM x20 2: seated L ankle INV and EVR 20x each 3: seated ankle circles 30 sec CW and 30 sec CCW 4: Seated toe raises 2x15 5: Standing B heel raises 2x15 Skilled Intervention: Patient was educated in proper exercise technique and purpose for exercises. Skilled judgment was provided in selection of appropriate interventions. Correct performance of therapeutic exercises was facilitated with verbal and visual cuing. Neuromuscular Re-Education: 1: stepping in place alt 2x30 seconds on level and on AirEx pad 2: BOSU lateral step up and over 2x[address] way 3: BOSU forward alternate step ups leading with right and left 1x10 each 4: Left SLS 3x fatigue. 7 seconds, 6 seconds and 8 seconds and 30 seconds with intermittent touches Skilled Intervention: Skilled judgment used to assess appropriate program for balance and coordination activity. Billing Therapeutic Exercise Treatment Minutes: 15 Neuromuscular Re-Education Treatment Minutes: 15 Total Treatment Time Minutes (timed/untimed): 30 DIMPLE Cruz PT documented in this encounterSelect [facility]04[facility]22 Miscellaneous Notes* Telephone Encounter - Ana Maria Steiner - 11/19/2021 1:39 PM EDT Scheduled 11/22/21 * Telephone Encounter - Cydney Cervantes MD - 11/19/2021 11:52 AM EDT Nila schedule this patient a first available thyroid virtual follow up appt with Dione. Thank you Cydney Cervantes MD * Telephone Encounter - Naila Kam RN - 11/19/2021 8:01 AM EDT Please review. documented in this encounterSelect [facility]04[facility] History of Present illness Narrative* BREE Nj) - 11/11/2021 10:00 AM EDT Radiology Service Progress Note PATIENT NAME: Clara Cortez DATE OF SERVICE: November 11, 2021 TIME: 10:21 AM PATIENT IDENTITY VERIFICATION COMPLETED USING TWO (2) IDENTIFIERS: Name and Date of confirmedby patient verbally. FALL SCREENING: Has the patient had 2 falls in the last year or 1 fall with injury or currently using an Ambulatory Assistive Device (Walker, Cane, Wheelchair, Crutches, etc.)? No PATIENT GENDER DATA: Female. status: : No status: NO. PATIENT RELEVANT IMPLANT DATA REVIEWED: Yes RADIOLOGY DEPARTMENT: MR; Exam(s) Completed: Lower MSK: Ankle/Hind Foot, left PERIPHERAL IV DATA: Not applicable SIGNED BY: RT Ondina(Joon) November 11, 2021 10:21 AM documented in this encounter[facility]04-12-2022 Instructions* Patient Instructions* Roegrio Jensen - 11/02/2021 9:57 AM EDT Recommend ankle brace Use of ice x 10 minutes twice daily Continue with over the counter pain medication Await mri documented in this encounterSelect [facility]04-12-2022 History of Present illness Narrative* Rogerio Jensen - 11/02/2021 9:46 AM EDT Consultation requested by Dr. Stearns for an opinion regarding left ankle sprain. My final recommendations will be communicated back to the requesting physician by way of shared Medical record or letter to requesting physician via US mail. Initial Podiatric Office Visit: Chief Complaint: This 36 year old female who presents with chief complaint:left ankle sprain HPI Patient presents to clinic for evaluation of left ankle. She injured her left ankle back in August when she twisted her left ankle inward on uneven ground. She went to urgent care where xrays were negative. She was evaluated by her pcp, placed in splint and performed several sessions of physical therapy 09/28/21- 10/25/21 and has one more session tomorrow (8 sessions). Patient does feel the therapy is helping overall stability but she feels that there is still some discomfort with weightbearing. Patient is wearing a neoprene brace. Patient does take tylenol as needed for the pain. She was takingibuprofen but this caused her upset stomach. Patient was recently hired for new work but is not able to begin working until she is cleared medically. From August at time of injury, she is approximately 60% improved but standing on her foot for long duration or walking down stairs causes her pain. Patient smokes 1/2 pack of cigarettes/day. PAIN EVALUATION 11/02/2021 0928 Pain Level: 4 Pain Location: Ankle-Left Description: Aching;Throbbing;Sharp Duration Amount of Time: 2 Duration Units: Months Frequency: Continuous Intervention/Comfort measure: Medication;Cold Hemoglobin A1C (%) Date Value 06/09/2021 5.3 02/16/2021 4.8 PCP: Yogi Maddox MD PAST MEDICAL HISTORY Diagnosis Date Anxiety associated with depression 08/06/2015 Attention deficit hyperactivity disorder (ADHD), combined type 08/24/2016 Bipolar disorder ([facility]) 05/22/2014 Bipolar disorder, in partial remission, most recent episode mixed (HCC) 06/04/2018 Class 1 obesity due to excess calories with body mass index (BMI) of 33.0 to 33.9 in adult 02/16/2021 Fibromyalgia 07/29/2014 Graves' disease 09/01/2020 Sees endo: Dr. Cervantes Hyperthyroidism 04/15/2020 Sees endo: Dr. Cervantes Lumbar degenerative disc disease 10/31/2014 Lumbar radiculopathy 03/04/2019 NEGATIVE HISTORY OF Restless legs syndrome 08/06/2015 Smoker 01/13/2017 Started age 13 up to 1/2 PPD Supraspinatus tendon tear 10/19/2016 TMJ pain dysfunction syndrome 01/13/2017 chronic grinding of teeth and recent popping. Tobacco use disorder 01/13/2017 Current Outpatient Medications Medication Sig levothyroxine (SYNTHROID) 88 mcg tablet Take 1 tablet by mouth once daily. gabapentin (NEURONTIN) 600 mg tablet Take 1.5 tabs three times a day buPROPion XL (WELLBUTRIN XL) 150 mg 24 hr tablet Take 1 tablet by mouth once daily. estradiol (ESTRACE) 2 mg tablet Take 2 mg by mouth once daily. albuterol HFA (PROAIR HFA) 90 mcg/actuation inhaler Inhale 2 Puffs as instructed every 6 hours as needed. lamoTRIgine (LAMICTAL) 100 mg tablet Take 1 tablet by mouth every evening. hydrOXYzine HCl (ATARAX) 25 mg tablet Take 1 tablet by mouth every 6 hours as needed for anxiety. (Patient not taking: Reported on 09/06/2021 ) No current facility-administered medications for this visit. ALLERGIES Allergen Reactions Abilify [Aripiprazo* Other: See Comments tired Divalproex Sodium GI Upset Tapazole [[place]* GI Upset Nausea and vomiting Valproic Acid GI Upset PAST SURGICAL HISTORY Procedure Laterality Date APPENDECTOMY 03/23/2020 CARPAL TUNNEL Right 07/2015 D+C 04/23/2018 DIAGNOSTIC ARTHROSCOPY SHOULDER +- SYNOVIAL BX Right 01/25/2017 Right shoulder arthroscopic decompression HYSTERECTOMY 03/23/2020 HYSTEROSCOPY DIAGNOSTIC 04/23/2018 LIG/TRNSXJ FLP TUBE ABDL/VAG APPR UNI/BI Tubal ligation LYSIS VAGINAL ADHESIONS 04/23/2018 OOPHORECTOMY PARTIAL OR TOTAL Right 04/23/2018 OOPHORECTOMY PARTIAL OR TOTAL Left 03/23/2020 PAST SURGICAL HISTORY OF cyst removal left ankle RECONSTRUCTION ROTATOR CUFF AVULSION CHRONIC Right 01/25/2017 Right rotator cuff debridement SALPINGECTOMY Bilateral 04/23/2018 [facility]-Dr. Oleary THYROID FINE NEEDLE ASPIRATION Left 04/06/2021 THYROIDECTOMY TOTAL/COMPLETE 08/27/2021 FAMILY HISTORY Problem Relation Age of Onset Hypertension Father Heart Father Arthritis Maternal Grandmother Diabetes Maternal Grandmother Stroke Maternal Grandmother Arthritis Paternal Grandmother Social History Tobacco Use Smoking status: Current Every Day Smoker Packs/day: 0.50 Years: 10.00 Pack years: 5.00 Types: Cigarettes Smokeless tobacco: Never Used Vaping Use Vaping Use: Never used Substance Use Topics Alcohol use: No Alcohol/week: 75.0 standard drinks Types: 30 Cans of Beer (12oz) per week Drug use: Yes Types: Marijuana Comment: rarely- edibles REVIEW OF SYSTEMS GENERAL: Negative for Malaise, significant weight loss, fever RESPIRATORY: Negative for cough, wheezing and shortness of breath CARDIOVASCULAR: Negative for chest pain, leg swelling and palpitations GI: Negative for abdominal discomfort, blood in stools or black stools and change in bowel habits : Negative for dysuria, frequency and incontinence MUSCULOSKELETAL: Negative for joint pain or swelling, back pain, and muscle pain. SKIN: Negative for lesions, rash, and itching. HEMATOLOGY/LYMPHOLOGY Negative for prolonged bleeding, bruising easily, and swollen nodes. ENDOCRINE: Negative for cold or heat intolerance, polyuria, polydipsia and goiter. NEURO: negative Physical Exam: Constitutional: Pt is a well developed 36 year old female who is alert, oriented and cooperative Eyes: Following during examination. No redness or drainage. Respiratory: RR normal and nonlabored. Even breathing. No evidence of distress or shortness of breath. Psychology: Patient is engaged during conversation. Normal affect and mood. Does not appear depressed or anxious during encounter. Vascular: Dorsalis pedis and posterior tibial pulses palpable as b/l Capillary Fill time < 5 seconds to digits 1-5 b/l Skin temperature warm to warm proximal to distal b/l Hair growth present to digits Neurological: intact light touch/epicritic sensation b/l intact protective sensation no significant neurological deficits Dermatological: Nails 1-5 b/l appear normal. Webspaces clean and dry 1-4 b/l. Skin appears well hydrated and supple. good color, texture, turgor. No open lesions present. No callosities present. Musculoskeletal/Orthopaedic: Patient has pain to palpation of left ankle mostly along sinus tarsi and posterior lateral ankle atperoneal longus and brevis No major laxity with anterior drawer b/l. Foot type is neutral structurally AJ ROM is full with knee extended and flexed 1st MPJ is full when loaded and no pain or crepitus are noted with ROM. MTJ, STJ are full and free of pain and crepitus. +5/5 muscle strength dorsiflexion, plantarflexion, inversion, eversion b/l Radiographs: 3 views left ankle and foot reviewed November 02, 2021: I have personally reviewed and interpreted these XR myself: No acute fracture is identified ASSESSMENT: (M76.72) Peroneal tendinitis of left lower extremity (primary encounter diagnosis) (S93.402D) Sprain of ligament of left ankle, subsequent encounter PLAN: 1. History and physical examination performed. 2. XR reviewed with patient and interpreted today 3. I discussed pain in left ankle. This patient suffered inversion ankle injury in August. She was treated with splint from the urgent care and bracing from primary care. She has had 8 sessions of therapy from September 28 to October 25 and has another session scheduled tomorrow. She is only 60% improved and feels since she started walking, the pain is worsening. 4. I am going to place patient in stronger brace. I will have her continue with over the counter pain relief. 5. I do feel mri is necessary to evaluate for partial tear of peroneal tendon or ligament Rogerio Jensen DPM Podiatry [address] [facility] [id number] Dept: [phone] Dept documented in this encounterSelect [facility]04-07-2022 History of Present illness Narrative* Patricia Stearns PA-C - 10/28/2021 10:53 AM EDT Chief Complaint Patient presents with: F/U 6 Month: left ankle sprain HPI Clara Cortez is a 36 year old female who presents here today for recheck. Patient was seen by PCP on 09/24 for a left ankle spraine. She had an xray previous to visit that was negative. Was placed in a splint which she wore for about 3-4 weeks. Has switched to an ankle wrap for support. She has been going to Physical Therapy and has noted some improvement. However she still gets sharp pains when she walks on uneven surfaces. When walking on flat ground she is sore but not sharp pains. She would like to go to work however she is concerned that with the all day standing that will be required at work. She has not started this job yet. She was suppose to start this new job the week after she injured her ankle. They do not want her to start work until fully functional. Past medical history, appointments, medications, allergies reviewed. Previous Medical History PAST MEDICAL HISTORY Diagnosis Date Anxiety associated with depression 08/06/2015 Attention deficit hyperactivity disorder (ADHD), combined type 08/24/2016 Bipolar disorder (HCC) 05/22/2014 Bipolar disorder, in partial remission, most recent episode mixed ([facility]) 06/04/2018 Class 1 obesity due to excess calories with body mass index (BMI) of 33.0 to 33.9 in adult 02/16/2021 Fibromyalgia 07/29/2014 Graves' disease 09/01/2020 Sees endo: Dr. Cervantes Hyperthyroidism 04/15/2020 Sees endo: Dr. Cervantes Lumbar degenerative disc disease 10/31/2014 Lumbar radiculopathy 03/04/2019 NEGATIVE HISTORY OF Restless legs syndrome 08/06/2015 Smoker 01/13/2017 Started age 13 up to 07/25 PPD Supraspinatus tendon tear 10/19/2016 TMJ pain dysfunction syndrome 01/13/2017 chronic grinding of teeth and recent popping. Tobacco use disorder 01/13/2017 Previous Surgical History PAST SURGICAL HISTORY Procedure Laterality Date APPENDECTOMY 03/23/2020 CARPAL TUNNEL Right 07/2015 D+C 04/23/2018 DIAGNOSTIC ARTHROSCOPY SHOULDER +- SYNOVIAL BX Right 01/25/2017 Right shoulder arthroscopic decompression HYSTERECTOMY 03/23/2020 HYSTEROSCOPY DIAGNOSTIC 04/23/2018 LIG/TRNSXJ FLP TUBE ABDL/VAG APPR UNI/BI Tubal ligation LYSIS VAGINAL ADHESIONS 04/23/2018 OOPHORECTOMY PARTIAL OR TOTAL Right 04/23/2018 OOPHORECTOMY PARTIAL OR TOTAL Left 03/23/2020 PAST SURGICAL HISTORY OF cyst removal left ankle RECONSTRUCTION ROTATOR CUFF AVULSION CHRONIC Right 01/25/2017 Right rotator cuff debridement SALPINGECTOMY Bilateral 04/23/2018 [facility]-Dr. Oleary THYROID FINE NEEDLE ASPIRATION Left 04/06/2021 THYROIDECTOMY TOTAL/COMPLETE 08/27/2021 Family History FAMILY HISTORY Problem Relation Age of Onset Hypertension Father Heart Father Arthritis Maternal Grandmother Diabetes Maternal Grandmother Stroke Maternal Grandmother Arthritis Paternal Grandmother Patient Allergies ALLERGIES Allergen Reactions Abilify [Aripiprazo* Other: See Comments tired Divalproex Sodium GI Upset Tapazole [[place]* GI Upset Nausea and vomiting Valproic Acid GI Upset Current Medications Current Outpatient Medications on File Prior to Visit Medication Sig levothyroxine (SYNTHROID) 88 mcg tablet Take 1 tablet by mouth once daily. gabapentin (NEURONTIN) 600 mg tablet Take 1.5 tabs three times a day buPROPion XL (WELLBUTRIN XL) 150 mg 24 hr tablet Take 1 tablet by mouth once daily. estradiol (ESTRACE) 2 mg tablet Take 2 mg by mouth once daily. albuterol HFA (PROAIR HFA) 90 mcg/actuation inhaler Inhale 2 Puffs as instructed every 6 hours as needed. lamoTRIgine (LAMICTAL) 100 mg tablet Take 1 tablet by mouth every evening. hydrOXYzine HCl (ATARAX) 25 mg tablet Take 1 tablet by mouth every 6 hours as needed for anxiety. (Patient not taking: Reported on 09/06/2021 ) No current facility-administered medications on file prior to visit. Social History Social History Tobacco Use Smoking status: Current Every Day Smoker Packs/day: 0.50 Years: 10.00 Pack years: 5.00 Types: Cigarettes Smokeless tobacco: Never Used Vaping Use Vaping Use: Never used Substance Use Topics Alcohol use: No Alcohol/week: 75.0 standard drinks Types: 30 Cans of Beer (12oz) per week Drug use: Yes Types: Marijuana Comment: rarely- edibles Review of Symptoms REVIEW OF SYSTEMS see hpi EXAM: BP 126/86 (BP Site: Right Arm, BP Position: Sitting, BP Cuff Size: Large Adult) Pulse 72 Temp 36.4 C (97.6 F) Resp 18 Wt 106.1 kg (234 lb) LMP 08/12/2019 (Approximate) BMI 36.65 kg/m General Appearance: Well appearing, alert, in no acute distress, well-hydrated, well nourished.. Musculoskeletal: noted soft tissue swelling of both medial and lateral ankles. FROM with pain Health Maintenance List ONE PNEUMOVAX PRIOR TO AGE 65 Never done COVID-19 VACCINE(1) due on 09/06/2022 INFLUENZA(Season Ended) due on 03/24/2022 ANNUAL PCP TEAM CHRONIC DISEASE VISIT due on 09/24/2022 DTAP,TDAP,TD(4 - Td or Tdap) due on 03/04/2030 MENINGOCOCCAL CONJUGATE Aged Out PAP TESTING Discontinued HPV TESTING Discontinued HEPATITIS C SCREENING Discontinued HIV SCREENING Discontinued Data reviewed ASSESSMENT/PLAN: 1. Sprain of ligament of left ankle, subsequent encounter - ICD9: V58.89, 845.00, ICD10: S93.402D As she is 6 weeks post injury and still dealing with quite a bit of pain and soreness, I would likean opinion from podiatry before clearing her for work. Patient in agreement with plan. Advised to finish out the Physical Therapy. - CONSULT TO PODIATRY Patricia Stearns PA-C documented in this encounterSelect [facility]03-30-2022 History of Present illness Narrative* Ana Maria Doan, PT - 10/20/2021 9:12 AM EDT Episode Visit Count: 6 Therapist That Will Oversee The Plan Of Care: Ana Maria Doan Start of Care Date: 09/28/21 Onset Date: 09/18/21 Plan of Care Certification Date: 09/28/21 Next Certification Due Date: 11/02/21 Patient Identified by Name and Date of : Yes REHABILITATION AND SPORTS THERAPY PHYSICAL THERAPY TREATMENT NOTE ASSESSMENT: Clara Cortez tolerated the session with limited activity tolerance with LLE SLS activities as well as alternating stepping on foam pad. She demonstrated improvements in AROM L ankle DF, EVR, and INV . The patient will continue to benefit from ongoing skilled physical therapy to progress toward set goals. PLAN FOR NEXT VISIT: Continue balance training SLS level surface progressing to compliant surfaces. Increase step up height on level surfaces. SUBJECTIVE: Patient Reason for Visit: Presents with tennis shoes donned on B feet. Pt. reports HEP is going well, but she continues to feel pulling when turning her foot in (pt. demonstrates inversion AROM). Pain: Pain Pain Level: 3 Pain Location: Ankle - Left Description: Aching Frequency: Intermittent Post Treatment Pain Post Treatment Pain Level: 3 Post Treatment Pain Location: Ankle - Left Post Treatment Symptoms: The pain doesn't increase until later. OBJECTIVE MEASURES WITH LEVEL OF FUNCTION: Ankle Observations L Ankle Presents with: Swelling R Ankle Girth - Figure 8 (cm): 54.5 L Ankle Girth - Figure 8 (cm): 55 L Ankle Palpation Tenderness: Lateral malleolus LE AROM L Ankle Dorsiflexion: 14 Degrees (seated, knee flexed over EOB) L Ankle Inversion: 40 (seated, knee flexed over EOB) L Ankle Eversion: 22 (seated, knee flexed over EOB) LE PROM L Ankle Dorsiflexion: 18 Degrees (seated EOB, using strap) Gait Weight Bearing Status: WBAT Gait: Independent Gait Distance (feet): 40' x4 Gait Device: None Gait Deviations: Left Lower Extremity Gait Deviations Left Lower Extremity: Heel strike during initial stance decreased;Lacks hip extension beyond mid-stance;Push off during terminal stance decreased;Stance time decreased;Step length decreased Gait Observation: lateral heel strike with the L hip and foot ER, medial foot push off (increased pain reported with correction, pt. to try gait correction with brace donned.) TREATMENT: Therapeutic Exercise: 1: seated EOB ankle DF, INV, EVR 2x10 each (AROM taken) 2: Seated long sitting gastroc stretch 3x30 seconds 3: left ankle ABC's x 1 4: seated EOB, L ankle 3x30 sec DF PROM stretch with strap 5: long sitting, L ankle over EOB OTB 3x12 DF, PF, INV, EVR (therapist stabilizing proximal to ankle to avoid knee and hip compensatory movements) Skilled Intervention: Patient was educated in proper exercise technique and purpose for exercises. Reviewed and educated patient on additions/changes for home exercise program as above (*). Skilled judgment was provided in selection of appropriate interventions. Provided written instruction for home exercise program to facilitate proper performance and compliance. Correct performance of therapeutic exercises was facilitated with verbal, visual and tactile cuing. Additional time necessary for intermittent rest due to increased pain with standing/weight bearing exercises. Educated patient on rationale for performing exercises in regards to decreasing fatigue , includingbalance, increase ease of ADL and ROM and function . Patient education as noted. Neuromuscular Re-Education: 1: stepping in place x 30 seconds on Air Ex pad. (x1 UE support on table) 2: Lateral step up and over Air Ex pad 2x10 each way 3: AirEx forward alternate step ups right and left 1x10 each leg 4: Left SLS with 1 UE assist to fatigue 3x30 sec (with BUE at table top, level surface) Skilled Intervention: Skilled judgment used to assess appropriate program for balance and coordination activity. Education in proprioceptive/kinesthetic awareness during standing and dynamic activities. Insured patient safety with use of exam table for UE support. Reviewed and educated patient on additions/changes for home program as noted above with an (*). Patient education as noted. Gait Training: Distance (feet): 40' 4x Gait Cues: heel strike and avoiding ER at the L hip to prevent lateral heel strike Assistive Device: none Assist Level: supervision and verbal cues Skilled Intervention: Patient was provided supervision during pre-gait/gait training to prevent falls and insure safety. Facilitated proper gait cycle with the use of verbal and visual cues for correction of gait deviations identified in the objective section above. Correct performance of home program was facilitated with verbal and visual cueing. Self-Residential Management: 1: *encouraged elevation, rest, ice application especially at the end of the day to reduce swellingfollowing prolonged standing 2: *encouraged pt. to perform HEP TB exercises slowly in order to facilitate stabilization strengthening. Skilled Intervention: Skilled judgment in the selection of proper modification for activity of daily living/home management based on clinical presentation, deficits, and needs. Educated the patient regarding recommendations and provided written instruction to facilitate compliance. Reviewed patient specific diagnosis in relation to activities of daily living/home management. Activity progression based on professional judgement. Correct performance of home program was facilitated with verbal and visual cueing. Billing Therapeutic Exercise Treatment Minutes: 20 Neuromuscular Re-Education Treatment Minutes: 10 Self-Care/Home Management Treatment Minutes: 3 Gait Training Treatment Minutes: 10 Total Treatment Time Minutes (timed and untimed codes) : 43 Ana Maria Doan PT documented in this encounterSelect [facility]03-28-2022 History of Present illness Narrative* Fred Witt, PT - 10/18/2021 11:39 AM EDT Episode Visit Count: 5 Therapist That Will Oversee The Plan Of Care: Ana Maria Doan Start of Care Date: 09/28/21 Onset Date: 09/18/21 Plan of Care Certification Date: 09/28/21 Next Certification Due Date: 11/02/21 Patient Identified by Name and Date of : Yes REHABILITATION AND SPORTS THERAPY PHYSICAL THERAPY TREATMENT NOTE ASSESSMENT: Clara Cortez tolerated the session with expected muscle soreness. She demonstrated difficulty with inversion AROM and if she is walking and on her feet too long ankle pain increases.. The patient will continue to benefit from ongoing skilled physical therapy to progress toward set goals. PLAN FOR NEXT VISIT: monitor delayed response to treatment SUBJECTIVE: Patient Reason for Visit: Patient reports increase soreness the next day after last therapy. She reports inversion of her ankle causes the most discomfort. She reports squatting this morning to dust and had increase pain in ankle with standing up. Pain: Pain Pain Level: 3 (0/10 at rest) Pain Location: Ankle - Left Description: Aching Frequency: Intermittent Post Treatment Pain Post Treatment Pain Level: No Change Post Treatment Symptoms: no pain at rest and hurts with inversion of foot OBJECTIVE MEASURES WITH LEVEL OF FUNCTION: Patient able to single leg stance on left with 1 UE assist for very short time period. TREATMENT: Therapeutic Exercise: 1: Upright bike seat 8, resistiance 3 x 5 minutes full revolutions x 5 minutes (Subjective taken and disccused exercises progression during this time) 2: Seated long sitting gastroc stretch 3x30 seconds 3: left ankle ABC's x 1 4: BAPS ball 3 standing PWB left A/P, lateral and circles cw and ccw 2x 10 each (decrease reps withlataral 1x6 and 1x9 decreased due to discomfort) 5: Resitive band yellow band AROM df,pf,invr and evr 1x10 6: Standing B heel and toe raises 2x10 Skilled Intervention: Patient was educated in proper exercise technique and purpose for exercises. Skilled judgment was provided in selection of appropriate interventions. Correct performance of therapeutic exercises was facilitated with verbal and visual cuing. Neuromuscular Re-Education: 1: stepping in place x 30 seconds on Air Ex pad. 2: Lateral step up and over Air Ex pad 2x10 each way 3: AirEx forward alternate step ups right and left 1x10 each leg 4: *Left SLS with 1 UE assist to fatigue x 2 (Education to add this to home 2 times with fatigue with 1 UE assist.) Skilled Intervention: Skilled judgment used to assess appropriate program for balance and coordination activity. Reviewed and educated patient on additions/changes for home program as noted above with an (*). Billing Therapeutic Exercise Treatment Minutes: 31 Neuromuscular Re-Education Treatment Minutes: 12 Total Treatment Time Minutes (timed and untimed codes) : 43 DIMPLE Cruz, PT documented in this encounterSelect [facility]03-24-2022 History of Present illness Narrative* Ana Maria Doan, PT - 10/14/2021 11:12 AM EDT Episode Visit Count: 4 Therapist That Will Oversee The Plan Of Care: Ana Maria Doan Start of Care Date: 09/28/21 Onset Date: 09/18/21 Plan of Care Certification Date: 09/28/21 Next Certification Due Date: 11/02/21 Patient Identified by Name and Date of : Yes REHABILITATION AND SPORTS THERAPY PHYSICAL THERAPY TREATMENT NOTE ASSESSMENT: Clara Cortez tolerated the session with expected muscle soreness. She demonstrated difficulty with increase pain as she was more active this week at home. She was able to progress left ankle strengthening with active movements with resistance and tolerated increase size of ball on BAPS board today.. The patient will continue to benefit from ongoing skilled physical therapy to progress toward set goals. PLAN FOR NEXT VISIT: Standing PWB BAPS and uneven surface of AirEx pad SUBJECTIVE: Patient Reason for Visit: Patient reports being on her feet more and feet are hurting. She reports weather also can make her hurt. Pain: Pain Pain Level: 4 Pain Location: Ankle - Left Description: Aching;Throbbing Frequency: Intermittent Post Treatment Pain Post Treatment Pain Level: 5 Post Treatment Pain Location: Ankle - Left Post Treatment Pain Description: Aching;Throbbing Post Treatment Symptoms: slight increase soreness with lateral movements OBJECTIVE MEASURES WITH LEVEL OF FUNCTION: Still with intermittent increase pain with inversion and eversion of left ankle. TREATMENT: Therapeutic Exercise: 1: Upright bike seat 8, resistiance 3 x 5 minutes full revolutions x 5 minutes (Subjective taken and disccused exercises progression during this time) 2: Seated long sitting gastroc stretch 3x30 seconds 3: AROM left ankle df/pf,inv/evr 1x15 4: AROM left ankle circles cw/ccw 1x15 5: left ankle ABC's x 1 6: BAPS ball 3 seated PWB left A/P, lateral and circles cw and ccw 2x 10 each 7: *Resitive band orange AROM df,pf,invr and evr 1x10 and self assist with yellow band all 4 direction 1x10 (Vended yellow band for home) 8: Standing heel and toe raisses 1x10 at // bars Skilled Intervention: Patient was educated in proper exercise technique and purpose for exercises. Reviewed and educated patient on additions/changes for home exercise program as above (*). Provided written instruction for home exercise program to facilitate proper performance and compliance. Correct performance of therapeutic exercises was facilitated with verbal and visual cuing. Billing Therapeutic Exercise Treatment Minutes: 40 Total Treatment Time Minutes (timed and untimed codes) : 40 DIMPLE Cruz, PT [facility] History of Past illness Narrative* Problem Noted Date Resolved Date Graves' disease 09/01/2020 09/06/2021 Overview: Sees endo: Dr. Cervantes Hyperthyroidism 04/15/2020 09/06/2021 Overview: Sees endo: Dr. Cervantes Hypothyroidism due to medication 05/15/2019 04/15/2020 Unspecified injury of right shoulder and upper arm, initial encounter 04/15/2017 02/13/2018 Weakness 04/15/2017 02/13/2018 Acute pain of right shoulder 12/09/2016 Supraspinatus tendon tear 10/19/20162020 Impingement syndrome of right shoulder 3 08/09/2016 Wrist tendonitis 07/14/2009 12/03/2014 documented as of this encounter (statuses as of 10/14/2021) [facility] History of Past illness Narrative* Problem Noted Date Resolved Date Graves' disease 09/01/2020 09/06/2021 Overview: Sees endo: Dr. Cervantes Hyperthyroidism 04/15/2020 09/06/2021 Overview: Sees endo: Dr. Cervantes Hypothyroidism due to medication 05/15/2019 04/15/2020 Unspecified injury of right shoulder and upper arm, initial encounter 04/15/2017 02/13/2018 Weakness 04/15/2017 02/13/2018 Acute pain of right shoulder 12/09/2016 Supraspinatus tendon tear 10/19/20162020 Impingement syndrome of right shoulder 3 08/09/2016 Wrist tendonitis 07/14/2009 12/03/2014 documented as of this encounter (statuses as of 10/18/2021) [facility] History of Past illness Narrative* Problem Noted Date Resolved Date Graves' disease 09/01/2020 09/06/2021 Overview: Sees endo: Dr. Cervantes Hyperthyroidism 04/15/2020 09/06/2021 Overview: Sees endo: Dr. Cervantes Hypothyroidism due to medication 05/15/2019 04/15/2020 Unspecified injury of right shoulder and upper arm, initial encounter 04/15/2017 02/13/2018 Weakness 04/15/2017 02/13/2018 Acute pain of right shoulder 12/09/2016 Supraspinatus tendon tear 10/19/20162020 Impingement syndrome of right shoulder 3 08/09/2016 Wrist tendonitis 07/14/2009 12/03/2014 documented as of this encounter (statuses as of 10/20/2021) [facility] History of Past illness Narrative* Problem Noted Date Resolved Date Graves' disease 09/01/2020 09/06/2021 Overview: Sees endo: Dr. Cervantes Hyperthyroidism 04/15/2020 09/06/2021 Overview: Sees endo: Dr. Cervantes Hypothyroidism due to medication 05/15/2019 04/15/2020 Unspecified injury of right shoulder and upper arm, initial encounter 04/15/2017 02/13/2018 Weakness 04/15/2017 02/13/2018 Acute pain of right shoulder 12/09/2016 Supraspinatus tendon tear 10/19/20162020 Impingement syndrome of right shoulder 3 08/09/2016 Wrist tendonitis 07/14/2009 12/03/2014 documented as of this encounter (statuses as of 10/28/2021) [facility] History of Past illness Narrative* Problem Noted Date Resolved Date Graves' disease 09/01/2020 09/06/2021 Overview: Sees endo: Dr. Cervantes Hyperthyroidism 04/15/2020 09/06/2021 Overview: Sees endo: Dr. Cervantes Hypothyroidism due to medication 05/15/2019 04/15/2020 Unspecified injury of right shoulder and upper arm, initial encounter 04/15/2017 02/13/2018 Weakness 04/15/2017 02/13/2018 Acute pain of right shoulder 12/09/2016 Supraspinatus tendon tear 10/19/20162020 Impingement syndrome of right shoulder 3 08/09/2016 Wrist tendonitis 07/14/2009 12/03/2014 documented as of this encounter (statuses as of 11/02/2021) [facility] History of Past illness Narrative* Problem Noted Date Resolved Date Graves' disease 09/01/2020 09/06/2021 Overview: Sees endo: Dr. Cervantes Hyperthyroidism 04/15/2020 09/06/2021 Overview: Sees endo: Dr. Cervantes Hypothyroidism due to medication 05/15/2019 04/15/2020 Unspecified injury of right shoulder and upper arm, initial encounter 04/15/2017 02/13/2018 Weakness 04/15/2017 02/13/2018 Acute pain of right shoulder 12/09/2016 Supraspinatus tendon tear 10/19/20162020 Impingement syndrome of right shoulder 3 08/09/2016 Wrist tendonitis 07/14/2009 12/03/2014 documented as of this encounter (statuses as of 11/12/2021) [facility] History of Past illness Narrative* Problem Noted Date Resolved Date Graves' disease 09/01/2020 09/06/2021 Overview: Sees endo: Dr. Cervantes Hyperthyroidism 04/15/2020 09/06/2021 Overview: Sees endo: Dr. Cervantes Hypothyroidism due to medication 05/15/2019 04/15/2020 Unspecified injury of right shoulder and upper arm, initial encounter 04/15/2017 02/13/2018 Weakness 04/15/2017 02/13/2018 Acute pain of right shoulder 12/09/2016 Supraspinatus tendon tear 10/19/20162020 Impingement syndrome of right shoulder 3 08/09/2016 Wrist tendonitis 07/14/2009 12/03/2014 documented as of this encounter (statuses as of 11/19/2021) [facility] History of Past illness Narrative* Problem Noted Date Resolved Date Graves' disease 09/01/2020 09/06/2021 Overview: Sees endo: Dr. Cervantes Hyperthyroidism 04/15/2020 09/06/2021 Overview: Sees endo: Dr. Cervantes Hypothyroidism due to medication 05/15/2019 04/15/2020 Unspecified injury of right shoulder and upper arm, initial encounter 04/15/2017 02/13/2018 Weakness 04/15/2017 02/13/2018 Acute pain of right shoulder 12/09/2016 Supraspinatus tendon tear 10/19/20162020 Impingement syndrome of right shoulder 3 08/09/2016 Wrist tendonitis 07/14/2009 12/03/2014 documented as of this encounter (statuses as of 11/22/2021) [facility] of Past illness Narrative* Problem Noted Date Resolved Date Graves' disease 09/01/2020 09/06/2021 Overview: Sees endo: Dr. Cervantes Hyperthyroidism 04/15/2020 09/06/2021 Overview: Sees endo: Dr. Cervantes Hypothyroidism due to medication 05/15/2019 04/15/2020 Unspecified injury of right shoulder and upper arm, initial encounter 04/15/2017 02/13/2018 Weakness 04/15/2017 02/13/2018 Acute pain of right shoulder 12/09/2016 Supraspinatus tendon tear 10/19/20162020 Impingement syndrome of right shoulder 3 08/09/2016 Wrist tendonitis 07/14/2009 12/03/2014 documented as of this encounter (statuses as of 11/24/2021) [facility] History of Past illness Narrative* Problem Noted Date Resolved Date Graves' disease 09/01/2020 09/06/2021 Overview: Sees endo: Dr. Cervantes Hyperthyroidism 04/15/2020 09/06/2021 Overview: Sees endo: Dr. Cervantes Hypothyroidism due to medication 05/15/2019 04/15/2020 Unspecified injury of right shoulder and upper arm, initial encounter 04/15/2017 02/13/2018 Weakness 04/15/2017 02/13/2018 Acute pain of right shoulder 12/09/2016 Supraspinatus tendon tear 10/19/20162020 Impingement syndrome of right shoulder 3 08/09/2016 Wrist tendonitis 07/14/2009 12/03/2014 documented as of this encounter (statuses as of 11/25/2021) [facility] History of Past illness Narrative* Problem Noted Date Resolved Date Graves' disease 09/01/2020 09/06/2021 Overview: Sees endo: Dr. Cervantes Hyperthyroidism 04/15/2020 09/06/2021 Overview: Sees endo: Dr. Cervantes Hypothyroidism due to medication 05/15/2019 04/15/2020 Unspecified injury of right shoulder and upper arm, initial encounter 04/15/2017 02/13/2018 Weakness 04/15/2017 02/13/2018 Acute pain of right shoulder 12/09/2016 Supraspinatus tendon tear 10/19/20162020 Impingement syndrome of right shoulder 3 08/09/2016 Wrist tendonitis 07/14/2009 12/03/2014 documented as of this encounter (statuses as of 12/01/2021) [facility] of Past illness Narrative* Problem Noted Date Resolved Date Graves' disease 09/01/2020 09/06/2021 Overview: Sees endo: Dr. Cervantes Hyperthyroidism 04/15/2020 09/06/2021 Overview: Sees endo: Dr. Cervantes Hypothyroidism due to medication 05/15/2019 04/15/2020 Unspecified injury of right shoulder and upper arm, initial encounter 04/15/2017 02/13/2018 Weakness 04/15/2017 02/13/2018 Acute pain of right shoulder 12/09/2016 Supraspinatus tendon tear 10/19/20162020 Impingement syndrome of right shoulder 3 08/09/2016 Wrist tendonitis 07/14/2009 12/03/2014 documented as of this encounter (statuses as of 12/21/2021) [facility] History of Past illness Narrative* Problem Noted Date Resolved Date Graves' disease 09/01/2020 09/06/2021 Overview: Sees endo: Dr. Cervantes Hyperthyroidism 04/15/2020 09/06/2021 Overview: Sees endo: Dr. Cervantes Hypothyroidism due to medication 05/15/2019 04/15/2020 Unspecified injury of right shoulder and upper arm, initial encounter 04/15/2017 02/13/2018 Weakness 04/15/2017 02/13/2018 Acute pain of right shoulder 12/09/2016 Supraspinatus tendon tear 10/19/20162020 Impingement syndrome of right shoulder 3 08/09/2016 Wrist tendonitis 07/14/2009 12/03/2014 documented as of this encounter (statuses as of 01/21/2022) [facility] History of Past illness Narrative* Problem Noted Date Resolved Date Graves' disease 09/01/2020 09/06/2021 Overview: Sees endo: Dr. Cervantes Hyperthyroidism 04/15/2020 09/06/2021 Overview: Sees endo: Dr. Cervantes Hypothyroidism due to medication 05/15/2019 04/15/2020 Unspecified injury of right shoulder and upper arm, initial encounter 04/15/2017 02/13/2018 Weakness 04/15/2017 02/13/2018 Acute pain of right shoulder 12/09/2016 Supraspinatus tendon tear 10/19/20162020 Impingement syndrome of right shoulder 3 08/09/2016 Wrist tendonitis 07/14/2009 12/03/2014 documented as of this encounter (statuses as of 02/28/2022) [facility] History of Past illness Narrative* Problem Noted Date Resolved Date Graves' disease 09/01/2020 09/06/2021 Overview: Sees endo: Dr. Cervantes Hyperthyroidism 04/15/2020 09/06/2021 Overview: Sees endo: Dr. Cervantes Hypothyroidism due to medication 05/15/2019 04/15/2020 Unspecified injury of right shoulder and upper arm, initial encounter 04/15/2017 02/13/2018 Weakness 04/15/2017 02/13/2018 Acute pain of right shoulder 12/09/2016 Supraspinatus tendon tear 10/19/20162020 Impingement syndrome of right shoulder 3 08/09/2016 Wrist tendonitis 07/14/2009 12/03/2014 documented as of this encounter (statuses as of 03/21/2022) [facility] History of Past illness Narrative* Problem Noted Date Resolved Date Graves' disease 09/01/2020 09/06/2021 Overview: Sees endo: Dr. Cervantes Hyperthyroidism 04/15/2020 09/06/2021 Overview: Sees endo: Dr. Cervantes Hypothyroidism due to medication 05/15/2019 04/15/2020 Unspecified injury of right shoulder and upper arm, initial encounter 04/15/2017 02/13/2018 Weakness 04/15/2017 02/13/2018 Acute pain of right shoulder 12/09/2016 Supraspinatus tendon tear 10/19/20162020 Impingement syndrome of right shoulder 3 08/09/2016 Wrist tendonitis 07/14/2009 12/03/2014 documented as of this encounter (statuses as of 03/21/2022) [facility] History of Past illness Narrative* Problem Noted Date Resolved Date Graves' disease 09/01/2020 09/06/2021 Overview: Sees endo: Dr. Cervantse Hyperthyroidism 04/15/2020 09/06/2021 Overview: Sees endo: Dr. Cervantes Hypothyroidism due to medication 05/15/2019 04/15/2020 Unspecified injury of right shoulder and upper arm, initial encounter 04/15/2017 02/13/2018 Weakness 04/15/2017 02/13/2018 Acute pain of right shoulder 12/09/2016 Supraspinatus tendon tear 10/19/20162020 Impingement syndrome of right shoulder 3 08/09/2016 Wrist tendonitis 07/14/2009 12/03/2014 documented as of this encounter (statuses as of 03/29/2022) [facility] History of Past illness Narrative* Problem Noted Date Resolved Date Graves' disease 09/01/2020 09/06/2021 Overview: Sees endo: Dr. Cervantes Hyperthyroidism 04/15/2020 09/06/2021 Overview: Sees endo: Dr. Cervantes Hypothyroidism due to medication 05/15/2019 04/15/2020 Unspecified injury of right shoulder and upper arm, initial encounter 04/15/2017 02/13/2018 Weakness 04/15/2017 02/13/2018 Acute pain of right shoulder 12/09/2016 Supraspinatus tendon tear 10/19/20162020 Impingement syndrome of right shoulder 3 08/09/2016 Wrist tendonitis 07/14/2009 12/03/2014 documented as of this encounter (statuses as of 07/07/2022) [facility] History of Past illness Narrative* Problem Noted Date Resolved Date Graves' disease 09/01/2020 09/06/2021 Overview: Sees endo: Dr. Cervantes Hyperthyroidism 04/15/2020 09/06/2021 Overview: Sees endo: Dr. Cervantes Hypothyroidism due to medication 05/15/2019 04/15/2020 Unspecified injury of right shoulder and upper arm, initial encounter 04/15/2017 02/13/2018 Weakness 04/15/2017 02/13/2018 Acute pain of right shoulder 12/09/2016 Supraspinatus tendon tear 10/19/20162020 Impingement syndrome of right shoulder 3 08/09/2016 Wrist tendonitis 07/14/2009 12/03/2014 documented as of this encounter (statuses as of 07/12/2022) [facility] of Past illness Narrative* Problem Noted Date Resolved Date Graves' disease 09/01/2020 09/06/2021 Overview: Sees endo: Dr. Cervantes Hyperthyroidism 04/15/2020 09/06/2021 Overview: Sees endo: Dr. Cervantes Hypothyroidism due to medication 05/15/2019 04/15/2020 Unspecified injury of right shoulder and upper arm, initial encounter 04/15/2017 02/13/2018 Weakness 04/15/2017 02/13/2018 Acute pain of right shoulder 12/09/2016 Supraspinatus tendon tear 10/19/20162020 Impingement syndrome of right shoulder 3 08/09/2016 Wrist tendonitis 07/14/2009 12/03/2014 documented as of this encounter (statuses as of 07/15/2022) [facility] of Past illness Narrative* Problem Noted Date Resolved Date Graves' disease 09/01/2020 09/06/2021 Overview: Sees endo: Dr. Cervantes Hyperthyroidism 04/15/2020 09/06/2021 Overview: Sees endo: Dr. Cervantes Hypothyroidism due to medication 05/15/2019 04/15/2020 Unspecified injury of right shoulder and upper arm, initial encounter 04/15/2017 02/13/2018 Weakness 04/15/2017 02/13/2018 Acute pain of right shoulder 12/09/2016 Supraspinatus tendon tear 10/19/20162020 Impingement syndrome of right shoulder 3 08/09/2016 Wrist tendonitis 07/14/2009 12/03/2014 documented as of this encounter (statuses as of 08/08/2022) [facility] History of Past illness Narrative* Problem Noted Date Resolved Date Graves' disease 09/01/2020 09/06/2021 Overview: Sees endo: Dr. Cervantes Hyperthyroidism 04/15/2020 09/06/2021 Overview: Sees endo: Dr. Cervantes Hypothyroidism due to medication 05/15/2019 04/15/2020 Unspecified injury of right shoulder and upper arm, initial encounter 04/15/2017 02/13/2018 Weakness 04/15/2017 02/13/2018 Acute pain of right shoulder 12/09/2016 Supraspinatus tendon tear 10/19/20162020 Impingement syndrome of right shoulder 3 08/09/2016 Wrist tendonitis 07/14/2009 12/03/2014 documented as of this encounter (statuses as of 08/15/2022) [facility] of Past illness Narrative* Problem Noted Date Resolved Date Graves' disease 09/01/2020 09/06/2021 Overview: Sees endo: Dr. Cervantes Hyperthyroidism 04/15/2020 09/06/2021 Overview: Sees endo: Dr. Cervantes Hypothyroidism due to medication 05/15/2019 04/15/2020 Unspecified injury of right shoulder and upper arm, initial encounter 04/15/2017 02/13/2018 Weakness 04/15/2017 02/13/2018 Acute pain of right shoulder 12/09/2016 Supraspinatus tendon tear 10/19/20162020 Impingement syndrome of right shoulder 3 08/09/2016 Wrist tendonitis 07/14/2009 12/03/2014 documented as of this encounter (statuses as of 09/21/2022) [facility] History of Past illness Narrative* Problem Noted Date Resolved Date Graves' disease 09/01/2020 09/06/2021 Overview: Sees endo: Dr. Cervantes Hyperthyroidism 04/15/2020 09/06/2021 Overview: Sees endo: Dr. Cervantes Hypothyroidism due to medication 05/15/2019 04/15/2020 Unspecified injury of right shoulder and upper arm, initial encounter 04/15/2017 02/13/2018 Weakness 04/15/2017 02/13/2018 Acute pain of right shoulder 12/09/2016 Supraspinatus tendon tear 10/19/20162020 Impingement syndrome of right shoulder 3 08/09/2016 Wrist tendonitis 07/14/2009 12/03/2014 documented as of this encounter (statuses as of 09/21/2022) [facility] History of Past illness Narrative* Problem Noted Date Resolved Date Graves' disease 09/01/2020 09/06/2021 Overview: Sees endo: Dr. Cervantes Hyperthyroidism 04/15/2020 09/06/2021 Overview: Sees endo: Dr. Cervantes Hypothyroidism due to medication 05/15/2019 04/15/2020 Unspecified injury of right shoulder and upper arm, initial encounter 04/15/2017 02/13/2018 Weakness 04/15/2017 02/13/2018 Acute pain of right shoulder 12/09/2016 Supraspinatus tendon tear 10/19/20162020 Impingement syndrome of right shoulder 3 08/09/2016 Wrist tendonitis 07/14/2009 12/03/2014 documented as of this encounter (statuses as of 09/21/2022) [facility] of Past illness Narrative* Problem Noted Date Resolved Date Graves' disease 09/01/2020 09/06/2021 Overview: Sees endo: Dr. Cervantes Hyperthyroidism 04/15/2020 09/06/2021 Overview: Sees endo: Dr. Cervantes Hypothyroidism due to medication 05/15/2019 04/15/2020 Unspecified injury of right shoulder and upper arm, initial encounter 04/15/2017 02/13/2018 Weakness 04/15/2017 02/13/2018 Acute pain of right shoulder 12/09/2016 Supraspinatus tendon tear 10/19/20162020 Impingement syndrome of right shoulder 3 08/09/2016 Wrist tendonitis 07/14/2009 12/03/2014 documented as of this encounter (statuses as of 09/22/2022) [facility] History of Past illness Narrative* Problem Noted Date Resolved Date Graves' disease 09/01/2020 09/06/2021 Overview: Sees endo: Dr. Cervantes Hyperthyroidism 04/15/2020 09/06/2021 Overview: Sees endo: Dr. Cervantes Hypothyroidism due to medication 05/15/2019 04/15/2020 Unspecified injury of right shoulder and upper arm, initial encounter 04/15/2017 02/13/2018 Weakness 04/15/2017 02/13/2018 Acute pain of right shoulder 12/09/2016 Supraspinatus tendon tear 10/19/20162020 Impingement syndrome of right shoulder 3 08/09/2016 Wrist tendonitis 07/14/2009 12/03/2014 documented as of this encounter (statuses as of 09/29/2022) [facility] History of Past illness Narrative* Problem Noted Date Resolved Date Graves' disease 09/01/2020 09/06/2021 Overview: Sees endo: Dr. Cervantes Hyperthyroidism 04/15/2020 09/06/2021 Overview: Sees endo: Dr. Cervantes Hypothyroidism due to medication 05/15/2019 04/15/2020 Unspecified injury of right shoulder and upper arm, initial encounter 04/15/2017 02/13/2018 Weakness 04/15/2017 02/13/2018 Acute pain of right shoulder 12/09/2016 Supraspinatus tendon tear 10/19/20162020 Impingement syndrome of right shoulder 3 08/09/2016 Wrist tendonitis 07/14/2009 12/03/2014 documented as of this encounter (statuses as of 09/29/2022) [facility] History of Past illness Narrative* Problem Noted Date Resolved Date Graves' disease 09/01/2020 09/06/2021 Overview: Sees endo: Dr. Cervantes Hyperthyroidism 04/15/2020 09/06/2021 Overview: Sees endo: Dr. Cervantes Hypothyroidism due to medication 05/15/2019 04/15/2020 Unspecified injury of right shoulder and upper arm, initial encounter 04/15/2017 02/13/2018 Weakness 04/15/2017 02/13/2018 Acute pain of right shoulder 12/09/2016 Supraspinatus tendon tear 10/19/20162020 Impingement syndrome of right shoulder 3 08/09/2016 Wrist tendonitis 07/14/2009 12/03/2014 documented as of this encounter (statuses as of 10/02/2022) [facility] History of Past illness Narrative* Problem Noted Date Resolved Date Graves' disease 09/01/2020 09/06/2021 Overview: Sees endo: Dr. Cervantes Hyperthyroidism 04/15/2020 09/06/2021 Overview: Sees endo: Dr. Cervantes Hypothyroidism due to medication 05/15/2019 04/15/2020 Unspecified injury of right shoulder and upper arm, initial encounter 04/15/2017 02/13/2018 Weakness 04/15/2017 02/13/2018 Acute pain of right shoulder 12/09/2016 Supraspinatus tendon tear 10/19/20162020 Impingement syndrome of right shoulder 3 08/09/2016 Wrist tendonitis 07/14/2009 12/03/2014 documented as of this encounter (statuses as of 10/28/2022) [facility] History of Past illness Narrative* Problem Noted Date Resolved Date Graves' disease 09/01/2020 09/06/2021 Overview: Sees endo: Dr. Cervantes Hyperthyroidism 04/15/2020 09/06/2021 Overview: Sees endo: Dr. Cervantes Hypothyroidism due to medication 05/15/2019 04/15/2020 Unspecified injury of right shoulder and upper arm, initial encounter 04/15/2017 02/13/2018 Weakness 04/15/2017 02/13/2018 Acute pain of right shoulder 12/09/2016 Supraspinatus tendon tear 10/19/20162020 Impingement syndrome of right shoulder 3 08/09/2016 Wrist tendonitis 07/14/2009 12/03/2014 documented as of this encounter (statuses as of 12/26/2022) [facility] History of Past illness Narrative* Problem Noted Date Resolved Date Graves' disease 09/01/2020 09/06/2021 Overview: Sees endo: Dr. Cervantes Hyperthyroidism 04/15/2020 09/06/2021 Overview: Sees endo: Dr. Cervantes Hypothyroidism due to medication 05/15/2019 04/15/2020 Unspecified injury of right shoulder and upper arm, initial encounter 04/15/2017 02/13/2018 Weakness 04/15/2017 02/13/2018 Acute pain of right shoulder 12/09/2016 Supraspinatus tendon tear 10/19/20162020 Impingement syndrome of right shoulder 3 08/09/2016 Wrist tendonitis 07/14/2009 12/03/2014 documented as of this encounter (statuses as of 12/29/2022) [facility] History of Past illness Narrative* Problem Noted Date Resolved Date Graves' disease 09/01/2020 09/06/2021 Overview: Sees endo: Dr. Cervantes Hyperthyroidism 04/15/2020 09/06/2021 Overview: Sees endo: Dr. Cervantes Hypothyroidism due to medication 05/15/2019 04/15/2020 Unspecified injury of right shoulder and upper arm, initial encounter 04/15/2017 02/13/2018 Weakness 04/15/2017 02/13/2018 Acute pain of right shoulder 12/09/2016 Supraspinatus tendon tear 10/19/20162020 Impingement syndrome of right shoulder 3 08/09/2016 Wrist tendonitis 07/14/2009 12/03/2014 documented as of this encounter (statuses as of 01/09/2023) [facility] Diagnosis Sprain of ligament of left ankle, subsequent encounter- Primary documented in this encounter [facility] Diagnosis Sprain of ligament of left ankle, subsequent encounter- Primary documented in this encounter [facility] Diagnosis Sprain of ligament of left ankle, subsequent encounter- Primary documented in this encounter [facility]* Diagnosis Sprain of ligament of left ankle, subsequent encounter- Primary [facility] Diagnosis Peroneal tendinitis of left lower extremity- Primary Other enthesopathy of ankle and tarsus Sprain of ligament of left ankle, subsequent encounter [facility] Diagnosis Peroneal tendinitis of left lower extremity Other enthesopathy of ankle and tarsus [facility] Diagnosis Sprain of ligament of left ankle, subsequent encounter- Primary Postoperative hypothyroidism- Primary Postsurgical hypothyroidism [facility] Diagnosis Sprain of ligament of left ankle, subsequent encounter- Primary [facility] Diagnosis Acquired hypothyroidism- Primary Unspecified hypothyroidism [facility] Diagnosis Bipolar affective disorder, currently depressed, moderate (HCC) Bipolar I disorder, most recent episode (or current) depressed, moderate [facility] Diagnosis Acquired hypothyroidism- Primary Unspecified hypothyroidism [facility]* Diagnosis Fibromyalgia Mylagia and myositis, unspecified [facility] Diagnosis Influenza-like illness- Primary Influenza with other respiratory manifestations [facility] Diagnosis Bipolar affective disorder, currently depressed, moderate (HCC) Bipolar I disorder, most recent episode (or current) depressed, moderate [facility]* Diagnosis Fibromyalgia Mylagia and myositis, unspecified [facility] Diagnosis Well adult exam- Primary Routine general medical examination at a health care facility Bipolar disorder, in partial remission, most recent episode mixed (HCC) Bipolar I disorder, most recent episode (or current) mixed, in partial or unspecified remission Class 1 obesity due to excess calories with body mass index (BMI) of 33.0 to 33.9 in adult, unspecified whether serious comorbidity present Bowel habit changes Other symptoms involving digestive system Epigastric pain Abdominal pain, epigastric Nausea Nausea alone Lumbar radiculopathy Thoracic or lumbosacral neuritis or radiculitis, unspecified Lumbar back pain Lumbago [facility] Diagnosis Lumbar back pain- Primary Lumbago Lumbar radiculopathy Thoracic or lumbosacral neuritis or radiculitis, unspecified documented in this encounter [facility] Diagnosis Bowel habit changes Other symptoms involving digestive system Epigastric pain Abdominal pain, epigastric Nausea Nausea alone documented in this encounter [facility]* Diagnosis Postoperative hypothyroidism- Primary Postsurgical hypothyroidism documented in this encounter [facility]* Diagnosis Bipolar affective disorder, currently depressed, moderate (HCC) Bipolar I disorder, most recent episode (or current) depressed, moderate documented in this encounter [facility]* Diagnosis Acquired hypothyroidism Unspecified hypothyroidism documented in this encounter [facility]* Diagnosis Encounter for gynecological examination (general) (routine) without abnormal findings- Primary Encounter for screening mammogram for breast cancer H/O total hysterectomy Acquired absence of both cervix and uterus Obesity, Class II, BMI 35-39.9 Obesity, unspecified documented in this encounter [facility]* Diagnosis Fibromyalgia Mylagia and myositis, unspecified documented in this encounter [facility]* Diagnosis Postoperative hypothyroidism- Primary Postsurgical hypothyroidism Bipolar disorder, in partial remission, most recent episode mixed (HCC) Bipolar I disorder, most recent episode (or current) mixed, in partial or unspecified remission Anxiety associated with depression Dysthymic disorder Fibromyalgia Mylagia and myositis, unspecified Restless legs syndrome Restless legs syndrome (RLS) GERD without esophagitis Esophageal reflux Obesity, Class II, BMI 35-39.9 Obesity, unspecified Smoker Tobacco use disorder Screening for diabetes mellitus Medication management Encounter for long-term (current) use of other medications Encounter for lipid screening for cardiovascular disease Screening for lipoid disorders Elevated blood pressure reading without diagnosis of hypertension Well adult exam Routine general medical examination at a health care facility documented in this encounter [facility]* Diagnosis Suspected COVID-19 virus infection- Primary documented in this encounter [facility]* Diagnosis Epigastric pain Abdominal pain, epigastric documented in this encounter [facility]* Diagnosis Abdominal pain, unspecified abdominal location- Primary Bowel habit changes Other symptoms involving digestive system Epigastric pain Abdominal pain, epigastric Nausea Nausea alone documented in this encounter [facility]* Diagnosis Acquired hypothyroidism Unspecified hypothyroidism documented in this encounter [facility]* Diagnosis Bipolar affective disorder, currently depressed, moderate (HCC) Bipolar I disorder, most recent episode (or current) depressed, moderate documented in this encounter [facility]* Diagnosis URI, acute- Primary Acute upper respiratory infections of unspecified site documented in this encounter [facility]* Diagnosis Acute otitis media, right- Primary Unspecified otitis media documented in this encounter [facility]* Diagnosis Postoperative hypothyroidism- Primary Postsurgical hypothyroidism documented in this encounter [facility] Diagnostic Procedure Only (Routine) - Closed Specialty Diagnoses / Procedures Referred By Rex t Referred To Contact XR IMAGING Diagnoses Lumbar back pain Procedures XR LUMBAR GENERAL 3V AP/LAT/L5-S1 RADEX SPINE LUMBOSACRAL 2/3 VIEWS Patricia Stearns PA-C [address] [place] [address] Xr Imaging Referral ID Status Reason Start Date Expiration Date V isits Requested Visits Authorized [id number] Closed Auto-Generate d Referral 09/21/2022 10/21/2023 1 1 * Physical Therapy (Routine) - Authorized Specialty Diagnoses / Procedures Referred By Rex arriaga Referred To Contact [facility] Diagnoses Lumbar back pain Procedures CONSULT TO PHYSICAL THERAPY PHYSICAL THERAPY EVALUATION HIGH COMPLEX 45 MINS Patricia Stearns PA-C [address] [place] [address] [facility] [place] [address] [place] [address] Referral ID Status Reason Start Date Expiration Date Visits Requested Visits Authorized [id number] Authorized Auto-Generat ed Referral 09/21/2022 12/21/2022 1 1 * Consult, Test, Treat (Routine) - Authorized Specialty Diagnoses / Procedures Referred By Rex t Referred To Contact General Surgery Diagnoses Bowel habit changes Epigastric pain Nausea Procedures CONSULT TO GENERAL SURGERY OFFICE/OUTPATIENT [facility] MDM 60-74 MINUTES Patricia Stearns PA-C [address] [place] [address] Referral ID Status Reason Start Date Expiration Date Visits Requested Visits Authorized [id number] Authorized PCP Requested Referral 09/21/2022 09/21/2023 1 1 * Diagnostic Procedure Only (Routine) - Authorized Specialty Diagnoses / Procedures Referred By [facility] t Referred To Contact US IMAGING Diagnoses Epigastric pain Procedures US ABD RT UPPER QUADRANT US ABDOMINAL REAL TIME W/IMAGE LIMITED Patricia Stearns PA-C [address] [place] [address] Us Imaging Referral ID Status Reason Start Date Expiration Date Visits Requested Visits Authorized [id number] Authorized Auto-Generat ed Referral 09/21/2022 10/21/[address] [facility] for referral (narrative)* Outpatient Procedure (Routine) - Authorized Specialty Diagnoses / Procedures Referred By [facility] t Referred To Contact [facility] Diagnoses Bowel habit changes Epigastric pain Nausea Procedures COLONOSCOPY DIAGNOSTIC COLONOSCOPY DIAGNOSTIC COLONOSCOPY FLX DX W/COLLJ SPEC WHEN PFRMD Mihir Riddle MD [address] [place] [address] [facility] [place] [address] [place] [address] Referral ID Status Reason Start Date Expiration Date Visits Requested Visits Authorized [id number] Authorized Auto-Generat ed Referral 09/29/2022 09/30/2023 1 1 * Outpatient Procedure (Routine) - Authorized Specialty Diagnoses / Procedures Referred By [facility] t Referred To Contact [facility] Diagnoses Bowel habit changes Epigastric pain Nausea Procedures EGD DIAGNOSTIC EGD DIAGNOSTIC ESOPHAGOGASTRODUODENOSC OPY TRANSORAL DIAGNOSTIC Mihir Riddle MD [address] [place] [address] [facility] [address] [address] Referral ID Status Reason Start Date Expiration Date Visits Requested Visits Authorized [id number] Authorized Auto-Generat ed Referral 09/29/2022 09/30/2023 1 1 [facility] for referral (narrative)* Diagnostic Procedure Only (Routine) - Closed Specialty Diagnoses / Procedures Referred By Rex arriaga Referred To Contact US IMAGING Diagnoses Epigastric pain Procedures US ABD RT UPPER QUADRANT US ABDOMINAL REAL TIME W/IMAGE LIMITED Patricia Stearns PA-C [address] [place] [address] [place] [address] Referral ID Status Reason Start Date Expiration Date V isits Requested Visits Authorized [id number] Closed Auto-Generate d Referral 09/21/2022 10/21/2023 1 1 [facility] for referral (narrative)* Outpatient Procedure (Routine) - Closed Specialty Diagnoses / Procedures Referred By Rex arriaga Referred To Contact [facility] Diagnoses Bowel habit changes Epigastric pain Nausea Procedures COLONOSCOPY DIAGNOSTIC COLONOSCOPY DIAGNOSTIC COLONOSCOPY FLX DX W/COLLJ SPEC WHEN PFRMD Mihir Riddle MD [address] [place] [address] [facility] [place] [address] [place], [place] [id number] Referral ID Status Reason Start Date Expiration Date V isits Requested Visits Authorized [id number] Closed Auto-Generate d Referral 09/29/2022 09/30/2023 1 1 * Outpatient Procedure (Routine) - Closed Specialty Diagnoses / Procedures Referred By Rex arriaga Referred To Contact [facility] Diagnoses Bowel habit changes Epigastric pain Nausea Procedures EGD DIAGNOSTIC EGD DIAGNOSTIC ESOPHAGOGASTRODUODENOSC OPY TRANSORAL DIAGNOSTIC Mihir Riddle MD [address] [place] [address] [facility] [place] [address] [place], [place] [id number] Referral ID Status Reason Start Date Expiration Date V isits Requested Visits Authorized [id number] Closed Auto-Generate d Referral 09/29/2022 09/30/2023 1 1 [facility] Narrative* Outpatient Procedure (Routine) - Closed Specialty Diagnoses / Procedures Referred By Rex arriaga Referred To Contact [facility] Diagnoses Bowel habit changes Epigastric pain Nausea Procedures COLONOSCOPY DIAGNOSTIC COLONOSCOPY DIAGNOSTIC COLONOSCOPY FLX DX W/COLLJ SPEC WHEN PFRMD Mihir Riddle MD [address] [place] [address] [facility] [place] [address] [place] [address] Referral ID Status Reason Start Date Expiration Date V isits Requested Visits Authorized [id number] Closed Auto-Generate d Referral 09/29/2022 09/30/2023 1 1 [facility] Summary Purpose Family History No Family History Records FoundNo Family History Records Found Advance Directives No Advanced Directives Records FoundDocuments on File Type Date Recorded 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 Advance Directive(s) 01/23/2017 9:33 AM Documents on File Type Date Recorded 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 Advance Directive(s) 01/23/2017 9:33 AM Reason for Referral Specialty Diagnoses / Procedures Referred By Rex arriaga Referred To Contact Podiatry Diagnoses Sprain of ligament of left ankle, subsequent encounter Procedures CONSULT TO PODIATRY OFFICE/OUTPATIENT [facility] 60-74 MINUTES Patricia Stearns PA-C [address] [place] [address] Referral ID Status Reason Start Date Expiration Date Visits Requested Visits Authorized [id number] Authorized PCP Requested Referral 10/28/2021 10/28/2022 1 1 Specialty Diagnoses / Procedures Referred By Rex arriaga Referred To Contact MR IMAGING Diagnoses Peroneal tendinitis of left lower extremity Procedures MRI ANKLE WO IVCON LT MRI ANY JT LOWER EXTREM W/O CONTRAST Rogerio Wright [address] [place] [address] Mr Imaging Referral ID Status Reason Start Date Expiration Date Visits Requested Visits Authorized [id number] Additional Clinical Info Needed Auto-Generat ed Referral 11/02/2021 12/02/2022 1 1 Referral ID Status Reason Start Date Expiration Date V isits Requested Visits Authorized [id number] Closed Auto-Generate d Referral 11/02/2021 01/01/2022 1 1 Specialty Diagnoses / Procedures Referred By Contac t Referred To Contact [facility] Diagnoses Sprain of ligament of left ankle, subsequent encounter Procedures PT REHAB FOLLOW UP ORDER THERAPEUTIC EXERCISES RE, EA 15 MIN. Ana Maria Doan, PT [address] [place] [address] [facility] [place] [address] [place] [address] Referral ID Status Reason Start Date Expiration Date Visits Requested Visits Authorized [id number] Pending Review PCP Requested Referral Auto-Generate d Referral 11/24/2021 02/22/2022 1 1 Specialty Diagnoses / Procedures Referred By Contac t Referred To Contact PHYSICAL THERAPY Diagnoses Lumbar back pain Lumbar radiculopathy Procedures PT REHAB FOLLOW UP ORDER THERAPEUTIC EXERCISES RE, EA 15 MIN. Patricia Stearns PA-C [address] [place] [address] [facility] [address] [place] [address] Referral ID Status Reason Start Date Expiration Date Visits Requested Visits Authorized [id number] Pending Review PCP Requested Referral Auto-Generate d Referral 09/29/2022 12/28/2022 1 1 Specialty Diagnoses / Procedures Referred By Contac t Referred To Contact Diagnoses H/O total hysterectomy Janie Campos, RESEARCH TEST ENGINE OPERATOR.SILK SCREEN PRINTER HELPER [address] [facility] [address] Referral ID Status Reason Start Date Expiration Date Visits Re quested Visits Authorized [id number] Closed 1 1 Specialty Diagnoses / Procedures Referred By Contac t Referred To Contact [facility] IM[facility] Diagnoses Encounter for screening mammogram for breast cancer Procedures PATRICK SCREENING SCREENING MAMMOGRAPHY BI 2-VIEW BREAST INC CAD Janie Campos, RESEARCH TEST ENGINE OPERATOR.SILK SCREEN PRINTER HELPER [address] [facility] [address] [facility] [address] [place] [address] Referral ID Status Reason Start Date Expiration Date Visits Requested Visits Authorized [id number] Pending Review Auto-Generat ed Referral 01/17/2023 02/16/2024 1 1 Health Concerns Infection Onset Date Last Indicated Resolved Time COVID-19 Rule-Out 07/07/2022 07/07/2022 Infection Onset Date Last Indicated Resolved Time COVID-19 Rule-Out 06/19/2023 06/19/2023 Infection Onset Date Last Indicated Resolved Time COVID-19 Confirmed 06/19/2023 06/19/2023 Medications Administered Section Inactive Administered Medications - up to 3 most recent administrations Medication Order MAR Action Action Date Dose Rate Site benzocaine 20% 1 [facility] (TOPEX) 1 [facility], TOPICAL, DIRECTED, Starting on Mon11/08/22 at 1300, Until Mon11/08/22 at 165, DOSING DIRECTED BY PHYSICIAN FOR PROCEDURAL SEDATION ONLY - Pharmaceutical Waste: Aerosol -, Intraprocedure Given by [facility] 11/08/2022 12:48 PM EDT 1 [facility] diphenhydrAMINE 12.5-50 mg injection (BENADRYL) 12.5-50 mg, INTRAVENOUS, DIRECTED, Starting on Mon11/08/22 at 1300, Until Mon11/08/22 at 165, DOSING DIRECTED BY PHYSICIAN FOR PROCEDURAL SEDATION ONLY, Intraprocedure Given by [facility] 11/08/2022 12:54 PM EDT 50 mg fentaNYL 50 mcg/mL 25-100 mcg injection (SUBLIMAZE) 25-100 mcg, INTRAVENOUS, DIRECTED, Starting on Mon11/08/22 at 1300, Until Mon11/08/22 at 165, DOSING DIRECTED BY PHYSICIAN FOR PROCEDURAL SEDATION ONLY, Intraprocedure Given by [facility] 11/08/2022 12:52 PM EDT 50 mcg Additional Source Comments INFORMATION SOURCE (unrecogn ized section and content) DATE CREATED AUTHOR AUTHOR'S ORGANIZ ATION 09/09/2023 [facility] Source Comments (unrecognize d section and content) In the event this informatio n is protected by the Federal Confidentiality of Alcohol and Drug Abuse Patient Records regulations: The Federal rules restrict any use of the information to criminally investigate or prosecute any alcohol or drug abuse patient.[facility] Inc[facility] the event this information is protected by the Federal Confidentiality of Alcohol and Drug Abuse Patient Records regulations: The Federal rules restrict any use of the information to criminally investigate or prosecute any alcohol or drug abuse patient.[facility] IncIn the event this information is protected by the Federal Confidentiality of Alcohol and Drug Abuse Patient Records regulations: The Federal rules restrict any use of the information to criminally investigate or prosecute any alcohol or drug abuse patient.[facility] IncIn the event this information is protected by the Federal Confidentiality of Alcohol and Drug Abuse Patient Records regulations: The Federal rules restrict any use of the information to criminally investigate or prosecute any alcohol or drug abuse patient.[facility] IncIn the event this information is protected by the Federal Confidentiality of Alcohol and Drug Abuse Patient Records regulations: The Federal rules restrict any use of the information to criminally investigate or prosecute any alcohol or drug abuse patient.[facility] IncIn the event this information is protected by the Federal Confidentiality of Alcohol and Drug Abuse Patient Records regulations: The Federal rules restrict any use of the information to criminally investigate or prosecute any alcohol or drug abuse patient.[facility] IncIn the event this information is protected by the Federal Confidentiality of Alcohol and Drug Abuse Patient Records regulations: The Federal rules restrict any use of the information to criminally investigate or prosecute any alcohol or drug abuse patient.[facility] IncIn the event this information is protected by the Federal Confidentiality of Alcohol and Drug Abuse Patient Records regulations: The Federal rules restrict any use of the information to criminally investigate or prosecute any alcohol or drug abuse patient.[facility] IncIn the event this information is protected by the Federal Confidentiality of Alcohol and Drug Abuse Patient Records regulations: The Federal rules restrict any use of the information to criminally investigate or prosecute any alcohol or drug abuse patient.[facility] IncIn the event this information is protected by the Federal Confidentiality of Alcohol and Drug Abuse Patient Records regulations: The Federal rules restrict any use of the information to criminally investigate or prosecute any alcohol or drug abuse patient.[facility] IncIn the event this information is protected by the Federal Confidentiality of Alcohol and Drug Abuse Patient Records regulations: The Federal rules restrict any use of the information to criminally investigate or prosecute any alcohol or drug abuse patient.[facility] IncIn the event this information is protected by the Federal Confidentiality of Alcohol and Drug Abuse Patient Records regulations: The Federal rules restrict any use of the information to criminally investigate or prosecute any alcohol or drug abuse patient.[facility] IncIn the event this information is protected by the Federal Confidentiality of Alcohol and Drug Abuse Patient Records regulations: The Federal rules restrict any use of the information to criminally investigate or prosecute any alcohol or drug abuse patient.[facility] IncIn the event this information is protected by the Federal Confidentiality of Alcohol and Drug Abuse Patient Records regulations: The Federal rules restrict any use of the information to criminally investigate or prosecute any alcohol or drug abuse patient.[facility] IncIn the event this information is protected by the Federal Confidentiality of Alcohol and Drug Abuse Patient Records regulations: The Federal rules restrict any use of the information to criminally investigate or prosecute any alcohol or drug abuse patient.[facility] IncIn the event this information is protected by the Federal Confidentiality of Alcohol and Drug Abuse Patient Records regulations: The Federal rules restrict any use of the information to criminally investigate or prosecute any alcohol or drug abuse patient.[facility] IncIn the event this information is protected by the Federal Confidentiality of Alcohol and Drug Abuse Patient Records regulations: The Federal rules restrict any use of the information to criminally investigate or prosecute any alcohol or drug abuse patient.[facility] IncIn the event this information is protected by the Federal Confidentiality of Alcohol and Drug Abuse Patient Records regulations: The Federal rules restrict any use of the information to criminally investigate or prosecute any alcohol or drug abuse patient.[facility], IncIn the event this information is protected by the Federal Confidentiality of Alcohol and Drug Abuse Patient Records regulations: The Federal rules restrict any use of the information to criminally investigate or prosecute any alcohol or drug abuse patient.[facility], IncIn the event this information is protected by the Federal Confidentiality of Alcohol and Drug Abuse Patient Records regulations: The Federal rules restrict any use of the information to criminally investigate or prosecute any alcohol or drug abuse patient.[facility], IncIn the event this information is protected by the Federal Confidentiality of Alcohol and Drug Abuse Patient Records regulations: The Federal rules restrict any use of the information to criminally investigate or prosecute any alcohol or drug abuse patient.[facility], IncIn the event this information is protected by the Federal Confidentiality of Alcohol and Drug Abuse Patient Records regulations: The Federal rules restrict any use of the information to criminally investigate or prosecute any alcohol or drug abuse patient.[facility], IncIn the event this information is protected by the Federal Confidentiality of Alcohol and Drug Abuse Patient Records regulations: The Federal rules restrict any use of the information to criminally investigate or prosecute any alcohol or drug abuse patient.[facility], IncIn the event this information is protected by the Federal Confidentiality of Alcohol and Drug Abuse Patient Records regulations: The Federal rules restrict any use of the information to criminally investigate or prosecute any alcohol or drug abuse patient.[facility], IncIn the event this information is protected by the Federal Confidentiality of Alcohol and Drug Abuse Patient Records regulations: The Federal rules restrict any use of the information to criminally investigate or prosecute any alcohol or drug abuse patient.[facility], IncIn the event this information is protected by the Federal Confidentiality of Alcohol and Drug Abuse Patient Records regulations: The Federal rules restrict any use of the information to criminally investigate or prosecute any alcohol or drug abuse patient.[facility], IncIn the event this information is protected by the Federal Confidentiality of Alcohol and Drug Abuse Patient Records regulations: The Federal rules restrict any use of the information to criminally investigate or prosecute any alcohol or drug abuse patient.[facility], IncIn the event this information is protected by the Federal Confidentiality of Alcohol and Drug Abuse Patient Records regulations: The Federal rules restrict any use of the information to criminally investigate or prosecute any alcohol or drug abuse patient.[facility], IncIn the event this information is protected by the Federal Confidentiality of Alcohol and Drug Abuse Patient Records regulations: The Federal rules restrict any use of the information to criminally investigate or prosecute any alcohol or drug abuse patient.[facility], IncIn the event this information is protected by the Federal Confidentiality of Alcohol and Drug Abuse Patient Records regulations: The Federal rules restrict any use of the information to criminally investigate or prosecute any alcohol or drug abuse patient.[facility], IncIn the event this information is protected by the Federal Confidentiality of Alcohol and Drug Abuse Patient Records regulations: The Federal rules restrict any use of the information to criminally investigate or prosecute any alcohol or drug abuse patient.[facility], IncIn the event this information is protected by the Federal Confidentiality of Alcohol and Drug Abuse Patient Records regulations: The Federal rules restrict any use of the information to criminally investigate or prosecute any alcohol or drug abuse patient.[facility], IncIn the event this information is protected by the Federal Confidentiality of Alcohol and Drug Abuse Patient Records regulations: The Federal rules restrict any use of the information to criminally investigate or prosecute any alcohol or drug abuse patient.[facility], IncIn the event this information is protected by the Federal Confidentiality of Alcohol and Drug Abuse Patient Records regulations: The Federal rules restrict any use of the information to criminally investigate or prosecute any alcohol or drug abuse patient.[facility], IncIn the event this information is protected by the Federal Confidentiality of Alcohol and Drug Abuse Patient Records regulations: The Federal rules restrict any use of the information to criminally investigate or prosecute any alcohol or drug abuse patient.[facility], IncIn the event this information is protected by the Federal Confidentiality of Alcohol and Drug Abuse Patient Records regulations: The Federal rules restrict any use of the information to criminally investigate or prosecute any alcohol or drug abuse patient.[facility], IncIn the event this information is protected by the Federal Confidentiality of Alcohol and Drug Abuse Patient Records regulations: The Federal rules restrict any use of the information to criminally investigate or prosecute any alcohol or drug abuse patient.[facility], IncIn the event this information is protected by the Federal Confidentiality of Alcohol and Drug Abuse Patient Records regulations: The Federal rules restrict any use of the information to criminally investigate or prosecute any alcohol or drug abuse patient.[facility], IncIn the event this information is protected by the Federal Confidentiality of Alcohol and Drug Abuse Patient Records regulations: The Federal rules restrict any use of the information to criminally investigate or prosecute any alcohol or drug abuse patient.[facility], IncIn the event this information is protected by the Federal Confidentiality of Alcohol and Drug Abuse Patient Records regulations: The Federal rules restrict any use of the information to criminally investigate or prosecute any alcohol or drug abuse patient.[facility], IncIn the event this information is protected by the Federal Confidentiality of Alcohol and Drug Abuse Patient Records regulations: The Federal rules restrict any use of the information to criminally investigate or prosecute any alcohol or drug abuse patient.[facility], IncIn the event this information is protected by the Federal Confidentiality of Alcohol and Drug Abuse Patient Records regulations: The Federal rules restrict any use of the information to criminally investigate or prosecute any alcohol or drug abuse patient.[facility], IncIn the event this information is protected by the Federal Confidentiality of Alcohol and Drug Abuse Patient Records regulations: The Federal rules restrict any use of the information to criminally investigate or prosecute any alcohol or drug abuse patient.[facility], IncIn the event this information is protected by the Federal Confidentiality of Alcohol and Drug Abuse Patient Records regulations: The Federal rules restrict any use of the information to criminally investigate or prosecute any alcohol or drug abuse patient.[facility], IncIn the event this information is protected by the Federal Confidentiality of Alcohol and Drug Abuse Patient Records regulations: The Federal rules restrict any use of the information to criminally investigate or prosecute any alcohol or drug abuse patient.[facility], IncIn the event this information is protected by the Federal Confidentiality of Alcohol and Drug Abuse Patient Records regulations: The Federal rules restrict any use of the information to criminally investigate or prosecute any alcohol or drug abuse patient.[facility], IncIn the event this information is protected by the Federal Confidentiality of Alcohol and Drug Abuse Patient Records regulations: The Federal rules restrict any use of the information to criminally investigate or prosecute any alcohol or drug abuse patient.[facility], IncIn the event this information is protected by the Federal Confidentiality of Alcohol and Drug Abuse Patient Records regulations: The Federal rules restrict any use of the information to criminally investigate or prosecute any alcohol or drug abuse patient.[facility], IncIn the event this information is protected by the Federal Confidentiality of Alcohol and Drug Abuse Patient Records regulations: The Federal rules restrict any use of the information to criminally investigate or prosecute any alcohol or drug abuse patient.[facility] Reason for Visit (unrecogniz ed section and content) Specialty Diagnoses / Procedures Referred By Rex arriaga Referred To Contact [facility] Diagnoses Sprain of ligament of left ankle, initial encounter S93.402A Procedures PT REHAB FOLLOW UP ORDER THERAPEUTIC EXERCISES RE, EA 15 MIN. THER PX 1/> AREAS EACH 15 MIN NEUROMUSC REEDUCA MANUAL THERAPY TQS 1/> REGIONS EACH 15 MINUTES THERAPEUT ACTVITY DIRECT PT CONTACT EACH 15 MIN SELF-CARE/HOME MGMT TRAINING EACH 15 MINUTES THER PX 1/> AREAS EACH 15 MIN AQUA THER W/XERSS 08320 / 55753 / 82862 / 37504 / 66956 / [id number] Yogi Maddox MD [address] [place] [address] [facility] [place] [address] [place] [address] Referral ID Status Reason Start Date Expiration Date Visits Requested Visits Authorized [id number] Authorized PCP Requested Referral Auto-Generate d Referral 09/29/2021 03/23/2022 20 20 Reason Comments F/U 6 Month left ankle sprain Reason Comments Pain New Specialty Diagnoses / Procedures Referred By Contac t Referred To Contact Podiatry Diagnoses Sprain of ligament of left ankle, subsequent encounter Procedures CONSULT TO PODIATRY OFFICE/OUTPATIENT NEW HIGH MDM 60-74 MINUTES Patricia Stearns PA-C [address] [place] [address] Referral ID Status Reason Start Date Expiration Date V isits Requested Visits Authorized [id number] Closed PCP Requested Referral 10/28/2021 10/28/2022 1 1 Specialty Diagnoses / Procedures Referred By Rex t Referred To Contact MR IMAGING Diagnoses Peroneal tendinitis of left lower extremity Procedures MRI ANKLE WO IVCON LT MRI ANY JT LOWER EXTREM W/O CONTRAST Rogerio Wright [address] [place] [id number] [facility] Referral ID Status Reason Start Date Expiration Date V isits Requested Visits Authorized [id number] Closed Auto-Generate d Referral 11/02/2021 01/01/2022 1 1 Reason Comments PT Progress Note Specialty Diagnoses / Procedures Referred By Yariac t Referred To Contact [facility] Diagnoses Sprain of ligament of left ankle, initial encounter S93.402A Procedures PT REHAB FOLLOW UP ORDER THERAPEUTIC EXERCISES RE, EA 15 MIN. THER PX 1/> AREAS EACH 15 MIN NEUROMUSC REEDUCA MANUAL THERAPY TQS 1/> REGIONS EACH 15 MINUTES THERAPEUT ACTVITY DIRECT PT CONTACT EACH 15 MIN SELF-CARE/HOME MGMT TRAINING EACH 15 MINUTES THER PX 1/> AREAS EACH 15 MIN AQUA THER W/XERSS 89767 / 39302 / 15203 / 95054 / 22564 / [id number] Yogi Maddox MD [address] [place] [address] [facility] [place] [address] [place] [address] Reason Onset Date Comments Refill Request 12/19/2021 Reason Onset Date Comments Refill Request 02/27/2022 Reason Comments Results Reason Comments Headache Fever, chest congest ion, bilateral ear pain, x4 days. Reason Onset Date Comments Refill Request 07/12/2022 Reason Onset Date Comments Refill Request 08/08/2022 Reason Onset Date Comments Refill Request 08/13/2022 Reason Comments Rectal Bleeding Reason Comments Physical Reason Comments PT Eval Specialty Diagnoses / Procedures Referred By Contac t Referred To Contact [facility] Diagnoses Lumbar back pain Procedures CONSULT TO PHYSICAL THERAPY PHYSICAL THERAPY EVALUATION HIGH COMPLEX 45 MINS Patricia Stearns PA-C [address] [place] [address] [facility] [place] [address] [place] [address] Referral ID Status Reason Start Date Expiration Date V isits Requested Visits Authorized [id number] Closed Auto-Generate d Referral 09/21/2022 12/21/2022 1 1 Reason Comments Radiology Mammogram Mammogram/US Reason Comments Consult Bowel habit changes, nausea, Specialty Diagnoses / Procedures Referred By Contac t Referred To Contact General Surgery Diagnoses Bowel habit changes Epigastric pain Nausea Procedures CONSULT TO GENERAL SURGERY OFFICE/OUTPATIENT [facility] MDM 60-74 MINUTES Patricia Stearns PA-C [address] [place] [address] Referral ID Status Reason Start Date Expiration Date V isits Requested Visits Authorized [id number] Closed PCP Requested Referral 09/21/2022 09/21/2023 1 1 Reason Comments Thyroid Problem Reason Onset Date Comments Refill Request 12/24/2022 Reason Onset Date Comments Refill Request 12/27/2022 Reason Onset Date Comments Refill Request 01/06/2023 Reason Comments Well Woman Reason Comments Insurance Authorization Reason Onset Date Comments Refill Request 01/19/2023 Reason Onset Date Comments Refill Request 03/15/2023 Reason Comments F/U 6 months Reason Comments Nasal Congestion headache and sore th roat x 2 days Reason Onset Date Comments Refill Request 04/20/2023 Reason Comments Radiology US Specialty Diagnoses / Procedures Referred By Contac t Referred To Contact [facility] IM[facility]ING Diagnoses Epigastric pain Procedures US ABD RT UPPER QUADRANT US ABDOMINAL REAL TIME W/IMAGE LIMITED Patricia Stearns PA-C [address] [place] [address] [place] [address] Referral ID Status Reason Start Date Expiration Date V isits Requested Visits Authorized [id number] Closed Auto-Generate d Referral 09/21/2022 10/21/2023 1 1 Reason Onset Date Comments Refill Request 06/05/2023 Reason Comments Nasal Congestion drainage, cough, bod yaches and low grade fever x this am, + home covid Reason Comments Ear Pain R ear x 2 days Reason Comments Thyroid Nodule Care Teams (unrecognized sec tion and content) Enterprise Sales Executive Relationship Specialty Start Date End Date Yogi Maddox MD [address] [place] [id number] PCP - General Family Practice 02/16/21 Enterprise Sales Executive Relationship Specialty Start Date End Date Yogi Maddox MD [address] [place] [address] PCP - General Family Practice 02/16/21 Enterprise Sales Executive Relationship Specialty Start Date End Date Yogi Maddox MD [address] [place] [address] PCP - General Family Practice 02/16/21 Enterprise Sales Executive Relationship Specialty Start Date End Date Yogi Maddox MD [address] [place] [id number] PCP - General Family Practice 02/16/21 Enterprise Sales Executive Relationship Specialty Start Date End Date Yogi Maddox MD [address] [place] [address] PCP - General Family Practice 02/16/21 Enterprise Sales Executive Relationship Specialty Start Date End Date Yogi Maddox MD [address] [place] [address] PCP - General Family Practice 02/16/21 Enterprise Sales Executive Relationship Specialty Start Date End Date Yogi Maddox MD [address] [place] [address] PCP - General Family Practice 02/16/21 Enterprise Sales Executive Relationship Specialty Start Date End Date Yogi Maddox MD [facility] [place] [address] PCP - General Family Practice 02/16/21 Enterprise Sales Executive Relationship Specialty Start Date End Date Yogi Maddox MD [address] [place] [address] [place] [address] PCP - General Family Practice 02/16/21 Enterprise Sales Executive Relationship Specialty Start Date End Date Yogi Maddox MD [address] [place] [address] PCP - General Family Practice 02/16/21 Enterprise Sales Executive Relationship Specialty Start Date End Date Yogi Maddox MD [address] [place] [address] PCP - General Family Practice 02/16/21 Enterprise Sales Executive Relationship Specialty Start Date End Date Yogi Maddox MD [address] [place] [address] [place] [address] PCP - General Family Practice 02/16/21 Enterprise Sales Executive Relationship Specialty Start Date End Date Yogi Maddox MD [address] [place] [address] PCP - General Family Medicine 02/16/21 Enterprise Sales Executive Relationship Specialty Start Date End Date Yogi Maddox MD [address] [place] [address] [place] [address] PCP - General Family Medicine 02/16/21 Enterprise Sales Executive Relationship Specialty Start Date End Date Yogi Maddox MD [address] [place] [address] [place] [address] PCP - General Family Medicine 02/16/21 Enterprise Sales Executive Relationship Specialty Start Date End Date Yogi Maddox MD [address] [place] [address] PCP - General Family Medicine 02/16/21 Enterprise Sales Executive Relationship Specialty Start Date End Date Yogi Maddox MD [address] [place] [address] PCP - General Family Medicine 02/16/21 Enterprise Sales Executive Relationship Specialty Start Date End Date Yogi Maddox MD [facility] [place] [address] PCP - General Family Medicine 02/16/21 Enterprise Sales Executive Relationship Specialty Start Date End Date Yogi Maddox MD [address] [place] [address], [place] [address] PCP - General Family Medicine 02/16/21 Enterprise Sales Executive Relationship Specialty Start Date End Date Yogi Maddox MD [facility] [place] [address] PCP - General Family Medicine 02/16/21 Enterprise Sales Executive Relationship Specialty Start Date End Date Yogi Maddox MD [facility] [place] [address] PCP - General Family Medicine 02/16/21 Enterprise Sales Executive Relationship Specialty Start Date End Date Yogi Maddox MD [facility] [place] [address] PCP - General Family Medicine 02/16/21 Enterprise Sales Executive Relationship Specialty Start Date End Date Yogi Maddox MD [facility] [place] [address] PCP - General Family Medicine 02/16/21 Enterprise Sales Executive Relationship Specialty Start Date End Date Yogi Maddox MD [facility] [place] [address] PCP - General Family Medicine 02/16/21 Enterprise Sales Executive Relationship Specialty Start Date End Date Yogi Maddox MD [address] [place] [address] PCP - General Family Medicine 02/16/21 Enterprise Sales Executive Relationship Specialty Start Date End Date Yogi Maddox MD [address] [place] [address] PCP - General Family Medicine 02/16/21 Enterprise Sales Executive Relationship Specialty Start Date End Date Yogi Maddox MD [address] [place] [address] PCP - General Family Medicine 02/16/21 Enterprise Sales Executive Relationship Specialty Start Date End Date Yogi Maddox MD [address] [place] [address] PCP - General Family Medicine 02/16/21 Enterprise Sales Executive Relationship Specialty Start Date End Date Yogi Maddox MD [address] [place] [address] PCP - General Family Medicine 02/16/21 Enterprise Sales Executive Relationship Specialty Start Date End Date Yogi Maddox MD [address] [place] [address] PCP - General Family Medicine 02/16/21 Enterprise Sales Executive Relationship Specialty Start Date End Date Yogi Maddox MD [address] [place] [address] PCP - General Family Medicine 02/16/21 Enterprise Sales Executive Relationship Specialty Start Date End Date Yogi Maddox MD [address] [place] [address] PCP - General Family Medicine 02/16/21 Enterprise Sales Executive Relationship Specialty Start Date End Date Yogi Maddox MD [address] [place] [address] PCP - General [facility] 02/16/21 Enterprise Sales Executive Relationship Specialty Start Date End Date Yogi Maddox MD [address] [place] [address] PCP - [facility] 02/16/21 Enterprise Sales Executive Relationship Specialty Start Date End Date Yogi Maddox MD [address] [place] [address] PCP - [facility] 02/16/21 Enterprise Sales Executive Relationship Specialty Start Date End Date Yogi Maddox MD [address] [place] [address] PCP - [facility] 02/16/21 Enterprise Sales Executive Relationship Specialty Start Date End Date Yogi Maddox MD [address] [place], [place] [address] PCP - [facility] 02/16/21 FOR RECORDS PERTAINING TO PATIENTS WHO ARE OR HAVE BEEN ENROLLED IN A CHEMICAL DEPENDENCY/SUBSTANCEABUSE PROGRAM, SOME INFORMATION MAY BE OMITTED. This clinical summary was aggregated from multiple sources. Caution should be exercised in using it in the provision of clinical care. This summary normalizes information from multiple sources, and as a consequence, information in this document may materially change the coding, format and clinical context of patient data. In addition, data may be omitted in some cases. CLINICAL DECISIONS SHOULD BE BASED ON THE PRIMARY CLINICAL RECORDS. [facility]. provides no warranty or guarantee of the accuracy or completeness of information in this document.
[2023-09-10 17:14] VITALS: BP 151/97; BMI 39.3
--- NOTE | 2023-09-10 17:15 | RAD_ITS ---
STUDY: X-RAY - CERVICAL SPINE REASON FOR EXAM: Female, 38 years old. NECK PAIN TECHNIQUE: XR Spine Cervical 2 or 3 Views COMPARISON: None FINDINGS: Normal anterior atlantoaxial articulation. Normal odontoid process. There is reversal of the normal cervical lordosis. Normal vertebral bodies and endplates. Normal disc space heights. Normal visualized intervertebral neuroforamina. The soft tissue structures are unremarkable. RAD/Cerv Spine 2 or 3 Views IMPRESSION: There is altered curvature of the normal cervical lordosis. This can suggest neck strain. Electronically Signed: Fred Romeo MD at 17:48 EST ,
--- NOTE | 2023-09-10 17:20 | RAD_ITS ---
INDICATION: fall, pain EXAMINATION/TECHNIQUE: X-RAY - XR Spine Lumbar 2 or 3 Views COMPARISON: FINDINGS: VERTEBRAE: Preserved vertebral body height. No fracture. No spondylolisthesis. Preservation of the normal lumbar lordosis. No significant facet arthropathy. DISCS: Disc spaces are maintained. INCLUDED ABDOMEN: Included bowel gas pattern is non-obstructive. RAD/Lumbar Spine 2 or 3 Views IMPRESSION: No evidence of lumbar spinal fracture or spondylolisthesis. Electronically Signed: Fred Romeo MD at 18:06 EST ,
== END 2023-09-10 19:15 | disposition home or self-care (01) ==
PROVIDERS: Emergency Provider Emergency Medicine; PCP Family Medicine; Visit Provider Emergency Medicine
DX: S16.1XXA Strain of muscle, fascia and tendon at neck level, initial encounter (principal); F17.200 Nicotine dependence, unspecified, uncomplicated; S93.402A Sprain of unspecified ligament of left ankle, initial encounter; S30.0XXA Contusion of lower back and pelvis, initial encounter; W00.0XXA Fall on same level due to ice and snow, initial encounter
CPT/HCPCS: 72040; 72100; 73610; 73630; 99284

== ENCOUNTER 2023-10-11 18:25 | Emergency (ER) | payer MEDICAID, SELFPAY ==
[2023-10-11 18:27] VITALS: BP 137/90; PULSE 104; RESP 16; TEMP 36.3; O2SAT 100; BMI 39.9
--- NOTE | 2023-10-11 19:27 | RAD_ITS ---
STUDY: X-RAY - UNILATERAL RIBS ( LEFT ) WITH CHEST REASON FOR EXAM: Female, 38 years old. injury TECHNIQUE - RIBS: 4 view(s) of the ribs. TECHNIQUE - CHEST: PA COMPARISON: None. FINDINGS - RIBS: Normal visualized ribs without a demonstrated fracture. FINDINGS - CHEST: The lungs are clear and expanded. There is no demonstrated pleural abnormality. Normal size heart. Normal mediastinum and geo. Normal visualized pulmonary arteries. Normal visualized aortic arch and descending thoracic aorta. Normal visualized thoracic spine. Normal visualized ribs, clavicles, and shoulders. There is no demonstrated abnormality of the visualized soft tissue structures of the upper abdomen. RAD/Ribs Uni Min 3V w/PA Chest IMPRESSION: RIBS: Normal x-ray examination of the ribs. CHEST: Normal x-ray examination of the chest. Electronically Signed: Yogi Dickey MD at 20:14 EDT Reading Location ID and State: [facility] / ID Tel , Service support ,
--- NOTE | 2023-10-11 19:28 | EX.ED.DYSGE1 ---
HPI History of Present Illness Chief Complaint: Chest Other Informant: patient Narrative Narrative: Pain left ribs 3 days after reaching on the couch and feeling a pop. Symptoms are worse with movement and coughing and laughing. No pain with deep breaths. Using ibuprofen last dose 3 hours ago. No direct traumas. Denies history of similar. History fibromyalgia. Denies any osteopenia or osteoporosis history. [facility] Medical History ADD (attention deficit disorder) Anemia Anxiety Arthritis Depression Dysmenorrhea Fibromyalgia Hypothyroid Right lower quadrant abdominal pain Smoker Thyroid disease Wears contact lenses Wears glasses Home Medications gabapentin 100 mg capsule (Neurontin) 900 mg PO TID 11/24/16 [History Last Taken 04/15/17] estradiol 2 mg tablet 2 mg PO DAILY #100 tabs 03/23/20 [Rx Last Taken Unknown] albuterol sulfate 90 mcg/actuation aerosol inhaler 2 puff inhalation PRN PRN SOB 07/22/21 [History Last Taken Unknown] bupropion HCl 150 mg 24 hr tablet, extended release 150 mg PO DAILY 07/22/21 [History Last Taken Unknown] naproxen 500 mg tablet (Naprosyn) 500 mg PO BID PRN pain #20 tabs 09/10/23 [Rx Last Taken Unknown] cholecalciferol (vitamin D3) 50 mcg (2,000 unit) capsule (Vitamin D3) 2,000 unit PO DAILY 10/11/23 [History Last Taken Unknown] duloxetine 20 mg capsule,delayed release 20 mg PO DAILY 10/11/23 [History Last Taken Unknown] levothyroxine 137 mcg tablet 137 mcg PO DAILY 10/11/23 [History Last Taken Unknown] omeprazole 40 mg capsule,delayed release 40 mg PO DAILY 10/11/23 [History Last Taken Unknown] Allergy/AdvReac Type Severity Reaction Status Date / Time aripiprazole [From Abilify] AdvReac VERY ANGRY Verified 10/11/23 18:29 divalproex sodium AdvReac Upset Verified 10/11/23 18:29 [From Depakote] Stomach Surgical History Hx of hysterectomy S/P arthroscopy of right shoulder S/P carpal tunnel release S/P partial hysterectomy S/P tubal ligation Social History Smoking Status: Light Smoker (<10/day) alcohol intake: current ROS ROS ED Constitutional Constitutional ED: Denies chills, fever(s) or sweats Eyes Eyes: Denies change in vision ENT ENT ED: Denies dysphagia or sore throat Cardiovascular Cardiovascular: Reports other Details: Chest wall, rib pain ; Denies chest pain, leg edema, palpitations or racing heartbeat Respiratory/Chest Respiratory/Chest: Denies cough, dyspnea or dyspnea on exertion Gastrointestinal Gastrointestinal: Denies abdominal pain, diarrhea, nausea or vomiting Genitourinary Genitourinary ED: Denies dysuria, hematuria or urinary frequency Musculoskeletal Musculoskeletal: Denies back pain, extremity pain or neck pain Integumentary Denies rash or wounds Neurologic Neurologic: Denies headache(s), paresthesias or weakness EXAM Physical Exam Const Vital Signs: 10/11/23 18:27 10/11/23 19:02 10/11/23 20:38 Temperature 97.4 F L 98 F Temperature Source Temporal Pulse Rate 104 H 88 Respiratory Rate 16 18 Respiratory Effort Normal Non-Labored Blood Pressure 137/90 H 149/101 H Blood Pressure Mean 105 117 Pulse Ox 100 100 Oxygen Delivery Method Room Air Positive well nourished and well developed General Appearance ED: well developed and NAD HEENT Reports moist mucous membranes normocephalic and atraumatic Eyes PERRL, EOMs intact bilaterally and conjunctivae normal General Eye ED: Yes normal appearance of both eyes Neck no lymphadenopathy and supple General: Negative for tenderness Chest Wall Chest Narrative: Tender palpation left lateral ribs no crepitus no ecchymosis. There is tenderness right in the left lateral sternum along the lower ribs. Chest: tenderness Resp normal respiratory effort and normal air movement Effort and Inspection: symmetric chest movement; Negative for respiratory distress Cardio regular rate, regular rhythm and no murmurs Peripheral Pulses: pulses 2+ throughout GI normal to inspection, nondistended, normoactive bowel sounds and non-tender Palpation: Negative for guarding or rebound tenderness present Back/Spine no CVA tenderness Back/Spine Narrative: parathoracic tenderness on the left correlating with the rib region side bent rotated to the left. Extremity normal to inspection General Extremety ED: Negative for edema or tenderness General Extremity: Negative for edema Neuro oriented x3 and no sensory deficits noted Sensorium / Orientation: awake and alert Skin no rashes or lesions noted and no wounds MDM MDM MDM Narrative Medical decision making narrative: Interventions / MDM: Differential diagnosis: Somatic function thoracic spine, rib displacement Diagnosis considered but do not suspect: N/A My EKG interpretation: N/A Imaging independently reviewed and interpreted by myself: Left ribs with PA chest 5 views: No fracture, no pneumothorax. Also read by radiology. External documents reviewed: N/A Test considered but not ordered:N/A ED course: Patient presenting with left chest wall tenderness, concerns for rib strain possible somatic function also of the rib as it is rotated and side bent along this region. Will check rib series x-ray discussed with patient plan for osteopathic manipulation. She agrees. 2000: Wet read imagings myself negative for any acute process. Discussed osteopathic manipulation with HVLA for which she agrees. Performed bedside in standing position. Air was isolated, HVLA performed with no complications. Patient tolerated well. Improved movement there is slight soreness was expected. Should continue oral fluids for hydration. Should continue Motrin. Outpatient follow-up. All questions were answered. Re-evaluation: stable Disposition discussed with patient/family/significant other: Patient Case discussed with consulting clinician: N/A This note was generated with [employer]ste[employer] dictation software. It may contain incorrect words, spelling, and punctuation that were not noted in checking the note before signing. Radiography Diagnostic Testing: Clinical Impression(s) from Imaging Studies Ribs w/Chest X-Ray 10/11/23 19:27 IMPRESSION: RIBS: Normal x-ray examination of the ribs. CHEST: Normal x-ray examination of the chest. Electronically Signed: Yogi Dickey MD at 20:14 EDT Reading Location ID and State: [facility] / [place] Tel , Service support , Discharge Plan Triage Chief Complaint: Chest Other ED Provider: Lobito Aguayo Dx/Rx/DC Orders Clinical Impression: Somatic dysfunction of thoracic region, Somatic dysfunction of chest wall Instructions: ED Thoracic Spine Strain Prescriptions: No Action gabapentin [Neurontin] 100 MG capsule 900 mg PO TID estradiol 2 MG tablet 2 mg PO DAILY Qty: 100 4RF albuterol sulfate 90 mcg/actuation HFA aerosol inhaler 2 puff INHALATION PRN PRN (Reason: SOB) Patient Comments: Inhale 2 Puffs as instructed every 6 hours as needed. bupropion HCl 150 mg tablet extended release 24 hr 150 mg PO DAILY Patient Comments: TAKE 1 TABLET BY MOUTH EVERY DAY naproxen [Naprosyn] 500 mg tablet 500 mg PO BID PRN (Reason: pain) Qty: 20 0RF levothyroxine 137 mcg tablet 137 mcg PO DAILY duloxetine 20 mg capsule,delayed release(DR/EC) 20 mg PO DAILY omeprazole 40 mg capsule,delayed release(DR/EC) 40 mg PO DAILY cholecalciferol (vitamin D3) [Vitamin D3] 50 mcg (2,000 unit) capsule 2,000 unit PO DAILY Primary Care Provider: Yogi Mills Referrals: Yogi Mills MD [Primary Care Provider] - 1-2 Weeks Activity Restrictions/Additional Instructions: Rib x-ray negative. HVLA performed upper thoracic region. Improving motion. Continue Motrin every 6 hours. Rib displacement from thoracic spine dysfunction. Follow-up with your doctor outpatient evaluation. Disposition Disposition: Home, Self Care Discharge Date/Time: 10/11/23 20:39
[2023-10-11 20:38] VITALS: BP 149/101; PULSE 88; RESP 18; TEMP 36.6; O2SAT 100
== END 2023-10-11 20:39 | disposition home or self-care (01) ==
PROVIDERS: Emergency Provider Emergency Medicine; PCP Family Medicine; Visit Provider Emergency Medicine
DX: M99.02 Segmental and somatic dysfunction of thoracic region (principal); R07.81 Pleurodynia; F17.200 Nicotine dependence, unspecified, uncomplicated; E03.9 Hypothyroidism, unspecified; Z79.890 Hormone replacement therapy; Z79.899 Other long term (current) drug therapy
CPT/HCPCS: 71101; 99282

== ENCOUNTER 2024-09-23 15:14 | Emergency (ER) | payer MEDICAID, SELFPAY ==
[2024-09-23 15:15] VITALS: BP 127/72; PULSE 83; RESP 16; TEMP 36.4; O2SAT 98
[2024-09-23 15:17] VITALS: BMI 34.4
--- NOTE | 2024-09-23 15:35 | EX.ED.GENINJ ---
HPI <ANA Mcgraw - Last Filed: 09/23/24 17:33> History of Present Illness Chief Complaint: Head Injury Narrative Narrative: 39-year-old female was taking out her trash. It was very full so she stepped on the lid to try and pack it down and she fell forward and struck her head on the edge of the trash can sustaining a forehead laceration. She felt dazed but had no loss of consciousness. No blood thinners. PFSH <ANA Mcgraw - Last Filed: 09/23/24 17:33> [facility] Medical History ADD (attention deficit disorder) Anemia Anxiety Arthritis Depression Dysmenorrhea Fibromyalgia Hypothyroid Right lower quadrant abdominal pain Smoker Thyroid disease Wears contact lenses Wears glasses Home Medications ?Medication ?Instructions ?Recorded ?Last Taken ?Type gabapentin 100 mg capsule 900 mg PO TID 11/24/16 04/15/17 History (Neurontin) estradiol 2 mg tablet 2 mg PO DAILY #100 tabs 03/23/20 Unknown Rx albuterol sulfate 90 mcg/actuation 2 puff inhalation PRN PRN SOB 07/22/21 Unknown History aerosol inhaler bupropion HCl 150 mg 24 hr tablet, 150 mg PO DAILY 07/22/21 Unknown History extended release naproxen 500 mg tablet (Naprosyn) 500 mg PO BID PRN pain #20 tabs 09/10/23 Unknown Rx cholecalciferol (vitamin D3) 50 2,000 unit PO DAILY 10/11/23 Unknown History mcg (2,000 unit) capsule (Vitamin D3) duloxetine 20 mg capsule,delayed 20 mg PO DAILY 10/11/23 Unknown History release levothyroxine 137 mcg tablet 137 mcg PO DAILY 10/11/23 Unknown History omeprazole 40 mg capsule,delayed 40 mg PO DAILY 10/11/23 Unknown History release cephalexin 500 mg capsule 500 mg PO Q8H 3 days #9 caps 09/23/24 Unknown Rx Allergy/AdvReac Type Severity Reaction Status Date / Time aripiprazole (From Abilify) AdvReac VERY ANGRY Verified 10/11/23 18:29 divalproex sodium (From AdvReac Upset Verified 10/11/23 18:29 Depakote) Stomach Surgical History Hx of hysterectomy S/P arthroscopy of right shoulder S/P carpal tunnel release S/P partial hysterectomy S/P tubal ligation Social History Smoking Status: Heavy Smoker (>10/day) alcohol intake: current ROS <ANA Mcgraw - Last Filed: 09/23/24 17:33> ROS ED ROS Narrative Eyes: Negative for visual change. GI: Negative for nausea, vomiting. Neuro: Negative for headache, motor/sensory dysfunction. Skin: Positive for laceration. Musc: Positive for right hand injury, trauma. EXAM <ANA Mcgraw - Last Filed: 09/23/24 17:33> Physical Exam Narrative Exam Narrative: CONST: Patient sitting in no acute distress. EYES: Normal inspection. PERRL, EOMI ENT: 3 cm linear horizontal laceration to mid forehead down to the skull, no active bleeding, no raccoon eyes or ortega sign, no hemotympanum, no nasal septal hematoma, no CSF otorrhea or rhinorrhea. NECK: Normal inspection. No midline spinal tenderness, no step off or crepitus. RESP: No respiratory distress, CTAB. CVS: Regular rate and rhythm, no murmur, no gallop. EXTREMITIES: Right fifth digit has a nail injury with the proximal aspect lifted up and out from under the skin with the distal aspect attached. 2 point discrimination intact. Able to flex and extend MCP PIP and DIP joints. No ligamentous laxity. No other injuries to the upper extremities, 2+ radial pulses. NEURO: Alert and answering questions appropriately. PSYCH: Normal affect. Const Vital Signs: 09/23/24 15:15 09/23/24 15:42 09/23/24 16:15 Temperature 97.6 F L Temperature Source Temporal Pulse Rate 83 79 Respiratory Rate 16 19 H Respiratory Effort Normal Respiratory Depth Normal Respiratory Pattern Normal Blood Pressure 127/72 H Blood Pressure Mean 90 Pulse Ox 98 97 Oxygen Delivery Method Room Air Room Air Room Air 09/23/24 17:00 09/23/24 17:12 Temperature 97.6 F L Temperature Source Pulse Rate 82 79 Respiratory Rate 18 19 H Respiratory Effort Respiratory Depth Respiratory Pattern Blood Pressure 127/72 H Blood Pressure Mean 90 Pulse Ox 97 97 Oxygen Delivery Method Room Air <Dr. Raoul Garduno MD - Last Filed: 09/24/24 00:20> Physical Exam Const Vital Signs: 09/23/24 15:15 09/23/24 15:42 09/23/24 16:15 Temperature 97.6 F L Temperature Source Temporal Pulse Rate 83 79 Respiratory Rate 16 19 H Respiratory Effort Normal Respiratory Depth Normal Respiratory Pattern Normal Blood Pressure 127/72 H Blood Pressure Mean 90 Pulse Ox 98 97 Oxygen Delivery Method Room Air Room Air Room Air 09/23/24 17:00 09/23/24 17:12 Temperature 97.6 F L Temperature Source Pulse Rate 82 79 Respiratory Rate 18 19 H Respiratory Effort Respiratory Depth Respiratory Pattern Blood Pressure 127/72 H Blood Pressure Mean 90 Pulse Ox 97 97 Oxygen Delivery Method Room Air PROC <ANA Mcgraw - Last Filed: 09/23/24 17:33> Procedures Lacerations Mid forehead laceration: Length: 1.18 in Depth: down to skull Shape: Linear Prep: Sterile Conditions Laceration repair: Irrigated, Lidocaine and Local Irrigated (ml): 500 Number of Sutures/[place]: 7 Comment: I placed 2 Vicryl stitches to bring the galea together and had 5 simple interrupted stitches of 4-0 Ethilon externally. right 5th digit: Comment: I performed a digital block of the right pinky finger and remove the nail. I placed 2 Vicryl sutures in the nailbed and 2 to bring together the tip of the finger back into alignment and then replaced the nail. [facility] <ANA Mcgraw - Last Filed: 09/23/24 17:33> [facility] Narrative Medical decision making narrative: History gathered from: Patient and family 39-year-old female had a mechanical fall with closed head injury and has a forehead laceration and right fifth finger nail injury. She is awake and alert. Uses cane. Vital signs stable. She has a 3 cm mid forehead laceration without signs of basilar skull fracture and is neurologically intact. According to [place] CT head rules she does not require imaging. Right fifth finger x-ray shows nondisplaced distal tuft avulsion fracture which is consistent with an open fracture. I remove the nail and perform nailbed laceration repair and reattach the nail. I also repaired the facial laceration. See procedure note for further details. For her finger I prescribed Keflex with first dose given here. I recommended alternating Tylenol/Motrin and provided orthopedic follow-up. Head injury return precautions discussed and she was discharged in stable condition. I have personally performed a face to face assessment of the patient and have reviewed the MORGAN Note. I performed a substantive portion of the visit including all aspects of the following. My negron findings include: History is remarkable for patient taking out the garbage. She apparently stepped on something the lid smacked her in the head. She started to laugh. When she noticed that she was bleeding profusely she felt lightheaded began to sweat and was nauseous. She was seen immediately after placed in a bed because nurse was concerned that she was pale diaphoretic. In my professional opinion patient had a vasovagal response. Patient denies loss of conscious. She is not amnestic. She denies headache. Denies neck pain. No trouble speech or swallowing. Denies paresthesia, anesthesia or motor weakness. She is on no antithrombotic or anticoagulant. Exam is horizontal predominately right-sided forehead laceration that is down to the skull. There is no injury to the skull. There is no clinic signs of basilar skull fracture. C-spine cleared per Nexus criteria. She is alert oriented. Neuroexam is unremarkable with a GCS of 15. Medical Decision Making per the [place] CT head rule and [place] rule imaging of the head is not indicated. C-spine was cleared per Nexus criteria. Laceration to be repaired by midlevel. She was told specifically put a stitch in the galea which has been violated. Other additions or changes: [None] Radiography Diagnostic Testing: Clinical Impression(s) from Imaging Studies Finger X-Ray 09/23/24 15:55 IMPRESSION: Nondisplaced avulsion type injury of the tuft of the distal phalanx of the 5th digit. Reading Location: [facility] <Dr. Raoul Garduno MD - Last Filed: 09/24/24 00:20> [facility] Narrative Medical decision making narrative: I have personally performed a face to face assessment of the patient and have reviewed the MORGAN Note. I performed a substantive portion of the visit including all aspects of the following. My negron findings include: History is remarkable for patient taking out the garbage. She apparently stepped on something the lid smacked her in the head. She started to laugh. When she noticed that she was bleeding profusely she felt lightheaded began to sweat and was nauseous. She was seen immediately after placed in a bed because nurse was concerned that she was pale diaphoretic. In my professional opinion patient had a vasovagal response. Patient denies loss of conscious. She is not amnestic. She denies headache. Denies neck pain. No trouble speech or swallowing. Denies paresthesia, anesthesia or motor weakness. She is on no antithrombotic or anticoagulant. Exam is horizontal predominately right-sided forehead laceration that is down to the skull. There is no injury to the skull. There is no clinic signs of basilar skull fracture. C-spine cleared per Nexus criteria. She is alert oriented. Neuroexam is unremarkable with a GCS of 15. Medical Decision Making per the [place] CT head rule and [place] rule imaging of the head is not indicated. C-spine was cleared per Nexus criteria. Laceration to be repaired by midlevel. She was told specifically put a stitch in the galea which has been violated. Other additions or changes: [None] Radiography Diagnostic Testing: Clinical Impression(s) from Imaging Studies Finger X-Ray 09/23/24 15:55 IMPRESSION: Nondisplaced avulsion type injury of the tuft of the distal phalanx of the 5th digit. Reading Location: [facility] Discharge Plan Triage Chief Complaint: Head Injury Other Complaint: Dizziness ED Midlevel Provider: Carol Gagnon ED Provider: Raoul Garduno Dx/Rx/DC Orders Clinical Impression: Closed head injury, Complex laceration of forehead, Fracture of finger, distal phalanx, right, open, Nailbed laceration, finger Instructions: ED Fracture, Finger, Open, ED FACIAL LACERATION Suture Tape Prescriptions: New cephalexin 500 mg capsule 500 mg PO Q8H 3 Days Qty: 9 0RF No Action gabapentin [Neurontin] 100 MG capsule 900 mg PO TID estradiol 2 MG tablet 2 mg PO DAILY Qty: 100 4RF albuterol sulfate 90 mcg/actuation HFA aerosol inhaler 2 puff INHALATION PRN PRN (Reason: SOB) Patient Comments: Inhale 2 Puffs as instructed every 6 hours as needed. bupropion HCl 150 mg tablet extended release 24 hr 150 mg PO DAILY Patient Comments: TAKE 1 TABLET BY MOUTH EVERY DAY naproxen [Naprosyn] 500 mg tablet 500 mg PO BID PRN (Reason: pain) Qty: 20 0RF levothyroxine 137 mcg tablet 137 mcg PO DAILY duloxetine 20 mg capsule,delayed release(DR/EC) 20 mg PO DAILY omeprazole 40 mg capsule,delayed release(DR/EC) 40 mg PO DAILY cholecalciferol (vitamin D3) [Vitamin D3] 50 mcg (2,000 unit) capsule 2,000 unit PO DAILY Primary Care Provider: Yogi Mills Referrals: Yogi Mills MD [Primary Care Provider] - Torrey Meadows DO [Med Staff - Active Staff] - Activity Restrictions/Additional Instructions: Have your forehead stitches removed in 5 days. Take Tylenol or ibuprofen as needed for headache. If you develop a severe headache, vomiting, or confusion come back immediately for reevaluation. Your right pinky finger was repaired with dissolvable stitches. Change the bandage once daily to keep it protected and keep the nail on. Call the orthopedic doctor for follow-up appointmen.t Print Language: [place] Disposition Disposition: Home, Self Care Discharge Date/Time: 09/23/24 17:14
[2024-09-23] MEDS: Lidocaine 1% (20 ml mdv) 20 ML Vial INFILT (15:36)
--- NOTE | 2024-09-23 15:55 | RAD_ITS ---
PROCEDURE: FINGER(S) MIN 2 VIEWS REASON FOR EXAM: 5th digit pain following injury. TECHNIQUE: 3 view(s) of the right hand COMPARISON: None FINDINGS: Nondisplaced fracture of the tuft of the distal phalanx of the 5th digit. Normal alignment. Soft tissues are unremarkable. RAD/Finger(s) Min 2 Views IMPRESSION: Nondisplaced avulsion type injury of the tuft of the distal phalanx of the 5th digit. Reading Location: [id number]
[2024-09-23 16:15] VITALS: PULSE 79; RESP 19; O2SAT 97
[2024-09-23 17:00] VITALS: PULSE 82; RESP 18; O2SAT 97
[2024-09-23] MEDS: Ibuprofen 600 MG Tablet PO (17:04)
[2024-09-23] MEDS: Cephalexin 250 MG Capsule 500 MG PO (17:04)
[2024-09-23 17:12] VITALS: BP 127/72; PULSE 79; RESP 19; TEMP 36.4; O2SAT 97
== END 2024-09-23 17:14 | disposition home or self-care (01) ==
PROVIDERS: Emergency Provider Emergency Medicine; PCP Family Medicine; Visit Provider Emergency Medicine
DX: S01.81XA Laceration without foreign body of other part of head, initial encounter (principal); F17.200 Nicotine dependence, unspecified, uncomplicated; S62.666B Nondisplaced fracture of distal phalanx of right little finger, initial encounter for open fracture; W17.89XA Other fall from one level to another, initial encounter; W22.8XXA Striking against or struck by other objects, initial encounter
CPT/HCPCS: 13132; 11750; 11760; 73140; 99284

== ENCOUNTER 2024-09-25 01:11 | Emergency (ER) | payer MEDICAID, SELFPAY ==
[2024-09-25 01:12] VITALS: BP 156/100; PULSE 84; RESP 25; TEMP 36.4; O2SAT 99; BMI 34.4
--- NOTE | 2024-09-25 01:26 | CT_ITS ---
EXAM: BRAIN/HEAD WITHOUT CONTRAST CLINICAL HISTORY: Head injury COMPARISON: None available TECHNIQUE: Noncontrast head CT with coronal and sagittal reformatted images FINDINGS: No intracranial hemorrhage, mass effect or calvarial fracture. Ventricles are within limits and midline. Amor-white differentiation appears preserved. The visualized paranasal sinuses, mastoids and orbits appear within limits. CT/Brain/Head without Contrast IMPRESSION: No intracranial hemorrhage, mass effect or calvarial fracture. Reading Location: [id number]
[2024-09-25] MEDS: 0.9% Normal Saline (1000mL) 1,000 ML 999 ML IV (01:38)
[2024-09-25] MEDS: Morphine 4 MG/ML Syringe IV ×2 (01:38→03:33)
[2024-09-25] MEDS: Ondansetron 4 MG/2 ML Vial IV ×2 (01:38→02:37)
[2024-09-25 01:43] VITALS: BP 124/89; PULSE 79; RESP 16; O2SAT 97
[2024-09-25 01:51] LABS: Absolute Lymphocyte Count 1.15 X10^3/uL (0.83-4.51); Absolute Neutrophil Count 10.6 X10^3/uL (2.0-7.7); Basophil# 0.02 X10^3/uL; Basophil% 0.2 % (0-1); Eosinophil# 0.09 X10^3/uL; Eosinophils% 0.7 % (0-5); Hematocrit 40.4 % (37-47); Hemoglobin 13.6 g/dL (12.0-15.0); Lymphocyte # 1.15 X10^3/ul (0.83-4.51); Lymphocyte % 9.2 % (19-41); Mean Corp Hgb Conc 33.7 g/dL (32-36); Mean Corpuscular Hgb 30.3 pg (27.0-32.0); Mean Platelet Vol. 9.6 fl (6.2-12.0); Monocyte% 4.8 % (0-10); NRBC Flagged by Analyzer 0 % (0-5); Neutrophil # 10.62 X10^3/uL (2.7-7.7); Neutrophil % 84.6 % (47-70); Platelet Count 405 K/mm3 (150-450); RBC Distribution Width SD 46.1 fl (35.1-43.9); Red Blood Count 4.49 M/mm3 (4.2-5.4); White Blood Count 12.5 K/mm3 (4.4-11.0)
--- NOTE | 2024-09-25 02:06 | EX.ED.DYSGE1 ---
HPI History of Present Illness Chief Complaint: Nausea/Vomiting Informant: patient and spouse/S.O. Narrative Narrative: Patient is a 39-year-old female with past medical history of anxiety and depression as well as hypothyroidism and fibromyalgia. She was seen in the ER yesterday after striking her head and this required sutures to her forehead. She states that there has been no repeat trauma but that roughly 2 hours ago she began with generalized abdominal discomfort and bouts of nausea and vomiting. She states that there is been no known sick contacts but based on her recent head trauma and now sudden bouts of vomiting family advised her to come back in for evaluation. Patient denies any history of bleeding disorder or blood thinner use. [facility] Medical History Wears contact lenses Wears glasses Depression Anxiety Thyroid disease Arthritis Anemia Smoker Fibromyalgia ADD (attention deficit disorder) Hypothyroid Right lower quadrant abdominal pain Dysmenorrhea Home Medications ?Medication ?Instructions ?Recorded ?Last Taken ?Type estradiol 2 mg tablet 2 mg PO DAILY #100 tabs 03/23/20 Unknown Rx albuterol sulfate 90 mcg/actuation 2 puff inhalation PRN PRN SOB 07/22/21 Unknown History aerosol inhaler bupropion HCl 150 mg 24 hr tablet, 150 mg PO DAILY 07/22/21 Unknown History extended release naproxen 500 mg tablet (Naprosyn) 500 mg PO BID PRN pain #20 tabs 09/10/23 Unknown Rx cholecalciferol (vitamin D3) 50 2,000 unit PO DAILY 10/11/23 Unknown History mcg (2,000 unit) capsule (Vitamin D3) omeprazole 40 mg capsule,delayed 40 mg PO DAILY 10/11/23 Unknown History release cephalexin 500 mg capsule 500 mg PO Q8H 3 days #9 caps 09/23/24 Unknown Rx duloxetine 40 mg capsule,delayed 40 mg PO DAILY 09/25/24 Unknown History release gabapentin 600 mg tablet 600 mg PO Q8H 09/25/24 Unknown History levothyroxine 112 mcg tablet 112 mcg PO DAILY 09/25/24 Unknown History ondansetron 4 mg disintegrating 4 mg PO TID PRN nausea and 09/25/24 Unknown Rx tablet vomiting #21 tabs oxycodone-acetaminophen 5 mg-325 1 tab PO Q6H PRN pain 3 days #12 09/25/24 Unknown Rx mg tablet (Percocet) tabs Allergy/AdvReac Type Severity Reaction Status Date / Time aripiprazole (From Abilify) AdvReac VERY ANGRY Verified 09/25/24 01:11 divalproex sodium (From AdvReac Upset Verified 09/25/24 01:11 Depakote) Stomach Surgical History Hx of hysterectomy S/P arthroscopy of right shoulder S/P carpal tunnel release S/P partial hysterectomy S/P tubal ligation Social History Smoking Status: Heavy Smoker (>10/day) alcohol intake: current ROS ROS ED Constitutional Constitutional ED: Denies chills or fever(s) Eyes Eyes: Denies blurry vision or change in vision ENT ENT ED: Denies sore throat Cardiovascular Cardiovascular: Denies chest pain Respiratory/Chest Respiratory/Chest: Denies cough or dyspnea Gastrointestinal Gastrointestinal: Reports abdominal pain, nausea and vomiting; Denies diarrhea Genitourinary Genitourinary ED: Denies dysuria Musculoskeletal Musculoskeletal: Denies myalgias or neck pain Integumentary Denies rash Neurologic Neurologic: Denies headache(s) Psychiatric Psychiatric: Reports anxiety and depression Hematologic/Lymphatic Hematologic/Lymphatic: Denies easy bleeding or easy bruising EXAM Physical Exam Const Vital Signs: 09/25/24 01:12 09/25/24 01:43 09/25/24 03:11 Temperature 97.6 F L Temperature Source Oral Pulse Rate 84 79 80 Respiratory Rate 25 H 16 18 Blood Pressure 156/100 H 124/89 H 131/97 H Blood Pressure Mean 118 100 108 Pulse Ox 99 97 98 Oxygen Delivery Method Room Air Room Air Room Air 09/25/24 03:36 Temperature 97.9 F Temperature Source Pulse Rate 79 Respiratory Rate 18 Blood Pressure 130/89 H Blood Pressure Mean 102 Pulse Ox 99 Oxygen Delivery Method Positive well nourished and well developed General Appearance ED: well developed; Negative for pallor HEENT HEENT Narrative: Patient has sutures in place of the mid forehead with faint hematoma consistent with history of recent trauma within the last 24-hour No signs of depressed or basilar skull fracture Mucous membranes are mildly dry and tacky without secondary findings to suggest infection Eyes PERRL and EOMs intact bilaterally General Eye ED: Negative for scleral icterus Neck supple Neck Narrative: No nuchal rigidity or meningeal signs Resp normal respiratory effort and clear to auscultation bilaterally Cardio regular rate and regular rhythm Rate: other Other Details: Radial and carotid pulses are equal and symmetric GI non-distended and no masses GI Narrative: Abdomen is soft and nondistended with hyperactive bowel sounds. There is mild diffuse pain on palpation without voluntary guarding or rigidity. No pulsatile mass or fluid wave Auscultation: hyperactive bowel sounds Palpation: soft Extremity normal to inspection Neuro oriented x3, CN's II-XII intact bilaterally and no sensory deficits noted Sensorium / Orientation: alert Motor Exam: strength 5/5 throughout Psych mental status grossly normal Skin no rashes or lesions noted Skin Narrative: Previous forehead laceration with small hematoma as documented above General Skin Exam: Negative for jaundice or pallor MDM MDM MDM Narrative Medical decision making narrative: Patient arrived to the ER hypertensive but otherwise with stable vitals. With her report of nausea and vomiting occurring over the last few hours and recent head trauma there is potential for missed bleed causing increased intracranial pressure and her symptoms so therefore head CT was obtained. Physical exam and history is also concerning for viral infection such as norovirus versus rotavirus versus COVID versus influenza versus RSV. Patient also could have acute pancreatitis or biliary colic or acute cholecystitis or acute kidney injury or clinically significant electrolyte abnormality. Patient's white count is slightly bumped at 12.5 but I feel this is stress response based on her physical exam. Without distention or increased tympany I have low concern for an obstructive process and therefore do not feel the need for a CT scan of the abdomen and pelvis. After receiving Zofran the patient tolerated an oral challenge without further bouts of vomiting. Therefore at this time as workup reveals no signs of acute intracranial hemorrhage or signs of DAVIAN or acute pancreatitis I do not feel there is need for further evaluation and she is otherwise safe for discharge. History & Record Review Discussion w/independent historian: Patient and Significant other Lab Data Attestation: I reviewed the patient's lab results. Labs: Laboratory Results - last 24 hr 09/25/24 01:43 WBC 12.5 H RBC 4.49 Hgb 13.6 Hct 40.4 MCV 90.0 MCH 30.3 MCHC 33.7 RDW Std Deviation 46.1 H RDW Coeff of Hansel 14.0 Plt Count 405 MPV 9.6 Immature Gran % (Auto) 0.500 Neut % (Auto) 84.6 H Lymph % (Auto) 9.2 L Woods % (Auto) 4.8 Eos % (Auto) 0.7 Baso % (Auto) 0.2 Absolute Neuts (auto) 10.6 H Absolute Lymphs (auto) 1.15 Nucleated RBC % 0 Sodium 141 Potassium 4.0 Chloride 106 Carbon Dioxide 19.2 L Anion Gap 16 H BUN 14 Creatinine 0.78 Estim Creat Clear Calc 115.26 Est GFR (MDRD) Non-Af 98 BUN/Creatinine Ratio 18.4 Glucose 128 H Calcium 9.7 Total Bilirubin 0.17 Direct Bilirubin 0.09 AST 25 ALT 18 Alkaline Phosphatase 73 Total Protein 7.8 Albumin 4.4 Globulin 3.5 Lipase 32 Radiography Diagnostic Testing: Clinical Impression(s) from Imaging Studies Brain CT 09/25/24 01:26 IMPRESSION: No intracranial hemorrhage, mass effect or calvarial fracture. Reading Location: [facility] Discharge Plan Triage Chief Complaint: Nausea/Vomiting ED Provider: Samir Barrientos Dx/Rx/DC Orders Clinical Impression: Nausea & vomiting, Hypothyroidism, Anxiety and depression, Fibromyalgia Instructions: ED Gastroenteritis, Viral (Adult) Prescriptions: New ondansetron 4 mg tablet,disintegrating 4 mg PO TID PRN (Reason: nausea and vomiting) Qty: 21 0RF oxycodone-acetaminophen [Percocet] 5-325 mg tablet 1 tab PO Q6H PRN (Reason: pain) 3 Days Qty: 12 0RF No Action estradiol 2 MG tablet 2 mg PO DAILY Qty: 100 4RF albuterol sulfate 90 mcg/actuation HFA aerosol inhaler 2 puff INHALATION PRN PRN (Reason: SOB) Patient Comments: Inhale 2 Puffs as instructed every 6 hours as needed. bupropion HCl 150 mg tablet extended release 24 hr 150 mg PO DAILY Patient Comments: TAKE 1 TABLET BY MOUTH EVERY DAY naproxen [Naprosyn] 500 mg tablet 500 mg PO BID PRN (Reason: pain) Qty: 20 0RF omeprazole 40 mg capsule,delayed release(DR/EC) 40 mg PO DAILY cholecalciferol (vitamin D3) [Vitamin D3] 50 mcg (2,000 unit) capsule 2,000 unit PO DAILY cephalexin 500 mg capsule 500 mg PO Q8H 3 Days Qty: 9 0RF gabapentin 600 mg tablet 600 mg PO Q8H Patient Comments: [NO ORIGINAL SIG] levothyroxine 112 mcg tablet 112 mcg PO DAILY duloxetine 40 mg capsule,delayed release(DR/EC) 40 mg PO DAILY Stand Alone Forms: ED Work / School Excuse Primary Care Provider: Yogi Mills Referrals: Yogi Mills MD [Primary Care Provider] - Print Language: Romanian Disposition Disposition: Home, Self Care Discharge Date/Time: 09/25/24 03:52
[2024-09-25 02:15] LABS: AST(SGOT) 25 U/L (<=31); Alanine Aminotransfer ALT/SGPT 18 U/L (<=34); Albumin, Serum 4.4 g/dL (3.5-5.0); Alkaline Phosphatase 73 U/L (35-104); Anion Gap 16 (5-15); BUN 14 mg/dL (4-19); BUN/Creat Ratio 18.4 RATIO (10-20); Bilirubin, Direct 0.09 mg/dL (0.00-0.30); Calcium,Total 9.7 mg/dL (7.6-11.0); Carbon Dioxide 19.2 mmol/L (21.0-32.0); Chloride 106 mmol/L (98-108); Creatinine, Serum 0.78 mg/dL (0.70-1.20); EST Glomerular Filtration Rate 98 (>60); Estimated Creatinine Clearance 115.26 ml/min (50-250); Globulin 3.5 g/dL (2.2-4.2); Glucose 128 mg/dL (70-99); Lipase 32 U/L (13-75); Protein, Total 7.8 g/dL (5.9-8.4); Sodium Level 141 mmol/L (133-145); Total Bilirubin 0.17 mg/dL (0.00-1.30)
[2024-09-25 03:11] VITALS: BP 131/97; PULSE 80; RESP 18; O2SAT 98
[2024-09-25] MEDS: proCHLORPERazine 10 MG/2 ML Vial IV (03:33)
[2024-09-25 03:36] VITALS: BP 130/89; PULSE 79; RESP 18; TEMP 36.6; O2SAT 99
== END 2024-09-25 03:52 | disposition home or self-care (01) ==
PROVIDERS: Emergency Provider Emergency Medicine; PCP Family Medicine; Visit Provider Emergency Medicine
DX: R11.2 Nausea with vomiting, unspecified (principal); F32.A Depression, unspecified; M79.7 Fibromyalgia; E03.9 Hypothyroidism, unspecified; F41.9 Anxiety disorder, unspecified; Z79.890 Hormone replacement therapy
CPT/HCPCS: 70450; 80048; 80076; 83690; 85025; 87631; 96361; 96374; 96375; 96376; 99284; A4216; J2405